=== PATIENT | female | born 1965 | race American Indian/Alaskan Native ===

== ENCOUNTER 2020-08-16 16:34 | Emergency (ER) | payer MEDICARE ==
[2020-08-16] MEDS ORDERED: hydrALAZINE 100 MG TAB PO ONE (17:25)
[2020-08-16] MEDS ORDERED: HYDROcodone/ACETAMINOPHEN 5-325 MG TAB PO ONE (17:25)
[2020-08-16 17:45] LABS: Basophils # (Auto) 0.1 K/mm3 (0.0-0.1); Basophils % (Auto) 0.9 % (0.0-1.8); Eosinophils # (Auto) 0.1 K/mm3 (0.0-0.4); Eosinophils % (Auto) 1.6 % (0.0-4.3); Hematocrit 37.4 % (30.3-42.9); Hemoglobin 12.8 gm/dl (10.1-14.3); Lymphocytes # (Auto) 2.9 K/mm3 (1.2-5.4); Lymphocytes % (Auto) 32.3 % (13.4-35.0); Mean Corpuscular HGB Conc 34 % (30-34); Mean Corpuscular Volume 89 fl (79-97); Monocytes # (Auto) 0.4 K/mm3 (0.0-0.8); Monocytes % (Auto) 4.5 % (0.0-7.3); Platelet Count 255 K/mm3 (140-440); Red Blood Count 4.23 M/mm3 (3.65-5.03); Red Cell Distribution Width 14.8 % (13.2-15.2)
[2020-08-16 18:03] LABS: Bacteria,Urine 1+ /HPF (Negative); Bilirubin,Urine NEG (Negative); Blood,Urine NEG (Negative); Color,Urine Yellow (Yellow); Mucus,Urine 1+ /HPF; Protein,Urine <15 mg/dL mg/dL (Negative)
[2020-08-16 18:07] LABS: Alanine Aminotransferase 13 units/L (7-56); Albumin 3.7 g/dL (3.9-5); BUN/Creatinine Ratio 17; Blood Urea Nitrogen 10 mg/dL (7-17); Calcium 8.8 mg/dL (8.4-10.2); Hemolysis Index 35
--- NOTE | 2020-08-16 18:08 | XRay Report ---
CHEST PA AND LATERAL VIEWS INDICATION: SOB, HTN urgency. COMPARISON: None. FINDINGS: Support devices: None. Heart: Within normal limits. Lungs/Pleura: No acute pulmonary or pleural findings. IMPRESSION: 1. No acute findings. Signer Name: Carlos Alberto Ramos MD Signed: 08/16/2020 6:04 PM Workstation Name: [id number]
--- NOTE | 2020-08-16 18:24 | Cat Scan Report ---
CT head/brain wo con INDICATION / CLINICAL INFORMATION: 55 years Female; frontal mo, blurry vision, HTN urgency, hx of CVA. TECHNIQUE: Routine CT head without contrast. All CT scans at this location are performed using CT dos e reduction for ALARA by means of automated exposure control. COMPARISON: None. FINDINGS: BRAIN / INTRACRANIAL CONTENTS: There is extensive encephalomalacia involving right frontal lobe as we ll as the right insular region and basal ganglia most consistent with old infarct. Is also include th e medial component involving both the anterior and middle cerebral artery territories. There is assoc iated ex vacuo dilatation of the right lateral ventricle. There is otherwise moderate cerebral white matter disease which includes the left gangliocapsular reg ion at. There is no clear CT evidence of acute intracranial hemorrhage. ORBITS: There is metallic foreign body projected along the left premaxillary soft tissues. The visual ized orbits appear unremarkable. SINUSES / MASTOIDS: No significant abnormality in the visualized paranasal sinuses or mastoid air yaneli ls. CRANIOCERVICAL JUNCTION: No significant abnormality. ADDITIONAL FINDINGS: None. IMPRESSION: 1. There are old infarcts involving the right MCA and LIBIA distributions with encephalomalacia as deta iled above. 2. There is no clear CT evidence of acute intracranial hemorrhage. Signer Name: Blake Bunn MD Signed: 08/16/2020 6:19 PM Workstation Name: [id number]
[2020-08-16] MEDS ORDERED: ONDANSETRON 4 MG ODT TAB ONE (19:15)
[2020-08-16] MEDS ORDERED: ONDANSETRON 4 MG ODT TAB PO ONE (19:16)
--- NOTE | 2020-08-16 19:16 | Emergency Department Report ---
ED General Adult HPI - General Chief complaint: High BP Stated complaint: HBP Time Seen by Provider: 08/16/20 16:55 Source: patient, EMS Mode of arrival: Wheelchair Limitations: No Limitations - History of Present Illness Initial comments: Patient is a 55-year-old female presents emergency room complaints of hypertension that occurred today while she was at a primary care visit. She states that she went just for a regular physical and was advised that her blood pressure was elevated and she need to be seen in the emergency room. She states that she has not taken her blood pressure medication in 3 days. She is supposed to be taking lisinopril 20 mg and hydrochlorothiazide 25 mg. She states that since not taking her blood pressure medication she has had a frontal headache and some mild blurry vision but denies any vision loss. She states that she is also been having some mild shortness of breath with exertion. She denies any chest pain, pleuritic chest pain, leg swelling, acute numbness, acute weakness, fever, cough, vomiting, diarrhea. She has a past medical history of hypertension, hyperlipidemia, CVA in 2018 with chronic left-sided deficits. She walks with a cane. She is unable to use the left arm secondary to her previous stroke. She denies any worsening numbness or weakness. No allergies to medications. Severity scale (0 -10): 9 - Related Data Previous Rx's Medication Instructions Recorded Last Taken Type Ibuprofen [Motrin] 600 mg PO Q8H PRN #20 tablet 06/01/18 Unknown Rx traMADoL [Ultram] 50 mg PO Q6HR PRN #10 tablet 06/01/18 Unknown Rx Cyclobenzaprine [Flexeril] 10 mg PO BID PRN #14 tablet 08/16/20 Unknown Rx Naproxen [EC-Naprosyn] 500 mg PO BID PRN #20 tablet. 08/16/20 Unknown Rx cephALEXin [Keflex] 500 mg PO BID 7 Days #14 capsule 08/16/20 Unknown Rx hydroCHLOROthiazide [HCTZ] 25 mg PO QDAY #30 tablet 08/16/20 Unknown Rx lisinopriL [Lisinopril] 20 mg PO DAILY #30 tablet 08/16/20 Unknown Rx Allergies Allergy/AdvReac Type Severity Reaction Status Date / Time No Known Allergies Allergy Unverified 06/01/18 15:21 ED Review of Systems ROS: Stated complaint: HBP Other details as noted in HPI Comment: All other systems reviewed and negative ED Past Medical Hx - Past Medical History Previous Medical History?: Yes Hx Hypertension: Yes Hx CVA: Yes (left sided weakness) - Social History Smoking Status: Current Every Day Smoker Substance Use Type: Alcohol, Prescribed - Medications Home Medications: Home Medications Medication Instructions Recorded Confirmed Last Taken Type Ibuprofen [Motrin] 600 mg PO Q8H PRN #20 tablet 06/01/18 Unknown Rx traMADoL [Ultram] 50 mg PO Q6HR PRN #10 tablet 06/01/18 Unknown Rx Cyclobenzaprine [Flexeril] 10 mg PO BID PRN #14 tablet 08/16/20 Unknown Rx Naproxen [EC-Naprosyn] 500 mg PO BID PRN #20 tablet.dr 08/16/20 Unknown Rx cephALEXin [Keflex] 500 mg PO BID 7 Days #14 capsule 08/16/20 Unknown Rx hydroCHLOROthiazide [HCTZ] 25 mg PO QDAY #30 tablet 08/16/20 Unknown Rx lisinopriL [Lisinopril] 20 mg PO DAILY #30 tablet 08/16/20 Unknown Rx ED Physical Exam - General Limitations: No Limitations General appearance: alert, in no apparent distress - Head Head exam: Present: atraumatic, normocephalic - Eye Eye exam: Present: PERRL, EOMI, other (cataracts bilaterally). Absent: periorbital swelling, periorbital tenderness Pupils: Present: normal accommodation - ENT ENT exam: Present: mucous membranes moist - Respiratory Respiratory exam: Present: normal lung sounds bilaterally. Absent: respiratory distress, wheezes, rales, rhonchi, stridor, chest wall tenderness, accessory muscle use, decreased breath sounds, prolonged expiratory - Cardiovascular Cardiovascular Exam: Present: regular rate, normal rhythm, normal heart sounds. Absent: systolic murmur, diastolic murmur, rubs, gallop - Neurological Exam Neurological exam: Present: alert, oriented X3, CN II-XII intact, other (chronic left arm weakness, normal strength and sensation in the RUE/RLE/LLE) - Psychiatric Psychiatric exam: Present: normal affect, normal mood - Skin Skin exam: Present: warm, dry, intact ED Course Vital Signs 08/16/20 08/16/20 08/16/20 16:53 17:33 18:33 Temperature 98 F Pulse Rate 81 Respiratory 16 18 18 Rate Blood Pressure 187/110 [Right] O2 Sat by Pulse 100 Oximetry 08/16/20 08/16/20 20:14 20:15 Temperature Pulse Rate 89 89 Respiratory Rate Blood Pressure 143/84 143/84 [Right] O2 Sat by Pulse Oximetry ED Medical Decision Making - Lab Data Result diagrams: 08/16/20 17:33 08/16/20 17:23 Lab Results 08/16/20 08/16/20 08/16/20 Range/Units 17:23 17:33 Unknown WBC 9.1 (4.5-11.0) K/mm3 RBC 4.23 (3.65-5.03) M/mm3 Hgb 12.8 (10.1-14.3) gm/dl Hct 37.4 (30.3-42.9) % MCV 89 (79-97) fl MCH 30 (28-32) pg MCHC 34 (30-34) % RDW 14.8 (13.2-15.2) % Plt Count 255 (140-440) K/mm3 Lymph % (Auto) 32.3 (13.4-35.0) % [place] % (Auto) 4.5 (0.0-7.3) % Eos % (Auto) 1.6 (0.0-4.3) % Baso % (Auto) 0.9 (0.0-1.8) % Lymph # (Auto) 2.9 (1.2-5.4) K/mm3 [place] # (Auto) 0.4 (0.0-0.8) K/mm3 Eos # (Auto) 0.1 (0.0-0.4) K/mm3 Baso # (Auto) 0.1 (0.0-0.1) K/mm3 Seg Neutrophils % 60.7 (40.0-70.0) % Seg Neutrophils # 5.5 (1.8-7.7) K/mm3 Sodium 138 (137-145) mmol/L Potassium 3.9 (3.6-5.0) mmol/L Chloride 103.0 (98-107) mmol/L Carbon Dioxide 25 (22-30) mmol/L Anion Gap 14 mmol/L BUN 10 (7-17) mg/dL Creatinine 0.6 (0.6-1.2) mg/dL Estimated GFR > 60 ml/min BUN/Creatinine Ratio 17 % Glucose 95 (65-100) mg/dL Calcium 8.8 (8.4-10.2) mg/dL Total Bilirubin 0.30 (0.1-1.2) mg/dL AST 15 (5-40) units/L ALT 13 (7-56) units/L Alkaline Phosphatase 114 (35-129) units/L Troponin T < 0.010 (0.00-0.029) ng/mL NT-Pro-B Natriuret Pep 160.2 (0-900) pg/mL Total Protein 7.2 (6.3-8.2) g/dL Albumin 3.7 L (3.9-5) g/dL Albumin/Globulin Ratio 1.1 % Urine Color Yellow (Yellow) Urine Turbidity Slightly-cloudy (Clear) Urine pH 6.0 (5.0-7.0) Ur Specific [place] 1.025 (1.003-1.030) Urine Protein <15 mg/dl (Negative) mg/dL Urine Glucose (UA) Neg (Negative) mg/dL Urine Ketones Neg (Negative) mg/dL Urine Blood Neg (Negative) Urine Nitrite Neg (Negative) Urine Bilirubin Neg (Negative) Urine Urobilinogen 4.0 (<2.0) mg/dL Ur Leukocyte Esterase Sm (Negative) Urine WBC (Auto) 30.0 H (0.0-6.0) /HPF Urine RBC (Auto) 15.0 (0.0-6.0) /HPF U Epithel Cells (Auto) 10.0 (0-13.0) /HPF Urine Bacteria (Auto) 1+ (Negative) /HPF Urine Mucus 1+ /HPF - EKG Data EKG shows normal: sinus rhythm, intervals, QRS complexes Rate: normal - EKG Data 08/16/20 21:17 LAD No STEMI - Radiology Data Radiology results: report reviewed Ordering Physician: AUBREE JOVEL Date of Service: 08/16/20 Procedure(s): CT head/brain wo con Accession Number(s): [id number] cc: AUBREE JOVEL CT head/brain wo con INDICATION / CLINICAL INFORMATION: 55 years Female; frontal mo, blurry vision, HTN urgency, hx of CVA. TECHNIQUE: Routine CT head without contrast. All CT scans at this location are performed using CT dose reduction for ALARA by means of automated exposure control. COMPARISON: None. FINDINGS: BRAIN / INTRACRANIAL CONTENTS: There is extensive encephalomalacia involving ri ght frontal lobe as well as the right insular region and basal ganglia most consistent with old inf arct. Is also include the medial component involving both the anterior and middle cerebral artery te rritories. There is associated ex vacuo dilatation of the right lateral ventricle. There is otherwise moderate cerebral white matter disease which includes the left gangliocapsular region at. There is no clear CT evidence of acute intracranial hemorrhage. ORBITS: There is metallic foreign body projected along the left premaxillary soft tissues. The visualized orbits appear unremarkable. SINUSES / MASTOIDS: No significant abnormality in the visualized paranasal sinuses or mastoid air cells. CRANIOCERVICAL JUNCTION: No significant abnormality. ADDITIONAL FINDINGS: None. IMPRESSION: 1. There are old infarcts involving the right MCA and LIBIA distributions with e ncephalomalacia as detailed above. 2. There is no clear CT evidence of acute intracranial hemorrhage. Signer Name: Blake Bunn MD Signed: 08/16/2020 6:19 PM Workstation Name: [id number] Transcribed By: MR Dictated By: Blake Bunn MD Electronically Authenticated By: Blake Bunn MD Signed Date/Time: 08/16/201818 DD/ 14 TD/TT: Ordering Physician: AUBREE JOVEL Date of Service: 08/16/20 Procedure(s): XR chest routine 2V Accession Number(s): [id number] cc: AUBREE JOVEL Fluoro Time In Minutes: CHEST PA AND LATERAL VIEWS INDICATION: SOB, HTN urgency. COMPARISON: None. FINDINGS: Support devices: None. Heart: Within normal limits. Lungs/Pleura: No acute pulmonary or pleural findings. IMPRESSION: 1. No acute findings. Signer Name: Carlos Alberto Ramos MD Signed: 08/16/2020 6:04 PM Workstation Name: [id number] Transcribed By: SW Dictated By: Carlos Alberto Ramos MD Electronically Authenticated By: Carlos Alberto Ramos MD Signed Date/Time: 08/16/201803 DD/ 02 TD/TT: Print - Medical Decision Making Patient is a 55-year-old female presents emergency room complaints of hypertension that occurred today while she was at a primary care visit. She states that she went just for a regular physical and was advised that her blood pressure was elevated and she need to be seen in the emergency room. She states that she has not taken her blood pressure medication in 3 days. She is supposed to be taking lisinopril 20 mg and hydrochlorothiazide 25 mg. She states that since not taking her blood pressure medication she has had a frontal headache and some mild blurry vision but denies any vision loss. She states that she is also been having some mild shortness of breath with exertion. She denies any chest pain, pleuritic chest pain, leg swelling, acute numbness, acute weakness, fever, cough, vomiting, diarrhea. She has a past medical history of hypertension, hyperlipidemia, CVA in 2018 with chronic left-sided deficits. She walks with a cane. She is unable to use the left arm secondary to her previous stroke. She denies any worsening numbness or weakness. No allergies to medications. Initial vitals with elevated blood pressure which improved upon hydralazine administration. No acute focal neuro deficits on exam, patient has chronic left sided deficits secondary to a CVA. Labs are normal. Troponin is negative. BNP is normal. Chest x-ray 1. No acute findings. CT head: 1. There are old infarcts involving the right MCA and LIBIA distributions with encephalomalacia as detailed above. 2. There is no clear CT evidence of acute intracranial hemorrhage. EKG without evidence of acute STEMI. UA shows evidence of UTI. Patient given [place]. Her headache completely resolved. She began to feel nauseous after the [place] as she took it on an empty stomach. Patient was not able to tolerate ODT Zofran, given IM Zofran. Vomiting completely resolved and she was able to tolerate p.o. intake without difficulty. She was feeling much better and ready to go home. Discussed all results with patient. Symptoms appear most consistent with hypertensive urgency. Discussed the importance of follow-up with patient. Patient given a refill of her home medications lisinopril and hctz. given prescription for keflex, naproxen, and flexeril. discussed very strict return precautions in detail with patient. Advised patient Please take medication as prescribed. Increase your water intake. Follow-up with your primary care doctor. Eat a low-sodium diet. Return to emergency room for any new or worsening symptoms. Please keep a blood pressure log and take this to the primary care doctor. Critical care attestation.: If time is entered above; I have spent that time in minutes in the direct care of this critically ill patient, excluding procedure time. ED Disposition Clinical Impression: Hypertensive urgency, SOB (shortness of breath) on exertion, Non compliance w medication regimen Headache Qualifiers: Headache type: unspecified Headache chronicity pattern: acute headache Intractability: not intractable Qualified Code(s): R51.9 - Headache, unspecified UTI (urinary tract infection) Qualifiers: Urinary tract infection type: acute cystitis Hematuria presence: without hematuria Qualified Code(s): N30.00 - Acute cystitis without hematuria Disposition: TO HOME OR SELFCARE Is pt being admited?: No Does the pt Need Aspirin: No Condition: Stable Instructions: Urinary Tract Infection, Adult, Managing Your Hypertension, Hypertension, Adult Additional Instructions: Please take medication as prescribed. Increase your water intake. Follow-up with your primary care doctor. Eat a low-sodium diet. Return to emergency room for any new or worsening symptoms. Please keep a blood pressure log and take this to the primary care doctor. Prescriptions: Naproxen [EC-Naprosyn] 500 mg PO BID PRN #20 tablet. PRN Reason: pain Cyclobenzaprine [Flexeril] 10 mg PO BID PRN #14 tablet PRN Reason: pain hydroCHLOROthiazide [HCTZ] 25 mg PO QDAY #30 tablet cephALEXin [Keflex] 500 mg PO BID 7 Days #14 capsule lisinopriL [Lisinopril] 20 mg PO DAILY #30 tablet Referrals: PRIMARY CAREMD [Primary Care Provider] - 2-3 Days Time of Disposition: 21:01 Print Language: CITIZEN OF [place]
[2020-08-16] MEDS ORDERED: ONDANSETRON 4 MG/2 ML INJ IM ONE (19:37)
[2020-08-16 20:15] VITALS: BP 143/84
== END 2020-08-16 21:31 | disposition home or self-care (01) ==
LOC: ED 16:34
DX: N39.0 Urinary tract infection, site not specified (principal); R51.9 Headache, unspecified; R06.02 Shortness of breath; I16.0 Hypertensive urgency; Z91.14 Patient's other noncompliance with medication regimen; F17.200 Nicotine dependence, unspecified, uncomplicated; Z86.73 Personal history of transient ischemic attack (TIA), and cerebral infarction without residual deficits; Z79.1 Long term (current) use of non-steroidal anti-inflammatories (NSAID); Z79.899 Other long term (current) drug therapy
CPT/HCPCS: 36415; 70450; 71046; 80053; 81001; 83880; 84484; 85025; 87086; 93005; 96372; 99285; J2405; Q0162

== ENCOUNTER 2020-11-21 19:15 | Emergency (ER) | payer MEDICARE ==
[2020-11-21 21:43] VITALS: BP 188/124
[2020-11-21 22:19] LABS: Basophils # (Auto) 0.1 K/mm3 (0.0-0.1); Basophils % (Auto) 1.1 % (0.0-1.8); Eosinophils # (Auto) 0.2 K/mm3 (0.0-0.4); Eosinophils % (Auto) 2.1 % (0.0-4.3); Hemoglobin 13.9 gm/dl (10.1-14.3); Lymphocytes # (Auto) 2.7 K/mm3 (1.2-5.4); Lymphocytes % (Auto) 30.7 % (13.4-35.0); Mean Corpuscular HGB Conc 34 % (30-34); Mean Corpuscular Volume 88 fl (79-97); Monocytes # (Auto) 0.3 K/mm3 (0.0-0.8); Monocytes % (Auto) 3.7 % (0.0-7.3); Platelet Count 271 K/mm3 (140-440); Red Blood Count 4.66 M/mm3 (3.65-5.03); Red Cell Distribution Width 14.6 % (13.2-15.2)
[2020-11-21 22:26] LABS: Alanine Aminotransferase 12 units/L (7-56); BUN/Creatinine Ratio 18; Blood Urea Nitrogen 16 mg/dL (7-17); Calcium 9.8 mg/dL (8.4-10.2); Hemolysis Index 6
--- NOTE | 2020-11-21 22:55 | XRay Report ---
CHEST 2 VIEWS, 11/21/2020 10:15 PM INDICATION: Shortness of breath COMPARISON: Chest radiograph, 08/16/2020 FINDINGS: Support devices: None. Heart: The cardiac silhouette is normal in size. Lungs/pleura: Mildly prominent interstitial markings are noted likely related to low lung volumes and poor inspiratory effort. No focal consolidation or significant pleural effusion is visualized. Additional findings: No significant acute abnormality. IMPRESSION: 1. No evidence of acute cardiopulmonary process. Signer Name: Pamela Bowden MD Signed: 11/21/2020 10:51 PM Workstation Name: [id number]
--- NOTE | 2020-11-22 15:01 | Electrocardiograph Report ---
[facility] Test Date: 2020-11-21 Test Time: 21:55:21 Pat Name: HORACE LEO Department: Room: Gender: F String Studies Director: DC : 1965 Requested By: ED DOC Order Number: [id number] Reading MD: Benjamín Leon Measurements Intervals [place] Rate: 84 P: 43 MN: 171 QRS: -34 QRSD: 78 T: 48 QT: 375 QTc: 444 Interpretive Statements Sinus rhythm Inferior infarct, old No previous ECG available for comparison Electronically Signed On 11-22-2020 15:01:18 EDT by Benjamín Leon
== END 2020-11-21 21:41 ==
LOC: ED 19:15
DX: R06.00 Dyspnea, unspecified (principal); Z53.21 Procedure and treatment not carried out due to patient leaving prior to being seen by health care provider
CPT/HCPCS: 36415; 71046; 80053; 83880; 84484; 85025; 93005

== ENCOUNTER 2020-12-04 07:04 | Inpatient (IN) | payer MEDICARE ==
--- NOTE | 2020-12-04 08:03 | Emergency Department Report ---
HPI - General Chief Complaint: Neuro Symptoms/Deficit Time Seen by Provider: 12/04/20 07:28 - HPI HPI: This is a 55-year-old -[place] female who presents to the emergency department via EMS from home with complaint of a 2-week history of some right upper extremity weakness, worse than the hand. The patient says that she had two different falls about 2 weeks ago. She also feels that there has been some slight change in her speech since that time. She denies any headache, vision change, numbness, fever, chest pain, shortness of breath. When asked why she waited so long to come in to be seen, the patient says "I thought that I was fine", but the patient's sister made her realize that she needed to be evaluated. She is a tobacco smoker. She has a past medical history of hypertension, CHF, and she has a previous stroke in 2007 that caused her to have residual left-sided weakness. The patient also says that she has a history of a brain aneurysm. She does not know if it was coiled or what type of surgical intervention occurred other than "they took six blood clots off my brain." ED Past Medical Hx - Past Medical History Hx Hypertension: Yes Hx CVA: Yes (left sided weakness) Hx Congestive Heart Failure: Yes Additional medical history: cataracts - Social History Smoking Status: Current Every Day Smoker - Medications Home Medications: Home Medications Medication Instructions Recorded Confirmed Last Taken Type hydroCHLOROthiazide [HCTZ] 25 mg PO QDAY #30 tablet 08/16/20 12/04/20 Unknown Rx carvediloL [Coreg] 6.25 mg PO BID 12/04/20 12/04/20 Unknown History lisinopriL [Lisinopril] 20 mg PO QDAY 12/04/20 12/04/20 Unknown History ED Review of Systems ROS: Stated complaint: RT SIDED WEAKNESS Other details as noted in HPI Comment: All other systems reviewed and negative Constitutional: denies: chills, fever Eyes: denies: eye pain, vision change ENT: denies: ear pain, throat pain Respiratory: denies: cough, shortness of breath Cardiovascular: denies: chest pain, palpitations Gastrointestinal: denies: abdominal pain, vomiting Genitourinary: denies: dysuria, discharge Musculoskeletal: denies: back pain, arthralgia Skin: denies: rash, lesions Neurological: weakness (Right upper extremity), other (Difficulty with speech). denies: headache Physical Exam - Physical Exam Vital Signs: Vital Signs 12/04/20 07:27 Temperature 97.6 F Pulse Rate 89 Respiratory 19 Rate Blood Pressure 151/99 [Right] O2 Sat by Pulse 100 Oximetry Physical Exam: GENERAL: The patient is well-developed well-nourished. HENT: Normocephalic. Atraumatic. Patient has moist mucous membranes. EYES: Extraocular motions are intact. Pupils equal reactive to light bilaterally. No nystagmus. NECK: Supple. Trachea is midline. CHEST/LUNGS: Clear to auscultation. There is no respiratory distress noted. HEART/CARDIOVASCULAR: Regular. There is no tachycardia. There is no murmur. ABDOMEN: Abdomen is soft, nontender. Patient has normal bowel sounds. There is no abdominal distention. SKIN: Skin is warm and dry. NEURO: The patient is awake, alert, and oriented. The patient is cooperative. No slurred speech. Cranial nerves II through XII appear grossly intact. Left upper extremity is contracted against the body. There is some mild left lower extremity weakness with leg extension off of the gurney. Mild weakness in the distal right upper extremity. MUSCULOSKELETAL: Contracted left upper extremity. Radial pulse +2/4 and capillary refill less than 2 seconds to the bilateral upper extremities. ED Course Vital Signs 12/04/20 07:27 Temperature 97.6 F Pulse Rate 89 Respiratory 19 Rate Blood Pressure 151/99 [Right] O2 Sat by Pulse 100 Oximetry ED Medical Decision Making - Lab Data Result diagrams: 12/04/20 08:58 12/04/20 08:58 Lab Results 12/04/20 12/04/20 12/04/20 Range/Units 08:58 08:58 08:58 WBC 8.2 (4.5-11.0) K/mm3 RBC 4.56 (3.65-5.03) M/mm3 Hgb 13.9 (10.1-14.3) gm/dl Hct 40.7 (30.3-42.9) % MCV 89 (79-97) fl MCH 31 (28-32) pg MCHC 34 (30-34) % RDW 15.0 (13.2-15.2) % Plt Count 242 (140-440) K/mm3 Lymph % (Auto) 32.9 (13.4-35.0) % [place] % (Auto) 5.3 (0.0-7.3) % Eos % (Auto) 2.1 (0.0-4.3) % Baso % (Auto) 1.1 (0.0-1.8) % Lymph # (Auto) 2.7 (1.2-5.4) K/mm3 [place] # (Auto) 0.4 (0.0-0.8) K/mm3 Eos # (Auto) 0.2 (0.0-0.4) K/mm3 Baso # (Auto) 0.1 (0.0-0.1) K/mm3 Seg Neutrophils % 58.6 (40.0-70.0) % Seg Neutrophils # 4.8 (1.8-7.7) K/mm3 PT 13.8 (12.2-14.9) Sec. INR 1.00 (0.87-1.13) APTT 32.5 (24.2-36.6) Sec. Sodium 134 L (137-145) mmol/L Potassium 4.2 (3.6-5.0) mmol/L Chloride 98.9 (98-107) mmol/L Carbon Dioxide 24 (22-30) mmol/L Anion Gap 15 mmol/L BUN 14 (7-17) mg/dL Creatinine 0.8 (0.6-1.2) mg/dL Estimated GFR > 60 ml/min BUN/Creatinine Ratio 18 % Glucose 98 (65-100) mg/dL POC Glucose (70-105) mg/dL Calcium 9.4 (8.4-10.2) mg/dL Total Bilirubin 0.40 (0.1-1.2) mg/dL AST 27 (5-40) units/L ALT 30 (7-56) units/L Alkaline Phosphatase 126 (35-129) units/L Troponin T < 0.010 (0.00-0.029) ng/mL Total Protein 7.9 (6.3-8.2) g/dL Albumin 3.5 L (3.9-5) g/dL Albumin/Globulin Ratio 0.8 % TSH (0.270-4.200) mlU/mL 12/04/20 12/04/20 Range/Units 08:58 09:54 WBC (4.5-11.0) K/mm3 RBC (3.65-5.03) M/mm3 Hgb (10.1-14.3) gm/dl Hct (30.3-42.9) % MCV (79-97) fl MCH (28-32) pg MCHC (30-34) % RDW (13.2-15.2) % Plt Count (140-440) K/mm3 Lymph % (Auto) (13.4-35.0) % [place] % (Auto) (0.0-7.3) % Eos % (Auto) (0.0-4.3) % Baso % (Auto) (0.0-1.8) % Lymph # (Auto) (1.2-5.4) K/mm3 [place] # (Auto) (0.0-0.8) K/mm3 Eos # (Auto) (0.0-0.4) K/mm3 Baso # (Auto) (0.0-0.1) K/mm3 Seg Neutrophils % (40.0-70.0) % Seg Neutrophils # (1.8-7.7) K/mm3 PT (12.2-14.9) Sec. INR (0.87-1.13) APTT (24.2-36.6) Sec. Sodium (137-145) mmol/L Potassium (3.6-5.0) mmol/L Chloride (98-107) mmol/L Carbon Dioxide (22-30) mmol/L Anion Gap mmol/L BUN (7-17) mg/dL Creatinine (0.6-1.2) mg/dL Estimated GFR ml/min BUN/Creatinine Ratio % Glucose (65-100) mg/dL POC Glucose 97 (70-105) mg/dL Calcium (8.4-10.2) mg/dL Total Bilirubin (0.1-1.2) mg/dL AST (5-40) units/L ALT (7-56) units/L Alkaline Phosphatase (35-129) units/L Troponin T (0.00-0.029) ng/mL Total Protein (6.3-8.2) g/dL Albumin (3.9-5) g/dL Albumin/Globulin Ratio % TSH 1.370 (0.270-4.200) mlU/mL - EKG Data -: EKG Interpreted by Tn EKG shows normal: sinus rhythm, axis (Left axis deviation), intervals, QRS complexes (Q waves to the anteroseptal and inferior leads, LVH), ST-T waves Rate: normal - EKG Data When compared to previous EKG there are: no significant change Interpretation: unchanged when compared t (11/21/20) - Radiology Data Radiology results: report reviewed CT HEAD WITHOUT CONTRAST INDICATION / CLINICAL INFORMATION: Stroke-Like symptoms x 2 weeks. TECHNIQUE: All CT scans at this location are performed using CT dose reduction for ALARA by means of automated exposure control. COMPARISON: Head CT 08/16/2020 FINDINGS: HEMORRHAGE: None. EXTRA-AXIAL SPACES: Normal in size and morphology for the patient's age. VENTRICULAR SYSTEM: Normal in size and morphology for the patient's age. CEREBRAL PARENCHYMA: Extensive chronic encephalomalacia involving right frontal lobe, right insular region and basal ganglia with ex vacuo dilatation of right lateral ventricle frontal horn, unchanged. Moderate microangiopathy again noted. No significant abnormality. No acute territorial infarct. MIDLINE SHIFT OR HERNIATION: None. CEREBELLUM / BRAINSTEM: No significant abnormality. ORBITS: Normal as visualized. SOFT TISSUES of HEAD: No significant abnormality. CALVARIUM: No significant abnormality. PARANASAL SINUSES / MASTOID AIR CELLS: Normal as visualized. ADDITIONAL FINDINGS: None. IMPRESSION: 1. No intracranial bleed or large acute territorial infarction 2. Old right MCA/LIBIA infarct and moderate microangiopathy again noted - Medical Decision Making This patient presents to the emergency department with a complaint of some right upper extremity weakness, some difficulty with her speech, and 2 episodes of falling, that started about [address] of the head without contrast does not show any hemorrhage, large vessel occlusion, or any other acute process. Patient was seen by the telemedicine neurologist, Dr. Rosado, who gave the patient an NIH of 8 and recommends admission for stroke work-up including MRI. Labs have been mostly unremarkable including CBC, metabolic panel, negative troponin, normal thyroid function. EKG did not have any morphology consistent ST elevation myocardial infarction. Vital signs have been reassuring throughout her ED course thus far including being afebrile. Patient will be admitted to the hospital for further evaluation and treatment and was accepted for admission by the hospitalist, Dr. Bardales. Critical Care Time: No Critical care attestation.: If time is entered above; I have spent that time in minutes in the direct care of this critically ill patient, excluding procedure time. ED Disposition Clinical Impression: Right sided weakness CVA (cerebral vascular accident) Qualifiers: CVA mechanism: unspecified Qualified Code(s): I63.9 - Cerebral infarction, unspecified Hypertension Qualifiers: Hypertension type: essential hypertension Qualified Code(s): I10 - Essential (primary) hypertension Disposition: OP ADMIT IP TO THIS HOSP Is pt being admited?: Yes Condition: Serious Time of Disposition: 10:15
--- NOTE | 2020-12-04 09:09 | Cat Scan Report ---
CT HEAD WITHOUT CONTRAST INDICATION / CLINICAL INFORMATION: Stroke-Like symptoms x 2 weeks. TECHNIQUE: All CT scans at this location are performed using CT dose reduction for ALARA by means of automated e xposure control. COMPARISON: Head CT 08/16/2020 FINDINGS: HEMORRHAGE: None. EXTRA-AXIAL SPACES: Normal in size and morphology for the patient's age. VENTRICULAR SYSTEM: Normal in size and morphology for the patient's age. CEREBRAL PARENCHYMA: Extensive chronic encephalomalacia involving right frontal lobe, right insular r egion and basal ganglia with ex vacuo dilatation of right lateral ventricle frontal horn, unchanged. Moderate microangiopathy again noted. No significant abnormality. No acute territorial infarct. MIDLINE SHIFT OR HERNIATION: None. CEREBELLUM / BRAINSTEM: No significant abnormality. ORBITS: Normal as visualized. SOFT TISSUES of HEAD: No significant abnormality. CALVARIUM: No significant abnormality. PARANASAL SINUSES / MASTOID AIR CELLS: Normal as visualized. ADDITIONAL FINDINGS: None. IMPRESSION: 1. No intracranial bleed or large acute territorial infarction 2. Old right MCA/LIBIA infarct and moderate microangiopathy again noted Signer Name: Ambrosio Patel MD Signed: 12/04/2020 9:05 AM Workstation Name: [id number]
[2020-12-04 09:48] LABS: Basophils # (Auto) 0.1 K/mm3 (0.0-0.1); Basophils % (Auto) 1.1 % (0.0-1.8); Eosinophils # (Auto) 0.2 K/mm3 (0.0-0.4); Eosinophils % (Auto) 2.1 % (0.0-4.3); Hematocrit 40.7 % (30.3-42.9); Hemoglobin 13.9 gm/dl (10.1-14.3); Lymphocytes # (Auto) 2.7 K/mm3 (1.2-5.4); Lymphocytes % (Auto) 32.9 % (13.4-35.0); Mean Corpuscular HGB Conc 34 % (30-34); Mean Corpuscular Volume 89 fl (79-97); Monocytes # (Auto) 0.4 K/mm3 (0.0-0.8); Monocytes % (Auto) 5.3 % (0.0-7.3); Platelet Count 242 K/mm3 (140-440); Red Blood Count 4.56 M/mm3 (3.65-5.03)
--- NOTE | 2020-12-04 10:04 | Consultation ---
History of Present Illness Consult date: 12/04/20 Reason for Consult: Dr. Abernathy Medications and Allergies Allergies Allergy/AdvReac Type Severity Reaction Status Date / Time No Known Allergies Allergy Unverified 06/01/18 15:21 Home Medications Medication Instructions Recorded Confirmed Last Taken Type Ibuprofen [Motrin] 600 mg PO Q8H PRN #20 tablet 06/01/18 Unknown Rx traMADoL [Ultram] 50 mg PO Q6HR PRN #10 tablet 06/01/18 Unknown Rx Cyclobenzaprine [Flexeril] 10 mg PO BID PRN #14 tablet 08/16/20 Unknown Rx Naproxen [EC-Naprosyn] 500 mg PO BID PRN #20 tablet. 08/16/20 Unknown Rx cephALEXin [Keflex] 500 mg PO BID 7 Days #14 capsule 08/16/20 Unknown Rx hydroCHLOROthiazide [HCTZ] 25 mg PO QDAY #30 tablet 08/16/20 Unknown Rx lisinopriL [Lisinopril] 20 mg PO DAILY #30 tablet 08/16/20 Unknown Rx Physical Examination - Vital Signs Vital Signs: Vital Signs Temp Pulse Resp BP Pulse Ox 97.6 F 89 19 151/99 100 12/04/20 07:27 12/04/20 07:27 12/04/20 07:27 12/04/20 07:27 12/04/20 07:27 Results - Laboratory Findings CBC and BMP: 12/04/20 08:58 Assessment and Plan [facility] Consult Note # Demographics Consult Type: General Neurology Patient Location: Emergency Room First Name: Maris Last Name: Yaneth Date of : 1965 Age: 55 Gender: Female Time of Initial Page ( Time): 12/04/2020, 09:40 Time of Return Call ( Time): 12/04/2020, 09:41 # HPI History: 55 yo woman with right arm weakness and slurred speech for 2 weeks. History of previous stroke in 2001 with residual left-sided arm weakness. # Scores Time of exam and NIHSS ( Time): 12/04/2020, 09:57 Level of Consciousness 1a: [1] = Not alert; but arousable by minor stim LOC Questions 1b: [0] = Answers both questions correctly LOC Commands 1c: [0] = Performs both tasks correctly Best Gaze 2: [0] = Normal Visual 3: [0] = No visual loss Facial Palsy 4: [1] = Minor paralysis Motor Arm Left 5a: [4] = No movement Motor Arm Right 5b: [0] = No drift Motor Leg Left 6a: [1] = Drift Motor Leg Right 6b: [0] = No drift Limb Ataxia 7: [0] = Absent Sensory 8: [1] = [id number] sensory loss Best Language 9: [0] = No aphasia Dysarthria 10: [0] = Normal Extinction and Inattention 11: [0] = No abnormality NIHSS Total: 8 # Exam SBP: 150 DBP: 101 # PMH-FH-SH Past Medical History: hyperlipidemia hypertension stroke Social History: smoker occasional alcohol Medications: antihypertensive aspirin lipid lowering agent # Data Head CT: no bleed # Assessment Impression: New right-sided numbness and weakness x 2 weeks. # Plan Thrombolytic/Intervention: NOT IV Thrombolytic or IA Intervention Thrombolytic Exclusion: > 4.5 hours Intraarterial Exclusion: other CTA pending Labs: hemoglobin A1c lipid panel Imaging: (urgency: STAT): CT Angiogram Head and CT Angiogram Neck MRI Brain without contrast Imaging: (urgency: routine): MRI Brain without contrast Diagnostic Test: echo with bubble study Therapy/Evaluation: NPO until swallow evaluation PT/OT evaluation speech/swallow consultation Medication: aspirin 81 mg daily DVT Prophylaxis: SCD chemical DVT prophylaxis Other: LDL < 70 telemetry monitoring I have discussed my recommendations with the referring provider Additional Recommendations: Admit for MRI, further workup Disposition: admit
[2020-12-04 10:05] LABS: Alanine Aminotransferase 30 units/L (7-56); Albumin 3.5 g/dL (3.9-5); BUN/Creatinine Ratio 18; Blood Urea Nitrogen 14 mg/dL (7-17); Calcium 9.4 mg/dL (8.4-10.2); Hemolysis Index 22
[2020-12-04 10:07] LABS: Bilirubin,Urine NEG (Negative); Blood,Urine NEG (Negative); Color,Urine Yellow (Yellow); Mucus,Urine FEW /HPF; Protein,Urine <15 mg/dL mg/dL (Negative); Urobilinogen,Urine < 2.0 mg/dL (<2.0)
[2020-12-04 11:23] LABS: Partial Thromboplastin Time 32.5 Sec. (24.2-36.6)
[2020-12-04] MEDS ORDERED: ONDANSETRON 4 MG/2 ML INJ IV PRN (12:57)
[2020-12-04] MEDS ORDERED: ALBUTEROL 2.5 MG/3 ML NEBU IH PRN (12:57)
--- NOTE | 2020-12-04 13:08 | History and Physical Report ---
History of Present Illness Date of examination: 12/04/20 Date of admission: 12/04/20 10:15 Chief complaint: Right upper extremity weakness History of present illness: 55-year-old -[place] female with past medical history of hypertension, CVA, CHF and cataract was brought to the emergency room because of a 2-week history of some right upper extremity weakness, worse than the hand. The patient says that she had two different falls about 2 weeks ago. She also feels that there has been some slight change in her speech since that time. She denies any headache, vision change, numbness, fever, chest pain, shortness of breath. When asked why she waited so long to come in to be seen, the patient says "I thought that I was fine", but the patient's sister made her realize that she needed to be evaluated. She is a tobacco smoker. She has a past medical history of hypertension, CHF, and she has a previous stroke in 2007 that caused her to have residual left-sided weakness. The patient also says that she has a history of a brain aneurysm. She does not know if it was coiled or what type of surgical intervention occurred other than "they took six blood clots off my brain." Initial CT scan of the head shows no acute intracranial bleed or large acute infarction. 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 Patient seen and evaluated by telemetry neurology in the emergency room Past History Past Medical History: heart failure, hypertension, stroke, other (Cataract) Medications and Allergies Allergies Allergy/AdvReac Type Severity Reaction Status Date / Time No Known Allergies Allergy Unverified 06/01/18 15:21 Home Medications Medication Instructions Recorded Confirmed Last Taken Type hydroCHLOROthiazide [HCTZ] 25 mg PO QDAY #30 tablet 08/16/20 12/04/20 Unknown Rx carvediloL [Coreg] 6.25 mg PO BID 12/04/20 12/04/20 Unknown History lisinopriL [Lisinopril] 20 mg PO QDAY 12/04/20 12/04/20 Unknown History Active Meds: Active Medications Acetaminophen (Acetaminophen 325 Mg Tab) 650 mg PO Q4H PRN PRN Reason: Pain MILD(1-3)/Fever >100.5/PASTOR Albuterol (Albuterol 2.5 Mg/3 Ml Nebu) 2.5 mg IH Q4HRT PRN PRN Reason: Shortness Of Breath Albuterol/Ipratropium (Ipratropium/Albuterol Sulfate 3 Ml Ampul.Neb) 1 ampul IH Q6HRT [place]ACK[place]IE Aspirin (Aspirin 325 Mg Tab) 325 mg PO QDAY [facility] Atorvastatin Calcium (Atorvastatin 40 Mg Tab) 40 mg PO QHS [facility] Carvedilol (Carvedilol 6.25 Mg Tab) 6.25 mg PO BID [facility] Famotidine (Famotidine 20 Mg/2 Ml Inj) 20 mg IV BID [facility] Heparin Sodium (Porcine) (Heparin 5,000 Unit/1 Ml Vial) 5,000 unit SUB-Q Q8HR [place] Hydrochlorothiazide (Hydrochlorothiazide 25 Mg Tab) 25 mg PO QDAY [facility] Labetalol HCl (Labetalol 20 Mg/4 Ml Inj) 10 mg IV Q5MIN PRN PRN Reason: to maintain SBP < 180 Lisinopril (Lisinopril 20 Mg Tab) 20 mg PO QDAY [facility] Ondansetron HCl (Ondansetron 4 Mg/2 Ml Inj) 4 mg IV Q8H PRN PRN Reason: Nausea And Vomiting Sodium Chloride (Sodium Chloride 0.9% 10 Ml Flush Syringe) 10 ml IV BID [place] Sodium Chloride (Sodium Chloride 0.9% 10 Ml Flush Syringe) 10 ml IV PRN PRN PRN Reason: LINE FLUSH Sodium Chloride (Sodium Chloride 0.9% 10 Ml Flush Syringe) 10 ml INJ PRN PRN PRN Reason: LINE FLUSH Review of Systems Constitutional: weakness Neurological: weakness Exam - Constitutional Vitals: Temp Pulse Resp BP Pulse Ox 97.6 F 89 17 150/101 98 12/04/20 07:27 12/04/20 12:35 12/04/20 10:30 12/04/20 10:30 12/04/20 10:30 General appearance: Present: no acute distress, well-nourished - EENT Eyes: Present: PERRL ENT: hearing intact, clear oral mucosa - Neck Neck: Present: supple, normal ROM - Respiratory Respiratory effort: normal Respiratory: bilateral: CTA - Cardiovascular Heart Sounds: Present: S1 & S2. Absent: rub, click - Extremities Extremities: pulses symmetrical, No edema Peripheral Pulses: within normal limits - Abdominal General gastrointestinal: Present: soft, non-tender, non-distended, normal bowel sounds Female genitourinary: Present: normal - Integumentary Integumentary: Present: clear, warm, dry - Musculoskeletal Musculoskeletal: gait normal, strength equal bilaterally - Psychiatric Psychiatric: appropriate mood/affect, intact judgment & insight - Neurologic Neurologic: CNII-XII intact, moves all extremities, other (Right upper extremity weakness. Difficulty in speech) HEART Score - HEART Score Troponin: Troponin T < 0.010 ng/mL (0.00-0.029) 12/04/20 08:58 Results - Labs CBC & Chem 7: 12/04/20 08:58 12/04/20 08:58 Labs: Laboratory Last Values WBC 8.2 K/mm3 (4.5-11.0) 12/04/20 08:58 RBC 4.56 M/mm3 (3.65-5.03) 12/04/20 08:58 Hgb 13.9 gm/dl (10.1-14.3) 12/04/20 08:58 Hct 40.7 % (30.3-42.9) 12/04/20 08:58 MCV 89 fl (79-97) 12/04/20 08:58 MCH 31 pg (28-32) 12/04/20 08:58 MCHC 34 % (30-34) 12/04/20 08:58 RDW 15.0 % (13.2-15.2) 12/04/20 08:58 Plt Count 242 K/mm3 (140-440) 12/04/20 08:58 Lymph % (Auto) 32.9 % (13.4-35.0) 12/04/20 08:58 [place] % (Auto) 5.3 % (0.0-7.3) 12/04/20 08:58 Eos % (Auto) 2.1 % (0.0-4.3) 12/04/20 08:58 Baso % (Auto) 1.1 % (0.0-1.8) 12/04/20 08:58 Lymph # (Auto) 2.7 K/mm3 (1.2-5.4) 12/04/20 08:58 [place] # (Auto) 0.4 K/mm3 (0.0-0.8) 12/04/20 08:58 Eos # (Auto) 0.2 K/mm3 (0.0-0.4) 12/04/20 08:58 Baso # (Auto) 0.1 K/mm3 (0.0-0.1) 12/04/20 08:58 Seg Neutrophils % 58.6 % (40.0-70.0) 12/04/20 08:58 Seg Neutrophils # 4.8 K/mm3 (1.8-7.7) 12/04/20 08:58 PT 13.8 Sec. (12.2-14.9) 12/04/20 08:58 INR 1.00 (0.87-1.13) 12/04/20 08:58 APTT 32.5 Sec. (24.2-36.6) 12/04/20 08:58 Sodium 134 mmol/L (137-145) L 12/04/20 08:58 Potassium 4.2 mmol/L (3.6-5.0) 12/04/20 08:58 Chloride 98.9 mmol/L (98-107) 12/04/20 08:58 Carbon Dioxide 24 mmol/L (22-30) 12/04/20 08:58 Anion Gap 15 mmol/L 12/04/20 08:58 BUN 14 mg/dL (7-17) 12/04/20 08:58 Creatinine 0.8 mg/dL (0.6-1.2) 12/04/20 08:58 Estimated GFR > 60 ml/min 12/04/20 08:58 BUN/Creatinine Ratio 18 % 12/04/20 08:58 Glucose 98 mg/dL (65-100) 12/04/20 08:58 POC Glucose 97 mg/dL (70-105) 12/04/20 09:54 Calcium 9.4 mg/dL (8.4-10.2) 12/04/20 08:58 Total Bilirubin 0.40 mg/dL (0.1-1.2) 12/04/20 08:58 AST 27 units/L (5-40) 12/04/20 08:58 ALT 30 units/L (7-56) 12/04/20 08:58 Alkaline Phosphatase 126 units/L (35-129) 12/04/20 08:58 Troponin T < 0.010 ng/mL (0.00-0.029) 12/04/20 08:58 Total Protein 7.9 g/dL (6.3-8.2) 12/04/20 08:58 Albumin 3.5 g/dL (3.9-5) L 12/04/20 08:58 Albumin/Globulin Ratio 0.8 % 12/04/20 08:58 TSH 1.370 mlU/mL (0.270-4.200) 12/04/20 08:58 Urine Color Yellow (Yellow) 12/04/20 Unknown Urine Turbidity Clear (Clear) 12/04/20 Unknown Urine pH 5.0 (5.0-7.0) 12/04/20 Unknown Ur Specific [place] 1.016 (1.003-1.030) 12/04/20 Unknown Urine Protein <15 mg/dl mg/dL (Negative) 12/04/20 Unknown Urine Glucose (UA) Neg mg/dL (Negative) 12/04/20 Unknown Urine Ketones Neg mg/dL (Negative) 12/04/20 Unknown Urine Blood Neg (Negative) 12/04/20 Unknown Urine Nitrite Neg (Negative) 12/04/20 Unknown Urine Bilirubin Neg (Negative) 12/04/20 Unknown Urine Urobilinogen < 2.0 mg/dL (<2.0) 12/04/20 Unknown Ur Leukocyte Esterase Neg (Negative) 12/04/20 Unknown Urine WBC (Auto) 1.0 /HPF (0.0-6.0) 12/04/20 Unknown Urine RBC (Auto) 2.0 /HPF (0.0-6.0) 12/04/20 Unknown U Epithel Cells (Auto) 1.0 /HPF (0-13.0) 12/04/20 Unknown Urine Mucus Few /HPF 12/04/20 Unknown - Imaging and Cardiology CT Scan - head: report reviewed Roberts/IV: Voiding Method External Female Catheter Assessment and Plan VTE prophylaxis?: Chemical Plan of care discussed with patient/family: Yes - Patient Problems (1) CVA (cerebral vascular accident) Current Visit: Yes Status: Acute Plan to address problem: Admit the patient to the medical telemetry. Aspirin 325 mg p.o. daily. Lipitor 40 mg p.o. daily. N.p.o. MRI of the brain with and without contrast MRI of the brain and neck with and without contrast. Echocardiogram. Patient is seen and evaluated by telemetry neurology. Consult neurology if needed in the morning. (2) Right sided weakness Current Visit: Yes Status: Acute Plan to address problem: Aspirin 325 mg p.o. daily. Lipitor 40 mg p.o. daily. N.p.o. MRI of the brain with and without contrast MRI of the brain and neck with and without contrast. Echocardiogram. Patient is seen and evaluated by telemetry neurology. Consult neurology if needed in the morning. (3) CHF (congestive heart failure) Current Visit: Yes Status: Acute Plan to address problem: Stable. Fluid restriction. Continue home medication. Echocardiogram (4) Hypertension Current Visit: Yes Status: Acute Plan to address problem: Patient is on Coreg 6.25 mg p.o. twice daily. Hydrochlorothiazide 25 mg p.o. daily and lisinopril 20 mg p.o. daily. We will monitor the blood pressure closely (5) DVT prophylaxis Current Visit: Yes Status: Acute Plan to address problem: Heparin 5000 units subcu every 8 hours for DVT prophylaxis. Pepcid 20 mg IV every 12 hours for GI prophylaxis. Patient is a full code
[2020-12-04] MEDS: HEPARIN 5,000 UNIT/1 ML VIAL SUB-Q SCH ×2 (13:32→21:58)
[2020-12-04] MEDS: IPRATROPIUM/ALBUTEROL SULFATE 3 ML AMPUL.NEB IH SCH ×2 (16:53→21:12)
[2020-12-04] MEDS: FAMOTIDINE 20 MG/2 ML INJ IV SCH (21:58)
[2020-12-04] MEDS: carvediloL 6.25 MG TAB PO SCH (21:59)
[2020-12-05] MEDS: IPRATROPIUM/ALBUTEROL SULFATE 3 ML AMPUL.NEB IH SCH ×4 (03:01→22:28)
[2020-12-05] MEDS: HEPARIN 5,000 UNIT/1 ML VIAL SUB-Q SCH ×3 (06:20→22:04)
--- NOTE | 2020-12-05 07:39 | Progress Note ---
Assessment and Plan Assessment and plan: 55-year-old -[place] female with past medical history of hypertension, CVA, CHF and cataract was brought to the emergency room because of a 2-week history of some right upper extremity weakness, worse than the hand. The patient says that she had two different falls about 2 weeks ago. She also feels that there has been some slight change in her speech since that time. She denies any headache, vision change, numbness, fever, chest pain, shortness of breath. When asked why she waited so long to come in to be seen, the patient says "I thought that I was fine", but the patient's sister made her realize that she needed to be evaluated. She is a tobacco smoker. She has a past medical history of hypertension, CHF, and she has a previous stroke in 2007 that caused her to have residual left-sided weakness. The patient also says that she has a history of a brain aneurysm. She does not know if it was coiled or what type of surgical intervention occurred other than "they took six blood clots off my brain." Initial CT scan of the head shows no acute intracranial bleed or large acute infarction. 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 Patient seen and evaluated by telemetry neurology in the emergency room 12/05: Awaiting physical therapy evaluation and treat We will obtain records from [place] to further evaluate repair of aneurysm in the brain if clips were used We will start patient on duloxetine for the ears and reevaluate. No evidence of infection at this time noted. Tobacco cessation discussed in detail patient verbalized understanding. Counseling provided for 15-minute Anticipate discharge in a.m. (1) CVA (cerebral vascular accident) Current Visit: Yes Status: Acute Plan to address problem: Admit the patient to the medical telemetry. Aspirin 325 mg p.o. daily. Lipitor 40 mg p.o. daily. N.p.o. MRI of the brain with and without contrast MRI of the brain and neck with and without contrast. Echocardiogram. Patient is seen and evaluated by telemetry neurology. Consult neurology if needed in the morning. (2) Right sided weakness Current Visit: Yes Status: Acute Plan to address problem: Aspirin 325 mg p.o. daily. Lipitor 40 mg p.o. daily. N.p.o. MRI of the brain with and without contrast MRI of the brain and neck with and without contrast. Echocardiogram. Patient is seen and evaluated by telemetry neurology. Consult neurology if needed in the morning. (3) CHF (congestive heart failure) Current Visit: Yes Status: Acute Plan to address problem: Stable. Fluid restriction. Continue home medication. Echocardiogram (4) Hypertension Current Visit: Yes Status: Acute Plan to address problem: Patient is on Coreg 6.25 mg p.o. twice daily. Hydrochlorothiazide 25 mg p.o. daily and lisinopril 20 mg p.o. daily. We will monitor the blood pressure closely (5) nicotine use disorder DVT prophylaxis Current Visit: Yes Status: Acute Plan to address problem: Heparin 5000 units subcu every 8 hours for DVT prophylaxis. Pepcid 20 mg IV every 12 hours for GI prophylaxis. Patient is a full code History Interval history: Patient seen and examined. Still with clenched left fist. Reports to me that her right upper extremity is improving but not at baseline. Also complains of right ear discomfort Hospitalist Physical - Physical exam Narrative exam: General appearance: Present: no acute distress, well-nourished, chronically ill-appearing obese - EENT Eyes: Present: PERRL ENT: hearing intact, clear oral mucosa - Neck Neck: Present: supple, normal ROM - Respiratory Respiratory effort: normal Respiratory: bilateral: CTA - Cardiovascular Heart Sounds: Present: S1 & S2. Absent: rub, click - Extremities Extremities: pulses symmetrical, No edema Peripheral Pulses: within normal limits - Abdominal General gastrointestinal: Present: Large pannus soft, non-tender, non-distended, normal bowel sounds Female genitourinary: Present: normal - Integumentary Integumentary: Present: clear, warm, dry - Musculoskeletal Musculoskeletal: gait normal, strength equal bilaterally - Psychiatric Psychiatric: appropriate mood/affect, intact judgment & insight - Neurologic Neurologic: CNII-XII intact, moves all extremities, other left upper extremity clenched to the chest resistant to movement (Right upper extremity weakness). Normal speech - Constitutional Vitals: Temp Pulse Resp BP Pulse Ox 97.3 F L 82 18 128/76 97 12/05/20 03:43 12/05/20 03:43 12/05/20 03:43 12/05/20 03:43 12/05/20 03:43 General appearance: Present: no acute distress, well-nourished HEART Score - HEART Score Troponin: Troponin T < 0.010 ng/mL (0.00-0.029) 12/04/20 14:20 Results - Labs CBC & Chem 7: 12/04/20 08:58 12/04/20 08:58 Labs: Laboratory Last Values WBC 8.2 K/mm3 (4.5-11.0) 12/04/20 08:58 RBC 4.56 M/mm3 (3.65-5.03) 12/04/20 08:58 Hgb 13.9 gm/dl (10.1-14.3) 12/04/20 08:58 Hct 40.7 % (30.3-42.9) 12/04/20 08:58 MCV 89 fl (79-97) 12/04/20 08:58 MCH 31 pg (28-32) 12/04/20 08:58 MCHC 34 % (30-34) 12/04/20 08:58 RDW 15.0 % (13.2-15.2) 12/04/20 08:58 Plt Count 242 K/mm3 (140-440) 12/04/20 08:58 Lymph % (Auto) 32.9 % (13.4-35.0) 12/04/20 08:58 [place] % (Auto) 5.3 % (0.0-7.3) 12/04/20 08:58 Eos % (Auto) 2.1 % (0.0-4.3) 12/04/20 08:58 Baso % (Auto) 1.1 % (0.0-1.8) 12/04/20 08:58 Lymph # (Auto) 2.7 K/mm3 (1.2-5.4) 12/04/20 08:58 [place] # (Auto) 0.4 K/mm3 (0.0-0.8) 12/04/20 08:58 Eos # (Auto) 0.2 K/mm3 (0.0-0.4) 12/04/20 08:58 Baso # (Auto) 0.1 K/mm3 (0.0-0.1) 12/04/20 08:58 Seg Neutrophils % 58.6 % (40.0-70.0) 12/04/20 08:58 Seg Neutrophils # 4.8 K/mm3 (1.8-7.7) 12/04/20 08:58 PT 13.8 Sec. (12.2-14.9) 12/04/20 08:58 INR 1.00 (0.87-1.13) 12/04/20 08:58 APTT 32.5 Sec. (24.2-36.6) 12/04/20 08:58 Sodium 134 mmol/L (137-145) L 12/04/20 08:58 Potassium 4.2 mmol/L (3.6-5.0) 12/04/20 08:58 Chloride 98.9 mmol/L (98-107) 12/04/20 08:58 Carbon Dioxide 24 mmol/L (22-30) 12/04/20 08:58 Anion Gap 15 mmol/L 12/04/20 08:58 BUN 14 mg/dL (7-17) 12/04/20 08:58 Creatinine 0.8 mg/dL (0.6-1.2) 12/04/20 08:58 Estimated GFR > 60 ml/min 12/04/20 08:58 BUN/Creatinine Ratio 18 % 12/04/20 08:58 Glucose 98 mg/dL (65-100) 12/04/20 08:58 POC Glucose 97 mg/dL (70-105) 12/04/20 09:54 Calcium 9.4 mg/dL (8.4-10.2) 12/04/20 08:58 Total Bilirubin 0.40 mg/dL (0.1-1.2) 12/04/20 08:58 AST 27 units/L (5-40) 12/04/20 08:58 ALT 30 units/L (7-56) 12/04/20 08:58 Alkaline Phosphatase 126 units/L (35-129) 12/04/20 08:58 Troponin T < 0.010 ng/mL (0.00-0.029) 12/04/20 14:20 Total Protein 7.9 g/dL (6.3-8.2) 12/04/20 08:58 Albumin 3.5 g/dL (3.9-5) L 12/04/20 08:58 Albumin/Globulin Ratio 0.8 % 12/04/20 08:58 TSH 1.370 mlU/mL (0.270-4.200) 12/04/20 08:58 Urine Color Yellow (Yellow) 12/04/20 Unknown Urine Turbidity Clear (Clear) 12/04/20 Unknown Urine pH 5.0 (5.0-7.0) 12/04/20 Unknown Ur Specific [place] 1.016 (1.003-1.030) 12/04/20 Unknown Urine Protein <15 mg/dl mg/dL (Negative) 12/04/20 Unknown Urine Glucose (UA) Neg mg/dL (Negative) 12/04/20 Unknown Urine Ketones Neg mg/dL (Negative) 12/04/20 Unknown Urine Blood Neg (Negative) 12/04/20 Unknown Urine Nitrite Neg (Negative) 12/04/20 Unknown Urine Bilirubin Neg (Negative) 12/04/20 Unknown Urine Urobilinogen < 2.0 mg/dL (<2.0) 12/04/20 Unknown Ur Leukocyte Esterase Neg (Negative) 12/04/20 Unknown Urine WBC (Auto) 1.0 /HPF (0.0-6.0) 12/04/20 Unknown Urine RBC (Auto) 2.0 /HPF (0.0-6.0) 12/04/20 Unknown U Epithel Cells (Auto) 1.0 /HPF (0-13.0) 12/04/20 Unknown Urine Mucus Few /HPF 12/04/20 Unknown Roberts/IV: Voiding Method External Female Catheter Active Medications - Current Medications Current Medications: Generic Name Dose Route Start Last Admin Trade Name Freq PRN Reason Stop Dose Admin Acetaminophen 650 mg 12/04/20 12:57 Acetaminophen 325 Mg Tab PO Q4H PRN Pain MILD(1-3)/Fever >100.5/PASTOR Albuterol 2.5 mg 12/04/20 12:57 Albuterol 2.5 Mg/3 Ml Nebu IH Q4HRT PRN Shortness Of Breath Albuterol/Ipratropium 1 ampul 12/04/20 14:00 12/05/20 03:01 Ipratropium/Albuterol Sulfate 3 Ml Ampul.Neb IH Not Given Q6HRT MACKENZIE Aspirin 325 mg 12/05/20 10:00 Aspirin 325 Mg Tab PO QDAY MACKENZIE Atorvastatin Calcium 40 mg 12/04/20 22:00 12/04/20 21:58 Atorvastatin 40 Mg Tab PO 40 mg QHS [facility] Administration Carvedilol 6.25 mg 12/04/20 22:00 12/04/20 21:59 Carvedilol 6.25 Mg Tab PO 6.25 mg BID MACKENZIE Administration Famotidine 20 mg 12/04/20 22:00 12/04/20 21:58 Famotidine 20 Mg/2 Ml Inj IV 20 mg BID MACKENZIE Administration Heparin Sodium (Porcine) 5,000 unit 12/04/20 14:00 12/05/20 06:20 Heparin 5,000 Unit/1 Ml Vial SUB-Q 5,000 unit Q8HR MACKENZIE Administration Hydrochlorothiazide 25 mg 12/05/20 10:00 Hydrochlorothiazide 25 Mg Tab PO QDAY MACKENZIE Labetalol HCl 10 mg 12/04/20 12:57 Labetalol 20 Mg/4 Ml Inj IV Q5MIN PRN to maintain SBP < 180 Lisinopril 20 mg 12/05/20 10:00 Lisinopril 20 Mg Tab PO QDAY MACKENZIE Ondansetron HCl 4 mg 12/04/20 12:57 Ondansetron 4 Mg/2 Ml Inj IV Q8H PRN Nausea And Vomiting Pneumococcal Polyvalent Vaccine 0.5 ml 12/05/20 12:00 Pneumococcal 23 Valent 0.5 Ml Vial IM 12/05/20 12:01 .ONCE ONE Sodium Chloride 10 ml 12/04/20 22:00 12/04/20 21:58 Sodium Chloride 0.9% 10 Ml Flush Syringe IV 10 ml BID MACKENZIE Administration Sodium Chloride 10 ml 12/04/20 12:57 Sodium Chloride 0.9% 10 Ml Flush Syringe IV PRN PRN LINE FLUSH Sodium Chloride 10 ml 12/04/20 12:57 Sodium Chloride 0.9% 10 Ml Flush Syringe IV PRN PRN LINE FLUSH
[2020-12-05] MEDS: LISINOPRIL 20 MG TAB PO SCH (10:14)
[2020-12-05] MEDS: hydroCHLOROthiazide 25 MG TAB PO SCH (10:14)
[2020-12-05] MEDS: ASPIRIN 325 MG TAB PO SCH (10:14)
[2020-12-05] MEDS: FAMOTIDINE 20 MG/2 ML INJ IV SCH (10:15)
[2020-12-05] MEDS: carvediloL 6.25 MG TAB PO SCH ×2 (10:15→22:03)
[2020-12-05] MEDS ORDERED: PNEUMOCOCCAL 23 Valent 0.5 ML VIAL IM ONE (12:00)
--- NOTE | 2020-12-05 13:15 | Electrocardiograph Report ---
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
[2020-12-05 13:17] LABS: Hematocrit 35.2 % (30.3-42.9); Hemoglobin 11.9 gm/dl (10.1-14.3); Mean Corpuscular HGB Conc 34 % (30-34); Mean Corpuscular Volume 87 fl (79-97); Platelet Count 252 K/mm3 (140-440); Red Blood Count 4.02 M/mm3 (3.65-5.03); Red Cell Distribution Width 14.3 % (13.2-15.2)
[2020-12-05] MEDS: CARBAMIDE PEROXIDE 6.5% OTIC DROPS 15 ML AU SCH ×2 (13:57→22:04)
[2020-12-05 14:19] LABS: Total Cells Counted 100
[2020-12-05 14:20] LABS: RBC Morphology Normal
[2020-12-05 14:27] LABS: BUN/Creatinine Ratio 21; Blood Urea Nitrogen 15 mg/dL (7-17); Calcium 9.2 mg/dL (8.4-10.2); Chol/HDL Ratio 4.31 %; HDL Cholesterol 41 mg/dL (40-59); Hemolysis Index 2; LDL Cholesterol,Direct 116 mg/dL (50-130)
[2020-12-05] MEDS: FAMOTIDINE 20 MG TAB PO SCH (22:04)
[2020-12-06] MEDS: IPRATROPIUM/ALBUTEROL SULFATE 3 ML AMPUL.NEB IH SCH ×3 (02:27→20:34)
[2020-12-06] MEDS: HEPARIN 5,000 UNIT/1 ML VIAL SUB-Q SCH ×3 (05:57→21:58)
[2020-12-06] MEDS ORDERED: ALBUTEROL 2.5 MG/3 ML NEBU IH PRN (08:30)
[2020-12-06] MEDS: hydroCHLOROthiazide 25 MG TAB PO SCH (09:02)
[2020-12-06] MEDS: carvediloL 6.25 MG TAB PO SCH ×2 (09:02→21:56)
[2020-12-06] MEDS: FAMOTIDINE 20 MG TAB PO SCH ×2 (09:02→21:56)
[2020-12-06] MEDS: ASPIRIN 325 MG TAB PO SCH (09:02)
[2020-12-06] MEDS: CARBAMIDE PEROXIDE 6.5% OTIC DROPS 15 ML AU SCH ×2 (09:03→21:58)
[2020-12-06] MEDS: LISINOPRIL 20 MG TAB PO SCH (09:03)
--- NOTE | 2020-12-06 09:28 | Progress Note ---
Assessment and Plan Assessment and plan: 55-year-old -[place] female with past medical history of hypertension, CVA, CHF and cataract was brought to the emergency room because of a 2-week history of some right upper extremity weakness, worse than the hand. The patient says that she had two different falls about 2 weeks ago. She also feels that there has been some slight change in her speech since that time. She denies any headache, vision change, numbness, fever, chest pain, shortness of breath. When asked why she waited so long to come in to be seen, the patient says "I thought that I was fine", but the patient's sister made her realize that she needed to be evaluated. She is a tobacco smoker. She has a past medical history of hypertension, CHF, and she has a previous stroke in 2007 that caused her to have residual left-sided weakness. The patient also says that she has a history of a brain aneurysm. She does not know if it was coiled or what type of surgical intervention occurred other than "they took six blood clots off my brain." Initial CT scan of the head shows no acute intracranial bleed or large acute infarction. 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 Patient seen and evaluated by telemetry neurology in the emergency room 12/05: Awaiting physical therapy evaluation and treat We will obtain records from [place] to further evaluate repair of aneurysm in the brain if clips were used We will start patient on duloxetine for the ears and reevaluate. No evidence of infection at this time noted. Tobacco cessation discussed in detail patient verbalized understanding. Counseling provided for 15-minute Anticipate discharge in a.m. 12/06: Patient seen and examined, Clinically improving, ambulating some, ear ache improved. awaiting IRU eval and MRI Brain, continue ASA AND STATIN (1) CVA (cerebral vascular accident) Current Visit: Yes Status: Acute Plan to address problem: Admit the patient to the medical telemetry. Aspirin 325 mg p.o. daily. Lipitor 40 mg p.o. daily. N.p.o. MRI of the brain with and without contrast MRI of the brain and neck with and without contrast. Echocardiogram. Patient is seen and evaluated by telemetry neurology. Consult neurology if needed in the morning. (2) Right sided weakness Current Visit: Yes Status: Acute Plan to address problem: Aspirin 325 mg p.o. daily. Lipitor 40 mg p.o. daily. N.p.o. MRI of the brain with and without contrast MRI of the brain and neck with and without contrast. Echocardiogram. Patient is seen and evaluated by telemetry neurology. Consult neurology if needed in the morning. (3) CHF (congestive heart failure) Current Visit: Yes Status: Acute Plan to address problem: Stable. Fluid restriction. Continue home medication. Echocardiogram (4) Hypertension Current Visit: Yes Status: Acute Plan to address problem: Patient is on Coreg 6.25 mg p.o. twice daily. Hydrochlorothiazide 25 mg p.o. daily and lisinopril 20 mg p.o. daily. We will monitor the blood pressure closely (5) Nicotine use disorder (6) DVT prophylaxis Current Visit: Yes Status: Acute Plan to address problem: Heparin 5000 units subcu every 8 hours for DVT prophylaxis. Pepcid 20 mg IV every 12 hours for GI prophylaxis. Patient is a full code Hospitalist Physical - Constitutional Vitals: Temp Pulse Resp BP Pulse Ox 98.1 F 85 18 153/101 97 12/06/20 07:23 12/06/20 09:03 12/06/20 08:47 12/06/20 09:03 12/06/20 08:47 General appearance: Present: no acute distress, well-nourished HEART Score - HEART Score Troponin: Troponin T < 0.010 ng/mL (0.00-0.029) 12/04/20 14:20 Results - Labs CBC & Chem 7: 12/05/20 13:09 12/05/20 04:00 Labs: Laboratory Last Values WBC 7.6 K/mm3 (4.5-11.0) 12/05/20 13:09 RBC 4.02 M/mm3 (3.65-5.03) 12/05/20 13:09 Hgb 11.9 gm/dl (10.1-14.3) 12/05/20 13:09 Hct 35.2 % (30.3-42.9) 12/05/20 13:09 MCV 87 fl (79-97) 12/05/20 13:09 MCH 30 pg (28-32) 12/05/20 13:09 MCHC 34 % (30-34) 12/05/20 13:09 RDW 14.3 % (13.2-15.2) 12/05/20 13:09 Plt Count 252 K/mm3 (140-440) 12/05/20 13:09 Lymph % (Auto) 32.9 % (13.4-35.0) 12/04/20 08:58 [place] % (Auto) 5.3 % (0.0-7.3) 12/04/20 08:58 Eos % (Auto) 2.1 % (0.0-4.3) 12/04/20 08:58 Baso % (Auto) Recovery Advocate 12/05/20 13:09 Lymph # (Auto) 2.7 K/mm3 (1.2-5.4) 12/04/20 08:58 [place] # (Auto) 0.4 K/mm3 (0.0-0.8) 12/04/20 08:58 Eos # (Auto) 0.2 K/mm3 (0.0-0.4) 12/04/20 08:58 Baso # (Auto) 0.1 K/mm3 (0.0-0.1) 12/04/20 08:58 Add Manual Diff Complete 12/05/20 13:09 Total Counted 100 12/05/20 13:09 Seg Neutrophils % 58.6 % (40.0-70.0) 12/04/20 08:58 Seg Neuts % (Manual) 72.0 % (40.0-70.0) H 12/05/20 13:09 Lymphocytes % (Manual) 22.0 % (13.4-35.0) 12/05/20 13:09 Monocytes % (Manual) 6.0 % (0.0-7.3) 12/05/20 13:09 Nucleated RBC % Not Reportable 12/05/20 13:09 Seg Neutrophils # 4.8 K/mm3 (1.8-7.7) 12/04/20 08:58 Seg Neutrophils # Man 5.5 K/mm3 (1.8-7.7) 12/05/20 13:09 Band Neutrophils # 0.0 K/mm3 12/05/20 13:09 Lymphocytes # (Manual) 1.7 K/mm3 (1.2-5.4) 12/05/20 13:09 Abs React Lymphs (Man) 0.0 K/mm3 12/05/20 13:09 Monocytes # (Manual) 0.5 K/mm3 (0.0-0.8) 12/05/20 13:09 Eosinophils # (Manual) 0.0 K/mm3 (0.0-0.4) 12/05/20 13:09 Basophils # (Manual) 0.0 K/mm3 (0.0-0.1) 12/05/20 13:09 Metamyelocytes # 0.0 K/mm3 12/05/20 13:09 Myelocytes # 0.0 K/mm3 12/05/20 13:09 Promyelocytes # 0.0 K/mm3 12/05/20 13:09 Blast Cells # 0.0 K/mm3 12/05/20 13:09 WBC Morphology Not Reportable 12/05/20 13:09 WBC Morphology TNR 12/05/20 13:09 Hypersegmented Neuts Not Reportable 12/05/20 13:09 Hyposegmented Neuts Not Reportable 12/05/20 13:09 Hypogranular Neuts Not Reportable 12/05/20 13:09 Smudge Cells Not Reportable 12/05/20 13:09 Toxic Granulation Not Reportable 12/05/20 13:09 Toxic Vacuolation Not Reportable 12/05/20 13:09 Dohle Bodies Not Reportable 12/05/20 13:09 Pelger-Huet Anomaly Not Reportable 12/05/20 13:09 Brigida Rods Not Reportable 12/05/20 13:09 Platelet Estimate Not Reportable 12/05/20 13:09 Clumped Platelets Not Reportable 12/05/20 13:09 Plt Clumps, EDTA Not Reportable 12/05/20 13:09 Large Platelets Not Reportable 12/05/20 13:09 Giant Platelets Not Reportable 12/05/20 13:09 Platelet Satelliting Not Reportable 12/05/20 13:09 Plt Morphology Comment Not Reportable 12/05/20 13:09 RBC Morphology Normal 12/05/20 13:09 Dimorphic RBCs Not Reportable 12/05/20 13:09 Polychromasia Not Reportable 12/05/20 13:09 Hypochromasia Not Reportable 12/05/20 13:09 Poikilocytosis Not Reportable 12/05/20 13:09 Anisocytosis Not Reportable 12/05/20 13:09 Microcytosis Not Reportable 12/05/20 13:09 Macrocytosis Not Reportable 12/05/20 13:09 Spherocytes Not Reportable 12/05/20 13:09 Pappenheimer Bodies Not Reportable 12/05/20 13:09 Sickle Cells Not Reportable 12/05/20 13:09 Target Cells Not Reportable 12/05/20 13:09 Tear Drop Cells Not Reportable 12/05/20 13:09 Ovalocytes Not Reportable 12/05/20 13:09 Helmet Cells Not Reportable 12/05/20 13:09 [place] Bodies Not Reportable 12/05/20 13:09 Menan Rings Not Reportable 12/05/20 13:09 Kira Cells Not Reportable 12/05/20 13:09 Bite Cells Not Reportable 12/05/20 13:09 Crenated Cell Not Reportable 12/05/20 13:09 Elliptocytes Not Reportable 12/05/20 13:09 Acanthocytes (Spur) Not Reportable 12/05/20 13:09 Rouleaux Not Reportable 12/05/20 13:09 Hemoglobin C Crystals Not Reportable 12/05/20 13:09 Schistocytes Not Reportable 12/05/20 13:09 Malaria parasites Not Reportable 12/05/20 13:09 Chalo Bodies Not Reportable 12/05/20 13:09 Hem Pathologist Commnt No 12/05/20 13:09 PT 13.8 Sec. (12.2-14.9) 12/04/20 08:58 INR 1.00 (0.87-1.13) 12/04/20 08:58 APTT 32.5 Sec. (24.2-36.6) 12/04/20 08:58 Sodium 136 mmol/L (137-145) L 12/05/20 04:00 Potassium 3.8 mmol/L (3.6-5.0) 12/05/20 04:00 Chloride 100.2 mmol/L (98-107) 12/05/20 04:00 Carbon Dioxide 26 mmol/L (22-30) 12/05/20 04:00 Anion Gap 14 mmol/L 12/05/20 04:00 BUN 15 mg/dL (7-17) 12/05/20 04:00 Creatinine 0.7 mg/dL (0.6-1.2) 12/05/20 04:00 Estimated GFR > 60 ml/min 12/05/20 04:00 BUN/Creatinine Ratio 21 % 12/05/20 04:00 Glucose 101 mg/dL (65-100) H 12/05/20 04:00 POC Glucose 112 mg/dL (70-105) H 12/06/20 07:37 Calcium 9.2 mg/dL (8.4-10.2) 12/05/20 04:00 Total Bilirubin 0.40 mg/dL (0.1-1.2) 12/04/20 08:58 AST 27 units/L (5-40) 12/04/20 08:58 ALT 30 units/L (7-56) 12/04/20 08:58 Alkaline Phosphatase 126 units/L (35-129) 12/04/20 08:58 Troponin T < 0.010 ng/mL (0.00-0.029) 12/04/20 14:20 Total Protein 7.9 g/dL (6.3-8.2) 12/04/20 08:58 Albumin 3.5 g/dL (3.9-5) L 12/04/20 08:58 Albumin/Globulin Ratio 0.8 % 12/04/20 08:58 Triglycerides 160 mg/dL (2-149) H 12/05/20 04:00 Cholesterol 177 mg/dL (50-199) 12/05/20 04:00 LDL Cholesterol Direct 116 mg/dL (50-130) 12/05/20 04:00 HDL Cholesterol 41 mg/dL (40-59) 12/05/20 04:00 Cholesterol/HDL Ratio 4.31 % 12/05/20 04:00 TSH 1.370 mlU/mL (0.270-4.200) 12/04/20 08:58 Urine Color Yellow (Yellow) 12/04/20 Unknown Urine Turbidity Clear (Clear) 12/04/20 Unknown Urine pH 5.0 (5.0-7.0) 12/04/20 Unknown Ur Specific [place] 1.016 (1.003-1.030) 12/04/20 Unknown Urine Protein <15 mg/dl mg/dL (Negative) 12/04/20 Unknown Urine Glucose (UA) Neg mg/dL (Negative) 12/04/20 Unknown Urine Ketones Neg mg/dL (Negative) 12/04/20 Unknown Urine Blood Neg (Negative) 12/04/20 Unknown Urine Nitrite Neg (Negative) 12/04/20 Unknown Urine Bilirubin Neg (Negative) 12/04/20 Unknown Urine Urobilinogen < 2.0 mg/dL (<2.0) 12/04/20 Unknown Ur Leukocyte Esterase Neg (Negative) 12/04/20 Unknown Urine WBC (Auto) 1.0 /HPF (0.0-6.0) 12/04/20 Unknown Urine RBC (Auto) 2.0 /HPF (0.0-6.0) 12/04/20 Unknown U Epithel Cells (Auto) 1.0 /HPF (0-13.0) 12/04/20 Unknown Urine Mucus Few /HPF 12/04/20 Unknown Roberts/IV: Voiding Method External Female Catheter Active Medications - Current Medications Current Medications: Generic Name Dose Route Start Last Admin Trade Name Freq PRN Reason Stop Dose Admin Acetaminophen 650 mg 12/04/20 12:57 Acetaminophen 325 Mg Tab PO Q4H PRN Pain MILD(1-3)/Fever >100.5/PASTOR Albuterol 2.5 mg 12/06/20 08:30 Albuterol 2.5 Mg/3 Ml Nebu IH Q4HRT PRN Shortness Of Breath Albuterol/Ipratropium 1 ampul 12/06/20 20:00 Ipratropium/Albuterol Sulfate 3 Ml Ampul.Neb IH Q12HRT MACKENZIE Aspirin 325 mg 12/05/20 10:00 12/06/20 09:02 Aspirin 325 Mg Tab PO 325 mg QDAY MACKENZIE Administration Atorvastatin Calcium 40 mg 12/04/20 22:00 12/05/20 22:04 Atorvastatin 40 Mg Tab PO 40 mg QHS MACKENZIE Administration Carbamide Peroxide 5 drops 12/05/20 10:00 12/06/20 09:03 Carbamide Peroxide 6.5% Otic Drops 15 Ml AU 5 drops BID MACKENZIE Administration Carvedilol 6.25 mg 12/04/20 22:00 12/06/20 09:02 Carvedilol 6.25 Mg Tab PO 6.25 mg BID MACKENZIE Administration Famotidine 20 mg 12/05/20 22:00 12/06/20 09:02 Famotidine 20 Mg Tab PO 20 mg BID MACKENZIE Administration Heparin Sodium (Porcine) 5,000 unit 12/04/20 14:00 12/06/20 05:57 Heparin 5,000 Unit/1 Ml Vial SUB-Q 5,000 unit Q8HR MACKENZIE Administration Hydrochlorothiazide 25 mg 12/05/20 10:00 12/06/20 09:02 Hydrochlorothiazide 25 Mg Tab PO 25 mg QDAY MACKENZIE Administration Labetalol HCl 10 mg 12/04/20 12:57 Labetalol 20 Mg/4 Ml Inj IV Q5MIN PRN to maintain SBP < 180 Lisinopril 20 mg 12/05/20 10:00 12/06/20 09:03 Lisinopril 20 Mg Tab PO 20 mg QDAY MACKENZIE Administration Ondansetron HCl 4 mg 12/04/20 12:57 Ondansetron 4 Mg/2 Ml Inj IV Q8H PRN Nausea And Vomiting Sodium Chloride 10 ml 12/04/20 22:00 12/06/20 09:03 Sodium Chloride 0.9% 10 Ml Flush Syringe IV 10 ml BID MACKENZIE Administration Sodium Chloride 10 ml 12/04/20 12:57 Sodium Chloride 0.9% 10 Ml Flush Syringe IV PRN PRN LINE FLUSH Sodium Chloride 10 ml 12/04/20 12:57 Sodium Chloride 0.9% 10 Ml Flush Syringe IV PRN PRN LINE FLUSH
[2020-12-06] MEDS: NICOTINE 14 MG/24 HR PATCH TD SCH (12:36)
[2020-12-07] MEDS: HEPARIN 5,000 UNIT/1 ML VIAL SUB-Q SCH ×3 (05:54→21:52)
[2020-12-07] MEDS: IPRATROPIUM/ALBUTEROL SULFATE 3 ML AMPUL.NEB IH SCH ×2 (08:18→20:12)
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
[2020-12-07] MEDS: LISINOPRIL 20 MG TAB PO SCH (10:17)
[2020-12-07] MEDS: NICOTINE 14 MG/24 HR PATCH TD SCH (10:18)
[2020-12-07] MEDS: CARBAMIDE PEROXIDE 6.5% OTIC DROPS 15 ML AU SCH ×2 (10:18→21:59)
[2020-12-07] MEDS: hydroCHLOROthiazide 25 MG TAB PO SCH (10:18)
[2020-12-07] MEDS: FAMOTIDINE 20 MG TAB PO SCH ×2 (10:18→21:50)
[2020-12-07] MEDS: ASPIRIN 325 MG TAB PO SCH (10:18)
[2020-12-07] MEDS: carvediloL 6.25 MG TAB PO SCH ×2 (10:18→21:50)
--- NOTE | 2020-12-07 14:17 | Consultation ---
History of Present Illness Consult date: 12/07/20 Reason for Consult: CVA Chief complaint: Right-sided weakness History of present illness: 55 yo female with htn, hld, stroke w/ left-sided (face/arm/leg) weakness, chf, tobacco abuse, alcohol use, who presents with a 2-week hx of right-sided weakness with 2 falls prior to the right-sided weakness. Patient notes a hea dache and also notes "my neck is stiff." Notes a hx of stiff neck with needing flexeril to help with the neck stiffness. Past History Past Medical History: heart failure, hypertension, stroke, other (Cataract) Medications and Allergies Allergies Allergy/AdvReac Type Severity Reaction Status Date / Time No Known Allergies Allergy Unverified 06/01/18 15:21 Home Medications Medication Instructions Recorded Confirmed Last Taken Type hydroCHLOROthiazide [HCTZ] 25 mg PO QDAY #30 tablet 08/16/20 12/04/20 Unknown Rx carvediloL [Coreg] 6.25 mg PO BID 12/04/20 12/04/20 Unknown History lisinopriL [Lisinopril] 20 mg PO QDAY 12/04/20 12/04/20 Unknown History Active Meds: Active Medications Acetaminophen (Acetaminophen 325 Mg Tab) 650 mg PO Q4H PRN PRN Reason: Pain MILD(1-3)/Fever >100.5/PASTOR Albuterol (Albuterol 2.5 Mg/3 Ml Nebu) 2.5 mg IH Q4HRT PRN PRN Reason: Shortness Of Breath Albuterol/Ipratropium (Ipratropium/Albuterol Sulfate 3 Ml Ampul.Neb) 1 ampul IH Q12HRT [facility] Last Admin: 12/07/20 08:18 Dose: 1 ampul Documented by: Aspirin (Aspirin 325 Mg Tab) 325 mg PO QDAY [facility] Last Admin: 12/07/20 10:18 Dose: 325 mg Documented by: Atorvastatin Calcium (Atorvastatin 40 Mg Tab) 40 mg PO QHS [facility] Last Admin: 12/06/20 21:56 Dose: 40 mg Documented by: Carbamide Peroxide (Carbamide Peroxide 6.5% Otic Drops 15 Ml) 5 drops AU BID [facility] Last Admin: 12/07/20 10:18 Dose: 5 drops Documented by: Carvedilol (Carvedilol 6.25 Mg Tab) 6.25 mg PO BID [facility] Last Admin: 12/07/20 10:18 Dose: 6.25 mg Documented by: Famotidine (Famotidine 20 Mg Tab) 20 mg PO BID [facility] Last Admin: 12/07/20 10:18 Dose: 20 mg Documented by: Heparin Sodium (Porcine) (Heparin 5,000 Unit/1 Ml Vial) 5,000 unit SUB-Q Q8HR [facility] Last Admin: 12/07/20 13:52 Dose: Not Given Documented by: Hydrochlorothiazide (Hydrochlorothiazide 25 Mg Tab) 25 mg PO QDAY [facility] Last Admin: 12/07/20 10:18 Dose: 25 mg Documented by: Labetalol HCl (Labetalol 20 Mg/4 Ml Inj) 10 mg IV Q5MIN PRN PRN Reason: to maintain SBP < 180 Lisinopril (Lisinopril 20 Mg Tab) 20 mg PO QDAY [facility] Last Admin: 12/07/20 10:17 Dose: 20 mg Documented by: Nicotine (Nicotine 14 Mg/24 Hr Patch) 14 mg TD QDAY [facility] Last Admin: 12/07/20 10:18 Dose: 14 mg Documented by: Ondansetron HCl (Ondansetron 4 Mg/2 Ml Inj) 4 mg IV Q8H PRN PRN Reason: Nausea And Vomiting Sodium Chloride (Sodium Chloride 0.9% 10 Ml Flush Syringe) 10 ml IV BID [facility] Last Admin: 12/07/20 10:18 Dose: 10 ml Documented by: Sodium Chloride (Sodium Chloride 0.9% 10 Ml Flush Syringe) 10 ml IV PRN PRN PRN Reason: LINE FLUSH Review of Systems All systems: negative (as per HPI;) Physical Examination - Vital Signs Vital Signs: Vital Signs Pulse Resp Pulse Ox 91 H 20 96 12/04/20 07:20 12/04/20 07:20 12/04/20 07:20 - Physical Exam Narrative exam: Gen: nad, well-nourished; Head: normocephalic; Eyes: no gaze deviation; no ptosis; ENT: normal vocalization; CVS: warm and well-perfused; Pulm: no respiratory distress; GI: appears non-distended, protuberant; Ext: no cyanosis at distal extremities; Skin: no acute rash at distal extremities; Heme: no pathologic bruising at distal extremities; Neuro: alert, oriented to name, age, hospital, [facility], not month, not year, slighto dysarthria, no aphasia, CN 2 - PERRL, visual woods grossly intact, CN 3, 4, 6 - EOMI, CN 5 - facial sensation w/ dysesthesia on left, CN 7 - facial movement decreased (mild) on left, CN 8 - hearing grossly intact, CN 9, 10 - spontaneous swallow intact, CN 11 - shrug absent on left, CN 12 - tongue deviates to left; Motor - at least 4-/5 at RUE/RLE; 0/5 at LUE; 3+/5 at LLE; Sensory - light touch w/ dysesthesia at right arm/leg, Cerebellar - fnf /hts intact except deficit w/ LLE, Gait - deferred secondary to fall risk; NIHSS (1a.) Level of Consciousness:0 (1b.) LOC Questions:1 (1c.) LOC Commands:0 (2.) Best Gaze:0 (3.) Visual:0 (4.) Facial Palsy:1 (5a.) Motor Arm, Left:4 (5b.) Motor Arm, Right:1 (6a.) Motor Leg, Left:1 (6b.) Motor Leg, Right:1 (7.) Limb Ataxia:1 (8.) Sensory:1 (9.) Best Language:0 (10.) Dysarthria:1 (11.) Extinction and Inattention:0 NIHSS Total Score: 12 Results - Laboratory Findings CBC and BMP: 12/05/20 13:09 12/05/20 04:00 Abnormal Lab Findings: Abnormal Labs 12/04/20 12/05/20 12/05/20 08:58 04:00 08:03 Seg Neuts % (Manual) Sodium 134 L 136 L Glucose 101 H POC Glucose 106 H Albumin 3.5 L Triglycerides 160 H 12/05/20 12/05/20 12/06/20 11:34 13:09 07:37 Seg Neuts % (Manual) 72.0 H Sodium Glucose POC Glucose 175 H 112 H Albumin Triglycerides 12/06/20 12/06/20 12/07/20 15:56 20:47 11:46 Seg Neuts % (Manual) Sodium Glucose POC Glucose 110 H 106 H 139 H Albumin Triglycerides Assessment and Plan 55 yo female with htn, hld, stroke w/ left-sided (face/arm/leg) weakness, chf, tobacco abuse, alcohol use, who presents with a 2-week hx of right-sided weakness with 2 falls prior to the right-sided weakness. 1. Subacute Ischemic Stroke: ASA 325 mg PO qday, MRI Brain w/ w/o contrast, CTA Head/Neck w/ & w/o contrast, TTEcho, goal LDL of 70; confirm TSH, telemetry, SBP goal 160-200 mmHg and DBP 80-100 mmHg until CTA confirm no evidence of a critical stenosis or occlusion. Statin therapy for a goal LDL of 70, when patient passes swallow evaluation. PT/OT/ST/Swallow evaluation. Long- term risk-factor modification, including a strict diet/exercise regimen for secondary stroke prophylaxis. 2. Hypertension - goal SBP 160-200 mmHg and DBP 80-100 mmHg until CTA confirm no evidence of a critical stenosis or occlusion. 3. Hyperlipidemia - goal LDL of 70 w/ statin therapy if no contraindications. 4. Dysarthria / Dysphagia - st / swallow evaluation/monitoring. 5. Right (subacute) sided weakness - pt/ot evaluation/monitoring. 6. Unsteady Gait - pt/ot evaluation/monitoring. 7. Cervical Myelopathy - recommend MR C-spine w/ wo contrast. Gaurav Snell MD Neurology CPT: 55525
[2020-12-08] MEDS: HEPARIN 5,000 UNIT/1 ML VIAL SUB-Q SCH ×3 (06:28→21:01)
[2020-12-08] MEDS: IPRATROPIUM/ALBUTEROL SULFATE 3 ML AMPUL.NEB IH SCH ×2 (08:22→20:45)
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
[2020-12-08] MEDS: CARBAMIDE PEROXIDE 6.5% OTIC DROPS 15 ML AU SCH ×2 (09:06→21:06)
[2020-12-08] MEDS: carvediloL 6.25 MG TAB PO SCH ×2 (09:06→21:01)
[2020-12-08] MEDS: LISINOPRIL 20 MG TAB PO SCH (09:06)
[2020-12-08] MEDS: NICOTINE 14 MG/24 HR PATCH TD SCH (09:06)
[2020-12-08] MEDS: ASPIRIN 325 MG TAB PO SCH (09:06)
[2020-12-08] MEDS: hydroCHLOROthiazide 25 MG TAB PO SCH (09:06)
[2020-12-08] MEDS: FAMOTIDINE 20 MG TAB PO SCH ×2 (09:06→21:01)
--- NOTE | 2020-12-08 11:26 | Cat Scan Report ---
Exam: CT cervical spine History: right sided weakness; Technique: Contiguous thin cut axial images obtained through the cervical spine. Sagittal and morales l reconstructions performed by the technologist. All CT scans at this location are performed using CT dose reduction for ALARA by means of automated exposure control. Findings: No priors. There is no evidence of fracture or traumatic subluxation. Vertebral bodies are normal in height and alignment. Mild levoscoliosis; mild rotation on the right s la at the atlantoaxial joint Intervertebral disc spaces are well-maintained. Anterior bridging osteophyte at C5-C6 disc level No significant degenerative change seen in the uncinate or facet joints. No significant canal stenosi s or osseous foraminal narrowing. Dental caries and periapical abscess around tooth #15; minimal odontogenic mucosal thickening in the left maxillary sinus Impression: No signs of acute bony trauma to the cervical spine; neuroforamina are normal Signer Name: José Miguel Joshi MD Signed: 12/08/2020 11:21 AM Workstation Name: [id number]
[2020-12-09] MEDS: HEPARIN 5,000 UNIT/1 ML VIAL SUB-Q SCH ×3 (05:17→21:17)
[2020-12-09] MEDS: IPRATROPIUM/ALBUTEROL SULFATE 3 ML AMPUL.NEB IH SCH ×2 (08:20→21:16)
[2020-12-09] MEDS: NICOTINE 14 MG/24 HR PATCH TD SCH (10:59)
[2020-12-09] MEDS: carvediloL 6.25 MG TAB PO SCH ×2 (10:59→21:19)
[2020-12-09] MEDS: ASPIRIN 325 MG TAB PO SCH (11:00)
[2020-12-09] MEDS: LISINOPRIL 20 MG TAB PO SCH (11:00)
[2020-12-09] MEDS: hydroCHLOROthiazide 25 MG TAB PO SCH (11:00)
[2020-12-09] MEDS: FAMOTIDINE 20 MG TAB PO SCH ×2 (11:00→21:16)
--- NOTE | 2020-12-09 13:16 | Event Note ---
Date: 12/09/20 Peer to peer completed. Patient determined to be more appropriate form Subacute Rehab. Cinder Crew Worker will need to apply for SNF once patient is clinically stable for discharge.
[2020-12-09] MEDS: CARBAMIDE PEROXIDE 6.5% OTIC DROPS 15 ML AU SCH ×2 (14:26→21:18)
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
[2020-12-10] MEDS: HEPARIN 5,000 UNIT/1 ML VIAL SUB-Q SCH ×3 (06:04→21:35)
[2020-12-10] MEDS: ASPIRIN 325 MG TAB PO SCH (09:10)
[2020-12-10] MEDS: NICOTINE 14 MG/24 HR PATCH TD SCH (09:10)
[2020-12-10] MEDS: carvediloL 6.25 MG TAB PO SCH ×2 (09:10→21:57)
[2020-12-10] MEDS: FAMOTIDINE 20 MG TAB PO SCH ×2 (09:10→21:35)
[2020-12-10] MEDS: LISINOPRIL 20 MG TAB PO SCH (09:11)
[2020-12-10] MEDS: hydroCHLOROthiazide 25 MG TAB PO SCH (09:11)
[2020-12-10] MEDS: CARBAMIDE PEROXIDE 6.5% OTIC DROPS 15 ML AU SCH ×2 (09:12→21:36)
[2020-12-10] MEDS: IPRATROPIUM/ALBUTEROL SULFATE 3 ML AMPUL.NEB IH SCH ×2 (09:19→20:03)
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
[2020-12-11] MEDS: HEPARIN 5,000 UNIT/1 ML VIAL SUB-Q SCH ×3 (05:48→21:39)
[2020-12-11] MEDS: IPRATROPIUM/ALBUTEROL SULFATE 3 ML AMPUL.NEB IH SCH ×2 (07:51→20:15)
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
[2020-12-11] MEDS: hydroCHLOROthiazide 25 MG TAB PO SCH (12:01)
[2020-12-11] MEDS: ASPIRIN 325 MG TAB PO SCH (12:01)
[2020-12-11] MEDS: NICOTINE 14 MG/24 HR PATCH TD SCH (12:02)
[2020-12-11] MEDS: carvediloL 6.25 MG TAB PO SCH ×2 (12:02→21:39)
[2020-12-11] MEDS: FAMOTIDINE 20 MG TAB PO SCH ×2 (12:02→21:39)
[2020-12-11] MEDS: LISINOPRIL 20 MG TAB PO SCH (12:02)
[2020-12-11] MEDS: CARBAMIDE PEROXIDE 6.5% OTIC DROPS 15 ML AU SCH ×2 (12:03→21:40)
[2020-12-12] MEDS: HEPARIN 5,000 UNIT/1 ML VIAL SUB-Q SCH ×3 (05:18→22:52)
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
[2020-12-12] MEDS: IPRATROPIUM/ALBUTEROL SULFATE 3 ML AMPUL.NEB IH SCH ×2 (08:49→20:08)
[2020-12-12] MEDS: ASPIRIN 325 MG TAB PO SCH (09:53)
[2020-12-12] MEDS: hydroCHLOROthiazide 25 MG TAB PO SCH (09:53)
[2020-12-12] MEDS: carvediloL 6.25 MG TAB PO SCH ×2 (09:53→22:52)
[2020-12-12] MEDS: NICOTINE 14 MG/24 HR PATCH TD SCH (09:54)
[2020-12-12] MEDS: LISINOPRIL 20 MG TAB PO SCH (09:54)
[2020-12-12] MEDS: CARBAMIDE PEROXIDE 6.5% OTIC DROPS 15 ML AU SCH ×2 (09:55→22:53)
[2020-12-12] MEDS: FAMOTIDINE 20 MG TAB PO SCH ×2 (10:01→22:57)
[2020-12-13] MEDS: HEPARIN 5,000 UNIT/1 ML VIAL SUB-Q SCH ×3 (05:16→22:46)
[2020-12-13] MEDS: IPRATROPIUM/ALBUTEROL SULFATE 3 ML AMPUL.NEB IH SCH ×2 (08:49→20:38)
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
[2020-12-13] MEDS: carvediloL 6.25 MG TAB PO SCH ×3 (10:00→22:44)
[2020-12-13] MEDS: NICOTINE 14 MG/24 HR PATCH TD SCH (11:07)
[2020-12-13] MEDS: ASPIRIN 325 MG TAB PO SCH (11:07)
[2020-12-13] MEDS: hydroCHLOROthiazide 25 MG TAB PO SCH (11:08)
[2020-12-13] MEDS: LISINOPRIL 20 MG TAB PO SCH ×2 (11:08→11:11)
[2020-12-13] MEDS: FAMOTIDINE 20 MG TAB PO SCH ×2 (14:59→22:43)
[2020-12-13] MEDS: CARBAMIDE PEROXIDE 6.5% OTIC DROPS 15 ML AU SCH ×2 (15:00→22:45)
[2020-12-14] MEDS: HEPARIN 5,000 UNIT/1 ML VIAL SUB-Q SCH ×3 (05:30→22:12)
[2020-12-14] MEDS: IPRATROPIUM/ALBUTEROL SULFATE 3 ML AMPUL.NEB IH SCH ×2 (08:28→22:14)
[2020-12-14] MEDS: NICOTINE 14 MG/24 HR PATCH TD SCH (09:40)
[2020-12-14] MEDS: hydroCHLOROthiazide 25 MG TAB PO SCH (09:40)
[2020-12-14] MEDS: carvediloL 6.25 MG TAB PO SCH ×2 (09:41→22:11)
[2020-12-14] MEDS: FAMOTIDINE 20 MG TAB PO SCH ×2 (09:41→22:10)
[2020-12-14] MEDS: LISINOPRIL 20 MG TAB PO SCH (09:41)
--- NOTE | 2020-12-14 09:41 | Progress Note ---
Assessment and Plan Assessment and plan: Acute CVA Right hemiparesis Chronic CHF. Hypertension Tobacco use 12/14/2020. CT scan reveals no intracranial bleed or large acute territorial infarction. 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 Await MRI of brain. Consult neurology. Continue aspirin and Lipitor. History Interval history: No new issues overnight. Hospitalist Physical - Constitutional Vitals: Temp Pulse Resp BP Pulse Ox 98.2 F 93 H 22 138/89 97 12/14/20 09:07 12/14/20 09:07 12/14/20 09:07 12/14/20 09:07 12/14/20 09:07 General appearance: Present: no acute distress, well-nourished - EENT Eyes: Present: PERRL, EOM intact ENT: hearing intact, clear oral mucosa, dentition normal - Neck Neck: Present: supple, normal ROM - Respiratory Respiratory effort: normal Respiratory: bilateral: CTA - Cardiovascular Rhythm: regular Heart Sounds: Present: S1 & S2. Absent: gallop, rub - Extremities Extremities: no ischemia, No edema, Full ROM - Abdominal General gastrointestinal: soft, non-tender, non-distended, normal bowel sounds - Integumentary Integumentary: Present: clear, warm, dry - Neurologic Neurologic: CNII-XII intact, moves all extremities HEART Score - HEART Score Troponin: Troponin T < 0.010 ng/mL (0.00-0.029) 12/04/20 14:20 Results - Labs CBC & Chem 7: 12/05/20 13:09 12/05/20 04:00 Labs: Laboratory Last Values WBC 7.6 K/mm3 (4.5-11.0) 12/05/20 13:09 RBC 4.02 M/mm3 (3.65-5.03) 12/05/20 13:09 Hgb 11.9 gm/dl (10.1-14.3) 12/05/20 13:09 Hct 35.2 % (30.3-42.9) 12/05/20 13:09 MCV 87 fl (79-97) 12/05/20 13:09 MCH 30 pg (28-32) 12/05/20 13:09 MCHC 34 % (30-34) 12/05/20 13:09 RDW 14.3 % (13.2-15.2) 12/05/20 13:09 Plt Count 252 K/mm3 (140-440) 12/05/20 13:09 Lymph % (Auto) 32.9 % (13.4-35.0) 12/04/20 08:58 [place] % (Auto) 5.3 % (0.0-7.3) 12/04/20 08:58 Eos % (Auto) 2.1 % (0.0-4.3) 12/04/20 08:58 Baso % (Auto) Major Account Manager 12/05/20 13:09 Lymph # (Auto) 2.7 K/mm3 (1.2-5.4) 12/04/20 08:58 [place] # (Auto) 0.4 K/mm3 (0.0-0.8) 12/04/20 08:58 Eos # (Auto) 0.2 K/mm3 (0.0-0.4) 12/04/20 08:58 Baso # (Auto) 0.1 K/mm3 (0.0-0.1) 12/04/20 08:58 Add Manual Diff Complete 12/05/20 13:09 Total Counted 100 12/05/20 13:09 Seg Neutrophils % 58.6 % (40.0-70.0) 12/04/20 08:58 Seg Neuts % (Manual) 72.0 % (40.0-70.0) H 12/05/20 13:09 Lymphocytes % (Manual) 22.0 % (13.4-35.0) 12/05/20 13:09 Monocytes % (Manual) 6.0 % (0.0-7.3) 12/05/20 13:09 Nucleated RBC % Not Reportable 12/05/20 13:09 Seg Neutrophils # 4.8 K/mm3 (1.8-7.7) 12/04/20 08:58 Seg Neutrophils # Man 5.5 K/mm3 (1.8-7.7) 12/05/20 13:09 Band Neutrophils # 0.0 K/mm3 12/05/20 13:09 Lymphocytes # (Manual) 1.7 K/mm3 (1.2-5.4) 12/05/20 13:09 Abs React Lymphs (Man) 0.0 K/mm3 12/05/20 13:09 Monocytes # (Manual) 0.5 K/mm3 (0.0-0.8) 12/05/20 13:09 Eosinophils # (Manual) 0.0 K/mm3 (0.0-0.4) 12/05/20 13:09 Basophils # (Manual) 0.0 K/mm3 (0.0-0.1) 12/05/20 13:09 Metamyelocytes # 0.0 K/mm3 12/05/20 13:09 Myelocytes # 0.0 K/mm3 12/05/20 13:09 Promyelocytes # 0.0 K/mm3 12/05/20 13:09 Blast Cells # 0.0 K/mm3 12/05/20 13:09 WBC Morphology Not Reportable 12/05/20 13:09 WBC Morphology TNR 12/05/20 13:09 Hypersegmented Neuts Not Reportable 12/05/20 13:09 Hyposegmented Neuts Not Reportable 12/05/20 13:09 Hypogranular Neuts Not Reportable 12/05/20 13:09 Smudge Cells Not Reportable 12/05/20 13:09 Toxic Granulation Not Reportable 12/05/20 13:09 Toxic Vacuolation Not Reportable 12/05/20 13:09 Dohle Bodies Not Reportable 12/05/20 13:09 Pelger-Huet Anomaly Not Reportable 12/05/20 13:09 Brigida Rods Not Reportable 12/05/20 13:09 Platelet Estimate Not Reportable 12/05/20 13:09 Clumped Platelets Not Reportable 12/05/20 13:09 Plt Clumps, EDTA Not Reportable 12/05/20 13:09 Large Platelets Not Reportable 12/05/20 13:09 Giant Platelets Not Reportable 12/05/20 13:09 Platelet Satelliting Not Reportable 12/05/20 13:09 Plt Morphology Comment Not Reportable 12/05/20 13:09 RBC Morphology Normal 12/05/20 13:09 Dimorphic RBCs Not Reportable 12/05/20 13:09 Polychromasia Not Reportable 12/05/20 13:09 Hypochromasia Not Reportable 12/05/20 13:09 Poikilocytosis Not Reportable 12/05/20 13:09 Anisocytosis Not Reportable 12/05/20 13:09 Microcytosis Not Reportable 12/05/20 13:09 Macrocytosis Not Reportable 12/05/20 13:09 Spherocytes Not Reportable 12/05/20 13:09 Pappenheimer Bodies Not Reportable 12/05/20 13:09 Sickle Cells Not Reportable 12/05/20 13:09 Target Cells Not Reportable 12/05/20 13:09 Tear Drop Cells Not Reportable 12/05/20 13:09 Ovalocytes Not Reportable 12/05/20 13:09 Helmet Cells Not Reportable 12/05/20 13:09 [place] Bodies Not Reportable 12/05/20 13:09 [place] Rings Not Reportable 12/05/20 13:09 [place] Cells Not Reportable 12/05/20 13:09 Bite Cells Not Reportable 12/05/20 13:09 Crenated Cell Not Reportable 12/05/20 13:09 Elliptocytes Not Reportable 12/05/20 13:09 Acanthocytes (Spur) Not Reportable 12/05/20 13:09 Rouleaux Not Reportable 12/05/20 13:09 Hemoglobin C Crystals Not Reportable 12/05/20 13:09 Schistocytes Not Reportable 12/05/20 13:09 Malaria parasites Not Reportable 12/05/20 13:09 Chalo Bodies Not Reportable 12/05/20 13:09 Hem Pathologist Commnt No 12/05/20 13:09 PT 13.8 Sec. (12.2-14.9) 12/04/20 08:58 INR 1.00 (0.87-1.13) 12/04/20 08:58 APTT 32.5 Sec. (24.2-36.6) 12/04/20 08:58 Sodium 136 mmol/L (137-145) L 12/05/20 04:00 Potassium 3.8 mmol/L (3.6-5.0) 12/05/20 04:00 Chloride 100.2 mmol/L (98-107) 12/05/20 04:00 Carbon Dioxide 26 mmol/L (22-30) 12/05/20 04:00 Anion Gap 14 mmol/L 12/05/20 04:00 BUN 15 mg/dL (7-17) 12/05/20 04:00 Creatinine 0.7 mg/dL (0.6-1.2) 12/05/20 04:00 Estimated GFR > 60 ml/min 12/05/20 04:00 BUN/Creatinine Ratio 21 % 12/05/20 04:00 Glucose 101 mg/dL (65-100) H 12/05/20 04:00 POC Glucose 201 mg/dL (70-105) H 12/07/20 16:05 Calcium 9.2 mg/dL (8.4-10.2) 12/05/20 04:00 Total Bilirubin 0.40 mg/dL (0.1-1.2) 12/04/20 08:58 AST 27 units/L (5-40) 12/04/20 08:58 ALT 30 units/L (7-56) 12/04/20 08:58 Alkaline Phosphatase 126 units/L (35-129) 12/04/20 08:58 Troponin T < 0.010 ng/mL (0.00-0.029) 12/04/20 14:20 Total Protein 7.9 g/dL (6.3-8.2) 12/04/20 08:58 Albumin 3.5 g/dL (3.9-5) L 12/04/20 08:58 Albumin/Globulin Ratio 0.8 % 12/04/20 08:58 Triglycerides 160 mg/dL (2-149) H 12/05/20 04:00 Cholesterol 177 mg/dL (50-199) 12/05/20 04:00 LDL Cholesterol Direct 116 mg/dL (50-130) 12/05/20 04:00 HDL Cholesterol 41 mg/dL (40-59) 12/05/20 04:00 Cholesterol/HDL Ratio 4.31 % 12/05/20 04:00 TSH 1.370 mlU/mL (0.270-4.200) 12/04/20 08:58 Urine Color Yellow (Yellow) 12/04/20 Unknown Urine Turbidity Clear (Clear) 12/04/20 Unknown Urine pH 5.0 (5.0-7.0) 12/04/20 Unknown Ur Specific [place] 1.016 (1.003-1.030) 12/04/20 Unknown Urine Protein <15 mg/dl mg/dL (Negative) 12/04/20 Unknown Urine Glucose (UA) Neg mg/dL (Negative) 12/04/20 Unknown Urine Ketones Neg mg/dL (Negative) 12/04/20 Unknown Urine Blood Neg (Negative) 12/04/20 Unknown Urine Nitrite Neg (Negative) 12/04/20 Unknown Urine Bilirubin Neg (Negative) 12/04/20 Unknown Urine Urobilinogen < 2.0 mg/dL (<2.0) 12/04/20 Unknown Ur Leukocyte Esterase Neg (Negative) 12/04/20 Unknown Urine WBC (Auto) 1.0 /HPF (0.0-6.0) 12/04/20 Unknown Urine RBC (Auto) 2.0 /HPF (0.0-6.0) 12/04/20 Unknown U Epithel Cells (Auto) 1.0 /HPF (0-13.0) 12/04/20 Unknown Urine Mucus Few /HPF 12/04/20 Unknown Coronavirus (PCR) Negative (Negative) 12/05/20 Unknown Roberts/IV: Voiding Method Bedside Commode Active Medications - Current Medications Current Medications: Generic Name Dose Route Start Last Admin Trade Name Freq PRN Reason Stop Dose Admin Acetaminophen 650 mg 12/04/20 12:57 Acetaminophen 325 Mg Tab PO Q4H PRN Pain MILD(1-3)/Fever >100.5/PASTOR Albuterol 2.5 mg 12/06/20 08:30 Albuterol 2.5 Mg/3 Ml Nebu IH Q4HRT PRN Shortness Of Breath Albuterol/Ipratropium 1 ampul 12/06/20 20:00 12/14/20 08:28 Ipratropium/Albuterol Sulfate 3 Ml Ampul.Neb IH 1 ampul Q12HRT MACKENZIE Administration Aspirin 325 mg 12/05/20 10:00 12/13/20 11:07 Aspirin 325 Mg Tab PO 325 mg QDAY MACKENZIE Administration Atorvastatin Calcium 40 mg 12/04/20 22:00 12/13/20 22:44 Atorvastatin 40 Mg Tab PO 40 mg QHS MACKENZIE Administration Carbamide Peroxide 5 drops 12/05/20 10:00 12/13/20 22:45 Carbamide Peroxide 6.5% Otic Drops 15 Ml AU 5 drops BID MACKENZIE Administration Carvedilol 6.25 mg 12/04/20 22:00 12/13/20 22:44 Carvedilol 6.25 Mg Tab PO 6.25 mg BID MACKENZIE Administration Famotidine 20 mg 12/05/20 22:00 12/13/20 22:43 Famotidine 20 Mg Tab PO 20 mg BID MACKENZIE Administration Heparin Sodium (Porcine) 5,000 unit 12/04/20 14:00 12/14/20 05:30 Heparin 5,000 Unit/1 Ml Vial SUB-Q 5,000 unit Q8HR MACKENZIE Administration Hydrochlorothiazide 25 mg 12/05/20 10:00 12/13/20 11:08 Hydrochlorothiazide 25 Mg Tab PO 25 mg QDAY MACKENZIE Administration Labetalol HCl 10 mg 12/04/20 12:57 Labetalol 20 Mg/4 Ml Inj IV Q5MIN PRN to maintain SBP < 180 Lisinopril 10 mg 12/13/20 09:19 12/13/20 11:11 Lisinopril 20 Mg Tab PO Not Given QDAY MACKENZIE Nicotine 14 mg 12/06/20 11:00 12/13/20 11:07 Nicotine 14 Mg/24 Hr Patch TD 14 mg QDAY MACKENZIE Administration Ondansetron HCl 4 mg 12/04/20 12:57 Ondansetron 4 Mg/2 Ml Inj IV Q8H PRN Nausea And Vomiting Sodium Chloride 10 ml 12/04/20 22:00 12/13/20 22:46 Sodium Chloride 0.9% 10 Ml Flush Syringe IV 10 ml BID MACKENZIE Administration Sodium Chloride 10 ml 12/04/20 12:57 Sodium Chloride 0.9% 10 Ml Flush Syringe IV PRN PRN LINE FLUSH
[2020-12-14] MEDS: ASPIRIN 325 MG TAB PO SCH (09:42)
[2020-12-14] MEDS: CARBAMIDE PEROXIDE 6.5% OTIC DROPS 15 ML AU SCH ×2 (10:11→22:10)
[2020-12-15] MEDS: HEPARIN 5,000 UNIT/1 ML VIAL SUB-Q SCH ×3 (07:00→21:35)
--- NOTE | 2020-12-15 08:43 | Progress Note ---
Assessment and Plan Assessment and plan: Acute CVA Right hemiparesis Chronic CHF. Hypertension Tobacco use 12/14/2020. CT scan reveals no intracranial bleed or large acute territorial infarction. 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 Await MRI of brain. Consult neurology. Continue aspirin and Lipitor. 12/15/2020. Await MRI and neurology consultation. Continue aspirin and Lipitor. Physical therapy recommends subacute rehab. Await placement History Interval history: No new issues overnight. Hospitalist Physical - Constitutional Vitals: Temp Pulse Resp BP Pulse Ox 98.0 F 68 20 109/59 99 12/15/20 08:07 12/15/20 08:07 12/15/20 08:07 12/15/20 08:07 12/15/20 08:07 General appearance: Present: no acute distress, well-nourished - EENT Eyes: Present: PERRL, EOM intact ENT: hearing intact, clear oral mucosa, dentition normal - Neck Neck: Present: supple, normal ROM - Respiratory Respiratory effort: normal Respiratory: bilateral: CTA - Cardiovascular Rhythm: regular Heart Sounds: Present: S1 & S2. Absent: gallop, rub - Extremities Extremities: no ischemia, No edema, Full ROM - Abdominal General gastrointestinal: soft, non-tender, non-distended, normal bowel sounds - Integumentary Integumentary: Present: clear, warm, dry - Neurologic Neurologic: CNII-XII intact, moves all extremities HEART Score - HEART Score Troponin: Troponin T < 0.010 ng/mL (0.00-0.029) 12/04/20 14:20 Results - Labs CBC & Chem 7: 12/05/20 13:09 12/05/20 04:00 Labs: Laboratory Last Values WBC 7.6 K/mm3 (4.5-11.0) 12/05/20 13:09 RBC 4.02 M/mm3 (3.65-5.03) 12/05/20 13:09 Hgb 11.9 gm/dl (10.1-14.3) 12/05/20 13:09 Hct 35.2 % (30.3-42.9) 12/05/20 13:09 MCV 87 fl (79-97) 12/05/20 13:09 MCH 30 pg (28-32) 12/05/20 13:09 MCHC 34 % (30-34) 12/05/20 13:09 RDW 14.3 % (13.2-15.2) 12/05/20 13:09 Plt Count 252 K/mm3 (140-440) 12/05/20 13:09 Lymph % (Auto) 32.9 % (13.4-35.0) 12/04/20 08:58 [place] % (Auto) 5.3 % (0.0-7.3) 12/04/20 08:58 Eos % (Auto) 2.1 % (0.0-4.3) 12/04/20 08:58 Baso % (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) 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 12/05/20 13:09 Lymph # (Auto) 2.7 K/mm3 (1.2-5.4) 12/04/20 08:58 [place] # (Auto) 0.4 K/mm3 (0.0-0.8) 12/04/20 08:58 Eos # (Auto) 0.2 K/mm3 (0.0-0.4) 12/04/20 08:58 Baso # (Auto) 0.1 K/mm3 (0.0-0.1) 12/04/20 08:58 Add Manual Diff Complete 12/05/20 13:09 Total Counted 100 12/05/20 13:09 Seg Neutrophils % 58.6 % (40.0-70.0) 12/04/20 08:58 Seg Neuts % (Manual) 72.0 % (40.0-70.0) H 12/05/20 13:09 Lymphocytes % (Manual) 22.0 % (13.4-35.0) 12/05/20 13:09 Monocytes % (Manual) 6.0 % (0.0-7.3) 12/05/20 13:09 Nucleated RBC % Not Reportable 12/05/20 13:09 Seg Neutrophils # 4.8 K/mm3 (1.8-7.7) 12/04/20 08:58 Seg Neutrophils # Man 5.5 K/mm3 (1.8-7.7) 12/05/20 13:09 Band Neutrophils # 0.0 K/mm3 12/05/20 13:09 Lymphocytes # (Manual) 1.7 K/mm3 (1.2-5.4) 12/05/20 13:09 Abs React Lymphs (Man) 0.0 K/mm3 12/05/20 13:09 Monocytes # (Manual) 0.5 K/mm3 (0.0-0.8) 12/05/20 13:09 Eosinophils # (Manual) 0.0 K/mm3 (0.0-0.4) 12/05/20 13:09 Basophils # (Manual) 0.0 K/mm3 (0.0-0.1) 12/05/20 13:09 Metamyelocytes # 0.0 K/mm3 12/05/20 13:09 Myelocytes # 0.0 K/mm3 12/05/20 13:09 Promyelocytes # 0.0 K/mm3 12/05/20 13:09 Blast Cells # 0.0 K/mm3 12/05/20 13:09 WBC Morphology Not Reportable 12/05/20 13:09 WBC Morphology TNR 12/05/20 13:09 Hypersegmented Neuts Not Reportable 12/05/20 13:09 Hyposegmented Neuts Not Reportable 12/05/20 13:09 Hypogranular Neuts Not Reportable 12/05/20 13:09 Smudge Cells Not Reportable 12/05/20 13:09 Toxic Granulation Not Reportable 12/05/20 13:09 Toxic Vacuolation Not Reportable 12/05/20 13:09 Dohle Bodies Not Reportable 12/05/20 13:09 Pelger-Huet Anomaly Not Reportable 12/05/20 13:09 Brigida Rods Not Reportable 12/05/20 13:09 Platelet Estimate Not Reportable 12/05/20 13:09 Clumped Platelets Not Reportable 12/05/20 13:09 Plt Clumps, EDTA Not Reportable 12/05/20 13:09 Large Platelets Not Reportable 12/05/20 13:09 Giant Platelets Not Reportable 12/05/20 13:09 Platelet Satelliting Not Reportable 12/05/20 13:09 Plt Morphology Comment Not Reportable 12/05/20 13:09 RBC Morphology Normal 12/05/20 13:09 Dimorphic RBCs Not Reportable 12/05/20 13:09 Polychromasia Not Reportable 12/05/20 13:09 Hypochromasia Not Reportable 12/05/20 13:09 Poikilocytosis Not Reportable 12/05/20 13:09 Anisocytosis Not Reportable 12/05/20 13:09 Microcytosis Not Reportable 12/05/20 13:09 Macrocytosis Not Reportable 12/05/20 13:09 Spherocytes Not Reportable 12/05/20 13:09 Pappenheimer Bodies Not Reportable 12/05/20 13:09 Sickle Cells Not Reportable 12/05/20 13:09 Target Cells Not Reportable 12/05/20 13:09 Tear Drop Cells Not Reportable 12/05/20 13:09 Ovalocytes Not Reportable 12/05/20 13:09 Helmet Cells Not Reportable 12/05/20 13:09 [place] Bodies Not Reportable 12/05/20 13:09 [place] Rings Not Reportable 12/05/20 13:09 [place] Cells Not Reportable 12/05/20 13:09 Bite Cells Not Reportable 12/05/20 13:09 Crenated Cell Not Reportable 12/05/20 13:09 Elliptocytes Not Reportable 12/05/20 13:09 Acanthocytes (Spur) Not Reportable 12/05/20 13:09 Rouleaux Not Reportable 12/05/20 13:09 Hemoglobin C Crystals Not Reportable 12/05/20 13:09 Schistocytes Not Reportable 12/05/20 13:09 Malaria parasites Not Reportable 12/05/20 13:09 Chalo Bodies Not Reportable 12/05/20 13:09 Hem Pathologist Commnt No 12/05/20 13:09 PT 13.8 Sec. (12.2-14.9) 12/04/20 08:58 INR 1.00 (0.87-1.13) 12/04/20 08:58 APTT 32.5 Sec. (24.2-36.6) 12/04/20 08:58 Sodium 136 mmol/L (137-145) L 12/05/20 04:00 Potassium 3.8 mmol/L (3.6-5.0) 12/05/20 04:00 Chloride 100.2 mmol/L (98-107) 12/05/20 04:00 Carbon Dioxide 26 mmol/L (22-30) 12/05/20 04:00 Anion Gap 14 mmol/L 12/05/20 04:00 BUN 15 mg/dL (7-17) 12/05/20 04:00 Creatinine 0.7 mg/dL (0.6-1.2) 12/05/20 04:00 Estimated GFR > 60 ml/min 12/05/20 04:00 BUN/Creatinine Ratio 21 % 12/05/20 04:00 Glucose 101 mg/dL (65-100) H 12/05/20 04:00 POC Glucose 201 mg/dL (70-105) H 12/07/20 16:05 Calcium 9.2 mg/dL (8.4-10.2) 12/05/20 04:00 Total Bilirubin 0.40 mg/dL (0.1-1.2) 12/04/20 08:58 AST 27 units/L (5-40) 12/04/20 08:58 ALT 30 units/L (7-56) 12/04/20 08:58 Alkaline Phosphatase 126 units/L (35-129) 12/04/20 08:58 Troponin T < 0.010 ng/mL (0.00-0.029) 12/04/20 14:20 Total Protein 7.9 g/dL (6.3-8.2) 12/04/20 08:58 Albumin 3.5 g/dL (3.9-5) L 12/04/20 08:58 Albumin/Globulin Ratio 0.8 % 12/04/20 08:58 Triglycerides 160 mg/dL (2-149) H 12/05/20 04:00 Cholesterol 177 mg/dL (50-199) 12/05/20 04:00 LDL Cholesterol Direct 116 mg/dL (50-130) 12/05/20 04:00 HDL Cholesterol 41 mg/dL (40-59) 12/05/20 04:00 Cholesterol/HDL Ratio 4.31 % 12/05/20 04:00 TSH 1.370 mlU/mL (0.270-4.200) 12/04/20 08:58 Urine Color Yellow (Yellow) 12/04/20 Unknown Urine Turbidity Clear (Clear) 12/04/20 Unknown Urine pH 5.0 (5.0-7.0) 12/04/20 Unknown Ur Specific [place] 1.016 (1.003-1.030) 12/04/20 Unknown Urine Protein <15 mg/dl mg/dL (Negative) 12/04/20 Unknown Urine Glucose (UA) Neg mg/dL (Negative) 12/04/20 Unknown Urine Ketones Neg mg/dL (Negative) 12/04/20 Unknown Urine Blood Neg (Negative) 12/04/20 Unknown Urine Nitrite Neg (Negative) 12/04/20 Unknown Urine Bilirubin Neg (Negative) 12/04/20 Unknown Urine Urobilinogen < 2.0 mg/dL (<2.0) 12/04/20 Unknown Ur Leukocyte Esterase Neg (Negative) 12/04/20 Unknown Urine WBC (Auto) 1.0 /HPF (0.0-6.0) 12/04/20 Unknown Urine RBC (Auto) 2.0 /HPF (0.0-6.0) 12/04/20 Unknown U Epithel Cells (Auto) 1.0 /HPF (0-13.0) 12/04/20 Unknown Urine Mucus Few /HPF 12/04/20 Unknown Coronavirus (PCR) Negative (Negative) 12/05/20 Unknown Roberts/IV: Voiding Method Incontinent Active Medications - Current Medications Current Medications: Generic Name Dose Route Start Last Admin Trade Name Freq PRN Reason Stop Dose Admin Acetaminophen 650 mg 12/04/20 12:57 Acetaminophen 325 Mg Tab PO Q4H PRN Pain MILD(1-3)/Fever >100.5/PASTOR Albuterol 2.5 mg 12/06/20 08:30 Albuterol 2.5 Mg/3 Ml Nebu IH Q4HRT PRN Shortness Of Breath Albuterol/Ipratropium 1 ampul 12/06/20 20:00 12/14/20 22:14 Ipratropium/Albuterol Sulfate 3 Ml Ampul.Neb IH 1 ampul Q12HRT MACKENZIE Administration Aspirin 325 mg 12/05/20 10:00 12/14/20 09:42 Aspirin 325 Mg Tab PO 325 mg QDAY MACKENZIE Administration Atorvastatin Calcium 40 mg 12/04/20 22:00 12/14/20 22:10 Atorvastatin 40 Mg Tab PO 40 mg QHS MACKENZIE Administration Carbamide Peroxide 5 drops 12/05/20 10:00 12/14/20 22:10 Carbamide Peroxide 6.5% Otic Drops 15 Ml AU 5 drops BID MACKENZIE Administration Carvedilol 6.25 mg 12/04/20 22:00 12/14/20 22:11 Carvedilol 6.25 Mg Tab PO Not Given BID MACKENZIE Famotidine 20 mg 12/05/20 22:00 12/14/20 22:10 Famotidine 20 Mg Tab PO 20 mg BID MACKENZIE Administration Heparin Sodium (Porcine) 5,000 unit 12/04/20 14:00 12/15/20 07:00 Heparin 5,000 Unit/1 Ml Vial SUB-Q 5,000 unit Q8HR MACKENZIE Administration Hydrochlorothiazide 25 mg 12/05/20 10:00 12/14/20 09:40 Hydrochlorothiazide 25 Mg Tab PO 25 mg QDAY MACKENZIE Administration Labetalol HCl 10 mg 12/04/20 12:57 Labetalol 20 Mg/4 Ml Inj IV Q5MIN PRN to maintain SBP < 180 Lisinopril 10 mg 12/13/20 09:19 12/14/20 09:41 Lisinopril 20 Mg Tab PO 10 mg QDAY MACKENZIE Administration Nicotine 14 mg 12/06/20 11:00 12/14/20 09:40 Nicotine 14 Mg/24 Hr Patch TD 14 mg QDAY MACKENZIE Administration Ondansetron HCl 4 mg 12/04/20 12:57 Ondansetron 4 Mg/2 Ml Inj IV Q8H PRN Nausea And Vomiting Sodium Chloride 10 ml 12/04/20 22:00 12/14/20 22:12 Sodium Chloride 0.9% 10 Ml Flush Syringe IV 10 ml BID MACKENZIE Administration Sodium Chloride 10 ml 12/04/20 12:57 Sodium Chloride 0.9% 10 Ml Flush Syringe IV PRN PRN LINE FLUSH Nutrition/Malnutrition Assess - Dietary Evaluation Nutrition/Malnutrition Findings: Nutrition Notes Start: 12/14/20 14:12 Freq: Status: Active Protocol: Document 12/14/20 14:12 CW (Rec: 12/14/20 14:16 [email or web address]) Nutrition Notes Need for Assessment generated from: LOS Initial or Follow up Brief Note Current Diagnosis Heart Failure,Stroke Current Diet Cardiac Diet Labs/Tests 12/05 Na 136 Pertinent Medications reviewed Height 5 ft Weight 80.8 kg [place] Body Weight (kg) 45.45 BMI 34.7 Weight change and time frame weight fluctuations likely r/t fluid Weight Status Obese Subjective/Other Information Screen fro LOS. PO intake is excellent. Dang score of 19. Weight fluctuates 80+/- 5 kg. Nutrition Intervention Change Diet Order: Continue current diet as ordered Anticipated Discharge Needs: Cardiac diet Revisit per MD consult or patient Sign Off request: Additional Comments S/O for excellent intakes and dang score of 19
[2020-12-15] MEDS: IPRATROPIUM/ALBUTEROL SULFATE 3 ML AMPUL.NEB IH SCH ×2 (09:02→20:32)
--- NOTE | 2020-12-15 09:42 | Consultation ---
History of Present Illness Consult date: 12/15/20 Reason for Consult: right side weakness hx of remote right MCA and LIBIA infarct History of present illness: Right upper extremity weakness History of present illness: 55-year-old -[place] female with past medical history of hypertension, CVA, CHF and cataract was brought to the emergency room because of a 2-week history of some right upper extremity weakness, worse in the hand. The patient says that she had two different falls about 2 weeks ago. She also feels that there has been some slight change in her speech since that time. She denies any headache, vision change, numbness, fever, chest pain, shortness of breath. When asked why she waited so long to come in to be seen, the patient says "I thought that I was fine", but the patient's sister made her realize that she needed to be evaluated. She is a tobacco smoker. She has a past medical history of hypertension, CHF, and she has a previous stroke in 2007 that caused her to have residual left- sided weakness. The patient also says that she has a history of a brain aneurysm. She does not know if it was coiled or what type of surgical intervent ion occurred other than "they took six blood clots off my brain." Initial CT scan of the head shows no acute intracranial bleed or large acute infarction. 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 Patient seen and evaluated by telemetry neurology in the emergency room -pt. can not have MRI -pt. 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 Past History Past Medical History: heart failure, hypertension, stroke 2007 with left side weakness , other (Cataract) ? Hx of brain aneurysm surgery Medications and Allergies Allergies Allergy/AdvReac Type Severity Reaction Status Date / Time No Known Allergies Allergy Unverified 06/01/18 15:21 Home Medications Medication Instructions Recorded Confirmed Last Taken Type hydroCHLOROthiazide [HCTZ] 25 mg PO QDAY #30 tablet 08/16/20 12/04/20 Unknown Rx carvediloL [Coreg] 6.25 mg PO BID 12/04/20 12/04/20 Unknown History lisinopriL [Lisinopril] 20 mg PO QDAY 12/04/20 12/04/20 Unknown History Active Meds: Active Medications Acetaminophen (Acetaminophen 325 Mg Tab) 650 mg PO Q4H PRN PRN Reason: Pain MILD(1-3)/Fever >100.5/PASTOR Albuterol (Albuterol 2.5 Mg/3 Ml Nebu) 2.5 mg IH Q4HRT PRN PRN Reason: Shortness Of Breath Albuterol/Ipratropium (Ipratropium/Albuterol Sulfate 3 Ml Ampul.Neb) 1 ampul IH Q6HRT MACKENZIE Aspirin (Aspirin 325 Mg Tab) 325 mg PO QDAY [facility] Atorvastatin Calcium (Atorvastatin 40 Mg Tab) 40 mg PO QHS [facility] Carvedilol (Carvedilol 6.25 Mg Tab) 6.25 mg PO BID [facility] Famotidine (Famotidine 20 Mg/2 Ml Inj) 20 mg IV BID [facility] Heparin Sodium (Porcine) (Heparin 5,000 Unit/1 Ml Vial) 5,000 unit SUB-Q Q8HR [facility] Hydrochlorothiazide (Hydrochlorothiazide 25 Mg Tab) 25 mg PO QDAY [facility] Labetalol HCl (Labetalol 20 Mg/4 Ml Inj) 10 mg IV Q5MIN PRN PRN Reason: to maintain SBP < 180 Lisinopril (Lisinopril 20 Mg Tab) 20 mg PO QDAY [facility] Ondansetron HCl (Ondansetron 4 Mg/2 Ml Inj) 4 mg IV Q8H PRN PRN Reason: Nausea And Vomiting Sodium Chloride (Sodium Chloride 0.9% 10 Ml Flush Syringe) 10 ml IV BID [facility] Sodium Chloride (Sodium Chloride 0.9% 10 Ml Flush Syringe) 10 ml IV PRN PRN PRN Reason: LINE FLUSH Sodium Chloride (Sodium Chloride 0.9% 10 Ml Flush Syringe) 10 ml INJ PRN PRN PRN Reason: LINE FLUSH Review of Systems Constitutional: weakness Neurological: weakness Past History Past Medical History: heart failure, hypertension, stroke, other (Cataract) Medications and Allergies Allergies Allergy/AdvReac Type Severity Reaction Status Date / Time No Known Allergies Allergy Verified 12/08/20 06:26 Home Medications Medication Instructions Recorded Confirmed Last Taken Type hydroCHLOROthiazide [HCTZ] 25 mg PO QDAY #30 tablet 08/16/20 12/04/20 Unknown Rx carvediloL [Coreg] 6.25 mg PO BID 12/04/20 12/04/20 Unknown History lisinopriL [Lisinopril] 20 mg PO QDAY 12/04/20 12/04/20 Unknown History Active Meds: Active Medications Acetaminophen (Acetaminophen 325 Mg Tab) 650 mg PO Q4H PRN PRN Reason: Pain MILD(1-3)/Fever >100.5/PASTOR Albuterol (Albuterol 2.5 Mg/3 Ml Nebu) 2.5 mg IH Q4HRT PRN PRN Reason: Shortness Of Breath Albuterol/Ipratropium (Ipratropium/Albuterol Sulfate 3 Ml Ampul.Neb) 1 ampul IH Q12HRT [facility] Last Admin: 12/15/20 09:02 Dose: 1 ampul Documented by: Aspirin (Aspirin 325 Mg Tab) 325 mg PO QDAY [facility] Last Admin: 12/14/20 09:42 Dose: 325 mg Documented by: Atorvastatin Calcium (Atorvastatin 40 Mg Tab) 40 mg PO QHS [facility] Last Admin: 12/14/20 22:10 Dose: 40 mg Documented by: Carbamide Peroxide (Carbamide Peroxide 6.5% Otic Drops 15 Ml) 5 drops AU BID [facility] Last Admin: 12/14/20 22:10 Dose: 5 drops Documented by: Carvedilol (Carvedilol 6.25 Mg Tab) 6.25 mg PO BID [facility] Last Admin: 12/14/20 22:11 Dose: Not Given Documented by: Famotidine (Famotidine 20 Mg Tab) 20 mg PO BID [facility] Last Admin: 12/14/20 22:10 Dose: 20 mg Documented by: Heparin Sodium (Porcine) (Heparin 5,000 Unit/1 Ml Vial) 5,000 unit SUB-Q Q8HR [facility] Last Admin: 12/15/20 07:00 Dose: 5,000 unit Documented by: Hydrochlorothiazide (Hydrochlorothiazide 25 Mg Tab) 25 mg PO QDAY [facility] Last Admin: 12/14/20 09:40 Dose: 25 mg Documented by: Labetalol HCl (Labetalol 20 Mg/4 Ml Inj) 10 mg IV Q5MIN PRN PRN Reason: to maintain SBP < 180 Lisinopril (Lisinopril 20 Mg Tab) 10 mg PO QDAY [facility] Last Admin: 12/14/20 09:41 Dose: 10 mg Documented by: Nicotine (Nicotine 14 Mg/24 Hr Patch) 14 mg TD QDAY [facility] Last Admin: 12/14/20 09:40 Dose: 14 mg Documented by: Ondansetron HCl (Ondansetron 4 Mg/2 Ml Inj) 4 mg IV Q8H PRN PRN Reason: Nausea And Vomiting Sodium Chloride (Sodium Chloride 0.9% 10 Ml Flush Syringe) 10 ml IV BID [facility] Last Admin: 12/14/20 22:12 Dose: 10 ml Documented by: Sodium Chloride (Sodium Chloride 0.9% 10 Ml Flush Syringe) 10 ml IV PRN PRN PRN Reason: LINE FLUSH Physical Examination - Vital Signs Vital Signs: Vital Signs Pulse Resp Pulse Ox 91 H 20 96 12/04/20 07:20 12/04/20 07:20 12/04/20 07:20 - Constitutional General appearance: other (sleepy , drift to sllep easily hard to keep concentrated and or to get claer history from pt.) - EENT EENT: Present: PERRL, mucous membranes moist - Respiratory Respiratory: Present: chest non-tender, lungs clear, rhonchi - Cardiovascular Cardiovascular: Present: regular rate, normal S1, normal S2 Extremities: Present: no peripheral edema bilatateraly, no clubbing, cyanosis - Gastrointestinal Gastrointestinal: Present: normoactive bowel sounds - Integumentary Integumentary: Present: normal - Neurologic Cranial nerve examination: PERRL, EOMI, other (left facial droop , no clear visual deficit ) Speech examination: other (slight slurred speech , no aphasia , she is oriented to place and month not year she knows her age and birthdate ) Sensorimotor examination: other (right side 4/5 no rigidity no weakness reflexes are suppressed bilateral no sensory deficit , gait unable to do , due to sleepiness ) Posture: other (left hemiplegia with spasm left upper and slight increase tone left lower ) Results - Laboratory Findings CBC and BMP: 12/05/20 13:09 12/05/20 04:00 Abnormal Lab Findings: Abnormal Labs 12/04/20 12/05/20 12/05/20 08:58 04:00 08:03 Seg Neuts % (Manual) Sodium 134 L 136 L Glucose 101 H POC Glucose 106 H Albumin 3.5 L Triglycerides 160 H 12/05/20 12/05/20 12/06/20 11:34 13:09 07:37 Seg Neuts % (Manual) 72.0 H Sodium Glucose POC Glucose 175 H 112 H Albumin Triglycerides 12/06/20 12/06/20 12/07/20 15:56 20:47 11:46 Seg Neuts % (Manual) Sodium Glucose POC Glucose 110 H 106 H 139 H Albumin Triglycerides 12/07/20 16:05 Seg Neuts % (Manual) Sodium Glucose POC Glucose 201 H Albumin Triglycerides Assessment and Plan Assessment and Plan VTE prophylaxis?: Chemical Plan of care discussed with patient/family: Yes - Patient Problems # CVA (cerebral vascular accident) - Hx of remote CVA with left side contracture related to CVA and or aneurysm surgery presnted with possible increase weakness right side ? hx is not clear -exam is remarkable for right side4/5 with no sign of cervical disc disease -pt. can not have MRI -will schadual CTA brain and neck -CT neck -she is on ASA 325 mg and Lipitor 40 mg -echo showed mild impaired relax. with EF#55-60% -on lugger -Pt therapy evaluation # Right sided weakness can not be excluded -pt. is bad historian Aspirin 325 mg p.o. daily. Lipitor 40 mg p.o. daily. N.p.o. MRI of the brain with and without contrast MRI of the brain and neck with and without contrast. Echocardiogram. Patient is seen and evaluated by telemetry neurology. -R/O cervical disc disease -Hx of aneurysm surgery ? -CTA brain and neck # CHF (congestive heart failure) -Stable. Fluid restriction. Continue home medication. Echocardiogram is noted # Hypertension -Patient is on Coreg 6.25 mg p.o. twice daily. Hydrochlorothiazide 25 mg p.o. daily and lisinopril 20 mg p.o. daily. We will monitor the blood pressure closely #change in mentation and drawsiness -r/o toximetabolic and or infection and or drug effect # DVT prophylaxis -Heparin 5000 units subcu every 8 hours for DVT prophylaxis. - Pepcid 20 mg IV every 12 hours for GI prophylaxis. - Patient is a full code will follow
[2020-12-15] MEDS: hydroCHLOROthiazide 25 MG TAB PO SCH (10:51)
[2020-12-15] MEDS: ASPIRIN 325 MG TAB PO SCH (10:51)
[2020-12-15] MEDS: NICOTINE 14 MG/24 HR PATCH TD SCH (10:51)
[2020-12-15] MEDS: FAMOTIDINE 20 MG TAB PO SCH ×2 (10:51→21:34)
[2020-12-15] MEDS: LISINOPRIL 20 MG TAB PO SCH (10:52)
[2020-12-15] MEDS: carvediloL 6.25 MG TAB PO SCH ×2 (10:52→21:34)
[2020-12-15] MEDS: CARBAMIDE PEROXIDE 6.5% OTIC DROPS 15 ML AU SCH ×2 (10:52→21:45)
[2020-12-15] MEDS: ACETAMINOPHEN 325 MG TAB PO PRN (14:41)
[2020-12-16] MEDS: HEPARIN 5,000 UNIT/1 ML VIAL SUB-Q SCH ×3 (06:02→22:55)
--- NOTE | 2020-12-16 09:27 | Progress Note ---
Assessment and Plan Assessment and plan: Acute CVA Right hemiparesis Chronic CHF. Hypertension Tobacco use 12/14/2020. CT scan reveals no intracranial bleed or large acute territorial infarction. 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 Await MRI of brain. Consult neurology. Continue aspirin and Lipitor. 12/15/2020. Await MRI and neurology consultation. Continue aspirin and Lipitor. Physical therapy recommends subacute rehab. Await placement 12/16/2020. Neurology recommends CTA of head and neck which is pending. Continue aspirin and Lipitor. Echocardiogram from 12/04 revealed EF of 55 to 60% with mild diastolic dysfunction and impaired relaxation. No evidence of PFO. History Interval history: No new issues overnight. Hospitalist Physical - Constitutional Vitals: Temp Pulse Resp BP Pulse Ox 97.8 F 85 20 130/90 99 12/16/20 08:16 12/16/20 08:16 12/16/20 08:16 12/16/20 08:16 12/16/20 08:16 General appearance: Present: no acute distress, well-nourished - EENT Eyes: Present: PERRL, EOM intact ENT: hearing intact, clear oral mucosa, dentition normal - Neck Neck: Present: supple, normal ROM - Respiratory Respiratory effort: normal Respiratory: bilateral: CTA - Cardiovascular Rhythm: regular Heart Sounds: Present: S1 & S2. Absent: gallop, rub - Extremities Extremities: no ischemia, No edema, Full ROM - Abdominal General gastrointestinal: soft, non-tender, non-distended, normal bowel sounds - Integumentary Integumentary: Present: clear, warm, dry - Neurologic Neurologic: CNII-XII intact, moves all extremities HEART Score - HEART Score Troponin: Troponin T < 0.010 ng/mL (0.00-0.029) 12/04/20 14:20 Results - Labs CBC & Chem 7: 12/05/20 13:09 12/05/20 04:00 Labs: Laboratory Last Values WBC 7.6 K/mm3 (4.5-11.0) 12/05/20 13:09 RBC 4.02 M/mm3 (3.65-5.03) 12/05/20 13:09 Hgb 11.9 gm/dl (10.1-14.3) 12/05/20 13:09 Hct 35.2 % (30.3-42.9) 12/05/20 13:09 MCV 87 fl (79-97) 12/05/20 13:09 MCH 30 pg (28-32) 12/05/20 13:09 MCHC 34 % (30-34) 12/05/20 13:09 RDW 14.3 % (13.2-15.2) 12/05/20 13:09 Plt Count 252 K/mm3 (140-440) 12/05/20 13:09 Lymph % (Auto) 32.9 % (13.4-35.0) 12/04/20 08:58 Spencer % (Auto) 5.3 % (0.0-7.3) 12/04/20 08:58 Eos % (Auto) 2.1 % (0.0-4.3) 12/04/20 08:58 Baso % (Auto) [place] 12/05/20 13:09 Lymph # (Auto) 2.7 K/mm3 (1.2-5.4) 12/04/20 08:58 Spencer # (Auto) 0.4 K/mm3 (0.0-0.8) 12/04/20 08:58 Eos # (Auto) 0.2 K/mm3 (0.0-0.4) 12/04/20 08:58 Baso # (Auto) 0.1 K/mm3 (0.0-0.1) 12/04/20 08:58 Add Manual Diff Complete 12/05/20 13:09 Total Counted 100 12/05/20 13:09 Seg Neutrophils % 58.6 % (40.0-70.0) 12/04/20 08:58 Seg Neuts % (Manual) 72.0 % (40.0-70.0) H 12/05/20 13:09 Lymphocytes % (Manual) 22.0 % (13.4-35.0) 12/05/20 13:09 Monocytes % (Manual) 6.0 % (0.0-7.3) 12/05/20 13:09 Nucleated RBC % Not Reportable 12/05/20 13:09 Seg Neutrophils # 4.8 K/mm3 (1.8-7.7) 12/04/20 08:58 Seg Neutrophils # Man 5.5 K/mm3 (1.8-7.7) 12/05/20 13:09 Band Neutrophils # 0.0 K/mm3 12/05/20 13:09 Lymphocytes # (Manual) 1.7 K/mm3 (1.2-5.4) 12/05/20 13:09 Abs React Lymphs (Man) 0.0 K/mm3 12/05/20 13:09 Monocytes # (Manual) 0.5 K/mm3 (0.0-0.8) 12/05/20 13:09 Eosinophils # (Manual) 0.0 K/mm3 (0.0-0.4) 12/05/20 13:09 Basophils # (Manual) 0.0 K/mm3 (0.0-0.1) 12/05/20 13:09 Metamyelocytes # 0.0 K/mm3 12/05/20 13:09 Myelocytes # 0.0 K/mm3 12/05/20 13:09 Promyelocytes # 0.0 K/mm3 12/05/20 13:09 Blast Cells # 0.0 K/mm3 12/05/20 13:09 WBC Morphology Not Reportable 12/05/20 13:09 WBC Morphology TNR 12/05/20 13:09 Hypersegmented Neuts Not Reportable 12/05/20 13:09 Hyposegmented Neuts Not Reportable 12/05/20 13:09 Hypogranular Neuts Not Reportable 12/05/20 13:09 Smudge Cells Not Reportable 12/05/20 13:09 Toxic Granulation Not Reportable 12/05/20 13:09 Toxic Vacuolation Not Reportable 12/05/20 13:09 Dohle Bodies Not Reportable 12/05/20 13:09 Pelger-Huet Anomaly Not Reportable 12/05/20 13:09 Brigida Rods Not Reportable 12/05/20 13:09 Platelet Estimate Not Reportable 12/05/20 13:09 Clumped Platelets Not Reportable 12/05/20 13:09 Plt Clumps, EDTA Not Reportable 12/05/20 13:09 Large Platelets Not Reportable 12/05/20 13:09 Giant Platelets Not Reportable 12/05/20 13:09 Platelet Satelliting Not Reportable 12/05/20 13:09 Plt Morphology Comment Not Reportable 12/05/20 13:09 RBC Morphology Normal 12/05/20 13:09 Dimorphic RBCs Not Reportable 12/05/20 13:09 Polychromasia Not Reportable 12/05/20 13:09 Hypochromasia Not Reportable 12/05/20 13:09 Poikilocytosis Not Reportable 12/05/20 13:09 Anisocytosis Not Reportable 12/05/20 13:09 Microcytosis Not Reportable 12/05/20 13:09 Macrocytosis Not Reportable 12/05/20 13:09 Spherocytes Not Reportable 12/05/20 13:09 Pappenheimer Bodies Not Reportable 12/05/20 13:09 Sickle Cells Not Reportable 12/05/20 13:09 Target Cells Not Reportable 12/05/20 13:09 Tear Drop Cells Not Reportable 12/05/20 13:09 Ovalocytes Not Reportable 12/05/20 13:09 Helmet Cells Not Reportable 12/05/20 13:09 [place]-Gail Bodies Not Reportable 12/05/20 13:09 [place] Rings Not Reportable 12/05/20 13:09 Cora Cells Not Reportable 12/05/20 13:09 Bite Cells Not Reportable 12/05/20 13:09 Crenated Cell Not Reportable 12/05/20 13:09 Elliptocytes Not Reportable 12/05/20 13:09 Acanthocytes (Spur) Not Reportable 12/05/20 13:09 Rouleaux Not Reportable 12/05/20 13:09 Hemoglobin C Crystals Not Reportable 12/05/20 13:09 Schistocytes Not Reportable 12/05/20 13:09 Malaria parasites Not Reportable 12/05/20 13:09 ESR 28 mm/Hr (0-20) 12/16/20 04:50 Chalo Bodies Not Reportable 12/05/20 13:09 Hem Pathologist Commnt No 12/05/20 13:09 PT 13.8 Sec. (12.2-14.9) 12/04/20 08:58 INR 1.00 (0.87-1.13) 12/04/20 08:58 APTT 32.5 Sec. (24.2-36.6) 12/04/20 08:58 Sodium 136 mmol/L (137-145) L 12/05/20 04:00 Potassium 3.8 mmol/L (3.6-5.0) 12/05/20 04:00 Chloride 100.2 mmol/L (98-107) 12/05/20 04:00 Carbon Dioxide 26 mmol/L (22-30) 12/05/20 04:00 Anion Gap 14 mmol/L 12/05/20 04:00 BUN 15 mg/dL (7-17) 12/05/20 04:00 Creatinine 0.7 mg/dL (0.6-1.2) 12/05/20 04:00 Estimated GFR > 60 ml/min 12/05/20 04:00 BUN/Creatinine Ratio 21 % 12/05/20 04:00 Glucose 101 mg/dL (65-100) H 12/05/20 04:00 POC Glucose 201 mg/dL (70-105) H 12/07/20 16:05 Calcium 9.2 mg/dL (8.4-10.2) 12/05/20 04:00 Total Bilirubin 0.40 mg/dL (0.1-1.2) 12/04/20 08:58 AST 27 units/L (5-40) 12/04/20 08:58 ALT 30 units/L (7-56) 12/04/20 08:58 Alkaline Phosphatase 126 units/L (35-129) 12/04/20 08:58 Troponin T < 0.010 ng/mL (0.00-0.029) 12/04/20 14:20 Total Protein 7.9 g/dL (6.3-8.2) 12/04/20 08:58 Albumin 3.5 g/dL (3.9-5) L 12/04/20 08:58 Albumin/Globulin Ratio 0.8 % 12/04/20 08:58 Triglycerides 160 mg/dL (2-149) H 12/05/20 04:00 Cholesterol 177 mg/dL (50-199) 12/05/20 04:00 LDL Cholesterol Direct 116 mg/dL (50-130) 12/05/20 04:00 HDL Cholesterol 41 mg/dL (40-59) 12/05/20 04:00 Cholesterol/HDL Ratio 4.31 % 12/05/20 04:00 TSH 0.736 mlU/mL (0.270-4.200) 12/16/20 04:50 Urine Color Yellow (Yellow) 12/04/20 Unknown Urine Turbidity Clear (Clear) 12/04/20 Unknown Urine pH 5.0 (5.0-7.0) 12/04/20 Unknown Ur Specific [place] 1.016 (1.003-1.030) 12/04/20 Unknown Urine Protein <15 mg/dl mg/dL (Negative) 12/04/20 Unknown Urine Glucose (UA) Neg mg/dL (Negative) 12/04/20 Unknown Urine Ketones Neg mg/dL (Negative) 12/04/20 Unknown Urine Blood Neg (Negative) 12/04/20 Unknown Urine Nitrite Neg (Negative) 12/04/20 Unknown Urine Bilirubin Neg (Negative) 12/04/20 Unknown Urine Urobilinogen < 2.0 mg/dL (<2.0) 12/04/20 Unknown Ur Leukocyte Esterase Neg (Negative) 12/04/20 Unknown Urine WBC (Auto) 1.0 /HPF (0.0-6.0) 12/04/20 Unknown Urine RBC (Auto) 2.0 /HPF (0.0-6.0) 12/04/20 Unknown U Epithel Cells (Auto) 1.0 /HPF (0-13.0) 12/04/20 Unknown Urine Mucus Few /HPF 12/04/20 Unknown Coronavirus (PCR) Negative (Negative) 12/05/20 Unknown Roberts/IV: Voiding Method Incontinent Active Medications - Current Medications Current Medications: Generic Name Dose Route Start Last Admin Trade Name Freq PRN Reason Stop Dose Admin Acetaminophen 650 mg 12/04/20 12:57 12/15/20 14:41 Acetaminophen 325 Mg Tab PO 650 mg Q4H PRN Administration Pain MILD(1-3)/Fever >100.5/PASTOR Albuterol 2.5 mg 12/06/20 08:30 Albuterol 2.5 Mg/3 Ml Nebu IH Q4HRT PRN Shortness Of Breath Albuterol/Ipratropium 1 ampul 12/06/20 20:00 12/15/20 20:32 Ipratropium/Albuterol Sulfate 3 Ml Ampul.Neb IH 1 ampul Q12HRT MACKENZIE Administration Aspirin 325 mg 12/05/20 10:00 12/15/20 10:51 Aspirin 325 Mg Tab PO 325 mg QDAY MACKENZIE Administration Atorvastatin Calcium 40 mg 12/04/20 22:00 12/15/20 21:34 Atorvastatin 40 Mg Tab PO 40 mg QHS MACKENZIE Administration Carbamide Peroxide 5 drops 12/05/20 10:00 12/15/20 21:45 Carbamide Peroxide 6.5% Otic Drops 15 Ml AU 5 drops BID MACKENZIE Administration Carvedilol 6.25 mg 12/04/20 22:00 12/15/20 21:34 Carvedilol 6.25 Mg Tab PO 6.25 mg BID MACKENZIE Administration Famotidine 20 mg 12/05/20 22:00 12/15/20 21:34 Famotidine 20 Mg Tab PO 20 mg BID MACKENZIE Administration Heparin Sodium (Porcine) 5,000 unit 12/04/20 14:00 12/16/20 06:02 Heparin 5,000 Unit/1 Ml Vial SUB-Q 5,000 unit Q8HR MACKENZIE Administration Hydrochlorothiazide 25 mg 12/05/20 10:00 12/15/20 10:51 Hydrochlorothiazide 25 Mg Tab PO 25 mg QDAY MACKENZIE Administration Labetalol HCl 10 mg 12/04/20 12:57 Labetalol 20 Mg/4 Ml Inj IV Q5MIN PRN to maintain SBP < 180 Lisinopril 10 mg 12/13/20 09:19 12/15/20 10:52 Lisinopril 20 Mg Tab PO 10 mg QDAY MACKENZIE Administration Nicotine 14 mg 12/06/20 11:00 12/15/20 10:51 Nicotine 14 Mg/24 Hr Patch TD 14 mg QDAY MACKENZIE Administration Ondansetron HCl 4 mg 12/04/20 12:57 Ondansetron 4 Mg/2 Ml Inj IV Q8H PRN Nausea And Vomiting Sodium Chloride 10 ml 12/04/20 22:00 12/15/20 21:35 Sodium Chloride 0.9% 10 Ml Flush Syringe IV 10 ml BID MACKENZIE Administration Sodium Chloride 10 ml 12/04/20 12:57 Sodium Chloride 0.9% 10 Ml Flush Syringe IV PRN PRN LINE FLUSH Nutrition/Malnutrition Assess - Dietary Evaluation Nutrition/Malnutrition Findings: Nutrition Notes Start: 12/14/20 14:12 Freq: Status: Active Protocol: Document 12/14/20 14:12 CW (Rec: 12/14/20 14:16 CW [email or web address]) Nutrition Notes Need for Assessment generated from: LOS Initial or Follow up Brief Note Current Diagnosis Heart Failure,Stroke Current Diet Cardiac Diet Labs/Tests 12/05 Na 136 Pertinent Medications reviewed Height 5 ft Weight 80.8 kg [place] Body Weight (kg) 45.45 BMI 34.7 Weight change and time frame weight fluctuations likely r/t fluid Weight Status Obese Subjective/Other Information Screen fro LOS. PO intake is excellent. Dang score of 19. Weight fluctuates 80+/- 5 kg. Nutrition Intervention Change Diet Order: Continue current diet as ordered Anticipated Discharge Needs: Cardiac diet Revisit per MD consult or patient Sign Off request: Additional Comments S/O for excellent intakes and dang score of 19
[2020-12-16] MEDS: IPRATROPIUM/ALBUTEROL SULFATE 3 ML AMPUL.NEB IH SCH ×2 (09:38→20:40)
[2020-12-16] MEDS: CARBAMIDE PEROXIDE 6.5% OTIC DROPS 15 ML AU SCH ×2 (12:00→22:55)
[2020-12-16] MEDS: NICOTINE 14 MG/24 HR PATCH TD SCH (12:28)
[2020-12-16] MEDS: LISINOPRIL 20 MG TAB PO SCH (12:29)
[2020-12-16] MEDS: hydroCHLOROthiazide 25 MG TAB PO SCH (12:33)
[2020-12-16] MEDS: ASPIRIN 325 MG TAB PO SCH (12:33)
[2020-12-16] MEDS: carvediloL 6.25 MG TAB PO SCH ×2 (12:33→22:55)
[2020-12-16] MEDS: FAMOTIDINE 20 MG TAB PO SCH ×2 (12:33→22:55)
--- NOTE | 2020-12-16 16:37 | Cat Scan Report ---
. CT cervical spine wo con INDICATION / CLINICAL INFORMATION: 55 years Female; right side weakness r/o cervical disc disease. TECHNIQUE: Axial CT images of the cervical spine were obtained. Sagittal and coronal reformatted images were pr oduced. All CT scans at this location are performed using CT dose reduction for ALARA by means of aut omated exposure control. COMPARISON: None available. FINDINGS: POST-SURGICAL CHANGES: The study is compared to previous CT of 12/08/2020. ALIGNMENT: There is slight curvature the cervical spine, convex toward the right. There is no develop ing spondylolisthesis at. VERTEBRAE: There are continued a degenerative the changes anteriorly at C5-6 with mild osteophytic fo rmation at. Milder findings are noted at anteriorly at C4-5 and C6-7. 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 There is no clear CT evidence of acute fracture involvi ng the cervical spine. INTRAVERTEBRAL DISCS: There appears be mild central disc bulge at C5-6 which effaces the subarachnoid space at. The neural foramen appear patent at. There is no bony of spinal stenosis involving remaini ng cervical segments at. PARASPINAL SOFT TISSUES: No prevertebral soft tissue fluid collections are identified. ADDITIONAL FINDINGS: None. IMPRESSION: 1. There is no CT evidence of acute fracture involving the cervical spine or significant interval damien nge from 12/08/2020. Signer Name: Blake Bunn MD Signed: 12/16/2020 4:33 PM Workstation Name: [id number]
--- NOTE | 2020-12-16 16:53 | Cat Scan Report ---
CT angio neck INDICATION / CLINICAL INFORMATION: 55 years Female; cva 100 ml omni 350 . TECHNIQUE: Thin cut axial images obtained through the head during IV bolus contrast administration. S agittal, coronal, and 3 plane MIP reconstructions performed by the technologist. NASCET type criteria used evaluate stenoses. All CT scans at this location are performed using CT dose reduction for ALAR A by means of automated exposure control. COMPARISON: None available. FINDINGS: CAROTID ARTERIES: The motion and beam hardening degrade the image quality. However, there is irregula rity of the right carotid bulb with apparent mild atherosclerotic plaque anteriorly at. Furthermore, there is also suggestion of subtle lucency anteriorly within the bulb with significant circumferentia l narrowing along the extent of the more distal cervical right ICA. The findings would be a concernin g for dissection. There is no significant stenosis involving the left carotid arteries by NASCET criteria. VERTEBRAL ARTERIES: The vertebral arteries also demonstrate appropriate caliber without significant f ocal stenosis at. ARCH: There is no significant narrowing of the visualized arch of vessels. ADDITIONAL FINDINGS: Remainder of the surrounding soft tissues are grossly normal. IMPRESSION: There is mild irregularity of the right carotid bulb with significant narrowing along the extent of t he more distal right cervical ICA with findings concerning for dissection as described. There is no significant stenosis involving cervical vertebral or left carotid arteries by NASCET to tiffani ferrara. Signer Name: Blake Bunn MD Signed: 12/16/2020 4:49 PM Workstation Name: [id number]
--- NOTE | 2020-12-16 17:21 | Cat Scan Report ---
CT angio head INDICATION / CLINICAL INFORMATION: 55 years Female; CVA 100 ml omni 350. TECHNIQUE: Thin cut axial images obtained through the head during IV bolus contrast administration. S agittal, coronal, and 3 plane MIP reconstructions performed by the technologist. NASCET type criteria used evaluate stenoses. Automated exposure control utilized for radiation reduction purposes. COMPARISON: None available. FINDINGS: INTERNAL CAROTID ARTERIES: There is marked narrowing of the proximal segments of the intracranial rig ht ICA with apparent occlusion along the distal communicating segment. There is no significant focal stenosis involving intracranial left ICA. VERTEBROBASILAR SYSTEM: The visualized vertebrobasilar system demonstrate appropriate caliber without significant focal stenosis at. CEREBRAL ARTERIES: There is also occlusion of the proximal right MCA at. However, collateral of flow is noted at the right MCA trifurcation with opacification of the right insular branches. However, the re is decrease intensity relative to the left indicative of decreased flow. Additionally, there is de creased attenuation within the right frontal lobe and basal ganglia indicative of evolving infarct at . The A1 segments of the anterior cerebral arteries are not well visualized though appears to be some f low on the left with notable hypoplasia. There is faint opacification within the more distal segments of the anterior cerebral arteries, particularly the A3 components which may reflect further collater al flow. There is irregularity of the left MCA branches with significant focal stenosis involving a minimal te mporal lobe branch along the anterior segment at. However, there is flow seen more distally. Otherwis e I, the remaining segments appear to opacify with contrast. There is no significant focal narrowing involving the posterior cerebral arteries. ANEURYSM: None identified. ADDITIONAL FINDINGS: Remainder of the surrounding soft tissues are grossly normal. IMPRESSION: There is occlusion of the communicating segment of the right ICA as well as the proximal right MCA an d LIBIA. There is some collateral flow within the more distal segments as detailed above at. However, t here appears to be a developing acute right-sided infarcts within the frontal lobe and basal ganglia with edema. There is significant focal stenosis involving an M2 segment of the left MCA as described. A message was sent her to the Department to regarding the findings include completion of the dictatio n at 4:14 PM Central standard time Signer Name: Blake Bunn MD Signed: 12/16/2020 5:16 PM Workstation Name: [id number]
[2020-12-16] MEDS: ACETAMINOPHEN 325 MG TAB PO PRN (23:58)
[2020-12-17] MEDS: HEPARIN 5,000 UNIT/1 ML VIAL SUB-Q SCH ×3 (05:55→22:53)
[2020-12-17] MEDS: IPRATROPIUM/ALBUTEROL SULFATE 3 ML AMPUL.NEB IH SCH ×2 (09:18→19:38)
--- NOTE | 2020-12-17 09:32 | Progress Note ---
Assessment and Plan Assessment and plan: Acute CVA. Patient with history of remote CVA with left-sided contractures related and or aneurysm surgery. Right hemiparesis Chronic CHF. Hypertension Tobacco use 12/14/2020. CT scan reveals no intracranial bleed or large acute territorial infarction. 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 Await MRI of brain. Consult neurology. Continue aspirin and Lipitor. 12/15/2020. Await MRI and neurology consultation. Continue aspirin and Lipitor. Physical therapy recommends subacute rehab. Await placement 12/16/2020. Neurology recommends CTA of head and neck which is pending. Continue aspirin and Lipitor. Echocardiogram from 12/04 revealed EF of 55 to 60% with mild diastolic dysfunction and impaired relaxation. No evidence of PFO. 12/17/2020. Patient with history of remote CVA with left-sided contractures related and or aneurysm surgery but with questionable worsened right-sided weakness with possible new acute CVA. Patient cannot have MRI. 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 There is some collateral flow within the more distal segments. However, there appears to be a developing acute right-sided infarct within the frontal lobe and basal ganglia with edema. CTA of the neck reveals mild irregularity of the right carotid bulb with s ignificant narrowing along the extent of more distal right cervical ICA with findings concerning for dissection. Consult vascular surgery for further evaluation. Neurology also following. Continue aspirin and Lipitor. History Interval history: No new issues overnight. Hospitalist Physical - Constitutional Vitals: Temp Pulse Resp BP Pulse Ox 97.6 F 70 16 97/67 98 12/17/20 08:37 12/17/20 08:37 12/17/20 08:37 12/17/20 08:37 12/17/20 08:37 General appearance: Present: no acute distress, well-nourished - EENT Eyes: Present: PERRL, EOM intact ENT: hearing intact, clear oral mucosa, dentition normal - Neck Neck: Present: supple, normal ROM - Respiratory Respiratory effort: normal Respiratory: bilateral: CTA - Cardiovascular Rhythm: regular Heart Sounds: Present: S1 & S2. Absent: gallop, rub - Extremities Extremities: no ischemia, No edema, Full ROM - Abdominal General gastrointestinal: soft, non-tender, non-distended, normal bowel sounds - Integumentary Integumentary: Present: clear, warm, dry - Neurologic Neurologic: CNII-XII intact, moves all extremities HEART Score - HEART Score Troponin: Troponin T < 0.010 ng/mL (0.00-0.029) 12/04/20 14:20 Results - Labs CBC & Chem 7: 12/05/20 13:09 12/05/20 04:00 Labs: Laboratory Last Values WBC 7.6 K/mm3 (4.5-11.0) 12/05/20 13:09 RBC 4.02 M/mm3 (3.65-5.03) 12/05/20 13:09 Hgb 11.9 gm/dl (10.1-14.3) 12/05/20 13:09 Hct 35.2 % (30.3-42.9) 12/05/20 13:09 MCV 87 fl (79-97) 12/05/20 13:09 MCH 30 pg (28-32) 12/05/20 13:09 MCHC 34 % (30-34) 12/05/20 13:09 RDW 14.3 % (13.2-15.2) 12/05/20 13:09 Plt Count 252 K/mm3 (140-440) 12/05/20 13:09 Lymph % (Auto) 32.9 % (13.4-35.0) 12/04/20 08:58 Dixie % (Auto) 5.3 % (0.0-7.3) 12/04/20 08:58 Eos % (Auto) 2.1 % (0.0-4.3) 12/04/20 08:58 Baso % (Auto) Calculator Operator 12/05/20 13:09 Lymph # (Auto) 2.7 K/mm3 (1.2-5.4) 12/04/20 08:58 Dixie # (Auto) 0.4 K/mm3 (0.0-0.8) 12/04/20 08:58 Eos # (Auto) 0.2 K/mm3 (0.0-0.4) 12/04/20 08:58 Baso # (Auto) 0.1 K/mm3 (0.0-0.1) 12/04/20 08:58 Add Manual Diff Complete 12/05/20 13:09 Total Counted 100 12/05/20 13:09 Seg Neutrophils % 58.6 % (40.0-70.0) 12/04/20 08:58 Seg Neuts % (Manual) 72.0 % (40.0-70.0) H 12/05/20 13:09 Lymphocytes % (Manual) 22.0 % (13.4-35.0) 12/05/20 13:09 Monocytes % (Manual) 6.0 % (0.0-7.3) 12/05/20 13:09 Nucleated RBC % Not Reportable 12/05/20 13:09 Seg Neutrophils # 4.8 K/mm3 (1.8-7.7) 12/04/20 08:58 Seg Neutrophils # Man 5.5 K/mm3 (1.8-7.7) 12/05/20 13:09 Band Neutrophils # 0.0 K/mm3 12/05/20 13:09 Lymphocytes # (Manual) 1.7 K/mm3 (1.2-5.4) 12/05/20 13:09 Abs React Lymphs (Man) 0.0 K/mm3 12/05/20 13:09 Monocytes # (Manual) 0.5 K/mm3 (0.0-0.8) 12/05/20 13:09 Eosinophils # (Manual) 0.0 K/mm3 (0.0-0.4) 12/05/20 13:09 Basophils # (Manual) 0.0 K/mm3 (0.0-0.1) 12/05/20 13:09 Metamyelocytes # 0.0 K/mm3 12/05/20 13:09 Myelocytes # 0.0 K/mm3 12/05/20 13:09 Promyelocytes # 0.0 K/mm3 12/05/20 13:09 Blast Cells # 0.0 K/mm3 12/05/20 13:09 WBC Morphology Not Reportable 12/05/20 13:09 WBC Morphology TNR 12/05/20 13:09 Hypersegmented Neuts Not Reportable 12/05/20 13:09 Hyposegmented Neuts Not Reportable 12/05/20 13:09 Hypogranular Neuts Not Reportable 12/05/20 13:09 Smudge Cells Not Reportable 12/05/20 13:09 Toxic Granulation Not Reportable 12/05/20 13:09 Toxic Vacuolation Not Reportable 12/05/20 13:09 Dohle Bodies Not Reportable 12/05/20 13:09 Pelger-Huet Anomaly Not Reportable 12/05/20 13:09 Brigida Rods Not Reportable 12/05/20 13:09 Platelet Estimate Not Reportable 12/05/20 13:09 Clumped Platelets Not Reportable 12/05/20 13:09 Plt Clumps, EDTA Not Reportable 12/05/20 13:09 Large Platelets Not Reportable 12/05/20 13:09 Giant Platelets Not Reportable 12/05/20 13:09 Platelet Satelliting Not Reportable 12/05/20 13:09 Plt Morphology Comment Not Reportable 12/05/20 13:09 RBC Morphology Normal 12/05/20 13:09 Dimorphic RBCs Not Reportable 12/05/20 13:09 Polychromasia Not Reportable 12/05/20 13:09 Hypochromasia Not Reportable 12/05/20 13:09 Poikilocytosis Not Reportable 12/05/20 13:09 Anisocytosis Not Reportable 12/05/20 13:09 Microcytosis Not Reportable 12/05/20 13:09 Macrocytosis Not Reportable 12/05/20 13:09 Spherocytes Not Reportable 12/05/20 13:09 Pappenheimer Bodies Not Reportable 12/05/20 13:09 Sickle Cells Not Reportable 12/05/20 13:09 Target Cells Not Reportable 12/05/20 13:09 Tear Drop Cells Not Reportable 12/05/20 13:09 Ovalocytes Not Reportable 12/05/20 13:09 Helmet Cells Not Reportable 12/05/20 13:09 Weston-Malott Bodies Not Reportable 12/05/20 13:09 [place] Rings Not Reportable 12/05/20 13:09 Solo Cells Not Reportable 12/05/20 13:09 Bite Cells Not Reportable 12/05/20 13:09 Crenated Cell Not Reportable 12/05/20 13:09 Elliptocytes Not Reportable 12/05/20 13:09 Acanthocytes (Spur) Not Reportable 12/05/20 13:09 Rouleaux Not Reportable 12/05/20 13:09 Hemoglobin C Crystals Not Reportable 12/05/20 13:09 Schistocytes Not Reportable 12/05/20 13:09 Malaria parasites Not Reportable 12/05/20 13:09 ESR 28 mm/Hr (0-20) 12/16/20 04:50 Chalo Bodies Not Reportable 12/05/20 13:09 Hem Pathologist Commnt No 12/05/20 13:09 PT 13.8 Sec. (12.2-14.9) 12/04/20 08:58 INR 1.00 (0.87-1.13) 12/04/20 08:58 APTT 32.5 Sec. (24.2-36.6) 12/04/20 08:58 Sodium 136 mmol/L (137-145) L 12/05/20 04:00 Potassium 3.8 mmol/L (3.6-5.0) 12/05/20 04:00 Chloride 100.2 mmol/L (98-107) 12/05/20 04:00 Carbon Dioxide 26 mmol/L (22-30) 12/05/20 04:00 Anion Gap 14 mmol/L 12/05/20 04:00 BUN 15 mg/dL (7-17) 12/05/20 04:00 Creatinine 0.7 mg/dL (0.6-1.2) 12/05/20 04:00 Estimated GFR > 60 ml/min 12/05/20 04:00 BUN/Creatinine Ratio 21 % 12/05/20 04:00 Glucose 101 mg/dL (65-100) H 12/05/20 04:00 POC Glucose 201 mg/dL (70-105) H 12/07/20 16:05 Calcium 9.2 mg/dL (8.4-10.2) 12/05/20 04:00 Total Bilirubin 0.40 mg/dL (0.1-1.2) 12/04/20 08:58 AST 27 units/L (5-40) 12/04/20 08:58 ALT 30 units/L (7-56) 12/04/20 08:58 Alkaline Phosphatase 126 units/L (35-129) 12/04/20 08:58 Troponin T < 0.010 ng/mL (0.00-0.029) 12/04/20 14:20 Total Protein 7.9 g/dL (6.3-8.2) 12/04/20 08:58 Albumin 3.5 g/dL (3.9-5) L 12/04/20 08:58 Albumin/Globulin Ratio 0.8 % 12/04/20 08:58 Triglycerides 160 mg/dL (2-149) H 12/05/20 04:00 Cholesterol 177 mg/dL (50-199) 12/05/20 04:00 LDL Cholesterol Direct 116 mg/dL (50-130) 12/05/20 04:00 HDL Cholesterol 41 mg/dL (40-59) 12/05/20 04:00 Cholesterol/HDL Ratio 4.31 % 12/05/20 04:00 TSH 0.736 mlU/mL (0.270-4.200) 12/16/20 04:50 Urine Color Yellow (Yellow) 12/04/20 Unknown Urine Turbidity Clear (Clear) 12/04/20 Unknown Urine pH 5.0 (5.0-7.0) 12/04/20 Unknown Ur Specific [place] 1.016 (1.003-1.030) 12/04/20 Unknown Urine Protein <15 mg/dl mg/dL (Negative) 12/04/20 Unknown Urine Glucose (UA) Neg mg/dL (Negative) 12/04/20 Unknown Urine Ketones Neg mg/dL (Negative) 12/04/20 Unknown Urine Blood Neg (Negative) 12/04/20 Unknown Urine Nitrite Neg (Negative) 12/04/20 Unknown Urine Bilirubin Neg (Negative) 12/04/20 Unknown Urine Urobilinogen < 2.0 mg/dL (<2.0) 12/04/20 Unknown Ur Leukocyte Esterase Neg (Negative) 12/04/20 Unknown Urine WBC (Auto) 1.0 /HPF (0.0-6.0) 12/04/20 Unknown Urine RBC (Auto) 2.0 /HPF (0.0-6.0) 12/04/20 Unknown U Epithel Cells (Auto) 1.0 /HPF (0-13.0) 12/04/20 Unknown Urine Mucus Few /HPF 12/04/20 Unknown Coronavirus (PCR) Negative (Negative) 12/05/20 Unknown Roberts/IV: Voiding Method Bedside Commode Active Medications - Current Medications Current Medications: Generic Name Dose Route Start Last Admin Trade Name Freq PRN Reason Stop Dose Admin Acetaminophen 650 mg 12/04/20 12:57 12/16/20 23:58 Acetaminophen 325 Mg Tab PO 650 mg Q4H PRN Administration Pain MILD(1-3)/Fever >100.5/PASTOR Albuterol 2.5 mg 12/06/20 08:30 Albuterol 2.5 Mg/3 Ml Nebu IH Q4HRT PRN Shortness Of Breath Albuterol/Ipratropium 1 ampul 12/06/20 20:00 12/17/20 09:18 Ipratropium/Albuterol Sulfate 3 Ml Ampul.Neb IH 1 ampul Q12HRT MACKENZIE Administration Aspirin 325 mg 12/05/20 10:00 12/16/20 12:33 Aspirin 325 Mg Tab PO 325 mg QDAY MACKENZIE Administration Atorvastatin Calcium 40 mg 12/04/20 22:00 12/16/20 22:55 Atorvastatin 40 Mg Tab PO 40 mg QHS MACKENZIE Administration Carbamide Peroxide 5 drops 12/05/20 10:00 12/16/20 22:55 Carbamide Peroxide 6.5% Otic Drops 15 Ml AU 5 drops BID MACKENZIE Administration Carvedilol 6.25 mg 12/04/20 22:00 12/16/20 22:55 Carvedilol 6.25 Mg Tab PO 6.25 mg BID MACKENZIE Administration Famotidine 20 mg 12/05/20 22:00 12/16/20 22:55 Famotidine 20 Mg Tab PO 20 mg BID MACKENZIE Administration Heparin Sodium (Porcine) 5,000 unit 12/04/20 14:00 12/17/20 05:55 Heparin 5,000 Unit/1 Ml Vial SUB-Q 5,000 unit Q8HR MACKENZIE Administration Hydrochlorothiazide 25 mg 12/05/20 10:00 12/16/20 12:33 Hydrochlorothiazide 25 Mg Tab PO 25 mg QDAY MACKENZIE Administration Labetalol HCl 10 mg 12/04/20 12:57 Labetalol 20 Mg/4 Ml Inj IV Q5MIN PRN to maintain SBP < 180 Lisinopril 10 mg 12/13/20 09:19 12/16/20 12:29 Lisinopril 20 Mg Tab PO 10 mg QDAY MACKENZIE Administration Nicotine 14 mg 12/06/20 11:00 12/16/20 12:28 Nicotine 14 Mg/24 Hr Patch TD 14 mg QDAY MACKENZIE Administration Ondansetron HCl 4 mg 12/04/20 12:57 Ondansetron 4 Mg/2 Ml Inj IV Q8H PRN Nausea And Vomiting Sodium Chloride 10 ml 12/04/20 22:00 12/16/20 22:55 Sodium Chloride 0.9% 10 Ml Flush Syringe IV 10 ml BID MACKENZIE Administration Sodium Chloride 10 ml 12/04/20 12:57 Sodium Chloride 0.9% 10 Ml Flush Syringe IV PRN PRN LINE FLUSH Nutrition/Malnutrition Assess - Dietary Evaluation Nutrition/Malnutrition Findings: Nutrition Notes Start: 12/14/20 14:12 Freq: Status: Active Protocol: Document 12/14/20 14:12 CW (Rec: 12/14/20 14:16 CW [id number]) Nutrition Notes Need for Assessment generated from: LOS Initial or Follow up Brief Note Current Diagnosis Heart Failure,Stroke Current Diet Cardiac Diet Labs/Tests 12/05 Na 136 Pertinent Medications reviewed Height 5 ft Weight 80.8 kg [place] Body Weight (kg) 45.45 BMI 34.7 Weight change and time frame weight fluctuations likely r/t fluid Weight Status Obese Subjective/Other Information Screen fro LOS. PO intake is excellent. Dang score of 19. Weight fluctuates 80+/- 5 kg. Nutrition Intervention Change Diet Order: Continue current diet as ordered Anticipated Discharge Needs: Cardiac diet Revisit per MD consult or patient Sign Off request: Additional Comments S/O for excellent intakes and dang score of 19
[2020-12-17] MEDS: FAMOTIDINE 20 MG TAB PO SCH ×2 (09:44→22:53)
[2020-12-17] MEDS: ASPIRIN 325 MG TAB PO SCH (09:44)
[2020-12-17] MEDS: hydroCHLOROthiazide 25 MG TAB PO SCH (09:44)
[2020-12-17] MEDS: NICOTINE 14 MG/24 HR PATCH TD SCH (09:44)
[2020-12-17] MEDS: carvediloL 6.25 MG TAB PO SCH ×2 (09:44→22:52)
[2020-12-17] MEDS: LISINOPRIL 20 MG TAB PO SCH (09:45)
[2020-12-17] MEDS: CARBAMIDE PEROXIDE 6.5% OTIC DROPS 15 ML AU SCH ×2 (09:46→22:53)
--- NOTE | 2020-12-17 14:53 | Consultation ---
History of Present Illness - Reason for Consult Consult date: 12/17/20 Right Internal Carotid Artery Dissection Requesting physician: SARINA HART - History of Present Illness The patient is a 55-year-old female who was brought to the emergency department via EMS with complaints of 2-week history of right upper extremity weakness. She also complained of changes in her speech. She had a history of a previous stroke that left her with residual weakness in her left upper extremity. She also has a history of a brain aneurysm that required surgical intervention. Her work-up revealed no significant stenosis of her left carotid artery however there was a suggestion of right internal carotid artery dissection. At this time she still has some residual right upper extremity weakness however it is improving. She has no additional complaints at this time. Past History Past Medical History: heart failure, hypertension, hyperlipidemia, stroke, other (Cataract, Brain aneurysm) Past Surgical History: Other (Surgical intervention of brain aneurysm) Social history: no significant social history Medications and Allergies Allergies Allergy/AdvReac Type Severity Reaction Status Date / Time No Known Allergies Allergy Verified 12/08/20 06:26 Home Medications Medication Instructions Recorded Confirmed Last Taken Type hydroCHLOROthiazide [HCTZ] 25 mg PO QDAY #30 tablet 08/16/20 12/04/20 Unknown Rx carvediloL [Coreg] 6.25 mg PO BID 12/04/20 12/04/20 Unknown History lisinopriL [Lisinopril] 20 mg PO QDAY 12/04/20 12/04/20 Unknown History Active Meds: Active Medications Acetaminophen (Acetaminophen 325 Mg Tab) 650 mg PO Q4H PRN PRN Reason: Pain MILD(1-3)/Fever >100.5/PASTOR Last Admin: 12/16/20 23:58 Dose: 650 mg Documented by: Albuterol (Albuterol 2.5 Mg/3 Ml Nebu) 2.5 mg IH Q4HRT PRN PRN Reason: Shortness Of Breath Albuterol/Ipratropium (Ipratropium/Albuterol Sulfate 3 Ml Ampul.Neb) 1 ampul IH Q12HRT [facility] [place] Last Admin: 12/17/20 09:18 Dose: 1 ampul Documented by: Aspirin (Aspirin 325 Mg Tab) 325 mg PO QDAY [facility] [place] Last Admin: 12/17/20 09:44 Dose: 325 mg Documented by: Atorvastatin Calcium (Atorvastatin 40 Mg Tab) 40 mg PO QHS [facility] [place] Last Admin: 12/16/20 22:55 Dose: 40 mg Documented by: Carbamide Peroxide (Carbamide Peroxide 6.5% Otic Drops 15 Ml) 5 drops AU BID [facility] [place] Last Admin: 12/17/20 09:46 Dose: 5 drops Documented by: Carvedilol (Carvedilol 6.25 Mg Tab) 6.25 mg PO BID [facility] [place] Last Admin: 12/17/20 09:44 Dose: 6.25 mg Documented by: Famotidine (Famotidine 20 Mg Tab) 20 mg PO BID [facility] [place] Last Admin: 12/17/20 09:44 Dose: 20 mg Documented by: Heparin Sodium (Porcine) (Heparin 5,000 Unit/1 Ml Vial) 5,000 unit SUB-Q Q8HR [facility] [place] Last Admin: 12/17/20 13:40 Dose: 5,000 unit Documented by: Hydrochlorothiazide (Hydrochlorothiazide 25 Mg Tab) 25 mg PO QDAY [facility] [place] Last Admin: 12/17/20 09:44 Dose: 25 mg Documented by: Labetalol HCl (Labetalol 20 Mg/4 Ml Inj) 10 mg IV Q5MIN PRN PRN Reason: to maintain SBP < 180 Lisinopril (Lisinopril 20 Mg Tab) 10 mg PO QDAY [facility] [place] Last Admin: 12/17/20 09:45 Dose: 10 mg Documented by: Nicotine (Nicotine 14 Mg/24 Hr Patch) 14 mg TD QDAY [facility] [place] Last Admin: 12/17/20 09:44 Dose: 14 mg Documented by: Ondansetron HCl (Ondansetron 4 Mg/2 Ml Inj) 4 mg IV Q8H PRN PRN Reason: Nausea And Vomiting Sodium Chloride (Sodium Chloride 0.9% 10 Ml Flush Syringe) 10 ml IV BID [facility] [place] Last Admin: 12/17/20 09:46 Dose: 10 ml Documented by: Sodium Chloride (Sodium Chloride 0.9% 10 Ml Flush Syringe) 10 ml IV PRN PRN PRN Reason: LINE FLUSH Review of Systems All systems: negative Exam - Constitutional Vitals: Temp Pulse Resp BP Pulse Ox 97.9 F 73 18 93/64 88 12/17/20 12:30 12/17/20 12:30 12/17/20 12:30 12/17/20 12:30 12/17/20 12:30 General appearance: Present: no acute distress - Respiratory Respiratory effort: normal - Cardiovascular Rhythm: regular - Extremities Extremities: pulses intact (Palpable dorsalis pedis pulses bilaterally) - Abdominal General gastrointestinal: Present: soft, non-distended Female genitourinary: Present: deferred - Rectal Rectal Exam: deferred - Musculoskeletal Musculoskeletal: right sided weakness (3 out of 5 ar manager strength right hand), left sided weakness (Left upper extremity significantly weak with minimal motor) Results - Labs CBC & Chem 7: 12/05/20 13:09 12/05/20 04:00 - Imaging and Cardiology CT Scan - head: image reviewed Assessment and Plan The patient presented with evidence of a stroke involving her right upper extremity. Her CTA demonstrated a possible chronic dissection involving her right internal carotid artery. There were no significant findings of flow- limiting stenosis in her left internal carotid artery. The patient was not on antiplatelet therapy or a statin at the time of presentation. Would recommend dual antiplatelet therapy with aspirin 81 mg p.o. daily and Plavix 75 mg p.o. daily as well as a statin. She does not require any vascular surgery inte rvention.
[2020-12-18] MEDS: HEPARIN 5,000 UNIT/1 ML VIAL SUB-Q SCH ×3 (06:25→21:25)
[2020-12-18] MEDS: IPRATROPIUM/ALBUTEROL SULFATE 3 ML AMPUL.NEB IH SCH ×2 (07:33→20:25)
--- NOTE | 2020-12-18 08:32 | Progress Note ---
Assessment and Plan Assessment and plan: Acute CVA. Patient with history of remote CVA with left-sided contractures related and or aneurysm surgery. Right hemiparesis Chronic CHF. Hypertension Tobacco use 12/14/2020. CT scan reveals no intracranial bleed or large acute territorial infarction. 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 Await MRI of brain. Consult neurology. Continue aspirin and Lipitor. 12/15/2020. Await MRI and neurology consultation. Continue aspirin and Lipitor. Physical therapy recommends subacute rehab. Await placement 12/16/2020. Neurology recommends CTA of head and neck which is pending. Continue aspirin and Lipitor. Echocardiogram from 12/04 revealed EF of 55 to 60% with mild diastolic dysfunction and impaired relaxation. No evidence of PFO. 12/17/2020. Patient with history of remote CVA with left-sided contractures related and or aneurysm surgery but with questionable worsened right-sided weakness with possible new acute CVA. Patient cannot have MRI. 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 There is some collateral flow within the more distal segments. However, there appears to be a developing acute right-sided infarct within the frontal lobe and basal ganglia with edema. CTA of the neck reveals mild irregularity of the right carotid bulb with s ignificant narrowing along the extent of more distal right cervical ICA with findings concerning for dissection. Consult vascular surgery for further evaluation. Neurology also following. Continue aspirin and Lipitor. 12/18/2020. Await vascular surgery recommendations regarding right internal ca rotid artery dissection. Continue current management for CVA. Check swallow evaluation with speech therapy. History Interval history: No new issues overnight. Hospitalist Physical - Constitutional Vitals: Temp Pulse Resp BP Pulse Ox 98.8 F 76 18 127/70 97 12/18/20 03:59 12/18/20 03:59 12/18/20 03:59 12/18/20 03:59 12/18/20 03:59 General appearance: Present: no acute distress, well-nourished - EENT Eyes: Present: PERRL, EOM intact ENT: hearing intact, clear oral mucosa, dentition normal - Neck Neck: Present: supple, normal ROM - Respiratory Respiratory effort: normal Respiratory: bilateral: CTA - Cardiovascular Rhythm: regular Heart Sounds: Present: S1 & S2. Absent: gallop, rub - Extremities Extremities: no ischemia, No edema, Full ROM - Abdominal General gastrointestinal: soft, non-tender, non-distended, normal bowel sounds - Integumentary Integumentary: Present: clear, warm, dry - Neurologic Neurologic: CNII-XII intact, moves all extremities HEART Score - HEART Score Troponin: Troponin T < 0.010 ng/mL (0.00-0.029) 12/04/20 14:20 Results - Labs CBC & Chem 7: 12/05/20 13:09 12/05/20 04:00 Labs: Laboratory Last Values WBC 7.6 K/mm3 (4.5-11.0) 12/05/20 13:09 RBC 4.02 M/mm3 (3.65-5.03) 12/05/20 13:09 Hgb 11.9 gm/dl (10.1-14.3) 12/05/20 13:09 Hct 35.2 % (30.3-42.9) 12/05/20 13:09 MCV 87 fl (79-97) 12/05/20 13:09 MCH 30 pg (28-32) 12/05/20 13:09 MCHC 34 % (30-34) 12/05/20 13:09 RDW 14.3 % (13.2-15.2) 12/05/20 13:09 Plt Count 252 K/mm3 (140-440) 12/05/20 13:09 Lymph % (Auto) 32.9 % (13.4-35.0) 12/04/20 08:58 Stewart % (Auto) 5.3 % (0.0-7.3) 12/04/20 08:58 Eos % (Auto) 2.1 % (0.0-4.3) 12/04/20 08:58 Baso % (Auto) Senior Game Designer 12/05/20 13:09 Lymph # (Auto) 2.7 K/mm3 (1.2-5.4) 12/04/20 08:58 Stewart # (Auto) 0.4 K/mm3 (0.0-0.8) 12/04/20 08:58 Eos # (Auto) 0.2 K/mm3 (0.0-0.4) 12/04/20 08:58 Baso # (Auto) 0.1 K/mm3 (0.0-0.1) 12/04/20 08:58 Add Manual Diff Complete 12/05/20 13:09 Total Counted 100 12/05/20 13:09 Seg Neutrophils % 58.6 % (40.0-70.0) 12/04/20 08:58 Seg Neuts % (Manual) 72.0 % (40.0-70.0) H 12/05/20 13:09 Lymphocytes % (Manual) 22.0 % (13.4-35.0) 12/05/20 13:09 Monocytes % (Manual) 6.0 % (0.0-7.3) 12/05/20 13:09 Nucleated RBC % Not Reportable 12/05/20 13:09 Seg Neutrophils # 4.8 K/mm3 (1.8-7.7) 12/04/20 08:58 Seg Neutrophils # Man 5.5 K/mm3 (1.8-7.7) 12/05/20 13:09 Band Neutrophils # 0.0 K/mm3 12/05/20 13:09 Lymphocytes # (Manual) 1.7 K/mm3 (1.2-5.4) 12/05/20 13:09 Abs React Lymphs (Man) 0.0 K/mm3 12/05/20 13:09 Monocytes # (Manual) 0.5 K/mm3 (0.0-0.8) 12/05/20 13:09 Eosinophils # (Manual) 0.0 K/mm3 (0.0-0.4) 12/05/20 13:09 Basophils # (Manual) 0.0 K/mm3 (0.0-0.1) 12/05/20 13:09 Metamyelocytes # 0.0 K/mm3 12/05/20 13:09 Myelocytes # 0.0 K/mm3 12/05/20 13:09 Promyelocytes # 0.0 K/mm3 12/05/20 13:09 Blast Cells # 0.0 K/mm3 12/05/20 13:09 WBC Morphology Not Reportable 12/05/20 13:09 WBC Morphology TNR 12/05/20 13:09 Hypersegmented Neuts Not Reportable 12/05/20 13:09 Hyposegmented Neuts Not Reportable 12/05/20 13:09 Hypogranular Neuts Not Reportable 12/05/20 13:09 Smudge Cells Not Reportable 12/05/20 13:09 Toxic Granulation Not Reportable 12/05/20 13:09 Toxic Vacuolation Not Reportable 12/05/20 13:09 Dohle Bodies Not Reportable 12/05/20 13:09 Pelger-Huet Anomaly Not Reportable 12/05/20 13:09 Brigida Rods Not Reportable 12/05/20 13:09 Platelet Estimate Not Reportable 12/05/20 13:09 Clumped Platelets Not Reportable 12/05/20 13:09 Plt Clumps, EDTA Not Reportable 12/05/20 13:09 Large Platelets Not Reportable 12/05/20 13:09 Giant Platelets Not Reportable 12/05/20 13:09 Platelet Satelliting Not Reportable 12/05/20 13:09 Plt Morphology Comment Not Reportable 12/05/20 13:09 RBC Morphology Normal 12/05/20 13:09 Dimorphic RBCs Not Reportable 12/05/20 13:09 Polychromasia Not Reportable 12/05/20 13:09 Hypochromasia Not Reportable 12/05/20 13:09 Poikilocytosis Not Reportable 12/05/20 13:09 Anisocytosis Not Reportable 12/05/20 13:09 Microcytosis Not Reportable 12/05/20 13:09 Macrocytosis Not Reportable 12/05/20 13:09 Spherocytes Not Reportable 12/05/20 13:09 Pappenheimer Bodies Not Reportable 12/05/20 13:09 Sickle Cells Not Reportable 12/05/20 13:09 Target Cells Not Reportable 12/05/20 13:09 Tear Drop Cells Not Reportable 12/05/20 13:09 Ovalocytes Not Reportable 12/05/20 13:09 Helmet Cells Not Reportable 12/05/20 13:09 [place] Bodies Not Reportable 12/05/20 13:09 [place] Rings Not Reportable 12/05/20 13:09 [place] Cells Not Reportable 12/05/20 13:09 Bite Cells Not Reportable 12/05/20 13:09 Crenated Cell Not Reportable 12/05/20 13:09 Elliptocytes Not Reportable 12/05/20 13:09 Acanthocytes (Spur) Not Reportable 12/05/20 13:09 Rouleaux Not Reportable 12/05/20 13:09 Hemoglobin C Crystals Not Reportable 12/05/20 13:09 Schistocytes Not Reportable 12/05/20 13:09 Malaria parasites Not Reportable 12/05/20 13:09 ESR 28 mm/Hr (0-20) 12/16/20 04:50 [place] Bodies Not Reportable 12/05/20 13:09 Hem Pathologist Commnt No 12/05/20 13:09 PT 13.8 Sec. (12.2-14.9) 12/04/20 08:58 INR 1.00 (0.87-1.13) 12/04/20 08:58 APTT 32.5 Sec. (24.2-36.6) 12/04/20 08:58 Sodium 136 mmol/L (137-145) L 12/05/20 04:00 Potassium 3.8 mmol/L (3.6-5.0) 12/05/20 04:00 Chloride 100.2 mmol/L (98-107) 12/05/20 04:00 Carbon Dioxide 26 mmol/L (22-30) 12/05/20 04:00 Anion Gap 14 mmol/L 12/05/20 04:00 BUN 15 mg/dL (7-17) 12/05/20 04:00 Creatinine 0.7 mg/dL (0.6-1.2) 12/05/20 04:00 Estimated GFR > 60 ml/min 12/05/20 04:00 BUN/Creatinine Ratio 21 % 12/05/20 04:00 Glucose 101 mg/dL (65-100) H 12/05/20 04:00 POC Glucose 201 mg/dL (70-105) H 12/07/20 16:05 Calcium 9.2 mg/dL (8.4-10.2) 12/05/20 04:00 Total Bilirubin 0.40 mg/dL (0.1-1.2) 12/04/20 08:58 AST 27 units/L (5-40) 12/04/20 08:58 ALT 30 units/L (7-56) 12/04/20 08:58 Alkaline Phosphatase 126 units/L (35-129) 12/04/20 08:58 Troponin T < 0.010 ng/mL (0.00-0.029) 12/04/20 14:20 Total Protein 7.9 g/dL (6.3-8.2) 12/04/20 08:58 Albumin 3.5 g/dL (3.9-5) L 12/04/20 08:58 Albumin/Globulin Ratio 0.8 % 12/04/20 08:58 Triglycerides 160 mg/dL (2-149) H 12/05/20 04:00 Cholesterol 177 mg/dL (50-199) 12/05/20 04:00 LDL Cholesterol Direct 116 mg/dL (50-130) 12/05/20 04:00 HDL Cholesterol 41 mg/dL (40-59) 12/05/20 04:00 Cholesterol/HDL Ratio 4.31 % 12/05/20 04:00 TSH 0.736 mlU/mL (0.270-4.200) 12/16/20 04:50 Urine Color Yellow (Yellow) 12/04/20 Unknown Urine Turbidity Clear (Clear) 12/04/20 Unknown Urine pH 5.0 (5.0-7.0) 12/04/20 Unknown Ur Specific [place] 1.016 (1.003-1.030) 12/04/20 Unknown Urine Protein <15 mg/dl mg/dL (Negative) 12/04/20 Unknown Urine Glucose (UA) Neg mg/dL (Negative) 12/04/20 Unknown Urine Ketones Neg mg/dL (Negative) 12/04/20 Unknown Urine Blood Neg (Negative) 12/04/20 Unknown Urine Nitrite Neg (Negative) 12/04/20 Unknown Urine Bilirubin Neg (Negative) 12/04/20 Unknown Urine Urobilinogen < 2.0 mg/dL (<2.0) 12/04/20 Unknown Ur Leukocyte Esterase Neg (Negative) 12/04/20 Unknown Urine WBC (Auto) 1.0 /HPF (0.0-6.0) 12/04/20 Unknown Urine RBC (Auto) 2.0 /HPF (0.0-6.0) 12/04/20 Unknown U Epithel Cells (Auto) 1.0 /HPF (0-13.0) 12/04/20 Unknown Urine Mucus Few /HPF 12/04/20 Unknown Coronavirus (PCR) Negative (Negative) 12/05/20 Unknown Roberts/IV: Voiding Method Bedside Commode Active Medications - Current Medications Current Medications: Generic Name Dose Route Start Last Admin Trade Name Freq PRN Reason Stop Dose Admin Acetaminophen 650 mg 12/04/20 12:57 12/16/20 23:58 Acetaminophen 325 Mg Tab PO 650 mg Q4H PRN Administration Pain MILD(1-3)/Fever >100.5/PASTOR Albuterol 2.5 mg 12/06/20 08:30 Albuterol 2.5 Mg/3 Ml Nebu IH Q4HRT PRN Shortness Of Breath Albuterol/Ipratropium 1 ampul 12/06/20 20:00 12/18/20 07:33 Ipratropium/Albuterol Sulfate 3 Ml Ampul.Neb IH 1 ampul Q12HRT MACKENZIE Administration Aspirin 325 mg 12/05/20 10:00 12/17/20 09:44 Aspirin 325 Mg Tab PO 325 mg QDAY MACKENZIE Administration Atorvastatin Calcium 40 mg 12/04/20 22:00 12/17/20 22:52 Atorvastatin 40 Mg Tab PO 40 mg QHS MACKENZIE Administration Carbamide Peroxide 5 drops 12/05/20 10:00 12/17/20 22:53 Carbamide Peroxide 6.5% Otic Drops 15 Ml AU 5 drops BID MACKENZIE Administration Carvedilol 6.25 mg 12/04/20 22:00 12/17/20 22:52 Carvedilol 6.25 Mg Tab PO 6.25 mg BID MACKENZIE Administration Famotidine 20 mg 12/05/20 22:00 12/17/20 22:53 Famotidine 20 Mg Tab PO 20 mg BID MACKENZIE Administration Heparin Sodium (Porcine) 5,000 unit 12/04/20 14:00 12/18/20 06:25 Heparin 5,000 Unit/1 Ml Vial SUB-Q 5,000 unit Q8HR MACKENZIE Administration Hydrochlorothiazide 25 mg 12/05/20 10:00 12/17/20 09:44 Hydrochlorothiazide 25 Mg Tab PO 25 mg QDAY MACKENZIE Administration Labetalol HCl 10 mg 12/04/20 12:57 Labetalol 20 Mg/4 Ml Inj IV Q5MIN PRN to maintain SBP < 180 Lisinopril 10 mg 12/13/20 09:19 12/17/20 09:45 Lisinopril 20 Mg Tab PO 10 mg QDAY MACKENZIE Administration Nicotine 14 mg 12/06/20 11:00 12/17/20 09:44 Nicotine 14 Mg/24 Hr Patch TD 14 mg QDAY MACKENZIE Administration Ondansetron HCl 4 mg 12/04/20 12:57 Ondansetron 4 Mg/2 Ml Inj IV Q8H PRN Nausea And Vomiting Sodium Chloride 10 ml 12/04/20 22:00 12/17/20 22:53 Sodium Chloride 0.9% 10 Ml Flush Syringe IV 10 ml BID MACKENZIE Administration Sodium Chloride 10 ml 12/04/20 12:57 Sodium Chloride 0.9% 10 Ml Flush Syringe IV PRN PRN LINE FLUSH Nutrition/Malnutrition Assess - Dietary Evaluation Nutrition/Malnutrition Findings: Nutrition Notes Start: 12/14/20 14:12 Freq: Status: Active Protocol: Document 12/14/20 14:12 CW (Rec: 12/14/20 14:16 CW [id number]) Nutrition Notes Need for Assessment generated from: LOS Initial or Follow up Brief Note Current Diagnosis Heart Failure,Stroke Current Diet Cardiac Diet Labs/Tests 12/05 Na 136 Pertinent Medications reviewed Height 5 ft Weight 80.8 kg [place] Body Weight (kg) 45.45 BMI 34.7 Weight change and time frame weight fluctuations likely r/t fluid Weight Status Obese Subjective/Other Information Screen fro LOS. PO intake is excellent. Dang score of 19. Weight fluctuates 80+/- 5 kg. Nutrition Intervention Change Diet Order: Continue current diet as ordered Anticipated Discharge Needs: Cardiac diet Revisit per MD consult or patient Sign Off request: Additional Comments S/O for excellent intakes and dang score of 19
--- NOTE | 2020-12-18 09:36 | Progress Note ---
Assessment and Plan Awaiting results of MRI. Patient will need to be placed on dual antiplatelet therapy for now. However, given the laterality of her dissection and the new onset of right-sided weakness there is discordance in the CT findings and clinical presentation. Would recommend that the patient undergo speech/swallow evaluation. Subjective Date of service: 12/18/20 Principal diagnosis: CVA Interval history: Patient with history of a CVA with left weakness presented with new right-sided weakness. CTA of her neck was performed which demonstrates a stenosis versus dissection of her right carotid. At time of examination, the patient is being fed by a tech. She is holding food in her mouth and not swallowing. No other complaints. Objective - Constitutional Vitals: Vital Signs - 12hr 12/17/20 12/17/20 12/17/20 22:00 22:52 23:49 Temperature 98.9 F Pulse Rate 76 89 86 Pulse Rate [ 82 Left Radial] Pulse Rate [ 86 Right Dorsalis Pedis] Pulse Rate [ 89 Right Radial] Pulse Rate [ Throughout] Respiratory 20 18 Rate Respiratory Rate [ Throughout] Blood Pressure 124/66 115/77 Blood Pressure [Right] O2 Sat by Pulse 96 92 Oximetry 12/18/20 12/18/20 12/18/20 03:46 03:59 07:33 Temperature 98.9 F 98.8 F Pulse Rate 76 Pulse Rate [ Left Radial] Pulse Rate [ Right Dorsalis Pedis] Pulse Rate [ Right Radial] Pulse Rate [ 87 Throughout] Respiratory 18 18 Rate Respiratory 18 Rate [ Throughout] Blood Pressure Blood Pressure 127/70 [Right] O2 Sat by Pulse 97 Oximetry 12/18/20 12/18/20 07:55 07:57 Temperature 98.7 F Pulse Rate 86 Pulse Rate [ Left Radial] Pulse Rate [ Right Dorsalis Pedis] Pulse Rate [ Right Radial] Pulse Rate [ Throughout] Respiratory 18 Rate Respiratory Rate [ Throughout] Blood Pressure 125/94 Blood Pressure [Right] O2 Sat by Pulse 92 Oximetry General appearance: Present: no acute distress - EENT ENT: hearing intact - Neck Neck: supple - Respiratory Respiratory effort: normal - Breasts Breasts: deferred - Gastrointestinal General gastrointestinal: Present: deferred Rectal Exam: deferred - Genitourinary Female genitourinary: deferred - Musculoskeletal Musculoskeletal: right sided weakness, left sided weakness - Psychiatric Psychiatric: cooperative - Labs CBC & Chem 7: 12/05/20 13:09 12/05/20 04:00 Medications & Allergies - Medications Allergies/Adverse Reactions: Allergies No Known Allergies Allergy (Verified 12/08/20 06:26) Home Medications: Home Medications Medication Instructions Recorded Confirmed Last Taken Type hydroCHLOROthiazide [HCTZ] 25 mg PO QDAY #30 tablet 08/16/20 12/04/20 Unknown Rx carvediloL [Coreg] 6.25 mg PO BID 12/04/20 12/04/20 Unknown History lisinopriL [Lisinopril] 20 mg PO QDAY 12/04/20 12/04/20 Unknown History Active Medications: Generic Name Dose Route Start Last Admin Trade Name Freq PRN Reason Stop Dose Admin Acetaminophen 650 mg 12/04/20 12:57 12/16/20 23:58 Acetaminophen 325 Mg Tab PO 650 mg Q4H PRN Administration Pain MILD(1-3)/Fever >100.5/PASTOR Albuterol 2.5 mg 12/06/20 08:30 Albuterol 2.5 Mg/3 Ml Nebu IH Q4HRT PRN Shortness Of Breath Albuterol/Ipratropium 1 ampul 12/06/20 20:00 12/18/20 07:33 Ipratropium/Albuterol Sulfate 3 Ml Ampul.Neb IH 1 ampul Q12HRT MACKENZIE Administration Aspirin 325 mg 12/05/20 10:00 12/17/20 09:44 Aspirin 325 Mg Tab PO 325 mg QDAY MACKENZIE Administration Atorvastatin Calcium 40 mg 12/04/20 22:00 12/17/20 22:52 Atorvastatin 40 Mg Tab PO 40 mg QHS MACKENZIE Administration Carbamide Peroxide 5 drops 12/05/20 10:00 12/17/20 22:53 Carbamide Peroxide 6.5% Otic Drops 15 Ml AU 5 drops BID MACKENZIE Administration Carvedilol 6.25 mg 12/04/20 22:00 12/17/20 22:52 Carvedilol 6.25 Mg Tab PO 6.25 mg BID MACKENZIE Administration Famotidine 20 mg 12/05/20 22:00 12/17/20 22:53 Famotidine 20 Mg Tab PO 20 mg BID MACKENZIE Administration Heparin Sodium (Porcine) 5,000 unit 12/04/20 14:00 12/18/20 06:25 Heparin 5,000 Unit/1 Ml Vial SUB-Q 5,000 unit Q8HR MACKENZIE Administration Hydrochlorothiazide 25 mg 12/05/20 10:00 12/17/20 09:44 Hydrochlorothiazide 25 Mg Tab PO 25 mg QDAY MACKENZIE Administration Labetalol HCl 10 mg 12/04/20 12:57 Labetalol 20 Mg/4 Ml Inj IV Q5MIN PRN to maintain SBP < 180 Lisinopril 10 mg 12/13/20 09:19 12/17/20 09:45 Lisinopril 20 Mg Tab PO 10 mg QDAY MACKENZIE Administration Nicotine 14 mg 12/06/20 11:00 12/17/20 09:44 Nicotine 14 Mg/24 Hr Patch TD 14 mg QDAY MACKENZIE Administration Ondansetron HCl 4 mg 12/04/20 12:57 Ondansetron 4 Mg/2 Ml Inj IV Q8H PRN Nausea And Vomiting Sodium Chloride 10 ml 12/04/20 22:00 12/17/20 22:53 Sodium Chloride 0.9% 10 Ml Flush Syringe IV 10 ml BID MACKENZIE Administration Sodium Chloride 10 ml 12/04/20 12:57 Sodium Chloride 0.9% 10 Ml Flush Syringe IV PRN PRN LINE FLUSH HEART Score - HEART Score Troponin: Troponin T < 0.010 ng/mL (0.00-0.029) 12/04/20 14:20
[2020-12-18] MEDS: LISINOPRIL 20 MG TAB PO SCH (09:44)
[2020-12-18] MEDS: carvediloL 6.25 MG TAB PO SCH ×2 (09:45→21:25)
[2020-12-18] MEDS: hydroCHLOROthiazide 25 MG TAB PO SCH (09:45)
[2020-12-18] MEDS: ASPIRIN 325 MG TAB PO SCH (09:45)
[2020-12-18] MEDS: FAMOTIDINE 20 MG TAB PO SCH ×2 (09:45→21:25)
[2020-12-18] MEDS: NICOTINE 14 MG/24 HR PATCH TD SCH (09:45)
[2020-12-18] MEDS: CARBAMIDE PEROXIDE 6.5% OTIC DROPS 15 ML AU SCH ×2 (09:49→21:35)
[2020-12-19] MEDS: ACETAMINOPHEN 325 MG TAB PO PRN (00:09)
[2020-12-19] MEDS: HEPARIN 5,000 UNIT/1 ML VIAL SUB-Q SCH ×3 (05:49→22:18)
[2020-12-19] MEDS: IPRATROPIUM/ALBUTEROL SULFATE 3 ML AMPUL.NEB IH SCH ×2 (08:40→20:14)
--- NOTE | 2020-12-19 09:24 | Progress Note ---
Assessment and Plan Patient will need MRI. Additionally, patient is awaiting speech therapy evaluation. Continue dual antiplatelet therapy for now. Subjective Date of service: 12/19/20 Principal diagnosis: CVA Interval history: Patient's right-sided weakness stable from presentation per patient. Weak supervisor [place]ve strength on the left. Nurses notes noted regarding choking with attempted food ingestion. Objective - Constitutional Vitals: Vital Signs - 12hr 12/18/20 12/18/20 12/18/20 21:25 22:25 23:34 Temperature Pulse Rate 87 92 H 85 Respiratory Rate Blood Pressure 118/76 Blood Pressure [Right] O2 Sat by Pulse 97 Oximetry 12/19/20 12/19/20 12/19/20 03:29 04:00 08:04 Temperature 97.9 F 97.8 F 97.2 F L Pulse Rate 78 72 Respiratory 18 18 18 Rate Blood Pressure 119/83 Blood Pressure 138/75 [Right] O2 Sat by Pulse 98 100 Oximetry General appearance: Present: no acute distress - EENT Eyes: EOM intact ENT: hearing intact - Neck Neck: supple - Respiratory Respiratory effort: normal - Breasts Breasts: deferred - Gastrointestinal General gastrointestinal: Present: deferred - Genitourinary Female genitourinary: deferred - Neurologic Neurologic: other (Left hemiparesis, right decreased strength) - Psychiatric Psychiatric: cooperative - Labs CBC & Chem 7: 12/05/20 13:09 12/05/20 04:00 Medications & Allergies - Medications Allergies/Adverse Reactions: Allergies No Known Allergies Allergy (Verified 12/08/20 06:26) Home Medications: Home Medications Medication Instructions Recorded Confirmed Last Taken Type hydroCHLOROthiazide [HCTZ] 25 mg PO QDAY #30 tablet 08/16/20 12/04/20 Unknown Rx carvediloL [Coreg] 6.25 mg PO BID 12/04/20 12/04/20 Unknown History lisinopriL [Lisinopril] 20 mg PO QDAY 12/04/20 12/04/20 Unknown History Active Medications: Generic Name Dose Route Start Last Admin Trade Name Freq PRN Reason Stop Dose Admin Acetaminophen 650 mg 12/04/20 12:57 12/19/20 00:09 Acetaminophen 325 Mg Tab PO 650 mg Q4H PRN Administration Pain MILD(1-3)/Fever >100.5/PASTOR Albuterol 2.5 mg 12/06/20 08:30 Albuterol 2.5 Mg/3 Ml Nebu IH Q4HRT PRN Shortness Of Breath Albuterol/Ipratropium 1 ampul 12/06/20 20:00 12/18/20 20:25 Ipratropium/Albuterol Sulfate 3 Ml Ampul.Neb IH 1 ampul Q12HRT MACKENZIE Administration Aspirin 325 mg 12/05/20 10:00 12/18/20 09:45 Aspirin 325 Mg Tab PO 325 mg QDAY MACKENZIE Administration Atorvastatin Calcium 40 mg 12/04/20 22:00 12/18/20 21:25 Atorvastatin 40 Mg Tab PO 40 mg QHS MACKENZIE Administration Carbamide Peroxide 5 drops 12/05/20 10:00 12/18/20 21:35 Carbamide Peroxide 6.5% Otic Drops 15 Ml AU 5 drops BID MACKENZIE Administration Carvedilol 6.25 mg 12/04/20 22:00 12/18/20 21:25 Carvedilol 6.25 Mg Tab PO 6.25 mg BID MACKENZIE Administration Famotidine 20 mg 12/05/20 22:00 12/18/20 21:25 Famotidine 20 Mg Tab PO 20 mg BID MACKENZIE Administration Heparin Sodium (Porcine) 5,000 unit 12/04/20 14:00 12/19/20 05:49 Heparin 5,000 Unit/1 Ml Vial SUB-Q 5,000 unit Q8HR MACKENZIE Administration Hydrochlorothiazide 25 mg 12/05/20 10:00 12/18/20 09:45 Hydrochlorothiazide 25 Mg Tab PO 25 mg QDAY MACKENZIE Administration Labetalol HCl 10 mg 12/04/20 12:57 Labetalol 20 Mg/4 Ml Inj IV Q5MIN PRN to maintain SBP < 180 Lisinopril 10 mg 12/13/20 09:19 12/18/20 09:44 Lisinopril 20 Mg Tab PO 10 mg QDAY MACKENZIE Administration Nicotine 14 mg 12/06/20 11:00 12/18/20 09:45 Nicotine 14 Mg/24 Hr Patch TD 14 mg QDAY MACKENZIE Administration Ondansetron HCl 4 mg 12/04/20 12:57 Ondansetron 4 Mg/2 Ml Inj IV Q8H PRN Nausea And Vomiting Sodium Chloride 10 ml 12/04/20 22:00 12/18/20 21:25 Sodium Chloride 0.9% 10 Ml Flush Syringe IV 10 ml BID MACKENZIE Administration Sodium Chloride 10 ml 12/04/20 12:57 Sodium Chloride 0.9% 10 Ml Flush Syringe IV PRN PRN LINE FLUSH HEART Score - HEART Score Troponin: Troponin T < 0.010 ng/mL (0.00-0.029) 12/04/20 14:20
--- NOTE | 2020-12-19 09:57 | Progress Note ---
Assessment and Plan Assessment and plan: Acute CVA. Patient with history of remote CVA with left-sided contractures related and or aneurysm surgery. Right hemiparesis Chronic CHF. Hypertension Tobacco use 12/14/2020. CT scan reveals no intracranial bleed or large acute territorial infarction. 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 Await MRI of brain. Consult neurology. Continue aspirin and Lipitor. 12/15/2020. Await MRI and neurology consultation. Continue aspirin and Lipitor. Physical therapy recommends subacute rehab. Await placement 12/16/2020. Neurology recommends CTA of head and neck which is pending. Continue aspirin and Lipitor. Echocardiogram from 12/04 revealed EF of 55 to 60% with mild diastolic dysfunction and impaired relaxation. No evidence of PFO. 12/17/2020. Patient with history of remote CVA with left-sided contractures related and or aneurysm surgery but with questionable worsened right-sided weakness with possible new acute CVA. Patient cannot have MRI. 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 There is some collateral flow within the more distal segments. However, there appears to be a developing acute right-sided infarct within the frontal lobe and basal ganglia with edema. CTA of the neck reveals mild irregularity of the right carotid bulb with s ignificant narrowing along the extent of more distal right cervical ICA with findings concerning for dissection. Consult vascular surgery for further evaluation. Neurology also following. Continue aspirin and Lipitor. 12/18/2020. Await vascular surgery recommendations regarding right internal ca rotid artery dissection. Continue current management for CVA. Check swallow evaluation with speech therapy. 12/19/2020. Neurology reports patient cannot have MRI. DAPT per vascular surgery recommendations. Speech therapy evaluated the patient and recommends modified barium swallow. Await MBS results. History Interval history: No new issues overnight. Hospitalist Physical - Constitutional Vitals: Temp Pulse Resp BP Pulse Ox 97.2 F L 72 18 119/83 100 12/19/20 08:04 12/19/20 08:04 12/19/20 08:04 12/19/20 08:04 12/19/20 08:04 General appearance: Present: no acute distress - EENT Eyes: Present: PERRL, EOM intact ENT: hearing intact, clear oral mucosa, dentition normal - Neck Neck: Present: supple, normal ROM - Respiratory Respiratory effort: normal Respiratory: bilateral: CTA - Cardiovascular Rhythm: regular Heart Sounds: Present: S1 & S2. Absent: gallop, rub - Extremities Extremities: no ischemia, No edema, Full ROM - Abdominal General gastrointestinal: soft, non-tender, non-distended, normal bowel sounds - Integumentary Integumentary: Present: clear, warm, dry - Neurologic Neurologic: CNII-XII intact, moves all extremities HEART Score - HEART Score Troponin: Troponin T < 0.010 ng/mL (0.00-0.029) 12/04/20 14:20 Results - Labs CBC & Chem 7: 12/05/20 13:09 12/05/20 04:00 Labs: Laboratory Last Values WBC 7.6 K/mm3 (4.5-11.0) 12/05/20 13:09 RBC 4.02 M/mm3 (3.65-5.03) 12/05/20 13:09 Hgb 11.9 gm/dl (10.1-14.3) 12/05/20 13:09 Hct 35.2 % (30.3-42.9) 12/05/20 13:09 MCV 87 fl (79-97) 12/05/20 13:09 MCH 30 pg (28-32) 12/05/20 13:09 MCHC 34 % (30-34) 12/05/20 13:09 RDW 14.3 % (13.2-15.2) 12/05/20 13:09 Plt Count 252 K/mm3 (140-440) 12/05/20 13:09 Lymph % (Auto) 32.9 % (13.4-35.0) 12/04/20 08:58 Wirt % (Auto) 5.3 % (0.0-7.3) 12/04/20 08:58 Eos % (Auto) 2.1 % (0.0-4.3) 12/04/20 08:58 Baso % (Auto) Internal Control Analyst 12/05/20 13:09 Lymph # (Auto) 2.7 K/mm3 (1.2-5.4) 12/04/20 08:58 Wirt # (Auto) 0.4 K/mm3 (0.0-0.8) 12/04/20 08:58 Eos # (Auto) 0.2 K/mm3 (0.0-0.4) 12/04/20 08:58 Baso # (Auto) 0.1 K/mm3 (0.0-0.1) 12/04/20 08:58 Add Manual Diff Complete 12/05/20 13:09 Total Counted 100 12/05/20 13:09 Seg Neutrophils % 58.6 % (40.0-70.0) 12/04/20 08:58 Seg Neuts % (Manual) 72.0 % (40.0-70.0) H 12/05/20 13:09 Lymphocytes % (Manual) 22.0 % (13.4-35.0) 12/05/20 13:09 Monocytes % (Manual) 6.0 % (0.0-7.3) 12/05/20 13:09 Nucleated RBC % Not Reportable 12/05/20 13:09 Seg Neutrophils # 4.8 K/mm3 (1.8-7.7) 12/04/20 08:58 Seg Neutrophils # Man 5.5 K/mm3 (1.8-7.7) 12/05/20 13:09 Band Neutrophils # 0.0 K/mm3 12/05/20 13:09 Lymphocytes # (Manual) 1.7 K/mm3 (1.2-5.4) 12/05/20 13:09 Abs React Lymphs (Man) 0.0 K/mm3 12/05/20 13:09 Monocytes # (Manual) 0.5 K/mm3 (0.0-0.8) 12/05/20 13:09 Eosinophils # (Manual) 0.0 K/mm3 (0.0-0.4) 12/05/20 13:09 Basophils # (Manual) 0.0 K/mm3 (0.0-0.1) 12/05/20 13:09 Metamyelocytes # 0.0 K/mm3 12/05/20 13:09 Myelocytes # 0.0 K/mm3 12/05/20 13:09 Promyelocytes # 0.0 K/mm3 12/05/20 13:09 Blast Cells # 0.0 K/mm3 12/05/20 13:09 WBC Morphology Not Reportable 12/05/20 13:09 WBC Morphology TNR 12/05/20 13:09 Hypersegmented Neuts Not Reportable 12/05/20 13:09 Hyposegmented Neuts Not Reportable 12/05/20 13:09 Hypogranular Neuts Not Reportable 12/05/20 13:09 Smudge Cells Not Reportable 12/05/20 13:09 Toxic Granulation Not Reportable 12/05/20 13:09 Toxic Vacuolation Not Reportable 12/05/20 13:09 Dohle Bodies Not Reportable 12/05/20 13:09 Pelger-Huet Anomaly Not Reportable 12/05/20 13:09 Brigida Rods Not Reportable 12/05/20 13:09 Platelet Estimate Not Reportable 12/05/20 13:09 Clumped Platelets Not Reportable 12/05/20 13:09 Plt Clumps, EDTA Not Reportable 12/05/20 13:09 Large Platelets Not Reportable 12/05/20 13:09 Giant Platelets Not Reportable 12/05/20 13:09 Platelet Satelliting Not Reportable 12/05/20 13:09 Plt Morphology Comment Not Reportable 12/05/20 13:09 RBC Morphology Normal 12/05/20 13:09 Dimorphic RBCs Not Reportable 12/05/20 13:09 Polychromasia Not Reportable 12/05/20 13:09 Hypochromasia Not Reportable 12/05/20 13:09 Poikilocytosis Not Reportable 12/05/20 13:09 Anisocytosis Not Reportable 12/05/20 13:09 Microcytosis Not Reportable 12/05/20 13:09 Macrocytosis Not Reportable 12/05/20 13:09 Spherocytes Not Reportable 12/05/20 13:09 Pappenheimer Bodies Not Reportable 12/05/20 13:09 Sickle Cells Not Reportable 12/05/20 13:09 Target Cells Not Reportable 12/05/20 13:09 Tear Drop Cells Not Reportable 12/05/20 13:09 Ovalocytes Not Reportable 12/05/20 13:09 Helmet Cells Not Reportable 12/05/20 13:09 [place] Bodies Not Reportable 12/05/20 13:09 [place] Rings Not Reportable 12/05/20 13:09 [place] Cells Not Reportable 12/05/20 13:09 Bite Cells Not Reportable 12/05/20 13:09 Crenated Cell Not Reportable 12/05/20 13:09 Elliptocytes Not Reportable 12/05/20 13:09 Acanthocytes (Spur) Not Reportable 12/05/20 13:09 Rouleaux Not Reportable 12/05/20 13:09 Hemoglobin C Crystals Not Reportable 12/05/20 13:09 Schistocytes Not Reportable 12/05/20 13:09 Malaria parasites Not Reportable 12/05/20 13:09 ESR 28 mm/Hr (0-20) 12/16/20 04:50 [place] Bodies Not Reportable 12/05/20 13:09 Hem Pathologist Commnt No 12/05/20 13:09 PT 13.8 Sec. (12.2-14.9) 12/04/20 08:58 INR 1.00 (0.87-1.13) 12/04/20 08:58 APTT 32.5 Sec. (24.2-36.6) 12/04/20 08:58 Sodium 136 mmol/L (137-145) L 12/05/20 04:00 Potassium 3.8 mmol/L (3.6-5.0) 12/05/20 04:00 Chloride 100.2 mmol/L (98-107) 12/05/20 04:00 Carbon Dioxide 26 mmol/L (22-30) 12/05/20 04:00 Anion Gap 14 mmol/L 12/05/20 04:00 BUN 15 mg/dL (7-17) 12/05/20 04:00 Creatinine 0.7 mg/dL (0.6-1.2) 12/05/20 04:00 Estimated GFR > 60 ml/min 12/05/20 04:00 BUN/Creatinine Ratio 21 % 12/05/20 04:00 Glucose 101 mg/dL (65-100) H 12/05/20 04:00 POC Glucose 201 mg/dL (70-105) H 12/07/20 16:05 Calcium 9.2 mg/dL (8.4-10.2) 12/05/20 04:00 Total Bilirubin 0.40 mg/dL (0.1-1.2) 12/04/20 08:58 AST 27 units/L (5-40) 12/04/20 08:58 ALT 30 units/L (7-56) 12/04/20 08:58 Alkaline Phosphatase 126 units/L (35-129) 12/04/20 08:58 Troponin T < 0.010 ng/mL (0.00-0.029) 12/04/20 14:20 Total Protein 7.9 g/dL (6.3-8.2) 12/04/20 08:58 Albumin 3.5 g/dL (3.9-5) L 12/04/20 08:58 Albumin/Globulin Ratio 0.8 % 12/04/20 08:58 Triglycerides 160 mg/dL (2-149) H 12/05/20 04:00 Cholesterol 177 mg/dL (50-199) 12/05/20 04:00 LDL Cholesterol Direct 116 mg/dL (50-130) 12/05/20 04:00 HDL Cholesterol 41 mg/dL (40-59) 12/05/20 04:00 Cholesterol/HDL Ratio 4.31 % 12/05/20 04:00 TSH 0.736 mlU/mL (0.270-4.200) 12/16/20 04:50 Urine Color Yellow (Yellow) 12/04/20 Unknown Urine Turbidity Clear (Clear) 12/04/20 Unknown Urine pH 5.0 (5.0-7.0) 12/04/20 Unknown Ur Specific [place]ain 1.016 (1.003-1.030) 12/04/20 Unknown Urine Protein <15 mg/dl mg/dL (Negative) 12/04/20 Unknown Urine Glucose (UA) Neg mg/dL (Negative) 12/04/20 Unknown Urine Ketones Neg mg/dL (Negative) 12/04/20 Unknown Urine Blood Neg (Negative) 12/04/20 Unknown Urine Nitrite Neg (Negative) 12/04/20 Unknown Urine Bilirubin Neg (Negative) 12/04/20 Unknown Urine Urobilinogen < 2.0 mg/dL (<2.0) 12/04/20 Unknown Ur Leukocyte Esterase Neg (Negative) 12/04/20 Unknown Urine WBC (Auto) 1.0 /HPF (0.0-6.0) 12/04/20 Unknown Urine RBC (Auto) 2.0 /HPF (0.0-6.0) 12/04/20 Unknown U Epithel Cells (Auto) 1.0 /HPF (0-13.0) 12/04/20 Unknown Urine Mucus Few /HPF 12/04/20 Unknown Coronavirus (PCR) Negative (Negative) 12/05/20 Unknown Roberts/IV: Voiding Method External Female Catheter Active Medications - Current Medications Current Medications: Generic Name Dose Route Start Last Admin Trade Name Freq PRN Reason Stop Dose Admin Acetaminophen 650 mg 12/04/20 12:57 12/19/20 00:09 Acetaminophen 325 Mg Tab PO 650 mg Q4H PRN Administration Pain MILD(1-3)/Fever >100.5/PASTOR Albuterol 2.5 mg 12/06/20 08:30 Albuterol 2.5 Mg/3 Ml Nebu IH Q4HRT PRN Shortness Of Breath Albuterol/Ipratropium 1 ampul 12/06/20 20:00 12/18/20 20:25 Ipratropium/Albuterol Sulfate 3 Ml Ampul.Neb IH 1 ampul Q12HRT MACKENZIE Administration Aspirin 325 mg 12/05/20 10:00 12/18/20 09:45 Aspirin 325 Mg Tab PO 325 mg QDAY MACKENZIE Administration Atorvastatin Calcium 40 mg 12/04/20 22:00 12/18/20 21:25 Atorvastatin 40 Mg Tab PO 40 mg QHS MACKENZIE Administration Carbamide Peroxide 5 drops 12/05/20 10:00 12/18/20 21:35 Carbamide Peroxide 6.5% Otic Drops 15 Ml AU 5 drops BID MACKENZIE Administration Carvedilol 6.25 mg 12/04/20 22:00 12/18/20 21:25 Carvedilol 6.25 Mg Tab PO 6.25 mg BID MACKENZIE Administration Famotidine 20 mg 12/05/20 22:00 12/18/20 21:25 Famotidine 20 Mg Tab PO 20 mg BID MACKENZIE Administration Heparin Sodium (Porcine) 5,000 unit 12/04/20 14:00 12/19/20 05:49 Heparin 5,000 Unit/1 Ml Vial SUB-Q 5,000 unit Q8HR MACKENZIE Administration Hydrochlorothiazide 25 mg 12/05/20 10:00 12/18/20 09:45 Hydrochlorothiazide 25 Mg Tab PO 25 mg QDAY MACKENZIE Administration Labetalol HCl 10 mg 12/04/20 12:57 Labetalol 20 Mg/4 Ml Inj IV Q5MIN PRN to maintain SBP < 180 Lisinopril 10 mg 12/13/20 09:19 12/18/20 09:44 Lisinopril 20 Mg Tab PO 10 mg QDAY MACKENZIE Administration Nicotine 14 mg 12/06/20 11:00 12/18/20 09:45 Nicotine 14 Mg/24 Hr Patch TD 14 mg QDAY MACKENZIE Administration Ondansetron HCl 4 mg 12/04/20 12:57 Ondansetron 4 Mg/2 Ml Inj IV Q8H PRN Nausea And Vomiting Sodium Chloride 10 ml 12/04/20 22:00 12/18/20 21:25 Sodium Chloride 0.9% 10 Ml Flush Syringe IV 10 ml BID MACKENZIE Administration Sodium Chloride 10 ml 12/04/20 12:57 Sodium Chloride 0.9% 10 Ml Flush Syringe IV PRN PRN LINE FLUSH Nutrition/Malnutrition Assess - Dietary Evaluation Nutrition/Malnutrition Findings: Nutrition Notes Start: 12/14/20 14:12 Freq: Status: Active Protocol: Document 12/14/20 14:12 CW (Rec: 12/14/20 14:16 CW [email or web address]) Nutrition Notes Need for Assessment generated from: LOS Initial or Follow up Brief Note Current Diagnosis Heart Failure,Stroke Current Diet Cardiac Diet Labs/Tests 12/05 Na 136 Pertinent Medications reviewed Height 5 ft Weight 80.8 kg [place] Body Weight (kg) 45.45 BMI 34.7 Weight change and time frame weight fluctuations likely r/t fluid Weight Status Obese Subjective/Other Information Screen fro LOS. PO intake is excellent. Dang score of 19. Weight fluctuates 80+/- 5 kg. Nutrition Intervention Change Diet Order: Continue current diet as ordered Anticipated Discharge Needs: Cardiac diet Revisit per MD consult or patient Sign Off request: Additional Comments S/O for excellent intakes and dang score of 19
[2020-12-19] MEDS: carvediloL 6.25 MG TAB PO SCH ×2 (10:15→22:17)
[2020-12-19] MEDS: ASPIRIN 325 MG TAB PO SCH (10:15)
[2020-12-19] MEDS: hydroCHLOROthiazide 25 MG TAB PO SCH (10:15)
[2020-12-19] MEDS: FAMOTIDINE 20 MG TAB PO SCH ×2 (10:15→22:17)
[2020-12-19] MEDS: NICOTINE 14 MG/24 HR PATCH TD SCH (10:15)
[2020-12-19] MEDS: CARBAMIDE PEROXIDE 6.5% OTIC DROPS 15 ML AU SCH ×2 (10:16→22:18)
[2020-12-19] MEDS: LISINOPRIL 20 MG TAB PO SCH (10:16)
[2020-12-19] MEDS: CLOPIDOGREL 75 MG TAB PO SCH (10:19)
[2020-12-20] MEDS: HEPARIN 5,000 UNIT/1 ML VIAL SUB-Q SCH ×3 (05:29→22:38)
[2020-12-20] MEDS: IPRATROPIUM/ALBUTEROL SULFATE 3 ML AMPUL.NEB IH SCH ×2 (07:47→21:11)
--- NOTE | 2020-12-20 08:00 | Progress Note ---
Assessment and Plan Assessment and plan: Acute CVA. Patient with history of remote CVA with left-sided contractures related and or aneurysm surgery. Right hemiparesis Right ICA dissection. Chronic CHF. Hypertension Tobacco use 12/14/2020. CT scan reveals no intracranial bleed or large acute territorial infarction. 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 Await MRI of brain. Consult neurology. Continue aspirin and Lipitor. 12/15/2020. Await MRI and neurology consultation. Continue aspirin and Lipitor. Physical therapy recommends subacute rehab. Await placement 12/16/2020. Neurology recommends CTA of head and neck which is pending. Continue aspirin and Lipitor. Echocardiogram from 12/04 revealed EF of 55 to 60% with mild diastolic dysfunction and impaired relaxation. No evidence of PFO. 12/17/2020. Patient with history of remote CVA with left-sided contractures related and or aneurysm surgery but with questionable worsened right-sided weakness with possible new acute CVA. Patient cannot have MRI. 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 There is some collateral flow within the more distal segments. However, there appears to be a developing acute right-sided infarct within the frontal lobe and basal ganglia with edema. CTA of the neck reveals mild irregularity of the right carotid bulb with significant narrowing along the extent of more distal right cervical ICA with findings concerning for dissection. Consult vascular surgery for further evaluation. Neurology also following. Continue aspirin and Lipitor. 12/18/2020. Await vascular surgery recommendations regarding right internal carotid artery dissection. Continue current management for CVA. Check swallow evaluation with speech therapy. 12/19/2020. Neurology reports patient cannot have MRI. DAPT per vascular surgery recommendations. Speech therapy evaluated the patient and recommends modified barium swallow. Await MBS results. 12/20/2020. Continue DAPT per vascular surgery recommendations. Await MBS per speech therapy recommendation. Continue dysphagia pured diet with regular thin liquids per speech therapy. Physical therapy recommends subacute rehab. History Interval history: No new issues overnight. Hospitalist Physical - Constitutional Vitals: Temp Pulse Resp BP Pulse Ox 97.7 F 88 18 106/68 99 12/20/20 03:11 12/20/20 03:11 12/20/20 03:11 12/20/20 03:11 12/20/20 03:11 General appearance: Present: no acute distress - EENT Eyes: Present: PERRL, EOM intact ENT: hearing intact, clear oral mucosa, dentition normal - Neck Neck: Present: supple, normal ROM - Respiratory Respiratory effort: normal Respiratory: bilateral: CTA - Cardiovascular Rhythm: regular Heart Sounds: Present: S1 & S2. Absent: gallop, rub - Extremities Extremities: no ischemia, No edema, Full ROM - Abdominal General gastrointestinal: soft, non-tender, non-distended, normal bowel sounds - Integumentary Integumentary: Present: clear, warm, dry - Neurologic Neurologic: CNII-XII intact, moves all extremities HEART Score - HEART Score Troponin: Troponin T < 0.010 ng/mL (0.00-0.029) 12/04/20 14:20 Results - Labs CBC & Chem 7: 12/05/20 13:09 12/05/20 04:00 Labs: Laboratory Last Values WBC 7.6 K/mm3 (4.5-11.0) 12/05/20 13:09 RBC 4.02 M/mm3 (3.65-5.03) 12/05/20 13:09 Hgb 11.9 gm/dl (10.1-14.3) 12/05/20 13:09 Hct 35.2 % (30.3-42.9) 12/05/20 13:09 MCV 87 fl (79-97) 12/05/20 13:09 MCH 30 pg (28-32) 12/05/20 13:09 MCHC 34 % (30-34) 12/05/20 13:09 RDW 14.3 % (13.2-15.2) 12/05/20 13:09 Plt Count 252 K/mm3 (140-440) 12/05/20 13:09 Lymph % (Auto) 32.9 % (13.4-35.0) 12/04/20 08:58 Carroll % (Auto) 5.3 % (0.0-7.3) 12/04/20 08:58 Eos % (Auto) 2.1 % (0.0-4.3) 12/04/20 08:58 Baso % (Auto) [employer] 12/05/20 13:09 Lymph # (Auto) 2.7 K/mm3 (1.2-5.4) 12/04/20 08:58 Carroll # (Auto) 0.4 K/mm3 (0.0-0.8) 12/04/20 08:58 Eos # (Auto) 0.2 K/mm3 (0.0-0.4) 12/04/20 08:58 Baso # (Auto) 0.1 K/mm3 (0.0-0.1) 12/04/20 08:58 Add Manual Diff Complete 12/05/20 13:09 Total Counted 100 12/05/20 13:09 Seg Neutrophils % 58.6 % (40.0-70.0) 12/04/20 08:58 Seg Neuts % (Manual) 72.0 % (40.0-70.0) H 12/05/20 13:09 Lymphocytes % (Manual) 22.0 % (13.4-35.0) 12/05/20 13:09 Monocytes % (Manual) 6.0 % (0.0-7.3) 12/05/20 13:09 Nucleated RBC % Not Reportable 12/05/20 13:09 Seg Neutrophils # 4.8 K/mm3 (1.8-7.7) 12/04/20 08:58 Seg Neutrophils # Man 5.5 K/mm3 (1.8-7.7) 12/05/20 13:09 Band Neutrophils # 0.0 K/mm3 12/05/20 13:09 Lymphocytes # (Manual) 1.7 K/mm3 (1.2-5.4) 12/05/20 13:09 Abs React Lymphs (Man) 0.0 K/mm3 12/05/20 13:09 Monocytes # (Manual) 0.5 K/mm3 (0.0-0.8) 12/05/20 13:09 Eosinophils # (Manual) 0.0 K/mm3 (0.0-0.4) 12/05/20 13:09 Basophils # (Manual) 0.0 K/mm3 (0.0-0.1) 12/05/20 13:09 Metamyelocytes # 0.0 K/mm3 12/05/20 13:09 Myelocytes # 0.0 K/mm3 12/05/20 13:09 Promyelocytes # 0.0 K/mm3 12/05/20 13:09 Blast Cells # 0.0 K/mm3 12/05/20 13:09 WBC Morphology Not Reportable 12/05/20 13:09 WBC Morphology TNR 12/05/20 13:09 Hypersegmented Neuts Not Reportable 12/05/20 13:09 Hyposegmented Neuts Not Reportable 12/05/20 13:09 Hypogranular Neuts Not Reportable 12/05/20 13:09 Smudge Cells Not Reportable 12/05/20 13:09 Toxic Granulation Not Reportable 12/05/20 13:09 Toxic Vacuolation Not Reportable 12/05/20 13:09 Dohle Bodies Not Reportable 12/05/20 13:09 Pelger-Huet Anomaly Not Reportable 12/05/20 13:09 Brigida Rods Not Reportable 12/05/20 13:09 Platelet Estimate Not Reportable 12/05/20 13:09 Clumped Platelets Not Reportable 12/05/20 13:09 Plt Clumps, EDTA Not Reportable 12/05/20 13:09 Large Platelets Not Reportable 12/05/20 13:09 Giant Platelets Not Reportable 12/05/20 13:09 Platelet Satelliting Not Reportable 12/05/20 13:09 Plt Morphology Comment Not Reportable 12/05/20 13:09 RBC Morphology Normal 12/05/20 13:09 Dimorphic RBCs Not Reportable 12/05/20 13:09 Polychromasia Not Reportable 12/05/20 13:09 Hypochromasia Not Reportable 12/05/20 13:09 Poikilocytosis Not Reportable 12/05/20 13:09 Anisocytosis Not Reportable 12/05/20 13:09 Microcytosis Not Reportable 12/05/20 13:09 Macrocytosis Not Reportable 12/05/20 13:09 Spherocytes Not Reportable 12/05/20 13:09 Pappenheimer Bodies Not Reportable 12/05/20 13:09 Sickle Cells Not Reportable 12/05/20 13:09 Target Cells Not Reportable 12/05/20 13:09 Tear Drop Cells Not Reportable 12/05/20 13:09 Ovalocytes Not Reportable 12/05/20 13:09 Helmet Cells Not Reportable 12/05/20 13:09 Weston-Kimbolton Bodies Not Reportable 12/05/20 13:09 Shelby Rings Not Reportable 12/05/20 13:09 Kiar Cells Not Reportable 12/05/20 13:09 Bite Cells Not Reportable 12/05/20 13:09 Crenated Cell Not Reportable 12/05/20 13:09 Elliptocytes Not Reportable 12/05/20 13:09 Acanthocytes (Spur) Not Reportable 12/05/20 13:09 Rouleaux Not Reportable 12/05/20 13:09 Hemoglobin C Crystals Not Reportable 12/05/20 13:09 Schistocytes Not Reportable 12/05/20 13:09 Malaria parasites Not Reportable 12/05/20 13:09 ESR 28 mm/Hr (0-20) 12/16/20 04:50 Chalo Bodies Not Reportable 12/05/20 13:09 Hem Pathologist Commnt No 12/05/20 13:09 PT 13.8 Sec. (12.2-14.9) 12/04/20 08:58 INR 1.00 (0.87-1.13) 12/04/20 08:58 APTT 32.5 Sec. (24.2-36.6) 12/04/20 08:58 Sodium 136 mmol/L (137-145) L 12/05/20 04:00 Potassium 3.8 mmol/L (3.6-5.0) 12/05/20 04:00 Chloride 100.2 mmol/L (98-107) 12/05/20 04:00 Carbon Dioxide 26 mmol/L (22-30) 12/05/20 04:00 Anion Gap 14 mmol/L 12/05/20 04:00 BUN 15 mg/dL (7-17) 12/05/20 04:00 Creatinine 0.7 mg/dL (0.6-1.2) 12/05/20 04:00 Estimated GFR > 60 ml/min 12/05/20 04:00 BUN/Creatinine Ratio 21 % 12/05/20 04:00 Glucose 101 mg/dL (65-100) H 12/05/20 04:00 POC Glucose 116 mg/dL (70-105) H 12/19/20 20:05 Calcium 9.2 mg/dL (8.4-10.2) 12/05/20 04:00 Total Bilirubin 0.40 mg/dL (0.1-1.2) 12/04/20 08:58 AST 27 units/L (5-40) 12/04/20 08:58 ALT 30 units/L (7-56) 12/04/20 08:58 Alkaline Phosphatase 126 units/L (35-129) 12/04/20 08:58 Troponin T < 0.010 ng/mL (0.00-0.029) 12/04/20 14:20 Total Protein 7.9 g/dL (6.3-8.2) 12/04/20 08:58 Albumin 3.5 g/dL (3.9-5) L 12/04/20 08:58 Albumin/Globulin Ratio 0.8 % 12/04/20 08:58 Triglycerides 160 mg/dL (2-149) H 12/05/20 04:00 Cholesterol 177 mg/dL (50-199) 12/05/20 04:00 LDL Cholesterol Direct 116 mg/dL (50-130) 12/05/20 04:00 HDL Cholesterol 41 mg/dL (40-59) 12/05/20 04:00 Cholesterol/HDL Ratio 4.31 % 12/05/20 04:00 TSH 0.736 mlU/mL (0.270-4.200) 12/16/20 04:50 Urine Color Yellow (Yellow) 12/04/20 Unknown Urine Turbidity Clear (Clear) 12/04/20 Unknown Urine pH 5.0 (5.0-7.0) 12/04/20 Unknown Ur Specific Dwight 1.016 (1.003-1.030) 12/04/20 Unknown Urine Protein <15 mg/dl mg/dL (Negative) 12/04/20 Unknown Urine Glucose (UA) Neg mg/dL (Negative) 12/04/20 Unknown Urine Ketones Neg mg/dL (Negative) 12/04/20 Unknown Urine Blood Neg (Negative) 12/04/20 Unknown Urine Nitrite Neg (Negative) 12/04/20 Unknown Urine Bilirubin Neg (Negative) 12/04/20 Unknown Urine Urobilinogen < 2.0 mg/dL (<2.0) 12/04/20 Unknown Ur Leukocyte Esterase Neg (Negative) 12/04/20 Unknown Urine WBC (Auto) 1.0 /HPF (0.0-6.0) 12/04/20 Unknown Urine RBC (Auto) 2.0 /HPF (0.0-6.0) 12/04/20 Unknown U Epithel Cells (Auto) 1.0 /HPF (0-13.0) 12/04/20 Unknown Urine Mucus Few /HPF 12/04/20 Unknown Coronavirus (PCR) Negative (Negative) 12/05/20 Unknown Roberts/IV: Voiding Method External Female Catheter Active Medications - Current Medications Current Medications: Generic Name Dose Route Start Last Admin Trade Name Freq PRN Reason Stop Dose Admin Acetaminophen 650 mg 12/04/20 12:57 12/19/20 00:09 Acetaminophen 325 Mg Tab PO 650 mg Q4H PRN Administration Pain MILD(1-3)/Fever >100.5/PASTOR Albuterol 2.5 mg 12/06/20 08:30 Albuterol 2.5 Mg/3 Ml Nebu IH Q4HRT PRN Shortness Of Breath Albuterol/Ipratropium 1 ampul 12/06/20 20:00 12/20/20 07:47 Ipratropium/Albuterol Sulfate 3 Ml Ampul.Neb IH Not Given Q12HRT MACKENZIE Aspirin 325 mg 12/05/20 10:00 12/19/20 10:15 Aspirin 325 Mg Tab PO 325 mg QDAY MACKENZIE Administration Atorvastatin Calcium 40 mg 12/04/20 22:00 12/19/20 22:17 Atorvastatin 40 Mg Tab PO 40 mg QHS MACKENZIE Administration Carbamide Peroxide 5 drops 12/05/20 10:00 12/19/20 22:18 Carbamide Peroxide 6.5% Otic Drops 15 Ml AU 5 drops BID MACKENZIE Administration Carvedilol 6.25 mg 12/04/20 22:00 12/19/20 22:17 Carvedilol 6.25 Mg Tab PO 6.25 mg BID MACKENZIE Administration Clopidogrel Bisulfate 75 mg 12/19/20 10:00 12/19/20 10:19 Clopidogrel 75 Mg Tab PO 75 mg QDAY MACKENZIE Administration Famotidine 20 mg 12/05/20 22:00 12/19/20 22:17 Famotidine 20 Mg Tab PO 20 mg BID MACKENZIE Administration Heparin Sodium (Porcine) 5,000 unit 12/04/20 14:00 12/20/20 05:29 Heparin 5,000 Unit/1 Ml Vial SUB-Q 5,000 unit Q8HR MACKENZIE Administration Hydrochlorothiazide 25 mg 12/05/20 10:00 12/19/20 10:15 Hydrochlorothiazide 25 Mg Tab PO 25 mg QDAY MACKENZIE Administration Labetalol HCl 10 mg 12/04/20 12:57 Labetalol 20 Mg/4 Ml Inj IV Q5MIN PRN to maintain SBP < 180 Lisinopril 10 mg 12/13/20 09:19 12/19/20 10:16 Lisinopril 20 Mg Tab PO 10 mg QDAY MACKENZIE Administration Nicotine 14 mg 12/06/20 11:00 12/19/20 10:15 Nicotine 14 Mg/24 Hr Patch TD 14 mg QDAY MACKENZIE Administration Ondansetron HCl 4 mg 12/04/20 12:57 Ondansetron 4 Mg/2 Ml Inj IV Q8H PRN Nausea And Vomiting Sodium Chloride 10 ml 12/04/20 22:00 12/19/20 22:19 Sodium Chloride 0.9% 10 Ml Flush Syringe IV 10 ml BID MACKENZIE Administration Sodium Chloride 10 ml 12/04/20 12:57 Sodium Chloride 0.9% 10 Ml Flush Syringe IV PRN PRN LINE FLUSH Nutrition/Malnutrition Assess - Dietary Evaluation Nutrition/Malnutrition Findings: Nutrition Notes Start: 12/14/20 14:12 Freq: Status: Active Protocol: Document 12/14/20 14:12 CW (Rec: 12/14/20 14:16 CW [id number]) Nutrition Notes Need for Assessment generated from: LOS Initial or Follow up Brief Note Current Diagnosis Heart Failure,Stroke Current Diet Cardiac Diet Labs/Tests 12/05 Na 136 Pertinent Medications reviewed Height 5 ft Weight 80.8 kg [place] Body Weight (kg) 45.45 BMI 34.7 Weight change and time frame weight fluctuations likely r/t fluid Weight Status Obese Subjective/Other Information Screen fro LOS. PO intake is excellent. Dang score of 19. Weight fluctuates 80+/- 5 kg. Nutrition Intervention Change Diet Order: Continue current diet as ordered Anticipated Discharge Needs: Cardiac diet Revisit per MD consult or patient Sign Off request: Additional Comments S/O for excellent intakes and dang score of 19
[2020-12-20] MEDS: LISINOPRIL 20 MG TAB PO SCH (10:08)
[2020-12-20] MEDS: NICOTINE 14 MG/24 HR PATCH TD SCH (10:08)
[2020-12-20] MEDS: CLOPIDOGREL 75 MG TAB PO SCH (10:08)
[2020-12-20] MEDS: FAMOTIDINE 20 MG TAB PO SCH ×2 (10:08→22:38)
[2020-12-20] MEDS: hydroCHLOROthiazide 25 MG TAB PO SCH (10:09)
[2020-12-20] MEDS: carvediloL 6.25 MG TAB PO SCH ×2 (10:09→22:38)
[2020-12-20] MEDS: ASPIRIN 325 MG TAB PO SCH (10:09)
[2020-12-20] MEDS: CARBAMIDE PEROXIDE 6.5% OTIC DROPS 15 ML AU SCH ×2 (10:10→22:41)
[2020-12-21] MEDS: HEPARIN 5,000 UNIT/1 ML VIAL SUB-Q SCH ×3 (06:58→21:57)
[2020-12-21] MEDS: IPRATROPIUM/ALBUTEROL SULFATE 3 ML AMPUL.NEB IH SCH ×2 (08:23→20:05)
[2020-12-21] MEDS: NICOTINE 14 MG/24 HR PATCH TD SCH (09:36)
[2020-12-21] MEDS: carvediloL 6.25 MG TAB PO SCH ×2 (09:36→21:56)
[2020-12-21] MEDS: CARBAMIDE PEROXIDE 6.5% OTIC DROPS 15 ML AU SCH ×2 (09:36→21:57)
[2020-12-21] MEDS: FAMOTIDINE 20 MG TAB PO SCH ×2 (09:36→21:56)
[2020-12-21] MEDS: ASPIRIN 325 MG TAB PO SCH (09:36)
[2020-12-21] MEDS: hydroCHLOROthiazide 25 MG TAB PO SCH (09:36)
[2020-12-21] MEDS: CLOPIDOGREL 75 MG TAB PO SCH (09:36)
[2020-12-21] MEDS: LISINOPRIL 20 MG TAB PO SCH (09:40)
--- NOTE | 2020-12-21 10:19 | Progress Note ---
Assessment and Plan Acute CVA. Patient with history of remote CVA with left-sided contractures related and or aneurysm surgery. Right hemiparesis Right ICA dissection. Chronic CHF. Hypertension Tobacco use Brief History: The patient is a 55-year-old female with h/o prior CVA with residual weakness in her left upper extremity, HTN, CHF, HLD who was brought to the emergency department via EMS with complaints of 2-week history of right upper extremity weakness. She also has a history of a brain aneurysm that required surgical intervention. Her work-up revealed no significant stenosis of her left carotid artery however there was a suggestion of right internal carotid artery dissection. At this time she still has some residual right upper extremity weakness however it is improving. Vascular and neurology following. Daily clinical course: 12/14/2020. CT scan reveals no intracranial bleed or large acute territorial infarction. 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 Await MRI of brain. Consult neurology. Continue aspirin and Lipitor. 12/15/2020. Await MRI and neurology consultation. Continue aspirin and Lipitor. Physical therapy recommends subacute rehab. Await placement 12/16/2020. Neurology recommends CTA of head and neck which is pending. Continue aspirin and Lipitor. Echocardiogram from 12/04 revealed EF of 55 to 60% with mild diastolic dysfunction and impaired relaxation. No evidence of PFO. 12/17/2020. Patient with history of remote CVA with left-sided contractures related and or aneurysm surgery but with questionable worsened right-sided weakness with possible new acute CVA. Patient cannot have MRI. 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 There is some collateral flow within the more distal segments. However, there appears to be a developing acute right-sided infarct within the frontal lobe and basal ganglia with edema. CTA of the neck reveals mild irregularity of the right carotid bulb with significant narrowing along the extent of more distal right cervical ICA with findings concerning for dissection. Consult vascular surgery for further evaluation. Neurology also following. Continue aspirin and Lipitor. 12/18/2020. Await vascular surgery recommendations regarding right internal carotid artery dissection. Continue current management for CVA. Check swallow evaluation with speech therapy. 12/19/2020. Neurology reports patient cannot have MRI. DAPT per vascular surgery recommendations. Speech therapy evaluated the patient and recommends modified barium swallow. Await MBS results. 12/20/2020. Continue DAPT per vascular surgery recommendations. Await MBS per speech therapy recommendation. Continue dysphagia pured diet with regular thin liquids per speech therapy. Physical therapy recommends subacute rehab. 12/21/20: Patient appears to be clinically stable, speech recommended pured diet which patient tolerating. No acute event overnight. Pending placement. Subjective Date of service: 12/21/20 Principal diagnosis: CVA Interval history: Patient seen and examined. Medical records and medication list reviewed. No acute event overnight noted by the RN. Patient denies any chest pain or difficulty breathing. Patient is tolerating diet. Discussed plan of care at bedside with patient's RN. Objective - Exam Narrative Exam: GENERAL: well-developed and well-nourished elderly -[place]ong[place] female lying on bed appeared to be in no discomfort. HEENT: Normocephalic. Atraumatic. No conjunctival congestion or icterus. Patient has moist mucous membranes. NECK: Supple. Trachea midline. CHEST/LUNGS: Clear to auscultated bilaterally, breathing nonlabored. No wheezes crackles or rhonchi. HEART/CARDIOVASCULAR: Regular in rate and rhythm. S1 and S2 positive. ABDOMEN: Abdomen is soft, nontender. Patient has normal bowel sounds. SKIN: There is no rash. Warm and dry. NEURO: Left-sided weakness. Follows command. MUSCULOSKELETAL: No joint effusion or tenderness. EXTRIMITY: No edema, no cyanosis or clubbing. PSYCH: Cooperative. - Constitutional Vitals: Vital Signs - 12hr 12/20/20 12/20/20 12/21/20 22:38 23:01 04:25 Temperature 97.8 F 97.5 F L Pulse Rate 87 81 85 Pulse Rate [ Throughout] Respiratory 18 18 Rate Respiratory Rate [ Throughout] Blood Pressure 122/69 120/73 104/67 O2 Sat by Pulse 98 99 Oximetry 12/21/20 12/21/20 12/21/20 07:23 07:54 08:00 Temperature 97.6 F Pulse Rate 86 Pulse Rate [ 88 Throughout] Respiratory 19 18 Rate Respiratory 18 Rate [ Throughout] Blood Pressure 116/79 O2 Sat by Pulse 100 98 Oximetry - Labs CBC & Chem 7: 12/05/20 13:09 12/05/20 04:00 HEART Score - HEART Score Troponin: Troponin T < 0.010 ng/mL (0.00-0.029) 12/04/20 14:20
[2020-12-22] MEDS: HEPARIN 5,000 UNIT/1 ML VIAL SUB-Q SCH ×3 (05:34→22:03)
[2020-12-22] MEDS: IPRATROPIUM/ALBUTEROL SULFATE 3 ML AMPUL.NEB IH SCH ×2 (07:56→20:35)
[2020-12-22] MEDS: CARBAMIDE PEROXIDE 6.5% OTIC DROPS 15 ML AU SCH ×2 (10:59→21:57)
[2020-12-22] MEDS: ASPIRIN 325 MG TAB PO SCH (10:59)
[2020-12-22] MEDS: carvediloL 6.25 MG TAB PO SCH ×2 (10:59→22:04)
[2020-12-22] MEDS: FAMOTIDINE 20 MG TAB PO SCH ×2 (11:00→22:27)
[2020-12-22] MEDS: CLOPIDOGREL 75 MG TAB PO SCH (11:00)
[2020-12-22] MEDS: LISINOPRIL 20 MG TAB PO SCH (11:00)
[2020-12-22] MEDS: hydroCHLOROthiazide 25 MG TAB PO SCH (11:00)
--- NOTE | 2020-12-22 12:11 | Cat Scan Report ---
. CT head/brain wo con INDICATION / CLINICAL INFORMATION: 55 years Female; CVA. TECHNIQUE: Routine CT head without contrast. All CT scans at this location are performed using CT dos e reduction for ALARA by means of automated exposure control. COMPARISON: The study is compared to previous CT of 12/04/2020. FINDINGS: BRAIN / INTRACRANIAL CONTENTS: There is persistent encephalomalacia involving right frontal lobe and basal ganglia compatible with old right MCA and LIBIA infarcts. There is associated ex vacuo dilatation of the right lateral ventricle. The findings correlate with the previous CT. Findings are also compatible with chronic ischemic changes involving the left frontal lobe at. Howeve r, there appears be interval progression along the more posterior left centrum semiovale and correlat ion would be needed given history of unspecified "cerebrovascular accident. There is no clear CT evid ence of acute intracranial hemorrhage or significant mass effect. ORBITS: There is persistent gyriform body projected along the left premaxillary soft tissues. The orb its are unremarkable. SINUSES / MASTOIDS: No significant abnormality in the visualized paranasal sinuses or mastoid air yaneli ls. CRANIOCERVICAL JUNCTION: No significant abnormality. ADDITIONAL FINDINGS: None. IMPRESSION: 1. There are persistent old right MCA and LIBIA infarct with associated encephalomalacia as detailed ab ove. 2. There appears be some interval progression of the cerebral white matter disease along the left franko trum semiovale from 12/04/2020 and correlation would be needed in this patient with history of unspeci fied cerebrovascular accident. There is no CT evidence of acute intracranial hemorrhage. Signer Name: Blake Bunn MD Signed: 12/22/2020 12:07 PM Workstation Name: [id number]
--- NOTE | 2020-12-22 14:23 | Progress Note ---
Assessment and Plan Acute CVA. Patient with history of remote CVA with left-sided contractures -she is on ASA 325 mg, Plavix 75 mg and Lipitor 40 mg History of aneurysm status post surgery, supportive care Right hemiparesis, PT OT Right ICA dissection. Vascular recommended DAPT Chronic CHF with preserved EF. Hypertension, monitor BP and adjust medications as needed Tobacco use, counseled for cessation DVT prophylaxis: On heparin Brief History: The patient is a 55-year-old female with h/o prior CVA with residual weakness in her left upper extremity, HTN, CHF, HLD who was brought to the emergency department via EMS with complaints of 2-week history of right upper extremity weakness. She also has a history of a brain aneurysm that required surgical intervention. Her work-up revealed no significant stenosis of her left carotid artery however there was a suggestion of right internal carotid artery dissection. At this time she still has some residual right upper extremity weakness however it is improving. Vascular and neurology following. Daily clinical course: 12/14/2020. CT scan reveals no intracranial bleed or large acute territorial infarction. 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 Await MRI of brain. Consult neurology. Continue aspirin and Lipitor. 12/15/2020. Await MRI and neurology consultation. Continue aspirin and Lipitor. Physical therapy recommends subacute rehab. Await placement 12/16/2020. Neurology recommends CTA of head and neck which is pending. Continue aspirin and Lipitor. Echocardiogram from 12/04 revealed EF of 55 to 60% with mild diastolic dysfunction and impaired relaxation. No evidence of PFO. 12/17/2020. Patient with history of remote CVA with left-sided contractures related and or aneurysm surgery but with questionable worsened right-sided weakness with possible new acute CVA. Patient cannot have MRI. 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 There is some collateral flow within the more distal segments. However, there appears to be a developing acute right-sided infarct within the frontal lobe and basal ganglia with edema. CTA of the neck reveals mild irregularity of the right carotid bulb with significant narrowing along the extent of more distal right cervical ICA with findings concerning for dissection. Consult vascular surgery for further evaluation. Neurology also following. Continue aspirin and Lipitor. 12/18/2020. Await vascular surgery recommendations regarding right internal carotid artery dissection. Continue current management for CVA. Check swallow evaluation with speech therapy. 12/19/2020. Neurology reports patient cannot have MRI. DAPT per vascular surgery recommendations. Speech therapy evaluated the patient and recommends modified barium swallow. Await MBS results. 12/20/2020. Continue DAPT per vascular surgery recommendations. Await MBS per speech therapy recommendation. Continue dysphagia pured diet with regular thin liquids per speech therapy. Physical therapy recommends subacute rehab. 12/21/20: Patient appears to be clinically stable, speech recommended pured diet which patient tolerating. No acute event overnight. Pending placement. 12/22/20: Patient is unable to swallow this morning and unable to speak. Keep n.p.o. for now start IV fluid hydration. Ordered for stat CT head which showed progression of white matter disease as compared to 12/04/20. We will reconsult neuro and continue to follow clinically. We will also notify vascular for further recommendation. Subjective Date of service: 12/22/20 Principal diagnosis: CVA Interval history: Patient seen and examined. Medical records and medication list reviewed. Patient noted to be nonverbal today with difficulty swallowing Patient denies any chest pain or difficulty breathing. Discussed plan of care at bedside with patient's RN. Objective - Exam Narrative Exam: GENERAL: well-developed and well-nourished elderly -[place] female lying on bed appeared to be in no discomfort. HEENT: Normocephalic. Atraumatic. No conjunctival congestion or icterus. Patient has moist mucous membranes. NECK: Supple. Trachea midline. CHEST/LUNGS: Clear to auscultated bilaterally, breathing nonlabored. No wheezes crackles or rhonchi. HEART/CARDIOVASCULAR: Regular in rate and rhythm. S1 and S2 positive. ABDOMEN: Abdomen is soft, nontender. Patient has normal bowel sounds. SKIN: There is no rash. Warm and dry. NEURO: Left-sided weakness. Follows command. MUSCULOSKELETAL: No joint effusion or tenderness. EXTRIMITY: No edema, no cyanosis or clubbing. PSYCH: Cooperative. - Constitutional Vitals: Vital Signs - 12hr 12/22/20 12/22/20 12/22/20 03:23 03:49 07:36 Temperature 97.7 F 97.8 F Pulse Rate 86 82 85 Pulse Rate [ Throughout] Respiratory 18 18 Rate Respiratory Rate [ Throughout] Blood Pressure 84/47 92/70 Blood Pressure 90/48 [Right] O2 Sat by Pulse 97 96 Oximetry 12/22/20 07:57 Temperature Pulse Rate Pulse Rate [ 96 H Throughout] Respiratory Rate Respiratory 19 Rate [ Throughout] Blood Pressure Blood Pressure [Right] O2 Sat by Pulse Oximetry - Labs CBC & Chem 7: 12/05/20 13:09 12/05/20 04:00 HEART Score - HEART Score Troponin: Troponin T < 0.010 ng/mL (0.00-0.029) 12/04/20 14:20
--- NOTE | 2020-12-22 14:49 | Progress Note ---
Subjective Date of service: 12/22/20 Principal diagnosis: CVA Interval history: worsening of swallowing and mentation noted by her nurse today Ct brain is suggestive of white matter changes left BG Objective - Vital Sign Vital Signs - 12hr 12/22/20 12/22/20 12/22/20 03:23 03:49 07:36 Temperature 97.7 F 97.8 F Pulse Rate 86 82 85 Pulse Rate [ Throughout] Respiratory 18 18 Rate Respiratory Rate [ Throughout] Blood Pressure 84/47 92/70 Blood Pressure 90/48 [Right] O2 Sat by Pulse 97 96 Oximetry 12/22/20 07:57 Temperature Pulse Rate Pulse Rate [ 96 H Throughout] Respiratory Rate Respiratory 19 Rate [ Throughout] Blood Pressure Blood Pressure [Right] O2 Sat by Pulse Oximetry - General Apperance Constitutional: uncomfortable - EENT EENT: PERRL, mucous membranes moist - Respiratory Respiratory: lungs clear, rhonchi - Cardiovascular Cardiovascular: regular rate, normal S1, normal S2 Extremities: no peripheral edema bilat, no clubbing, cyanosis - Gastrointestinal Gastrointestinal: normoactive bowel sounds - Integumentary Integumentary: normal - Neurologic Cranial nerve examination: PERRL, EOMI, other (left facial droop and decrease speech out put and questionable comprehension) Detailed motor examination: other (left sided stiffness and or right side upper decrese movment , upper and to lesser extent lower ) - Laboratory Findings CBC and BMP: 12/05/20 13:09 12/05/20 04:00 Abnormal Lab Findings: Abnormal Labs 12/04/20 12/05/20 12/05/20 08:58 04:00 08:03 Seg Neuts % (Manual) Sodium 134 L 136 L Glucose 101 H POC Glucose 106 H Albumin 3.5 L Triglycerides 160 H 12/05/20 12/05/20 12/06/20 11:34 13:09 07:37 Seg Neuts % (Manual) 72.0 H Sodium Glucose POC Glucose 175 H 112 H Albumin Triglycerides 12/06/20 12/06/20 12/07/20 15:56 20:47 11:46 Seg Neuts % (Manual) Sodium Glucose POC Glucose 110 H 106 H 139 H Albumin Triglycerides 12/07/20 12/19/20 12/19/20 16:05 15:35 20:05 Seg Neuts % (Manual) Sodium Glucose POC Glucose 201 H 119 H 116 H Albumin Triglycerides 07/12/21 08:36 Seg Neuts % (Manual) Sodium Glucose POC Glucose 107 H Albumin Triglycerides
[2020-12-22] MEDS: NICOTINE 14 MG/24 HR PATCH TD SCH (14:50)
[2020-12-22 22:44] LABS: Hemoglobin 15.2 gm/dl (10.1-14.3); Mean Corpuscular HGB Conc 35 % (30-34); Mean Corpuscular Volume 87 fl (79-97); Platelet Count 296 K/mm3 (140-440); Red Blood Count 5.08 M/mm3 (3.65-5.03); Red Cell Distribution Width 14.6 % (13.2-15.2)
[2020-12-22 23:03] LABS: Calcium 9.7 mg/dL (8.4-10.2)
[2020-12-23] MEDS: HEPARIN 5,000 UNIT/1 ML VIAL SUB-Q SCH ×2 (05:59→13:13)
[2020-12-23] MEDS: IPRATROPIUM/ALBUTEROL SULFATE 3 ML AMPUL.NEB IH SCH ×2 (08:28→19:53)
--- NOTE | 2020-12-23 09:15 | Progress Note ---
Assessment and Plan Assessment and Plan VTE prophylaxis?: Chemical Plan of care discussed with patient/family: Yes - Patient Problems # CVA (cerebral vascular accident) - Hx of remote CVA with left side contracture related to CVA and or aneurysm surgery presnted with possible increase weakness right side ? hx is not clear -exam is remarkable for right side4/5 with no sign of cervical disc disease -pt. can not have MRI --she is on ASA 325 mg Plavix and Lipitor 40 mg -echo showed mild impaired relax. with EF#55-60% -CTA suggest dissection Right ICA in neck -CTA intracranial is remarkable for right anterior comm. and ICA and MCA narrowing # Right sided weakness can not be excluded -pt. is bad historian Aspirin 325 mg p.o. daily. Lipitor 40 mg p.o. daily. N.p.o. MRI of the brain with and without contrast MRI of the brain and neck with and without contrast. Echocardiogram will repeat . Patient is seen and evaluated by telemetry neurology. - No sign cervical disc disease -Hx of aneurysm surgery ? -CTA brain and neck is noted # CHF (congestive heart failure) -Stable. Fluid restriction. Continue home medication. Echocardiogram is noted # Hypertension -Patient is on Coreg 6.25 mg p.o. twice daily. Hydrochlorothiazide 25 mg p.o. daily and lisinopril 20 mg p.o. daily. We will monitor the blood pressure clos rosita #change in mentation and drawsiness -r/o toximetabolic and or infection and or drug effect -worsening kidney function -with decrese po intake with prerenal azotemia can not be excluded # DVT prophylaxis -Heparin 5000 units subcu every 8 hours for DVT prophylaxis. - Pepcid 20 mg IV every 12 hours for GI prophylaxis. - Patient is a full code PLAN 1- swallow REevaluate am 2- Consider peg tube and Hydration !!!! 3- might consider repeat CT brain based on progression 4- Echo ? 5- campus monitor 6- maintain current ASA ,Plavix and Lipitor 7- DVT precaution over all prognosis is quarded Subjective Date of service: 12/23/20 Principal diagnosis: CVA Interval history: worsening of swallowing and mentation noted by her nurse Ct brain is suggestive of white matter changes left BG increase right upper ext. weakness not follow command ,mumble worsening kdney function !!! Objective - Vital Sign Vital Signs - 12hr 12/22/20 12/22/20 12/23/20 22:00 22:59 02:56 Temperature 97.6 F 98.2 F Pulse Rate 92 H 92 H 104 H Pulse Rate [ Throughout] Respiratory 20 19 Rate Respiratory Rate [ Throughout] Blood Pressure 118/83 134/86 O2 Sat by Pulse 100 100 Oximetry 12/23/20 12/23/20 07:25 08:48 Temperature 97.2 F L Pulse Rate 68 Pulse Rate [ 98 H Throughout] Respiratory 19 Rate Respiratory 20 Rate [ Throughout] Blood Pressure 97/43 O2 Sat by Pulse 96 Oximetry - General Apperance Constitutional: uncomfortable - EENT EENT: PERRL, mucous membranes moist - Respiratory Respiratory: chest non-tender, lungs clear, rhonchi - Cardiovascular Cardiovascular: regular rate, normal S1, normal S2 Extremities: no peripheral edema bilat, no clubbing, cyanosis - Gastrointestinal Gastrointestinal: normoactive bowel sounds - Integumentary Integumentary: normal - Neurologic Cranial nerve examination: PERRL, EOMI Detailed motor examination: other (left sided stiffness with decrese speech output , right upper weakness worsen , move right leg , left facial droop unchanged ) - Laboratory Findings CBC and BMP: 12/22/20 22:33 12/22/20 22:33 Abnormal Lab Findings: Abnormal Labs 12/04/20 12/05/20 12/05/20 08:58 04:00 08:03 RBC Hgb Hct MCHC Seg Neuts % (Manual) Sodium 134 L 136 L Carbon Dioxide BUN Creatinine Glucose 101 H POC Glucose 106 H Albumin 3.5 L Triglycerides 160 H 12/05/20 12/05/20 12/06/20 11:34 13:09 07:37 RBC Hgb Hct MCHC Seg Neuts % (Manual) 72.0 H Sodium Carbon Dioxide BUN Creatinine Glucose POC Glucose 175 H 112 H Albumin Triglycerides 12/06/20 12/06/20 12/07/20 15:56 20:47 11:46 RBC Hgb Hct MCHC Seg Neuts % (Manual) Sodium Carbon Dioxide BUN Creatinine Glucose POC Glucose 110 H 106 H 139 H Albumin Triglycerides 12/07/20 12/19/20 12/19/20 16:05 15:35 20:05 RBC Hgb Hct MCHC Seg Neuts % (Manual) Sodium Carbon Dioxide BUN Creatinine Glucose POC Glucose 201 H 119 H 116 H Albumin Triglycerides 12/20/20 12/22/20 12/22/20 08:36 22:33 22:33 RBC 5.08 H Hgb 15.2 H Hct 44.0 H MCHC 35 H Seg Neuts % (Manual) Sodium Carbon Dioxide 18 L BUN 63 H Creatinine 2.8 H Glucose 117 H POC Glucose 107 H Albumin Triglycerides
--- NOTE | 2020-12-23 09:21 | Progress Note ---
Assessment and Plan Patient with progression of her left-sided CVA on CT scan. The patient was previously noted to have a right ICA dissection. Her CT scan demonstrates stable appearance of an old right infarct with residual left-sided weakness. The patient's new CVA is on the left. Unable to completely assess secondary to no MRI be unavailable. Would continue with dual antiplatelet therapy for the patient's presumed right ICA dissection. Subjective Date of service: 12/23/20 Principal diagnosis: CVA Interval history: Patient with progression noted of her left CVA on CT scan. Patient moving her right arm and leg however not appropriately responsive. Not able to hold food in her mouth. Objective - Constitutional Vitals: Vital Signs - 12hr 12/22/20 12/22/20 12/23/20 22:00 22:59 02:56 Temperature 97.6 F 98.2 F Pulse Rate 92 H 92 H 104 H Pulse Rate [ Throughout] Respiratory 20 19 Rate Respiratory Rate [ Throughout] Blood Pressure 118/83 134/86 O2 Sat by Pulse 100 100 Oximetry 12/23/20 12/23/20 07:25 08:48 Temperature 97.2 F L Pulse Rate 68 Pulse Rate [ 98 H Throughout] Respiratory 19 Rate Respiratory 20 Rate [ Throughout] Blood Pressure 97/43 O2 Sat by Pulse 96 Oximetry General appearance: Present: no acute distress - Neck Neck: supple - Respiratory Respiratory effort: normal - Breasts Breasts: deferred - Gastrointestinal General gastrointestinal: Present: deferred - Genitourinary Female genitourinary: deferred - Psychiatric Psychiatric: other (Not appropriately responsive.) - Labs CBC & Chem 7: 12/22/20 22:33 12/22/20 22:33 Labs: Abnormal lab results 12/22/20 12/22/20 Range/Units 22:33 22:33 RBC 5.08 H (3.65-5.03) M/mm3 Hgb 15.2 H (10.1-14.3) gm/dl Hct 44.0 H (30.3-42.9) % MCHC 35 H (30-34) % Carbon Dioxide 18 L (22-30) mmol/L BUN 63 H (7-17) mg/dL Creatinine 2.8 H (0.6-1.2) mg/dL Glucose 117 H (65-100) mg/dL Medications & Allergies - Medications Allergies/Adverse Reactions: Allergies No Known Allergies Allergy (Verified 12/08/20 06:26) Home Medications: Home Medications Medication Instructions Recorded Confirmed Last Taken Type hydroCHLOROthiazide [HCTZ] 25 mg PO QDAY #30 tablet 08/16/20 12/04/20 Unknown Rx carvediloL [Coreg] 6.25 mg PO BID 12/04/20 12/04/20 Unknown History lisinopriL [Lisinopril] 20 mg PO QDAY 12/04/20 12/04/20 Unknown History Active Medications: Generic Name Dose Route Start Last Admin Trade Name Freq PRN Reason Stop Dose Admin Acetaminophen 650 mg 12/04/20 12:57 12/19/20 00:09 Acetaminophen 325 Mg Tab PO 650 mg Q4H PRN Administration Pain MILD(1-3)/Fever >100.5/PASTOR Albuterol 2.5 mg 12/06/20 08:30 Albuterol 2.5 Mg/3 Ml Nebu IH Q4HRT PRN Shortness Of Breath Albuterol/Ipratropium 1 ampul 12/06/20 20:00 12/23/20 08:28 Ipratropium/Albuterol Sulfate 3 Ml Ampul.Neb IH 1 ampul Q12HRT [facility] Administration Aspirin 325 mg 12/05/20 10:00 12/22/20 10:59 Aspirin 325 Mg Tab PO Not Given QDAY [facility] Atorvastatin Calcium 40 mg 12/04/20 22:00 12/22/20 22:04 Atorvastatin 40 Mg Tab PO Not Given QHS [facility] Carbamide Peroxide 5 drops 12/05/20 10:00 12/22/20 21:57 Carbamide Peroxide 6.5% Otic Drops 15 Ml AU 5 drops BID MACKENZIE Administration Carvedilol 6.25 mg 12/04/20 22:00 12/22/20 22:04 Carvedilol 6.25 Mg Tab PO Not Given BID [facility] Clopidogrel Bisulfate 75 mg 12/19/20 10:00 12/22/20 11:00 Clopidogrel 75 Mg Tab PO Not Given QDAY [facility] Famotidine 20 mg 12/05/20 22:00 12/22/20 22:27 Famotidine 20 Mg Tab PO Not Given BID [facility] Heparin Sodium (Porcine) 5,000 unit 12/04/20 14:00 12/23/20 05:59 Heparin 5,000 Unit/1 Ml Vial SUB-Q 5,000 unit Q8HR MACKENZIE Administration Hydrochlorothiazide 25 mg 12/05/20 10:00 12/22/20 11:00 Hydrochlorothiazide 25 Mg Tab PO Not Given QDAY MACKENZIE Labetalol HCl 10 mg 12/04/20 12:57 Labetalol 20 Mg/4 Ml Inj IV Q5MIN PRN to maintain SBP < 180 Lisinopril 10 mg 12/13/20 09:19 12/22/20 11:00 Lisinopril 20 Mg Tab PO Not Given QDAY MACKENZIE Nicotine 14 mg 12/06/20 11:00 12/22/20 14:50 Nicotine 14 Mg/24 Hr Patch TD 14 mg QDAY MACKENZIE Administration Ondansetron HCl 4 mg 12/04/20 12:57 Ondansetron 4 Mg/2 Ml Inj IV Q8H PRN Nausea And Vomiting Sodium Chloride 10 ml 12/04/20 22:00 12/22/20 21:57 Sodium Chloride 0.9% 10 Ml Flush Syringe IV 10 ml BID MACKENZIE Administration Sodium Chloride 10 ml 12/04/20 12:57 Sodium Chloride 0.9% 10 Ml Flush Syringe IV PRN PRN LINE FLUSH HEART Score - HEART Score Troponin: Troponin T < 0.010 ng/mL (0.00-0.029) 12/04/20 14:20
[2020-12-23] MEDS: NICOTINE 14 MG/24 HR PATCH TD SCH (09:56)
[2020-12-23] MEDS: CARBAMIDE PEROXIDE 6.5% OTIC DROPS 15 ML AU SCH (09:57)
[2020-12-23] MEDS: carvediloL 6.25 MG TAB PO SCH (11:26)
[2020-12-23] MEDS: ASPIRIN 325 MG TAB PO SCH (11:26)
[2020-12-23] MEDS: hydroCHLOROthiazide 25 MG TAB PO SCH (11:26)
[2020-12-23] MEDS: CLOPIDOGREL 75 MG TAB PO SCH (11:26)
[2020-12-23] MEDS: LISINOPRIL 20 MG TAB PO SCH (11:26)
[2020-12-23] MEDS: FAMOTIDINE 20 MG TAB PO SCH (11:27)
[2020-12-23] MEDS: FAMOTIDINE 20 MG/2 ML INJ IV SCH (13:13)
[2020-12-23] MEDS: D5W/0.9% NACL 1,000 ML IV SCH (13:14)
--- NOTE | 2020-12-23 14:21 | Progress Note ---
Assessment and Plan Acute CVA. Patient with history of remote CVA with left-sided contractures -she is on ASA 325 mg, Plavix 75 mg and Lipitor 40 mg CTA head/neck 12/16/20: occlusion of the communicating segment of the right ICA as well as the proximal right MCA and LIBIA. a developing acute right-sided infarct within the frontal lobe and basal ganglia with edema. mild irregularity of the right carotid bulb with significant narrowing along the extent of more distal right cervical ICA with findings concerning for dissection. CT head 12/22/20: There appears be some interval progression of the cerebral white matter disease along the left centrum semiovale from 12/04/2020 Dysphagia, GI consulted for PEG tube replacement History of aneurysm status post surgery, supportive care Right hemiparesis, PT OT Right ICA dissection. Vascular recommended DAPT Chronic CHF with preserved EF. Patient is euvolemic, continue supportive care Hypertension, monitor BP and adjust medications as needed Tobacco abuse, counseled for cessation initially following admission DVT prophylaxis: On heparin Brief History: The patient is a 55-year-old female with h/o prior CVA with residual weakness in her left upper extremity, HTN, CHF, HLD who was brought to the emergency department via EMS with complaints of 2-week history of right upper extremity weakness. She also has a history of a brain aneurysm that required surgical intervention. Her work-up revealed no significant stenosis of her left carotid artery however there was a suggestion of right internal carotid artery dissection. At this time she still has some residual right upper extremity weakness however it is improving. Vascular and neurology following. Daily clinical course: 12/14/2020. CT scan reveals no intracranial bleed or large acute territorial infarction. 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 Await MRI of brain. Consult neurology. Continue aspirin and Lipitor. 12/15/2020. Await MRI and neurology consultation. Continue aspirin and Lipitor. Physical therapy recommends subacute rehab. Await placement 12/16/2020. Neurology recommends CTA of head and neck which is pending. Continue aspirin and Lipitor. Echocardiogram from 12/04 revealed EF of 55 to 60% with mild diastolic dysfunction and impaired relaxation. No evidence of PFO. 12/17/2020. Patient with history of remote CVA with left-sided contractures related and or aneurysm surgery but with questionable worsened right-sided wea kness with possible new acute CVA. Patient cannot have MRI. 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 There is some collateral flow within the more distal segments. However, there appears to be a developing acute right-sided infarct within the frontal lobe and basal ganglia with edema. CTA of the neck reveals mild irregularity of the right carotid bulb with significant narrowing along the extent of more distal right cervical ICA with findings concerning for dissection. Consult vascular surgery for further evaluation. Neurology also following. Continue aspirin and Lipitor. 12/18/2020. Await vascular surgery recommendations regarding right internal carotid artery dissection. Continue current management for CVA. Check swallow evaluation with speech therapy. 12/19/2020. Neurology reports patient cannot have MRI. DAPT per vascular surgery recommendations. Speech therapy evaluated the patient and recommends modified barium swallow. Await MBS results. 12/20/2020. Continue DAPT per vascular surgery recommendations. Await MBS per speech therapy recommendation. Continue dysphagia pured diet with regular thin liquids per speech therapy. Physical therapy recommends subacute rehab. 12/21/20: Patient appears to be clinically stable, speech recommended pured diet which patient tolerating. No acute event overnight. Pending placement. 12/22/20: Patient is unable to swallow this morning and unable to speak. Keep n.p.o. for now start IV fluid hydration. Ordered for stat CT head which showed progression of white matter disease as compared to 12/04/20. We will reconsult neuro and continue to follow clinically. We will also notify vascular for further recommendation. 12/23/20: Speech recommended n.p.o. and possible PEG tube placement. Vascular surgery recommended to continue dual antiplatelet therapy. GI consulted for PEG placement. Continue PT OT eval, patient will need placement. Case management working on SNF placement. Subjective Date of service: 12/23/20 Principal diagnosis: CVA Interval history: Patient seen and examined. Medical records and medication list reviewed. Patient remains nonverbal and unable to swallow Speech therapy recommended n.p.o. and possible PEG tube placement Discussed plan of care at bedside with patient's RN. Objective - Exam Narrative Exam: GENERAL: well-developed and well-nourished elderly -Citizen Of [place] female lying on bed appeared to be in no discomfort but appears to be anxious. HEENT: Normocephalic. Atraumatic. No conjunctival congestion or icterus. Patient has moist mucous membranes. NECK: Supple. Trachea midline. CHEST/LUNGS: Clear to auscultated bilaterally, breathing nonlabored. No wheezes crackles or rhonchi. HEART/CARDIOVASCULAR: Regular in rate and rhythm. S1 and S2 positive. ABDOMEN: Abdomen is soft, nontender. Patient has normal bowel sounds. SKIN: There is no rash. Warm and dry. NEURO: Left-sided weakness. Follows command. Nonverbal MUSCULOSKELETAL: No joint effusion or tenderness. EXTRIMITY: No edema, no cyanosis or clubbing. PSYCH: Anxious - Constitutional Vitals: Vital Signs - 12hr 12/23/20 12/23/20 12/23/20 02:56 07:25 08:48 Temperature 98.2 F 97.2 F L Pulse Rate 104 H 68 Pulse Rate [ 98 H Throughout] Respiratory 19 19 Rate Respiratory 20 Rate [ Throughout] Blood Pressure 134/86 97/43 O2 Sat by Pulse 100 96 Oximetry 12/23/20 12/23/20 10:00 12:00 Temperature Pulse Rate 78 Pulse Rate [ Throughout] Respiratory 20 Rate Respiratory Rate [ Throughout] Blood Pressure O2 Sat by Pulse Oximetry - Labs CBC & Chem 7: 12/22/20 22:33 12/22/20 22:33 Labs: Abnormal lab results 12/22/20 12/22/20 12/23/20 Range/Units 22:33 22:33 11:41 RBC 5.08 H (3.65-5.03) M/mm3 Hgb 15.2 H (10.1-14.3) gm/dl Hct 44.0 H (30.3-42.9) % MCHC 35 H (30-34) % Carbon Dioxide 18 L (22-30) mmol/L BUN 63 H (7-17) mg/dL Creatinine 2.8 H (0.6-1.2) mg/dL Glucose 117 H (65-100) mg/dL POC Glucose 118 H (70-105) mg/dL HEART Score - HEART Score Troponin: Troponin T < 0.010 ng/mL (0.00-0.029) 12/04/20 14:20
--- NOTE | 2020-12-23 17:05 | Gastroenterology Consultation ---
History of Present Illness - Reason for Consult Consult date: 12/23/20 Neurogenic Dysphagia Requesting physician: NARESH FUNG - History of Present Illness The patient is awake/alert but nonverbal. The history is per the chart. There is a prior hx of CVA, and now she present with worsening neurologic symptoms and new CVA on opposite side. She has been evaluated by ST, and not felt to be a candidate for PO meds or feeds. She has had no prior documented abdominal surgery, and there are no gross scars on the abdomen. She currently has no blood in the BMs, fevers, or chills. Past History Past Medical History: heart failure, hypertension, hyperlipidemia, stroke, other (Cataract, Brain aneurysm) Past Surgical History: Other (Surgical intervention of brain aneurysm) Social history: no significant social history Family history: no significant family history Medications and Allergies Allergies Allergy/AdvReac Type Severity Reaction Status Date / Time No Known Allergies Allergy Verified 12/08/20 06:26 Home Medications Medication Instructions Recorded Confirmed Last Taken Type hydroCHLOROthiazide [HCTZ] 25 mg PO QDAY #30 tablet 08/16/20 12/04/20 Unknown Rx carvediloL [Coreg] 6.25 mg PO BID 12/04/20 12/04/20 Unknown History lisinopriL [Lisinopril] 20 mg PO QDAY 12/04/20 12/04/20 Unknown History Active Meds: Active Medications Acetaminophen (Acetaminophen 325 Mg Tab) 650 mg PO Q4H PRN PRN Reason: Pain MILD(1-3)/Fever >100.5/PASTOR Last Admin: 12/19/20 00:09 Dose: 650 mg Documented by: Albuterol (Albuterol 2.5 Mg/3 Ml Nebu) 2.5 mg IH Q4HRT PRN PRN Reason: Shortness Of Breath Albuterol/Ipratropium (Ipratropium/Albuterol Sulfate 3 Ml Ampul.Neb) 1 ampul IH Q12HRT [facility] Last Admin: 12/23/20 08:28 Dose: 1 ampul Documented by: Aspirin (Aspirin 325 Mg Tab) 325 mg PO QDAY [facility] Last Admin: 12/23/20 11:26 Dose: Not Given Documented by: Atorvastatin Calcium (Atorvastatin 40 Mg Tab) 40 mg PO QHS [facility] Last Admin: 12/22/20 22:04 Dose: Not Given Documented by: Carbamide Peroxide (Carbamide Peroxide 6.5% Otic Drops 15 Ml) 5 drops AU BID [facility] Last Admin: 12/23/20 09:57 Dose: 5 drops Documented by: Carvedilol (Carvedilol 6.25 Mg Tab) 6.25 mg PO BID [facility] Last Admin: 12/23/20 11:26 Dose: Not Given Documented by: Clopidogrel Bisulfate (Clopidogrel 75 Mg Tab) 75 mg PO QDAY [facility] Last Admin: 12/23/20 11:26 Dose: Not Given Documented by: Famotidine (Famotidine 20 Mg/2 Ml Inj) 20 mg IV DAILY [facility] Last Admin: 12/23/20 13:13 Dose: 20 mg Documented by: Heparin Sodium (Porcine) (Heparin 5,000 Unit/1 Ml Vial) 5,000 unit SUB-Q Q8HR [facility] Last Admin: 12/23/20 13:13 Dose: 5,000 unit Documented by: Hydrochlorothiazide (Hydrochlorothiazide 25 Mg Tab) 25 mg PO QDAY [facility] Last Admin: 12/23/20 11:26 Dose: Not Given Documented by: Dextrose/Sodium Chloride (D5ns) 1,000 mls @ 75 mls/hr IV DIRECT [facility] Last Admin: 12/23/20 13:14 Dose: 75 mls/hr Documented by: Labetalol HCl (Labetalol 20 Mg/4 Ml Inj) 10 mg IV Q5MIN PRN PRN Reason: to maintain SBP < 180 Lisinopril (Lisinopril 20 Mg Tab) 10 mg PO QDAY [facility] Last Admin: 12/23/20 11:26 Dose: Not Given Documented by: Nicotine (Nicotine 14 Mg/24 Hr Patch) 14 mg TD QDAY [facility] Last Admin: 12/23/20 09:56 Dose: 14 mg Documented by: Ondansetron HCl (Ondansetron 4 Mg/2 Ml Inj) 4 mg IV Q8H PRN PRN Reason: Nausea And Vomiting Sodium Chloride (Sodium Chloride 0.9% 10 Ml Flush Syringe) 10 ml IV BID [facility] Last Admin: 12/23/20 09:57 Dose: 10 ml Documented by: Sodium Chloride (Sodium Chloride 0.9% 10 Ml Flush Syringe) 10 ml IV PRN PRN PRN Reason: LINE FLUSH I HAVE REVIEWED/RECONCILED MEDICATIONS Review of Systems - Review of Systems ROS unobtainable: due to mental status Exam - Constitutional Vital Signs: Temp Pulse Resp BP Pulse Ox 97.8 F 110 H 20 138/78 97 12/23/20 11:30 12/23/20 11:30 12/23/20 12:00 12/23/20 11:30 12/23/20 11:30 General appearance: no acute distress - EENT Eyes: PERRL, EOM intact ENT: clear oral mucosa, no thrush - Neck Neck: supple, normal ROM - Respiratory Respiratory effort: normal Respiratory: bilateral: CTA - Cardiovascular Rhythm: regular Heart Sounds: Present: S1 & S2 Extremities: no ischemia, No edema - Gastrointestinal General gastrointestinal: Present: soft, non-tender, non-distended, other (No gross scars) - Integumentary Integumentary: Present: clear, warm, dry - Neurologic Neurological: right side weakness, other (Unable to assess mental status as noncommunicative, but awake and looking around; follows no commands) - Labs CBC & Chem 7: 12/22/20 22:33 12/22/20 22:33 Lab Results: Laboratory Results - last 24 hr 12/22/20 12/22/20 12/23/20 22:33 22:33 08:43 WBC 10.4 RBC 5.08 H Hgb 15.2 H Hct 44.0 H MCV 87 MCH 30 MCHC 35 H RDW 14.6 Plt Count 296 Sodium 140 Potassium 4.3 Chloride 102.2 Carbon Dioxide 18 L Anion Gap 24 BUN 63 H Creatinine 2.8 H Estimated GFR 21 BUN/Creatinine Ratio 23 Glucose 117 H POC Glucose 97 Calcium 9.7 12/23/20 12/23/20 11:41 15:57 WBC RBC Hgb Hct MCV MCH MCHC RDW Plt Count Sodium Potassium Chloride Carbon Dioxide Anion Gap BUN Creatinine Estimated GFR BUN/Creatinine Ratio Glucose POC Glucose 118 H 125 H Calcium Assessment and Plan - Patient Problems (1) Neurogenic dysphagia Current Visit: Yes Status: Acute Plan to address problem: - Message left for daughter Cha Wolfe. I did speak to sister Ms Viera, who declines to provide consent (wants her children to do this). - Will make NPO and consider PEG tomorrow if labs OK to proceed and consent obtainable.
[2020-12-24] MEDS: carvediloL 6.25 MG TAB PO SCH ×3 (00:29→22:29)
[2020-12-24] MEDS: HEPARIN 5,000 UNIT/1 ML VIAL SUB-Q SCH ×4 (00:30→22:31)
[2020-12-24] MEDS: CARBAMIDE PEROXIDE 6.5% OTIC DROPS 15 ML AU SCH ×3 (00:30→22:30)
[2020-12-24 05:47] LABS: Basophils # (Auto) 0.1 K/mm3 (0.0-0.1); Basophils % (Auto) 1.2 % (0.0-1.8); Eosinophils # (Auto) 0.1 K/mm3 (0.0-0.4); Hematocrit 41.7 % (30.3-42.9); Hemoglobin 13.9 gm/dl (10.1-14.3); Lymphocytes # (Auto) 3.1 K/mm3 (1.2-5.4); Mean Corpuscular HGB Conc 33 % (30-34); Mean Corpuscular Volume 88 fl (79-97); Monocytes # (Auto) 0.9 K/mm3 (0.0-0.8); Monocytes % (Auto) 7.7 % (0.0-7.3); Platelet Count 256 K/mm3 (140-440); Red Blood Count 4.74 M/mm3 (3.65-5.03); Red Cell Distribution Width 14.5 % (13.2-15.2)
[2020-12-24 05:57] LABS: INR 1.11 (0.87-1.13)
[2020-12-24] MEDS: IPRATROPIUM/ALBUTEROL SULFATE 3 ML AMPUL.NEB IH SCH (09:05)
--- NOTE | 2020-12-24 09:29 | Progress Note ---
Assessment and Plan Assessment and plan: Acute CVA. Patient with history of remote CVA with left-sided contractures -she is on ASA 325 mg, Plavix 75 mg and Lipitor 40 mg CTA head/neck 12/16/20: occlusion of the communicating segment of the right ICA as well as the proximal right MCA and LIBIA. a developing acute right-sided infarct within the frontal lobe and basal ganglia with edema. mild irregularity of the right carotid bulb with significant narrowing along the extent of more distal right cervical ICA with findings concerning for dissection. CT head 12/22/20: There appears be some interval progression of the cerebral white matter disease along the left centrum semiovale from 12/04/2020 Dysphagia, GI consulted for PEG tube replacement History of aneurysm status post surgery, supportive care Right hemiparesis, PT OT Right ICA dissection. Vascular recommended DAPT Chronic CHF with preserved EF. Patient is euvolemic, continue supportive care Hypertension, monitor BP and adjust medications as needed Tobacco abuse, counseled for cessation initially following admission DVT prophylaxis: On heparin Brief History: The patient is a 55-year-old female with h/o prior CVA with residual weakness in her left upper extremity, HTN, CHF, HLD who was brought to the emergency department via EMS with complaints of 2-week history of right upper extremity weakness. She also has a history of a brain aneurysm that required surgical intervention. Her work-up revealed no significant stenosis of her left carotid artery however there was a suggestion of right internal carotid artery dissection. At this time she still has some residual right upper extremity weakness however it is improving. Vascular and neurology following. Daily clinical course: 12/14/2020. CT scan reveals no intracranial bleed or large acute territorial infarction. 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 Await MRI of brain. Consult neurology. Continue aspirin and Lipitor. 12/15/2020. Await MRI and neurology consultation. Continue aspirin and Lipitor. Physical therapy recommends subacute rehab. Await placement 12/16/2020. Neurology recommends CTA of head and neck which is pending. Continue aspirin and Lipitor. Echocardiogram from 12/04 revealed EF of 55 to 60% with mild diastolic dysfunction and impaired relaxation. No evidence of PFO. 12/17/2020. Patient with history of remote CVA with left-sided contractures related and or aneurysm surgery but with questionable worsened right-sided weakness with possible new acute CVA. Patient cannot have MRI. 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 There is some collateral flow within the more distal segments. However, there appears to be a developing acute right-sided infarct within the frontal lobe and basal ganglia with edema. CTA of the neck reveals mild irregularity of the right carotid bulb with significant narrowing along the extent of more distal right cervical ICA with findings concerning for dissection. Consult vascular surgery for further evaluation. Neurology also following. Continue aspirin and Lipitor. 12/18/2020. Await vascular surgery recommendations regarding right internal carotid artery dissection. Continue current management for CVA. Check swallow evaluation with speech therapy. 12/19/2020. Neurology reports patient cannot have MRI. DAPT per vascular surgery recommendations. Speech therapy evaluated the patient and recommends modified barium swallow. Await MBS results. 12/20/2020. Continue DAPT per vascular surgery recommendations. Await MBS per speech therapy recommendation. Continue dysphagia pured diet with regular thin liquids per speech therapy. Physical therapy recommends subacute rehab. 12/21/20: Patient appears to be clinically stable, speech recommended pured diet which patient tolerating. No acute event overnight. Pending placement. 12/22/20: Patient is unable to swallow this morning and unable to speak. Keep n.p.o. for now start IV fluid hydration. Ordered for stat CT head which showed progression of white matter disease as compared to 12/04/20. We will reconsult neuro and continue to follow clinically. We will also notify vascular for further recommendation. 12/23/20: Speech recommended n.p.o. and possible PEG tube placement. Vascular surgery recommended to continue dual antiplatelet therapy. GI consulted for PEG placement. Continue PT OT eval, patient will need placement. Case management working on SNF placement. 12/24/2020; GI consulted and tried to place a PEG tube but was unsuccessful and Dr. Palmer was consulted and he said he will do the procedure today. Patient need SNF placement once PEG is placed. Patient is off Plavix for PEG tube placement. Patient has JAMES due to vasomotor nephropathy and patient is on IV fluids. I put a consult for nephrology. History Interval history: Patient was seen and evaluated this morning Patient was alert and oriented Patient was nonverbal Hospitalist Physical - Physical exam Narrative exam: Not in cardiopulmonary distress. The patient appeared well nourished and normally developed. Vital signs as documented. Head exam is unremarkable. No scleral icterus . Neck is without jugular venous distension, thyromegaly, or carotid bruits. Lungs are clear to auscultation. Cardiac exam reveals regular rate and Rhythm. Abdominal exam reveals normal bowel sounds, nontender, no organomegaly. Extremities are nonedematous and both femoral and pedal pulses are normal. DOCK BUILDER: Alert and oriented 3. Chronic left-sided weakness, left upper extremity is contracted. Patient was nonverbal - Constitutional Vitals: Temp Pulse Resp BP Pulse Ox 97.8 F 92 H 16 120/68 94 12/24/20 07:42 12/24/20 09:05 12/24/20 09:05 12/24/20 07:42 12/24/20 09:10 General appearance: Present: no acute distress HEART Score - HEART Score Troponin: Troponin T < 0.010 ng/mL (0.00-0.029) 12/04/20 14:20 Results - Labs CBC & Chem 7: 12/24/20 05:23 12/24/20 05:23 Labs: Laboratory Last Values WBC 11.4 K/mm3 (4.5-11.0) H 12/24/20 05:23 RBC 4.74 M/mm3 (3.65-5.03) 12/24/20 05:23 Hgb 13.9 gm/dl (10.1-14.3) 12/24/20 05:23 Hct 41.7 % (30.3-42.9) 12/24/20 05:23 MCV 88 fl (79-97) 12/24/20 05:23 MCH 29 pg (28-32) 12/24/20 05:23 MCHC 33 % (30-34) 12/24/20 05:23 RDW 14.5 % (13.2-15.2) 12/24/20 05:23 Plt Count 256 K/mm3 (140-440) 12/24/20 05:23 Lymph % (Auto) 27.0 % (13.4-35.0) 12/24/20 05:23 [place] % (Auto) 7.7 % (0.0-7.3) H 12/24/20 05:23 Eos % (Auto) 1.0 % (0.0-4.3) 12/24/20 05:23 Baso % (Auto) 1.2 % (0.0-1.8) 12/24/20 05:23 Lymph # (Auto) 3.1 K/mm3 (1.2-5.4) 12/24/20 05:23 Bay # (Auto) 0.9 K/mm3 (0.0-0.8) H 12/24/20 05:23 Eos # (Auto) 0.1 K/mm3 (0.0-0.4) 12/24/20 05:23 Baso # (Auto) 0.1 K/mm3 (0.0-0.1) 12/24/20 05:23 Add Manual Diff Complete 12/05/20 13:09 Total Counted 100 12/05/20 13:09 Seg Neutrophils % 63.1 % (40.0-70.0) 12/24/20 05:23 Seg Neuts % (Manual) 72.0 % (40.0-70.0) H 12/05/20 13:09 Lymphocytes % (Manual) 22.0 % (13.4-35.0) 12/05/20 13:09 Monocytes % (Manual) 6.0 % (0.0-7.3) 12/05/20 13:09 Nucleated RBC % Not Reportable 12/05/20 13:09 Seg Neutrophils # 7.2 K/mm3 (1.8-7.7) 12/24/20 05:23 Seg Neutrophils # Man 5.5 K/mm3 (1.8-7.7) 12/05/20 13:09 Band Neutrophils # 0.0 K/mm3 12/05/20 13:09 Lymphocytes # (Manual) 1.7 K/mm3 (1.2-5.4) 12/05/20 13:09 Abs React Lymphs (Man) 0.0 K/mm3 12/05/20 13:09 Monocytes # (Manual) 0.5 K/mm3 (0.0-0.8) 12/05/20 13:09 Eosinophils # (Manual) 0.0 K/mm3 (0.0-0.4) 12/05/20 13:09 Basophils # (Manual) 0.0 K/mm3 (0.0-0.1) 12/05/20 13:09 Metamyelocytes # 0.0 K/mm3 12/05/20 13:09 Myelocytes # 0.0 K/mm3 12/05/20 13:09 Promyelocytes # 0.0 K/mm3 12/05/20 13:09 Blast Cells # 0.0 K/mm3 12/05/20 13:09 WBC Morphology Not Reportable 12/05/20 13:09 WBC Morphology TNR 12/05/20 13:09 Hypersegmented Neuts Not Reportable 12/05/20 13:09 Hyposegmented Neuts Not Reportable 12/05/20 13:09 Hypogranular Neuts Not Reportable 12/05/20 13:09 Smudge Cells Not Reportable 12/05/20 13:09 Toxic Granulation Not Reportable 12/05/20 13:09 Toxic Vacuolation Not Reportable 12/05/20 13:09 Dohle Bodies Not Reportable 12/05/20 13:09 Pelger-Huet Anomaly Not Reportable 12/05/20 13:09 Brigida Rods Not Reportable 12/05/20 13:09 Platelet Estimate Not Reportable 12/05/20 13:09 Clumped Platelets Not Reportable 12/05/20 13:09 Plt Clumps, EDTA Not Reportable 12/05/20 13:09 Large Platelets Not Reportable 12/05/20 13:09 Giant Platelets Not Reportable 12/05/20 13:09 Platelet Satelliting Not Reportable 12/05/20 13:09 Plt Morphology Comment Not Reportable 12/05/20 13:09 RBC Morphology Normal 12/05/20 13:09 Dimorphic RBCs Not Reportable 12/05/20 13:09 Polychromasia Not Reportable 12/05/20 13:09 Hypochromasia Not Reportable 12/05/20 13:09 Poikilocytosis Not Reportable 12/05/20 13:09 Anisocytosis Not Reportable 12/05/20 13:09 Microcytosis Not Reportable 12/05/20 13:09 Macrocytosis Not Reportable 12/05/20 13:09 Spherocytes Not Reportable 12/05/20 13:09 Pappenheimer Bodies Not Reportable 12/05/20 13:09 Sickle Cells Not Reportable 12/05/20 13:09 Target Cells Not Reportable 12/05/20 13:09 Tear Drop Cells Not Reportable 12/05/20 13:09 Ovalocytes Not Reportable 12/05/20 13:09 Helmet Cells Not Reportable 12/05/20 13:09 [place] Bodies Not Reportable 12/05/20 13:09 Levan Rings Not Reportable 12/05/20 13:09 [place] Cells Not Reportable 12/05/20 13:09 Bite Cells Not Reportable 12/05/20 13:09 Crenated Cell Not Reportable 12/05/20 13:09 Elliptocytes Not Reportable 12/05/20 13:09 Acanthocytes (Spur) Not Reportable 12/05/20 13:09 Rouleaux Not Reportable 12/05/20 13:09 Hemoglobin C Crystals Not Reportable 12/05/20 13:09 Schistocytes Not Reportable 12/05/20 13:09 Malaria parasites Not Reportable 12/05/20 13:09 ESR 28 mm/Hr (0-20) 12/16/20 04:50 [place]alo Bodies Not Reportable 12/05/20 13:09 Hem Pathologist Commnt No 12/05/20 13:09 PT 14.8 Sec. (12.2-14.9) 12/24/20 05:23 INR 1.11 (0.87-1.13) 12/24/20 05:23 APTT 32.5 Sec. (24.2-36.6) 12/04/20 08:58 Sodium 145 mmol/L (137-145) 12/24/20 05:23 Potassium 4.4 mmol/L (3.6-5.0) 12/24/20 05:23 Chloride 106.5 mmol/L (98-107) 12/24/20 05:23 Carbon Dioxide 22 mmol/L (22-30) 12/24/20 05:23 Anion Gap 21 mmol/L 12/24/20 05:23 BUN 62 mg/dL (7-17) H 12/24/20 05:23 Creatinine 2.0 mg/dL (0.6-1.2) H 12/24/20 05:23 Estimated GFR 32 ml/min 12/24/20 05:23 BUN/Creatinine Ratio 31 % 12/24/20 05:23 Glucose 118 mg/dL (65-100) H 12/24/20 05:23 POC Glucose 123 mg/dL (70-105) H 12/24/20 07:51 Calcium 10.0 mg/dL (8.4-10.2) 12/24/20 05:23 Total Bilirubin 0.40 mg/dL (0.1-1.2) 12/04/20 08:58 AST 27 units/L (5-40) 12/04/20 08:58 ALT 30 units/L (7-56) 12/04/20 08:58 Alkaline Phosphatase 126 units/L (35-129) 12/04/20 08:58 Troponin T < 0.010 ng/mL (0.00-0.029) 12/04/20 14:20 Total Protein 7.9 g/dL (6.3-8.2) 12/04/20 08:58 Albumin 3.5 g/dL (3.9-5) L 12/04/20 08:58 Albumin/Globulin Ratio 0.8 % 12/04/20 08:58 Triglycerides 160 mg/dL (2-149) H 12/05/20 04:00 Cholesterol 177 mg/dL (50-199) 12/05/20 04:00 LDL Cholesterol Direct 116 mg/dL (50-130) 12/05/20 04:00 HDL Cholesterol 41 mg/dL (40-59) 12/05/20 04:00 Cholesterol/HDL Ratio 4.31 % 12/05/20 04:00 TSH 0.736 mlU/mL (0.270-4.200) 12/16/20 04:50 Urine Color Yellow (Yellow) 12/04/20 Unknown Urine Turbidity Clear (Clear) 12/04/20 Unknown Urine pH 5.0 (5.0-7.0) 12/04/20 Unknown Ur Specific [place] 1.016 (1.003-1.030) 12/04/20 Unknown Urine Protein <15 mg/dl mg/dL (Negative) 12/04/20 Unknown Urine Glucose (UA) Neg mg/dL (Negative) 12/04/20 Unknown Urine Ketones Neg mg/dL (Negative) 12/04/20 Unknown Urine Blood Neg (Negative) 12/04/20 Unknown Urine Nitrite Neg (Negative) 12/04/20 Unknown Urine Bilirubin Neg (Negative) 12/04/20 Unknown Urine Urobilinogen < 2.0 mg/dL (<2.0) 12/04/20 Unknown Ur Leukocyte Esterase Neg (Negative) 12/04/20 Unknown Urine WBC (Auto) 1.0 /HPF (0.0-6.0) 12/04/20 Unknown Urine RBC (Auto) 2.0 /HPF (0.0-6.0) 12/04/20 Unknown U Epithel Cells (Auto) 1.0 /HPF (0-13.0) 12/04/20 Unknown Urine Mucus Few /HPF 12/04/20 Unknown Coronavirus (PCR) Negative (Negative) 12/05/20 Unknown Roberts/IV: Voiding Method External Female Catheter Active Medications - Current Medications Current Medications: Generic Name Dose Route Start Last Admin Trade Name Freq PRN Reason Stop Dose Admin Acetaminophen 650 mg 12/04/20 12:57 12/19/20 00:09 Acetaminophen 325 Mg Tab PO 650 mg Q4H PRN Administration Pain MILD(1-3)/Fever >100.5/PASTOR Albuterol 2.5 mg 12/24/20 10:00 Albuterol 2.5 Mg/3 Ml Nebu IH Q4HRT PRN Shortness Of Breath Atorvastatin Calcium 40 mg 12/04/20 22:00 12/24/20 00:30 Atorvastatin 40 Mg Tab PO Not Given QHS MACKEN[facility]IE Carbamide Peroxide 5 drops 12/05/20 10:00 12/24/20 00:30 Carbamide Peroxide 6.5% Otic Drops 15 Ml AU 5 drops BID MACKENZIE Administration Carvedilol 6.25 mg 12/04/20 22:00 12/24/20 00:29 Carvedilol 6.25 Mg Tab PO Not Given BID MACKENZIE Famotidine 20 mg 12/23/20 11:00 12/23/20 13:13 Famotidine 20 Mg/2 Ml Inj IV 20 mg DAILY MACKEN[facility]IE Administration Heparin Sodium (Porcine) 5,000 unit 12/04/20 14:00 12/24/20 06:02 Heparin 5,000 Unit/1 Ml Vial SUB-Q Not Given Q8HR [facility] Hydrochlorothiazide 25 mg 12/05/20 10:00 12/23/20 11:26 Hydrochlorothiazide 25 Mg Tab PO Not Given QDAY MACKEN[facility]IE Dextrose/Sodium Chloride 1,000 mls @ 75 mls/hr 12/23/20 13:00 12/23/20 13:14 D5ns IV 75 mls/hr DIRECT MACKEN[facility]IE Administration Labetalol HCl 10 mg 12/04/20 12:57 Labetalol 20 Mg/4 Ml Inj IV Q5MIN PRN to maintain SBP < 180 Lisinopril 10 mg 12/13/20 09:19 12/23/20 11:26 Lisinopril 20 Mg Tab PO Not Given QDAY MACKEN[facility]IE Nicotine 14 mg 12/06/20 11:00 12/23/20 09:56 Nicotine 14 Mg/24 Hr Patch TD 14 mg QDAY MACKEN[facility]IE Administration Ondansetron HCl 4 mg 12/04/20 12:57 Ondansetron 4 Mg/2 Ml Inj IV Q8H PRN Nausea And Vomiting Sodium Chloride 10 ml 12/04/20 22:00 12/24/20 00:31 Sodium Chloride 0.9% 10 Ml Flush Syringe IV 10 ml BID MACKENZIE Administration Sodium Chloride 10 ml 12/04/20 12:57 Sodium Chloride 0.9% 10 Ml Flush Syringe IV PRN PRN LINE FLUSH Nutrition/Malnutrition Assess - Dietary Evaluation Nutrition/Malnutrition Findings: Nutrition Notes Start: 12/14/20 14:12 Freq: Status: Active Protocol: Document 12/14/20 14:12 CW (Rec: 12/14/20 14:16 CW [id number]) Nutrition Notes Need for Assessment generated from: LOS Initial or Follow up Brief Note Current Diagnosis Heart Failure,Stroke Current Diet Cardiac Diet Labs/Tests 12/05 Na 136 Pertinent Medications reviewed Height 5 ft Weight 80.8 kg [place] Body Weight (kg) 45.45 BMI 34.7 Weight change and time frame weight fluctuations likely r/t fluid Weight Status Obese Subjective/Other Information Screen fro LOS. PO intake is excellent. Dang score of 19. Weight fluctuates 80+/- 5 kg. Nutrition Intervention Change Diet Order: Continue current diet as ordered Anticipated Discharge Needs: Cardiac diet Revisit per MD consult or patient Sign Off request: Additional Comments S/O for excellent intakes and dang score of 19
[2020-12-24] MEDS ORDERED: ALBUTEROL 2.5 MG/3 ML NEBU IH PRN (10:00)
--- NOTE | 2020-12-24 10:31 | Consultation ---
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 She also has a history of a brain aneurysm that required surgical intervention. She is non-verbal at baseline but able to nod yes/no. Most of HPI obtained from chart review as a result. Past History Past Medical History: heart failure, hypertension, hyperlipidemia, stroke, other (Cataract, Brain aneurysm) Past Surgical History: Other (Surgical intervention of brain aneurysm) Social history: no significant social history Family history: no significant family history Medications and Allergies Allergies Allergy/AdvReac Type Severity Reaction Status Date / Time No Known Allergies Allergy Verified 12/08/20 06:26 Home Medications Medication Instructions Recorded Confirmed Last Taken Type hydroCHLOROthiazide [HCTZ] 25 mg PO QDAY #30 tablet 08/16/20 12/04/20 Unknown Rx carvediloL [Coreg] 6.25 mg PO BID 12/04/20 12/04/20 Unknown History lisinopriL [Lisinopril] 20 mg PO QDAY 12/04/20 12/04/20 Unknown History Active Meds: Active Medications Acetaminophen (Acetaminophen 325 Mg Tab) 650 mg PO Q4H PRN PRN Reason: Pain MILD(1-3)/Fever >100.5/PASTOR Last Admin: 12/19/20 00:09 Dose: 650 mg Documented by: Albuterol (Albuterol 2.5 Mg/3 Ml Nebu) 2.5 mg IH Q4HRT PRN PRN Reason: Shortness Of Breath Atorvastatin Calcium (Atorvastatin 40 Mg Tab) 40 mg PO QHS [facility] Last Admin: 12/24/20 00:30 Dose: Not Given Documented by: Carbamide Peroxide (Carbamide Peroxide 6.5% Otic Drops 15 Ml) 5 drops AU BID [facility] Last Admin: 12/24/20 00:30 Dose: 5 drops Documented by: Carvedilol (Carvedilol 6.25 Mg Tab) 6.25 mg PO BID [facility] Last Admin: 12/24/20 00:29 Dose: Not Given Documented by: Famotidine (Famotidine 20 Mg/2 Ml Inj) 20 mg IV DAILY [facility] Last Admin: 12/23/20 13:13 Dose: 20 mg Documented by: Heparin Sodium (Porcine) (Heparin 5,000 Unit/1 Ml Vial) 5,000 unit SUB-Q Q8HR [facility] Last Admin: 12/24/20 06:02 Dose: Not Given Documented by: Dextrose/Sodium Chloride (D5ns) 1,000 mls @ 75 mls/hr IV DIRECT [facility] Last Admin: 12/23/20 13:14 Dose: 75 mls/hr Documented by: Labetalol HCl (Labetalol 20 Mg/4 Ml Inj) 10 mg IV Q5MIN PRN PRN Reason: to maintain SBP < 180 Nicotine (Nicotine 14 Mg/24 Hr Patch) 14 mg TD QDAY [facility] Last Admin: 12/23/20 09:56 Dose: 14 mg Documented by: Ondansetron HCl (Ondansetron 4 Mg/2 Ml Inj) 4 mg IV Q8H PRN PRN Reason: Nausea And Vomiting Sodium Chloride (Sodium Chloride 0.9% 10 Ml Flush Syringe) 10 ml IV BID [facility] Last Admin: 12/24/20 00:31 Dose: 10 ml Documented by: Sodium Chloride (Sodium Chloride 0.9% 10 Ml Flush Syringe) 10 ml IV PRN PRN PRN Reason: LINE FLUSH Review of Systems ROS unobtainable: due to mental status (patient non-verbal, able to nod no to most questions however) Exam - Vital Signs Vital signs: Vital Signs Pulse Resp Pulse Ox 91 H 20 96 12/04/20 07:20 12/04/20 07:20 12/04/20 07:20 - Physical Exam Narrative exam: GENERAL: well-developed and well-nourished, lying on bed, no acute distress HEENT: Normocephalic. Atraumatic. No conjunctival congestion or icterus. Patient has dry mucous membranes. NECK: Supple. Trachea midline. CHEST/LUNGS: Clear to auscultated bilaterally, breathing nonlabored. HEART/CARDIOVASCULAR: Regular in rate and rhythm. S1 and S2 positive. ABDOMEN: Abdomen is soft, nontender. Patient has normal bowel sounds. SKIN: There is no rash. Warm and dry. NEURO: Left-sided weakness. Follows command. Nonverbal MUSCULOSKELETAL: No joint effusion or tenderness. EXTRIMITY: No edema, no cyanosis or clubbing. PSYCH: Anxious Results - Lab Results 12/24/20 05:23 12/24/20 05:23 Most recent lab results Calcium 10.0 mg/dL (8.4-10.2) 12/24/20 05:23 Assessment and Plan # JAMES: creatinine 0.8 in late November 2019; now 2.8->2.0, do suspect pre-renal injury given poor po intake and renal function improving with IVF - defer further workup for now; continue with current IVF as tolerated, note plans for PEG - BP soft but stable, may need to hold carvedilol if systolic consistently below 110 - avoid nephrotoxins - renally dose medications - follow urine output as able - no indication for biopsy or renal replacement therapy # Acute CVA, Right ICA Dissection. Patient with history of remote CVA with left-sided contractures - on ASA 325 mg, Plavix 75 mg and Lipitor 40 mg - PEG tube placement noted for dysphagia # History of aneurysm s/p surgery, supportive care # HTN: BP reasonable currently, avoid relative hypotension, currently off home MICHELLE-I and HCTZ which is reasonable
--- NOTE | 2020-12-24 10:50 | Anesthesia Consultation ---
Anesthesia Consult and Med Hx Date of service: 12/24/20 - Airway Anesthetic Teeth Evaluation: Poor (some missing teeth) ROM Head & Neck: Adequate Mental/Hyoid Distance: Adequate Mallampati Class: Class III Intubation Access Assessment: Possibly Difficult - Pre-Operative Health Status ASA Pre-Surgery Classification: ASA3 Proposed Anesthetic Plan: MAC - Pulmonary Hx Smoking: Yes - Cardiovascular System Hx Hypertension: Yes Hx Coronary Artery Disease: No (h/o CHF) Hx Pacemaker: No Hx Internal Defibrillator: No - Central Nervous System CVA: Yes (2007 (residual L side weakness) and this admission (R side, aphasic)) - Other Systems Hx Alcohol Use: Yes Hx Obesity: Yes
--- NOTE | 2020-12-24 10:58 | Anesthesia Day of Surgery ---
Anesthesia Day of Surgery - Day of Surgery Patient Examined: Yes Patient H&P Reviewed: Yes Patient is NPO: Yes
[2020-12-24] MEDS ORDERED: ceFAZolin/Water 2 GM/20 ML 2 GM/20 ML SYRINGE IV NR (11:00)
[2020-12-24] MEDS ORDERED: SODIUM CHLORIDE 0.9% 1000 ML 1,000 ML IV SCH (11:00)
[2020-12-24] MEDS ORDERED: LIDOCAINE MPF (2%) 20 MG/1 ML VIAL 5 ML ONE (12:19)
[2020-12-24] MEDS ORDERED: propofoL 200 MG/20 ML VIAL IV ONE (12:19)
--- NOTE | 2020-12-24 13:00 | Post Operative Note ---
Pre-op diagnosis: Neurogenic Dysphagia Post-op diagnosis: same Findings: 1. Small hiatal hernia 2. Otherwise normal EGD 3. Attempted to access stomach with guide needle, and due to adiposity and high position of stomach (relative to rib cage), was not able to access; procedure aborted 4. Dobhoff inserted in L nares at end of procedure Procedure: EGD with attempted PEG and with Dobhoff insertion Anesthesia: MAC Surgeon: BENJI PRAKASH Estimated blood loss: minimal Pathology: none Specimen disposition: other (N/A) Condition: stable Disposition: floor (Recs: 1. Surgical consult placed for possible laparoscopic placement. 2. Dobhoff placed, and if confirmed, may use Dobhoff for feeds. 3. Hold ASA/Plavix until seen by Surgery and timing of PEG known.)
--- NOTE | 2020-12-24 15:24 | XRay Report ---
ABDOMEN 1 VIEW INDICATION / CLINICAL INFORMATION: Dobhoff placement. COMPARISON: None available. FINDINGS: TUBES / LINES: Weighted enteric tube is present within the stomach with tip curled in the fundus. BOWEL GAS PATTERN: Gaseous prominence of the colon. FREE AIR / EXTRALUMINAL GAS: None seen. ADDITIONAL FINDINGS: No significant additional findings. IMPRESSION: 1. Dobbhoff tube within the stomach with tip curled in the fundus. If more distal positioning is ruth red, recommend repositioning and follow-up imaging. Signer Name: Saw Albright MD Signed: 12/24/2020 3:19 PM Workstation Name: [id number]
[2020-12-24] MEDS: NICOTINE 14 MG/24 HR PATCH TD SCH (18:19)
[2020-12-24] MEDS: FAMOTIDINE 20 MG/2 ML INJ IV SCH (18:19)
--- NOTE | 2020-12-24 19:06 | Operative Report ---
DATE OF SURGERY: 12/24/2020 ENDOSCOPY DOCUMENT PROCEDURE PERFORMED: Esophagogastroduodenoscopy with attempted gastrostomy tube placement and with Dobhoff tube placement. PREOPERATIVE DIAGNOSIS: Neurogenic dysphagia after stroke. POSTOPERATIVE DIAGNOSES: Neurogenic dysphagia after stroke, atypical position of stomach. ENDOSCOPIST: Emery Vargas MD INSTRUMENT: The Olympus videoendoscope. MEDICATIONS: MAC anesthesia by Anesthesia services as well as Ancef 2 grams intravenous prior to the start of the procedure. IMPLANTS: Dobhoff feeding tube via the left nares into the stomach. CHAIR PAD MAKER: None. CONDITION AT COMPLETION: Stable. TECHNIQUE: The patient's daughter provided informed consent throughout the procedure: The patient was unable to provide consent after her recent stroke. After consent was obtained, the patient was placed in the left lateral decubitus position. The above sedative medications were given. Her vital signs remained stable throughout the procedure. The instrument was advanced from the mouth to the second portion of the duodenum under direct visualization. At that point, the bowel was insufflated and the endoscope was slowly withdrawn. There was a good red light reflex and indentation in area seen approximately 2 cm below the left sternal border. This area was sterilely draped and prepped and a small incision was made with a scalpel. We introduced our finder needle with dilute lidocaine and although indentation of the stomach could be seen and there was no air in the hub of the syringe, the finder needle could not advance into the lumen of the stomach. This was presumably due to the patient's excess adipose as well as the high position of the stomach under the ribcage. At that point, the endoscope was withdrawn from the patient. We then inserted a Dobhoff tube via the left nares into the stomach, awaiting confirmation by x-ray, for feeding until a surgical gastrostomy tube can be placed. FINDINGS: 1. Small hiatal hernia. 2. Otherwise normal duodenum, stomach, and esophagus, although the stomach is noted on palpation to be relatively high under the ribcage. 3. We attempted excess of the stomach for a gastrostomy tube with a guide needle and due to the patient's excess adipose and the high position of the stomach relative to the ribcage, we were not able to excess the lumen of the stomach: The procedure was aborted without placement of a gastrostomy tube. 4. A Dobhoff was inserted in the left nares at the end of the procedure. RECOMMENDATIONS: 1. Surgical consult placed for possible laparoscopic placement of a gastrostomy tube. 2. The Dobhoff tube was placed and if position is confirmed, may use for feeding while awaiting gastrostomy tube. 3. Hold aspirin and Plavix until seen by surgery and the timing of the gastrostomy tube is known. TID: [id number] RECEIPT: [id number] SON/ASHLY
--- NOTE | 2020-12-24 20:16 | Consultation ---
History of Present Illness Consult date: 12/24/20 Chief complaint: 55 yo female s/p CVA with inability to take po per ST. Attempted PEG today by Dr. Vargas was unsuccessful (See his note.). - History of present illness History of present illness: See above CC. Past History Past Medical History: heart failure, hypertension, hyperlipidemia, stroke, other (Cataract, Brain aneurysm) Past Surgical History: Other (Surgical intervention of brain aneurysm) Social history: no significant social history Family history: no significant family history Medications and Allergies Allergies Allergy/AdvReac Type Severity Reaction Status Date / Time No Known Allergies Allergy Verified 12/08/20 06:26 Home Medications Medication Instructions Recorded Confirmed Last Taken Type hydroCHLOROthiazide [HCTZ] 25 mg PO QDAY #30 tablet 08/16/20 12/04/20 Unknown Rx carvediloL [Coreg] 6.25 mg PO BID 12/04/20 12/04/20 Unknown History lisinopriL [Lisinopril] 20 mg PO QDAY 12/04/20 12/04/20 Unknown History Active Meds: Active Medications Acetaminophen (Acetaminophen 325 Mg Tab) 650 mg PO Q4H PRN PRN Reason: Pain MILD(1-3)/Fever >100.5/PASTOR Last Admin: 12/19/20 00:09 Dose: 650 mg Documented by: Albuterol (Albuterol 2.5 Mg/3 Ml Nebu) 2.5 mg IH Q4HRT PRN PRN Reason: Shortness Of Breath Atorvastatin Calcium (Atorvastatin 40 Mg Tab) 40 mg PO QHS [facility] Last Admin: 12/24/20 00:30 Dose: Not Given Documented by: Carbamide Peroxide (Carbamide Peroxide 6.5% Otic Drops 15 Ml) 5 drops AU BID [facility] Last Admin: 12/24/20 10:30 Dose: Not Given Documented by: Carvedilol (Carvedilol 6.25 Mg Tab) 6.25 mg PO BID [facility] Last Admin: 12/24/20 16:19 Dose: Not Given Documented by: Famotidine (Famotidine 20 Mg/2 Ml Inj) 20 mg IV DAILY [facility] Last Admin: 12/24/20 18:19 Dose: 20 mg Documented by: Heparin Sodium (Porcine) (Heparin 5,000 Unit/1 Ml Vial) 5,000 unit SUB-Q Q8HR [facility] Last Admin: 12/24/20 14:00 Dose: Not Given Documented by: Dextrose/Sodium Chloride (D5ns) 1,000 mls @ 75 mls/hr IV DIRECT [facility] Last Admin: 12/23/20 13:14 Dose: 75 mls/hr Documented by: Sodium Chloride (Nacl 0.9% 1000 Ml) 1,000 mls @ 50 mls/hr IV DIRECT [facility] Cefazolin Sodium (Ancef/Sterile Water 2 Gm/20 Ml) 2 gm in 20 mls @ 80 mls/hr IV PREOP NR; Protocol Stop: 12/24/20 21:00 Labetalol HCl (Labetalol 20 Mg/4 Ml Inj) 10 mg IV Q5MIN PRN PRN Reason: to maintain SBP < 180 Nicotine (Nicotine 14 Mg/24 Hr Patch) 14 mg TD QDAY [facility] Last Admin: 12/24/20 18:19 Dose: 14 mg Documented by: Ondansetron HCl (Ondansetron 4 Mg/2 Ml Inj) 4 mg IV Q8H PRN PRN Reason: Nausea And Vomiting Sodium Chloride (Sodium Chloride 0.9% 10 Ml Flush Syringe) 10 ml IV BID [facility] Last Admin: 12/24/20 18:19 Dose: 10 ml Documented by: Sodium Chloride (Sodium Chloride 0.9% 10 Ml Flush Syringe) 10 ml IV PRN PRN PRN Reason: LINE FLUSH Review of Systems ROS unobtainable: due to mental status Exam Vital Signs Pulse Resp Pulse Ox 91 H 20 96 12/04/20 07:20 12/04/20 07:20 12/04/20 07:20 - General physical appearance Positive: well developed, well nourished, no distress - Eyes Positive: PERRL, normal occular movement - ENT Positive: normal pinna, normal nares, normal mucosa, no hearing loss, no conge stion - Neck Positive: no masses, no bruits, trachea midline, no venous distension - Respiratory Positive: normal expansion, normal respiratory effort, clear to auscultation - Cardiovascular Rhythm: regular Heart Sounds: Present: S1 & S2. Absent: rub, click - Extremities Extremities: no ischemia, pulses symmetrical, No edema - Breasts Breasts: normal, no mass, no skin changes - Abdomen Abdomen: Present: soft, bowel sounds normal. Absent: tender, distended Hernia: none - Genitourinary Male Genitourinary: normal Female Genitourinary: normal - Integumentary no rash, no growths, no abnormal pigmentation - Neurologic Neurologic: alert and oriented to time, place and person, motor strength and sensation are grossly intact - Musculoskeletal normal gait, normal posture Results - Labs 12/24/20 05:23 12/24/20 05:23 Abnormal lab results 12/23/20 12/24/20 12/24/20 Range/Units 22:11 05:23 05:23 WBC 11.4 H (4.5-11.0) K/mm3 [place] % (Auto) 7.7 H (0.0-7.3) % [place] # (Auto) 0.9 H (0.0-0.8) K/mm3 BUN 62 H (7-17) mg/dL Creatinine 2.0 H (0.6-1.2) mg/dL Glucose 118 H (65-100) mg/dL POC Glucose 127 H (70-105) mg/dL 12/24/20 Range/Units 07:51 WBC (4.5-11.0) K/mm3 [place] % (Auto) (0.0-7.3) % [place] # (Auto) (0.0-0.8) K/mm3 BUN (7-17) mg/dL Creatinine (0.6-1.2) mg/dL Glucose (65-100) mg/dL POC Glucose 123 H (70-105) mg/dL Diabetes panel 12/24/20 Range/Units 05:23 Sodium 145 (137-145) mmol/L Potassium 4.4 (3.6-5.0) mmol/L Chloride 106.5 (98-107) mmol/L Carbon Dioxide 22 (22-30) mmol/L BUN 62 H (7-17) mg/dL Creatinine 2.0 H (0.6-1.2) mg/dL Glucose 118 H (65-100) mg/dL Calcium 10.0 (8.4-10.2) mg/dL Calcium panel 12/24/20 Range/Units 05:23 Calcium 10.0 (8.4-10.2) mg/dL Pituitary panel 12/24/20 Range/Units 05:23 Sodium 145 (137-145) mmol/L Potassium 4.4 (3.6-5.0) mmol/L Chloride 106.5 (98-107) mmol/L Carbon Dioxide 22 (22-30) mmol/L BUN 62 H (7-17) mg/dL Creatinine 2.0 H (0.6-1.2) mg/dL Glucose 118 H (65-100) mg/dL Calcium 10.0 (8.4-10.2) mg/dL Adrenal panel 12/24/20 Range/Units 05:23 Sodium 145 (137-145) mmol/L Potassium 4.4 (3.6-5.0) mmol/L Chloride 106.5 (98-107) mmol/L Carbon Dioxide 22 (22-30) mmol/L BUN 62 H (7-17) mg/dL Creatinine 2.0 H (0.6-1.2) mg/dL Glucose 118 H (65-100) mg/dL Calcium 10.0 (8.4-10.2) mg/dL Assessment and Plan - Patient Problems (1) CVA (cerebral vascular accident) Current Visit: Yes Status: Acute Qualifiers: CVA mechanism: unspecified Qualified Code(s): I63.9 - Cerebral infarction, unspecified Plan to address problem: 1) Will attempt PEG again tomorrow. If unsuccessful, will proceed to laparo scopically assisted PEG and ultimately to open gastrostomy tube if necessary (doubt).
--- NOTE | 2020-12-24 21:34 | Post Anesthesia Evaluation ---
- Post Anesthesia Evaluation Patient Participated: Yes Airway Patent: Yes Stable Respiratory Function: Yes Nausea/Vomiting: No Temp > 96.8F: Yes Pain Manageable: Yes Adequeate Hydration: Yes Anesthesia Complications: No Block Receding Appropriately: Not Applicable Patient on Ventilator: No
[2020-12-25] MEDS: D5W/0.9% NACL 1,000 ML IV SCH (00:33)
[2020-12-25] MEDS ORDERED: FUROSEMIDE 40 MG/4 ML INJ IV ONE (05:25)
[2020-12-25] MEDS: HEPARIN 5,000 UNIT/1 ML VIAL SUB-Q SCH ×4 (05:31→22:08)
[2020-12-25 06:54] LABS: Calcium 9.1 mg/dL (8.4-10.2)
[2020-12-25] MEDS ORDERED: propofoL 200 MG/20 ML VIAL IV ONE (09:34)
[2020-12-25] MEDS ORDERED: LIDOCAINE MPF (2%) 20 MG/1 ML VIAL 5 ML ONE (09:35)
[2020-12-25] MEDS ORDERED: SUCCINYLCHOLINE CHLORIDE 200 MG/10 ML INJ MDV ONE (09:35)
[2020-12-25] MEDS ORDERED: fentaNYL 100 MCG/2 ML INJ ONE (09:36)
--- NOTE | 2020-12-25 09:40 | Progress Note ---
Assessment and Plan # JAMES: creatinine 0.8 in late November 2019; now 2.8->2.0->1.2, do suspect pre-renal injury given poor po intake and renal function improving with IVF - defer further workup for now; continue with current IVF as tolerated, note pl ans for PEG - BP now stable, may need to hold carvedilol if systolic below 110 - avoid nephrotoxins - renally dose medications - follow urine output as able - no indication for biopsy or renal replacement therapy # Acute CVA, Right ICA Dissection. Patient with history of remote CVA with left-sided contractures - on ASA 325 mg, Plavix 75 mg and Lipitor 40 mg - PEG tube placement noted for dysphagia, note GI and surgery notes # History of aneurysm s/p surgery, supportive care # HTN: BP reasonable currently, avoid relative hypotension, currently off home MICHELLE-I and HCTZ which is reasonable Subjective Date of service: 12/25/20 Principal diagnosis: CVA Interval history: No acute changes, patient appears to be more pain this AM. PEG tube unable to be placed yesterday Objective - Exam Narrative Exam: GENERAL: mild distress HEENT: Normocephalic. Atraumatic. Moist Mucous Membranes NECK: Supple. Trachea midline. CHEST/LUNGS: Clear to auscultated bilaterally, breathing nonlabored. HEART/CARDIOVASCULAR: Regular in rate and rhythm. S1 and S2 positive. ABDOMEN: Abdomen is soft, nontender. Patient has normal bowel sounds. SKIN: There is no rash. Warm and dry. NEURO: Left-sided weakness. Follows command. Nonverbal MUSCULOSKELETAL: No joint effusion or tenderness. EXTRIMITY: No edema, no cyanosis or clubbing. PSYCH: Anxious - Vital Signs Vital signs: Vital Signs - 12hr 12/24/20 12/24/20 12/24/20 22:00 22:29 23:35 Temperature 122.0 F H Pulse Rate 91 H 101 H Pulse Rate [ Anterior Bilateral Throughout] Respiratory 18 18 Rate Respiratory Rate [Anterior Bilateral Throughout] Blood Pressure 131/85 129/81 O2 Sat by Pulse 96 Oximetry 12/25/20 12/25/20 12/25/20 04:52 05:32 08:12 Temperature 97.0 F L 98.1 F Pulse Rate 71 99 H Pulse Rate [ 89 Anterior Bilateral Throughout] Respiratory 18 20 Rate Respiratory 15 Rate [Anterior Bilateral Throughout] Blood Pressure 152/53 130/90 O2 Sat by Pulse 41 L 97 Oximetry - Lab 12/24/20 05:23 12/25/20 06:12 Most recent lab results Calcium 9.1 mg/dL (8.4-10.2) 12/25/20 06:12 Medications & Allergies - Medications Allergies/Adverse Reactions: Allergies No Known Allergies Allergy (Verified 12/08/20 06:26) Home Medications: Home Medications Medication Instructions Recorded Confirmed Last Taken Type hydroCHLOROthiazide [HCTZ] 25 mg PO QDAY #30 tablet 08/16/20 12/04/20 Unknown Rx carvediloL [Coreg] 6.25 mg PO BID 12/04/20 12/04/20 Unknown History lisinopriL [Lisinopril] 20 mg PO QDAY 12/04/20 12/04/20 Unknown History Active Medications: Generic Name Dose Route Start Last Admin Trade Name Freq PRN Reason Stop Dose Admin Acetaminophen 650 mg 12/04/20 12:57 12/19/20 00:09 Acetaminophen 325 Mg Tab PO 650 mg Q4H PRN Administration Pain MILD(1-3)/Fever >100.5/PASTOR Albuterol 2.5 mg 12/24/20 10:00 12/25/20 05:32 Albuterol 2.5 Mg/3 Ml Nebu IH 2.5 mg Q4HRT PRN Administration Shortness Of Breath Atorvastatin Calcium 40 mg 12/04/20 22:00 12/24/20 22:31 Atorvastatin 40 Mg Tab PO Not Given QHS [facility] Carbamide Peroxide 5 drops 12/05/20 10:00 12/24/20 22:30 Carbamide Peroxide 6.5% Otic Drops 15 Ml AU 5 drops BID [facility] Administration Carvedilol 6.25 mg 12/04/20 22:00 12/24/20 22:29 Carvedilol 6.25 Mg Tab PO Not Given BID [facility] Famotidine 20 mg 12/23/20 11:00 12/24/20 18:19 Famotidine 20 Mg/2 Ml Inj IV 20 mg DAILY [facility] Administration Heparin Sodium (Porcine) 5,000 unit 12/04/20 14:00 12/25/20 06:18 Heparin 5,000 Unit/1 Ml Vial SUB-Q Not Given Q8HR [facility] Labetalol HCl 10 mg 12/04/20 12:57 Labetalol 20 Mg/4 Ml Inj IV Q5MIN PRN to maintain SBP < 180 Nicotine 14 mg 12/06/20 11:00 12/24/20 18:19 Nicotine 14 Mg/24 Hr Patch TD 14 mg QDAY [facility] Administration Ondansetron HCl 4 mg 12/04/20 12:57 Ondansetron 4 Mg/2 Ml Inj IV Q8H PRN Nausea And Vomiting Sodium Chloride 10 ml 12/04/20 22:00 12/24/20 22:31 Sodium Chloride 0.9% 10 Ml Flush Syringe IV Not Given BID [facility] Sodium Chloride 10 ml 12/04/20 12:57 Sodium Chloride 0.9% 10 Ml Flush Syringe IV PRN PRN LINE FLUSH
[2020-12-25] MEDS ORDERED: dexAMETHasone 20 MG/5 ML VIAL ONE (09:41)
[2020-12-25] MEDS ORDERED: ONDANSETRON 4 MG/2 ML INJ ONE (09:41)
[2020-12-25] MEDS ORDERED: LACTATED RINGERS 1,000 ML ONE (10:19)
[2020-12-25] MEDS ORDERED: PHENYLEPHRINE/NS 1,000 MCG/10 ML SYRINGE (OR USE) IV ONE (10:24)
--- NOTE | 2020-12-25 10:44 | Procedure Note ---
Date of procedure: 12/25/20 Pre-op diagnosis: CVA & dysphagia Post-op diagnosis: same Procedure: PEG Description of procedure: Pt was placed supine on the OR table. MAC anesthesia was administered. Bite block was placed between pt's incisors. Endoscope was introduced into the pt's oropharynx and the esophagus intubated under direct vision. Scope was advanced into the stomach and the stomach maximally inflated. An appropriate location for the PEG tube was identified. LUQ was prepped and draped. Skin and SQ tissue at the proposed PEG site were infiltrated with 5 ml of 1% Lidocaine. A small skin incision was made at this location. Introducer needle was passed through the skin and into the stomach on the 1st pass. Guide wire was grasped with the snare and the guide wire and scope removed via the pt's oropharynx. Guide wire was attached to the internal bolster of the PEG and external traction applied to the guide wire until the internal bolster was snug up against the gastric and abdominal alegre. The external bolster, clamp and PEG plug were placed. Repeat gastroscopy revealed the internal bolster to be in good position with no bleeding from the gastric puncture site. The final PEG position was at 4 cm at the skin level. Endoscope was withdrawn after the gastric air was aspirated. Pt tolerated the procedure well. Anesthesia: MAC Surgeon: ELIZABETH MAYER Estimated blood loss: minimal Pathology: none Condition: stable Disposition: PACU
[2020-12-25] MEDS ORDERED: WATER FOR IRRIG STERILE 1,000 ML BOTTLE ONE (10:50)
--- NOTE | 2020-12-25 11:08 | Anesthesia Day of Surgery ---
Anesthesia Day of Surgery - Day of Surgery Patient Examined: Yes Patient H&P Reviewed: Yes Patient is NPO: Yes Beta Blockers: No Cardiac Clearance: No Pulmonary Clearance: No
--- NOTE | 2020-12-25 11:09 | Post Anesthesia Evaluation ---
- Post Anesthesia Evaluation Patient Participated: No Airway Patent: Yes Stable Respiratory Function: Yes Nausea/Vomiting: No Temp > 96.8F: Yes Pain Manageable: Yes Adequeate Hydration: Yes Anesthesia Complications: No Block Receding Appropriately: Not Applicable Patient on Ventilator: No
[2020-12-25] MEDS ORDERED: LIPASE 10,500/PROTEASE 25,000/AMYLASE 43,750 (UNITS) DR CAP FEEDTUBE PRN (11:10)
[2020-12-25] MEDS ORDERED: SIMPLE SYRUP 15 ML FEEDTUBE PRN ×2 (11:10)
[2020-12-25] MEDS ORDERED: SODIUM BICARBONATE 325 MG TAB FEEDTUBE PRN (11:10)
--- NOTE | 2020-12-25 11:30 | Progress Note ---
Assessment and Plan Assessment and plan: Acute CVA. Patient with history of remote CVA with left-sided contractures -she is on ASA 325 mg, Plavix 75 mg and Lipitor 40 mg CTA head/neck 12/16/20: occlusion of the communicating segment of the right ICA as well as the proximal right MCA and LIBIA. a developing acute right-sided infarct within the frontal lobe and basal ganglia with edema. mild irregularity of the right carotid bulb with significant narrowing along the extent of more distal right cervical ICA with findings concerning for dissection. CT head 12/22/20: There appears be some interval progression of the cerebral white matter disease along the left centrum semiovale from 12/04/2020 Dysphagia, GI consulted for PEG tube replacement History of aneurysm status post surgery, supportive care Right hemiparesis, PT OT Right ICA dissection. Vascular recommended DAPT Chronic CHF with preserved EF. Patient is euvolemic, continue supportive care Hypertension, monitor BP and adjust medications as needed Tobacco abuse, counseled for cessation initially following admission DVT prophylaxis: On heparin Brief History: The patient is a 55-year-old female with h/o prior CVA with residual weakness in her left upper extremity, HTN, CHF, HLD who was brought to the emergency department via EMS with complaints of 2-week history of right upper extremity weakness. She also has a history of a brain aneurysm that required surgical intervention. Her work-up revealed no significant stenosis of her left carotid artery however there was a suggestion of right internal carotid artery dissection. At this time she still has some residual right upper extremity weakness however it is improving. Vascular and neurology following. Daily clinical course: 12/14/2020. CT scan reveals no intracranial bleed or large acute territorial infarction. 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 Await MRI of brain. Consult neurology. Continue aspirin and Lipitor. 12/15/2020. Await MRI and neurology consultation. Continue aspirin and Lipitor. Physical therapy recommends subacute rehab. Await placement 12/16/2020. Neurology recommends CTA of head and neck which is pending. Continue aspirin and Lipitor. Echocardiogram from 12/04 revealed EF of 55 to 60% with mild diastolic dysfunction and impaired relaxation. No evidence of PFO. 12/17/2020. Patient with history of remote CVA with left-sided contractures related and or aneurysm surgery but with questionable worsened right-sided weakness with possible new acute CVA. Patient cannot have MRI. 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 There is some collateral flow within the more distal segments. However, there appears to be a developing acute right-sided infarct within the frontal lobe and basal ganglia with edema. CTA of the neck reveals mild irregularity of the right carotid bulb with significant narrowing along the extent of more distal right cervical ICA with findings concerning for dissection. Consult vascular surgery for further evaluation. Neurology also following. Continue aspirin and Lipitor. 12/18/2020. Await vascular surgery recommendations regarding right internal carotid artery dissection. Continue current management for CVA. Check swallow evaluation with speech therapy. 12/19/2020. Neurology reports patient cannot have MRI. DAPT per vascular surgery recommendations. Speech therapy evaluated the patient and recommends modified barium swallow. Await MBS results. 12/20/2020. Continue DAPT per vascular surgery recommendations. Await MBS per speech therapy recommendation. Continue dysphagia pured diet with regular thin liquids per speech therapy. Physical therapy recommends subacute rehab. 12/21/20: Patient appears to be clinically stable, speech recommended pured diet which patient tolerating. No acute event overnight. Pending placement. 12/22/20: Patient is unable to swallow this morning and unable to speak. Keep n.p.o. for now start IV fluid hydration. Ordered for stat CT head which showed progression of white matter disease as compared to 12/04/20. We will reconsult neuro and continue to follow clinically. We will also notify vascular for further recommendation. 12/23/20: Speech recommended n.p.o. and possible PEG tube placement. Vascular surgery recommended to continue dual antiplatelet therapy. GI consulted for PEG placement. Continue PT OT eval, patient will need placement. Case management working on SNF placement. 12/24/2020; GI consulted and tried to place a PEG tube but was unsuccessful and Dr. Palmer was consulted and he said he will do the procedure today. Patient need SNF placement once PEG is placed. Patient is off Plavix for PEG tube placement. Patient has JAMES due to vasomotor nephropathy and patient is on IV fluids. I put a consult for nephrology. 12/25/[address] tube [address] by Dr[address] Palmer today. JAMES due to vasomotor nephropathy improving. Cr 1.2 today. Nephrology following. For SNF placement History Interval history: Patient non verbal PEG tube today Hospitalist Physical - Physical exam Narrative exam: Not in cardiopulmonary distress. Vital signs as documented. Head exam is unremarkable. No scleral icterus . Neck is without jugular venous distension, thyromegaly, or carotid bruits. Lungs are clear to auscultation. Cardiac exam reveals regular rate and Rhythm. Abdominal exam reveals normal bowel sounds, nontender, no organomegaly. Extremities are nonedematous and both femoral and pedal pulses are normal. DIRECTOR OF CAREER SERVICES: Alert, Chronic left-sided weakness, left upper extremity is contracted. Patient was nonverbal - Constitutional Vitals: Temp Pulse Resp BP Pulse Ox 97.9 F 70 14 108/57 99 12/25/20 11:00 12/25/20 11:00 12/25/20 11:00 12/25/20 10:53 12/25/20 11:00 General appearance: Present: no acute distress HEART Score - HEART Score Troponin: Troponin T < 0.010 ng/mL (0.00-0.029) 12/04/20 14:20 Results - Labs CBC & Chem 7: 12/24/20 05:23 12/25/20 06:12 Labs: Laboratory Last Values WBC 11.4 K/mm3 (4.5-11.0) H 12/24/20 05:23 RBC 4.74 M/mm3 (3.65-5.03) 12/24/20 05:23 Hgb 13.9 gm/dl (10.1-14.3) 12/24/20 05:23 Hct 41.7 % (30.3-42.9) 12/24/20 05:23 MCV 88 fl (79-97) 12/24/20 05:23 MCH 29 pg (28-32) 12/24/20 05:23 MCHC 33 % (30-34) 12/24/20 05:23 RDW 14.5 % (13.2-15.2) 12/24/20 05:23 Plt Count 256 K/mm3 (140-440) 12/24/20 05:23 Lymph % (Auto) 27.0 % (13.4-35.0) 12/24/20 05:23 Real % (Auto) 7.7 % (0.0-7.3) H 12/24/20 05:23 Eos % (Auto) 1.0 % (0.0-4.3) 12/24/20 05:23 Baso % (Auto) 1.2 % (0.0-1.8) 12/24/20 05:23 Lymph # (Auto) 3.1 K/mm3 (1.2-5.4) 12/24/20 05:23 Real # (Auto) 0.9 K/mm3 (0.0-0.8) H 12/24/20 05:23 Eos # (Auto) 0.1 K/mm3 (0.0-0.4) 12/24/20 05:23 Baso # (Auto) 0.1 K/mm3 (0.0-0.1) 12/24/20 05:23 Add Manual Diff Complete 12/05/20 13:09 Total Counted 100 12/05/20 13:09 Seg Neutrophils % 63.1 % (40.0-70.0) 12/24/20 05:23 Seg Neuts % (Manual) 72.0 % (40.0-70.0) H 12/05/20 13:09 Lymphocytes % (Manual) 22.0 % (13.4-35.0) 12/05/20 13:09 Monocytes % (Manual) 6.0 % (0.0-7.3) 12/05/20 13:09 Nucleated RBC % Not Reportable 12/05/20 13:09 Seg Neutrophils # 7.2 K/mm3 (1.8-7.7) 12/24/20 05:23 Seg Neutrophils # Man 5.5 K/mm3 (1.8-7.7) 12/05/20 13:09 Band Neutrophils # 0.0 K/mm3 12/05/20 13:09 Lymphocytes # (Manual) 1.7 K/mm3 (1.2-5.4) 12/05/20 13:09 Abs React Lymphs (Man) 0.0 K/mm3 12/05/20 13:09 Monocytes # (Manual) 0.5 K/mm3 (0.0-0.8) 12/05/20 13:09 Eosinophils # (Manual) 0.0 K/mm3 (0.0-0.4) 12/05/20 13:09 Basophils # (Manual) 0.0 K/mm3 (0.0-0.1) 12/05/20 13:09 Metamyelocytes # 0.0 K/mm3 12/05/20 13:09 Myelocytes # 0.0 K/mm3 12/05/20 13:09 Promyelocytes # 0.0 K/mm3 12/05/20 13:09 Blast Cells # 0.0 K/mm3 12/05/20 13:09 WBC Morphology Not Reportable 12/05/20 13:09 WBC Morphology TNR 12/05/20 13:09 Hypersegmented Neuts Not Reportable 12/05/20 13:09 Hyposegmented Neuts Not Reportable 12/05/20 13:09 Hypogranular Neuts Not Reportable 12/05/20 13:09 Smudge Cells Not Reportable 12/05/20 13:09 Toxic Granulation Not Reportable 12/05/20 13:09 Toxic Vacuolation Not Reportable 12/05/20 13:09 Dohle Bodies Not Reportable 12/05/20 13:09 Pelger-Huet Anomaly Not Reportable 12/05/20 13:09 Brigida Rods Not Reportable 12/05/20 13:09 Platelet Estimate Not Reportable 12/05/20 13:09 Clumped Platelets Not Reportable 12/05/20 13:09 Plt Clumps, EDTA Not Reportable 12/05/20 13:09 Large Platelets Not Reportable 12/05/20 13:09 Giant Platelets Not Reportable 12/05/20 13:09 Platelet Satelliting Not Reportable 12/05/20 13:09 Plt Morphology Comment Not Reportable 12/05/20 13:09 RBC Morphology Normal 12/05/20 13:09 Dimorphic RBCs Not Reportable 12/05/20 13:09 Polychromasia Not Reportable 12/05/20 13:09 Hypochromasia Not Reportable 12/05/20 13:09 Poikilocytosis Not Reportable 12/05/20 13:09 Anisocytosis Not Reportable 12/05/20 13:09 Microcytosis Not Reportable 12/05/20 13:09 Macrocytosis Not Reportable 12/05/20 13:09 Spherocytes Not Reportable 12/05/20 13:09 Pappenheimer Bodies Not Reportable 12/05/20 13:09 Sickle Cells Not Reportable 12/05/20 13:09 Target Cells Not Reportable 12/05/20 13:09 Tear Drop Cells Not Reportable 12/05/20 13:09 Ovalocytes Not Reportable 12/05/20 13:09 Helmet Cells Not Reportable 12/05/20 13:09 [place] Bodies Not Reportable 12/05/20 13:09 [place] Rings Not Reportable 12/05/20 13:09 [place] Cells Not Reportable 12/05/20 13:09 Bite Cells Not Reportable 12/05/20 13:09 Crenated Cell Not Reportable 12/05/20 13:09 Elliptocytes Not Reportable 12/05/20 13:09 Acanthocytes (Spur) Not Reportable 12/05/20 13:09 Rouleaux Not Reportable 12/05/20 13:09 Hemoglobin C Crystals Not Reportable 12/05/20 13:09 Schistocytes Not Reportable 12/05/20 13:09 Malaria parasites Not Reportable 12/05/20 13:09 ESR 28 mm/Hr (0-20) 12/16/20 04:50 Chalo Bodies Not Reportable 12/05/20 13:09 Hem Pathologist Commnt No 12/05/20 13:09 PT 14.8 Sec. (12.2-14.9) 12/24/20 05:23 INR 1.11 (0.87-1.13) 12/24/20 05:23 APTT 32.5 Sec. (24.2-36.6) 12/04/20 08:58 Sodium 147 mmol/L (137-145) H 12/25/20 06:12 Potassium 4.1 mmol/L (3.6-5.0) 12/25/20 06:12 Chloride 113.1 mmol/L (98-107) H 12/25/20 06:12 Carbon Dioxide 21 mmol/L (22-30) L 12/25/20 06:12 Anion Gap 17 mmol/L 12/25/20 06:12 BUN 37 mg/dL (7-17) H 12/25/20 06:12 Creatinine 1.2 mg/dL (0.6-1.2) 12/25/20 06:12 Estimated GFR 57 ml/min 12/25/20 06:12 BUN/Creatinine Ratio 31 % 12/25/20 06:12 Glucose 108 mg/dL (65-100) H 12/25/20 06:12 POC Glucose 122 mg/dL (70-105) H 12/24/20 20:14 Calcium 9.1 mg/dL (8.4-10.2) 12/25/20 06:12 Total Bilirubin 0.40 mg/dL (0.1-1.2) 12/04/20 08:58 AST 27 units/L (5-40) 12/04/20 08:58 ALT 30 units/L (7-56) 12/04/20 08:58 Alkaline Phosphatase 126 units/L (35-129) 12/04/20 08:58 Troponin T < 0.010 ng/mL (0.00-0.029) 12/04/20 14:20 Total Protein 7.9 g/dL (6.3-8.2) 12/04/20 08:58 Albumin 3.5 g/dL (3.9-5) L 12/04/20 08:58 Albumin/Globulin Ratio 0.8 % 12/04/20 08:58 Triglycerides 160 mg/dL (2-149) H 12/05/20 04:00 Cholesterol 177 mg/dL (50-199) 12/05/20 04:00 LDL Cholesterol Direct 116 mg/dL (50-130) 12/05/20 04:00 HDL Cholesterol 41 mg/dL (40-59) 12/05/20 04:00 Cholesterol/HDL Ratio 4.31 % 12/05/20 04:00 TSH 0.736 mlU/mL (0.270-4.200) 12/16/20 04:50 Urine Color Yellow (Yellow) 12/04/20 Unknown Urine Turbidity Clear (Clear) 12/04/20 Unknown Urine pH 5.0 (5.0-7.0) 12/04/20 Unknown Ur Specific [place]ell 1.016 (1.003-1.030) 12/04/20 Unknown Urine Protein <15 mg/dl mg/dL (Negative) 12/04/20 Unknown Urine Glucose (UA) Neg mg/dL (Negative) 12/04/20 Unknown Urine Ketones Neg mg/dL (Negative) 12/04/20 Unknown Urine Blood Neg (Negative) 12/04/20 Unknown Urine Nitrite Neg (Negative) 12/04/20 Unknown Urine Bilirubin Neg (Negative) 12/04/20 Unknown Urine Urobilinogen < 2.0 mg/dL (<2.0) 12/04/20 Unknown Ur Leukocyte Esterase Neg (Negative) 12/04/20 Unknown Urine WBC (Auto) 1.0 /HPF (0.0-6.0) 12/04/20 Unknown Urine RBC (Auto) 2.0 /HPF (0.0-6.0) 12/04/20 Unknown U Epithel Cells (Auto) 1.0 /HPF (0-13.0) 12/04/20 Unknown Urine Mucus Few /HPF 12/04/20 Unknown Coronavirus (PCR) Negative (Negative) 12/05/20 Unknown Roberts/IV: Voiding Method External Female Catheter Active Medications - Current Medications Current Medications: Generic Name Dose Route Start Last Admin Trade Name Freq PRN Reason Stop Dose Admin Acetaminophen 650 mg 12/04/20 12:57 12/19/20 00:09 Acetaminophen 325 Mg Tab PO 650 mg Q4H PRN Administration Pain MILD(1-3)/Fever >100.5/PASTOR Albuterol 2.5 mg 12/24/20 10:00 12/25/20 05:32 Albuterol 2.5 Mg/3 Ml Nebu IH 2.5 mg Q4HRT PRN Administration Shortness Of Breath Lipase/Protease/Amylase 1 each 12/25/20 11:10 Lipase 10,500/Protease 25,000/Amylase 43,750 (Units) Dr Martinez FEEDTUBE PRN PRN For Clogged Feeding Tube Atorvastatin Calcium 40 mg 12/04/20 22:00 12/24/20 22:31 Atorvastatin 40 Mg Tab PO Not Given QHS MACKENZIE Carbamide Peroxide 5 drops 12/05/20 10:00 12/24/20 22:30 Carbamide Peroxide 6.5% Otic Drops 15 Ml AU 5 drops BID MACKENZIE Administration Carvedilol 6.25 mg 12/04/20 22:00 12/24/20 22:29 Carvedilol 6.25 Mg Tab PO Not Given BID MACKENZIE Famotidine 20 mg 12/23/20 11:00 12/24/20 18:19 Famotidine 20 Mg/2 Ml Inj IV 20 mg DAILY MACKENZIE Administration Heparin Sodium (Porcine) 5,000 unit 12/04/20 14:00 12/25/20 06:18 Heparin 5,000 Unit/1 Ml Vial SUB-Q Not Given Q8HR MACKENZIE Labetalol HCl 10 mg 12/04/20 12:57 Labetalol 20 Mg/4 Ml Inj IV Q5MIN PRN to maintain SBP < 180 Nicotine 14 mg 12/06/20 11:00 12/24/20 18:19 Nicotine 14 Mg/24 Hr Patch TD 14 mg QDAY MACKENZIE Administration Ondansetron HCl 4 mg 12/04/20 12:57 Ondansetron 4 Mg/2 Ml Inj IV Q8H PRN Nausea And Vomiting Simple Syrup 15 ml 12/25/20 11:10 Simple Syrup 15 Ml FEEDTUBE PRN PRN Hypoglycemia Simple Syrup 30 ml 12/25/20 11:10 Simple Syrup 15 Ml FEEDTUBE PRN PRN Hypoglycemia Sodium Bicarbonate 325 mg 12/25/20 11:10 Sodium Bicarbonate 325 Mg Tab FEEDTUBE PRN PRN For Clogged Feeding Tube Sodium Chloride 10 ml 12/04/20 22:00 12/24/20 22:31 Sodium Chloride 0.9% 10 Ml Flush Syringe IV Not Given BID MACKENZIE Sodium Chloride 10 ml 12/04/20 12:57 Sodium Chloride 0.9% 10 Ml Flush Syringe IV PRN PRN LINE FLUSH Nutrition/Malnutrition Assess - Dietary Evaluation Nutrition/Malnutrition Findings: Nutrition Notes Start: 12/14/20 14:12 Freq: Status: Active Protocol: Document 12/25/20 11:00 CW (Rec: 12/25/20 11:10 CW [id number]) Nutrition Notes Need for Assessment generated from: MD Order Initial or Follow up Assessment Current Diagnosis Heart Failure,Stroke Other Pertinent Diagnosis dysphagia Current Diet NPO Labs/Tests 12/25 Na 147 BUN 37 Pertinent Medications lasix Height 5 ft Weight 77.5 kg [place] Body Weight (kg) 45.45 BMI 33.3 Weight change and time frame weight change related to fluid Subjective/Other Information MD consult for write/manage TF . Pt had lapses of abilityu to swallowing. Pt diagnosed with dysphagia on 12/22 with speech recommendation on 12/23 for a PEG tube placement. PEG tube unable to be placed. Pt currently with dobhoff. Recommend initiating TF regimen. Percent of energy/protein needs met: 0%/0% Burn Absent Trauma Absent GI Symptoms None Difficulty In Swallowing Current % PO Negligible Minimum of two criteria No physical signs of malnutrition #1 Nutrition Diagnosis Inadequate oral intake Etiology onset of dysphagia As Evidenced by Signs and Symptoms Pt decleared NPO after failing swallow eval Is patient on ventilator? No Is Patient Ambulatory and/or Out of Bed No REE-([facility]-confined to bed) 1565.964 Kcal/Kg value to use for calculation 16 Approximate Energy Requirements Using 1240 kcal/Kg Calculation Used for Recommendations Kcal/kg Additional Notes protein needs:62 - 78g (0.8 - 1 g/kgBW) fluid needs: 1 ml/kcal or per MD Nutrition Intervention Change Diet Order: Initiate Nutrition support: TF Nutrition Support: Jevity 1.2 at 45 ml/hr with a free water flush of 150 ml q4h for hypernatremia. Once hypernatremia resolves, resume free water flush of 70 ml q4h . Kcal 1,296 Protein (gm) 60 Fluid (mL) 872 Goal #1 Meet at leat 75% of kcal and protein needs via TF Anticipated Discharge Needs: TF regimen Follow-Up By: 12/27/20 Additional Comments F/U for TF start and tolerance
[2020-12-25] MEDS: NICOTINE 14 MG/24 HR PATCH TD SCH (13:14)
[2020-12-25] MEDS: CARBAMIDE PEROXIDE 6.5% OTIC DROPS 15 ML AU SCH ×2 (13:15→22:06)
[2020-12-25] MEDS: FAMOTIDINE 20 MG/2 ML INJ IV SCH (13:15)
[2020-12-25] MEDS: carvediloL 6.25 MG TAB PO SCH ×2 (13:16→22:07)
[2020-12-25] MEDS: ACETAMINOPHEN 325 MG TAB PO PRN (22:07)
[2020-12-26 06:22] LABS: Hematocrit 41.7 % (30.3-42.9); Hemoglobin 13.7 gm/dl (10.1-14.3); Mean Corpuscular HGB Conc 33 % (30-34); Mean Corpuscular Volume 91 fl (79-97); Platelet Count 200 K/mm3 (140-440); Red Cell Distribution Width 14.5 % (13.2-15.2)
[2020-12-26] MEDS: HEPARIN 5,000 UNIT/1 ML VIAL SUB-Q SCH ×3 (06:32→23:20)
[2020-12-26 07:08] LABS: Calcium 10.2 mg/dL (8.4-10.2)
--- NOTE | 2020-12-26 09:09 | Progress Note ---
Assessment and Plan # JAMES: creatinine 0.8 in late November 2019; now 2.8->2.0->1.2->1.4, do suspect pre- renal injury given poor po intake and renal function improving with IVF - defer further workup for now; adjust fluids with tube feeds prn, currently off IVF - BP now stable, may need to hold carvedilol if systolic below 110 - avoid nephrotoxins - renally dose medications - follow urine output as able - no indication for biopsy or renal replacement therapy # Acute CVA, Right ICA Dissection. Patient with history of remote CVA with left-sided contractures - on ASA 325 mg, Plavix 75 mg and Lipitor 40 mg - PEG tube placement noted for dysphagia, note GI and surgery notes # History of aneurysm s/p surgery, supportive care # HTN: BP reasonable currently, avoid relative hypotension, currently off home MICHELLE-I and HCTZ which is reasonable Subjective Date of service: 12/26/20 Principal diagnosis: CVA Interval history: No acute changes, patient appears to be discomfort. PEG tube placed by surgery yesterday. Off IVF Objective - Exam Narrative Exam: GENERAL: mild distress HEENT: Normocephalic. Atraumatic. Moist Mucous Membranes NECK: Supple. Trachea midline. CHEST/LUNGS: Clear to auscultated bilaterally, breathing nonlabored. HEART/CARDIOVASCULAR: Regular in rate and rhythm. S1 and S2 positive. ABDOMEN: Abdomen is soft, nontender. Patient has normal bowel sounds. SKIN: There is no rash. Warm and dry. NEURO: Left-sided weakness. Follows command. Nonverbal MUSCULOSKELETAL: No joint effusion or tenderness. EXTRIMITY: No edema, no cyanosis or clubbing. PSYCH: Anxious - Vital Signs Vital signs: Vital Signs - 12hr 12/25/20 12/26/20 12/26/20 22:07 00:00 00:02 Temperature 97.9 F Pulse Rate 96 H 87 93 H Respiratory 18 Rate Blood Pressure 157/91 128/76 O2 Sat by Pulse 100 Oximetry 12/26/20 12/26/20 12/26/20 03:45 04:00 08:09 Temperature 97.9 F 98.6 F Pulse Rate 92 H 89 94 H Respiratory 18 18 Rate Blood Pressure 138/84 146/92 O2 Sat by Pulse 100 100 Oximetry - Lab 12/26/20 04:53 12/26/20 04:53 Most recent lab results Calcium 10.2 mg/dL (8.4-10.2) 12/26/20 04:53 Medications & Allergies - Medications Allergies/Adverse Reactions: Allergies No Known Allergies Allergy (Verified 12/08/20 06:26) Home Medications: Home Medications Medication Instructions Recorded Confirmed Last Taken Type hydroCHLOROthiazide [HCTZ] 25 mg PO QDAY #30 tablet 08/16/20 12/04/20 Unknown Rx carvediloL [Coreg] 6.25 mg PO BID 12/04/20 12/04/20 Unknown History lisinopriL [Lisinopril] 20 mg PO QDAY 12/04/20 12/04/20 Unknown History Active Medications: Generic Name Dose Route Start Last Admin Trade Name Freq PRN Reason Stop Dose Admin Acetaminophen 650 mg 12/04/20 12:57 12/25/20 22:07 Acetaminophen 325 Mg Tab PO 650 mg Q4H PRN Administration Pain MILD(1-3)/Fever >100.5/PASTOR Albuterol 2.5 mg 12/24/20 10:00 12/25/20 05:32 Albuterol 2.5 Mg/3 Ml Nebu IH 2.5 mg Q4HRT PRN Administration Shortness Of Breath Lipase/Protease/Amylase 1 each 12/25/20 11:10 Lipase 10,500/Protease 25,000/Amylase 43,750 (Units) Dr Martinez FEEDTUBE PRN PRN For Clogged Feeding Tube Atorvastatin Calcium 40 mg 12/04/20 22:00 12/25/20 22:08 Atorvastatin 40 Mg Tab PO Not Given QHS MACKENZIE Carbamide Peroxide 5 drops 12/05/20 10:00 12/25/20 22:06 Carbamide Peroxide 6.5% Otic Drops 15 Ml AU 5 drops BID MACKENZIE Administration Carvedilol 6.25 mg 12/04/20 22:00 12/25/20 22:07 Carvedilol 6.25 Mg Tab PO 6.25 mg BID MACKENZIE Administration Famotidine 20 mg 12/23/20 11:00 12/25/20 13:15 Famotidine 20 Mg/2 Ml Inj IV 20 mg DAILY MACKENZIE Administration Heparin Sodium (Porcine) 5,000 unit 12/04/20 14:00 12/26/20 06:32 Heparin 5,000 Unit/1 Ml Vial SUB-Q 5,000 unit Q8HR MACKENZIE Administration Labetalol HCl 10 mg 12/04/20 12:57 Labetalol 20 Mg/4 Ml Inj IV Q5MIN PRN to maintain SBP < 180 Nicotine 14 mg 12/06/20 11:00 12/25/20 13:14 Nicotine 14 Mg/24 Hr Patch TD 14 mg QDAY MACKENZIE Administration Ondansetron HCl 4 mg 12/04/20 12:57 Ondansetron 4 Mg/2 Ml Inj IV Q8H PRN Nausea And Vomiting Simple Syrup 15 ml 12/25/20 11:10 Simple Syrup 15 Ml FEEDTUBE PRN PRN Hypoglycemia Simple Syrup 30 ml 12/25/20 11:10 Simple Syrup 15 Ml FEEDTUBE PRN PRN Hypoglycemia Sodium Bicarbonate 325 mg 12/25/20 11:10 Sodium Bicarbonate 325 Mg Tab FEEDTUBE PRN PRN For Clogged Feeding Tube Sodium Chloride 10 ml 12/04/20 22:00 12/25/20 22:08 Sodium Chloride 0.9% 10 Ml Flush Syringe IV 10 ml BID MACKENZIE Administration Sodium Chloride 10 ml 12/04/20 12:57 Sodium Chloride 0.9% 10 Ml Flush Syringe IV PRN PRN LINE FLUSH
[2020-12-26] MEDS: ACETAMINOPHEN 325 MG TAB PO PRN ×2 (09:50→23:20)
[2020-12-26] MEDS: NICOTINE 14 MG/24 HR PATCH TD SCH (09:50)
[2020-12-26] MEDS: carvediloL 6.25 MG TAB PO SCH ×2 (09:50→23:19)
[2020-12-26] MEDS: FAMOTIDINE 20 MG/2 ML INJ IV SCH (09:50)
[2020-12-26] MEDS: CARBAMIDE PEROXIDE 6.5% OTIC DROPS 15 ML AU SCH ×2 (09:51→23:19)
--- NOTE | 2020-12-26 10:29 | Progress Note ---
Assessment and Plan Assessment and plan: Acute CVA. Patient with history of remote CVA with left-sided contractures -she is on ASA 325 mg, Plavix 75 mg and Lipitor 40 mg CTA head/neck 12/16/20: occlusion of the communicating segment of the right ICA as well as the proximal right MCA and LIBIA. a developing acute right-sided infarct within the frontal lobe and basal ganglia with edema. mild irregularity of the right carotid bulb with significant narrowing along the extent of more distal right cervical ICA with findings concerning for dissection. CT head 12/22/20: There appears be some interval progression of the cerebral white matter disease along the left centrum semiovale from 12/04/2020 Dysphagia, GI consulted for PEG tube replacement History of aneurysm status post surgery, supportive care Right hemiparesis, PT OT Right ICA dissection. Vascular recommended DAPT Chronic CHF with preserved EF. Patient is euvolemic, continue supportive care Hypertension, monitor BP and adjust medications as needed Tobacco abuse, counseled for cessation initially following admission DVT prophylaxis: On heparin Brief History: The patient is a 55-year-old female with h/o prior CVA with residual weakness in her left upper extremity, HTN, CHF, HLD who was brought to the emergency department via EMS with complaints of 2-week history of right upper extremity weakness. She also has a history of a brain aneurysm that required surgical intervention. Her work-up revealed no significant stenosis of her left carotid artery however there was a suggestion of right internal carotid artery dissection. At this time she still has some residual right upper extremity weakness however it is improving. Vascular and neurology following. Daily clinical course: 12/14/2020. CT scan reveals no intracranial bleed or large acute territorial infarction. 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 Await MRI of brain. Consult neurology. Continue aspirin and Lipitor. 12/15/2020. Await MRI and neurology consultation. Continue aspirin and Lipitor. Physical therapy recommends subacute rehab. Await placement 12/16/2020. Neurology recommends CTA of head and neck which is pending. Continue aspirin and Lipitor. Echocardiogram from 12/04 revealed EF of 55 to 60% with mild diastolic dysfunction and impaired relaxation. No evidence of PFO. 12/17/2020. Patient with history of remote CVA with left-sided contractures related and or aneurysm surgery but with questionable worsened right-sided weakness with possible new acute CVA. Patient cannot have MRI. 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 There is some collateral flow within the more distal segments. However, there appears to be a developing acute right-sided infarct within the frontal lobe and basal ganglia with edema. CTA of the neck reveals mild irregularity of the right carotid bulb with significant narrowing along the extent of more distal right cervical ICA with findings concerning for dissection. Consult vascular surgery for further evaluation. Neurology also following. Continue aspirin and Lipitor. 12/18/2020. Await vascular surgery recommendations regarding right internal carotid artery dissection. Continue current management for CVA. Check swallow evaluation with speech therapy. 12/19/2020. Neurology reports patient cannot have MRI. DAPT per vascular surgery recommendations. Speech therapy evaluated the patient and recommends modified barium swallow. Await MBS results. 12/20/2020. Continue DAPT per vascular surgery recommendations. Await MBS per speech therapy recommendation. Continue dysphagia pured diet with regular thin liquids per speech therapy. Physical therapy recommends subacute rehab. 12/21/20: Patient appears to be clinically stable, speech recommended pured diet which patient tolerating. No acute event overnight. Pending placement. 12/22/20: Patient is unable to swallow this morning and unable to speak. Keep n.p.o. for now start IV fluid hydration. Ordered for stat CT head which showed progression of white matter disease as compared to 12/04/20. We will reconsult neuro and continue to follow clinically. We will also notify vascular for further recommendation. 12/23/20: Speech recommended n.p.o. and possible PEG tube placement. Vascular surgery recommended to continue dual antiplatelet therapy. GI consulted for PEG placement. Continue PT OT eval, patient will need placement. Case management working on SNF placement. 12/24/2020; GI consulted and tried to place a PEG tube but was unsuccessful and Dr. Palmer was consulted and he said he will do the procedure today. Patient need SNF placement once PEG is placed. Patient is off Plavix for PEG tube placement. Patient has JAMES due to vasomotor nephropathy and patient is on IV fluids. I put a consult for nephrology. 12/25/[address] PEG tube placed by Dr[address] Palmer today. JAMES due to vasomotor nephropathy improving. Cr 1.2 today. Nephrology following. For SNF placement 12/26/2020 PEG tube placed yesterday by Dr. Palmer. Started tube feeding this morning. Cr 1.4 today. Nephrology following History Interval history: Patient non verbal PEG tube placed yesterday Hospitalist Physical - Physical exam Narrative exam: Not in cardiopulmonary distress. Vital signs as documented. Head exam is unremarkable. No scleral icterus . Neck is without jugular venous distension, thyromegaly, or carotid bruits. Lungs are clear to auscultation. Cardiac exam reveals regular rate and Rhythm. Abdominal exam reveals normal bowel sounds, nontender, no organomegaly. Extremities are nonedematous and both femoral and pedal pulses are normal. HARNESS TIER: Alert, Chronic left-sided weakness, left upper extremity is contracted. Patient was nonverbal - Constitutional Vitals: Temp Pulse Resp BP Pulse Ox 98.6 F 94 H 18 146/92 100 12/26/20 08:09 12/26/20 08:09 12/26/20 08:09 12/26/20 08:09 12/26/20 08:09 General appearance: Present: no acute distress HEART Score - HEART Score Troponin: Troponin T < 0.010 ng/mL (0.00-0.029) 12/04/20 14:20 Results - Labs CBC & Chem 7: 12/26/20 04:53 12/26/20 04:53 Labs: Laboratory Last Values WBC 13.6 K/mm3 (4.5-11.0) H 12/26/20 04:53 RBC 4.60 M/mm3 (3.65-5.03) 12/26/20 04:53 Hgb 13.7 gm/dl (10.1-14.3) 12/26/20 04:53 Hct 41.7 % (30.3-42.9) 12/26/20 04:53 MCV 91 fl (79-97) 12/26/20 04:53 MCH 30 pg (28-32) 12/26/20 04:53 MCHC 33 % (30-34) 12/26/20 04:53 RDW 14.5 % (13.2-15.2) 12/26/20 04:53 Plt Count 200 K/mm3 (140-440) 12/26/20 04:53 Lymph % (Auto) 27.0 % (13.4-35.0) 12/24/20 05:23 [place] % (Auto) 7.7 % (0.0-7.3) H 12/24/20 05:23 Eos % (Auto) 1.0 % (0.0-4.3) 12/24/20 05:23 Baso % (Auto) 1.2 % (0.0-1.8) 12/24/20 05:23 Lymph # (Auto) 3.1 K/mm3 (1.2-5.4) 12/24/20 05:23 [place] # (Auto) 0.9 K/mm3 (0.0-0.8) H 12/24/20 05:23 Eos # (Auto) 0.1 K/mm3 (0.0-0.4) 12/24/20 05:23 Baso # (Auto) 0.1 K/mm3 (0.0-0.1) 12/24/20 05:23 Add Manual Diff Complete 12/05/20 13:09 Total Counted 100 12/05/20 13:09 Seg Neutrophils % 63.1 % (40.0-70.0) 12/24/20 05:23 Seg Neuts % (Manual) 72.0 % (40.0-70.0) H 12/05/20 13:09 Lymphocytes % (Manual) 22.0 % (13.4-35.0) 12/05/20 13:09 Monocytes % (Manual) 6.0 % (0.0-7.3) 12/05/20 13:09 Nucleated RBC % Not Reportable 12/05/20 13:09 Seg Neutrophils # 7.2 K/mm3 (1.8-7.7) 12/24/20 05:23 Seg Neutrophils # Man 5.5 K/mm3 (1.8-7.7) 12/05/20 13:09 Band Neutrophils # 0.0 K/mm3 12/05/20 13:09 Lymphocytes # (Manual) 1.7 K/mm3 (1.2-5.4) 12/05/20 13:09 Abs React Lymphs (Man) 0.0 K/mm3 12/05/20 13:09 Monocytes # (Manual) 0.5 K/mm3 (0.0-0.8) 12/05/20 13:09 Eosinophils # (Manual) 0.0 K/mm3 (0.0-0.4) 12/05/20 13:09 Basophils # (Manual) 0.0 K/mm3 (0.0-0.1) 12/05/20 13:09 Metamyelocytes # 0.0 K/mm3 12/05/20 13:09 Myelocytes # 0.0 K/mm3 12/05/20 13:09 Promyelocytes # 0.0 K/mm3 12/05/20 13:09 Blast Cells # 0.0 K/mm3 12/05/20 13:09 WBC Morphology Not Reportable 12/05/20 13:09 WBC Morphology TNR 12/05/20 13:09 Hypersegmented Neuts Not Reportable 12/05/20 13:09 Hyposegmented Neuts Not Reportable 12/05/20 13:09 Hypogranular Neuts Not Reportable 12/05/20 13:09 Smudge Cells Not Reportable 12/05/20 13:09 Toxic Granulation Not Reportable 12/05/20 13:09 Toxic Vacuolation Not Reportable 12/05/20 13:09 Dohle Bodies Not Reportable 12/05/20 13:09 Pelger-Huet Anomaly Not Reportable 12/05/20 13:09 Brigida Rods Not Reportable 12/05/20 13:09 Platelet Estimate Not Reportable 12/05/20 13:09 Clumped Platelets Not Reportable 12/05/20 13:09 Plt Clumps, EDTA Not Reportable 12/05/20 13:09 Large Platelets Not Reportable 12/05/20 13:09 Giant Platelets Not Reportable 12/05/20 13:09 Platelet Satelliting Not Reportable 12/05/20 13:09 Plt Morphology Comment Not Reportable 12/05/20 13:09 RBC Morphology Normal 12/05/20 13:09 Dimorphic RBCs Not Reportable 12/05/20 13:09 Polychromasia Not Reportable 12/05/20 13:09 Hypochromasia Not Reportable 12/05/20 13:09 Poikilocytosis Not Reportable 12/05/20 13:09 Anisocytosis Not Reportable 12/05/20 13:09 Microcytosis Not Reportable 12/05/20 13:09 Macrocytosis Not Reportable 12/05/20 13:09 Spherocytes Not Reportable 12/05/20 13:09 Pappenheimer Bodies Not Reportable 12/05/20 13:09 Sickle Cells Not Reportable 12/05/20 13:09 Target Cells Not Reportable 12/05/20 13:09 Tear Drop Cells Not Reportable 12/05/20 13:09 Ovalocytes Not Reportable 12/05/20 13:09 Helmet Cells Not Reportable 12/05/20 13:09 [place] Bodies Not Reportable 12/05/20 13:09 Walker Rings Not Reportable 12/05/20 13:09 [place] Cells Not Reportable 12/05/20 13:09 Bite Cells Not Reportable 12/05/20 13:09 Crenated Cell Not Reportable 12/05/20 13:09 Elliptocytes Not Reportable 12/05/20 13:09 Acanthocytes (Spur) Not Reportable 12/05/20 13:09 Rouleaux Not Reportable 12/05/20 13:09 Hemoglobin C Crystals Not Reportable 12/05/20 13:09 Schistocytes Not Reportable 12/05/20 13:09 Malaria parasites Not Reportable 12/05/20 13:09 ESR 28 mm/Hr (0-20) 12/16/20 04:50 [place] Bodies Not Reportable 12/05/20 13:09 Hem Pathologist Commnt No 12/05/20 13:09 PT 14.8 Sec. (12.2-14.9) 12/24/20 05:23 INR 1.11 (0.87-1.13) 12/24/20 05:23 APTT 32.5 Sec. (24.2-36.6) 12/04/20 08:58 Sodium 144 mmol/L (137-145) 12/26/20 04:53 Potassium 4.6 mmol/L (3.6-5.0) 12/26/20 04:53 Chloride 107.8 mmol/L (98-107) H 12/26/20 04:53 Carbon Dioxide 22 mmol/L (22-30) 12/26/20 04:53 Anion Gap 19 mmol/L 12/26/20 04:53 BUN 38 mg/dL (7-17) H 12/26/20 04:53 Creatinine 1.4 mg/dL (0.6-1.2) H 12/26/20 04:53 Estimated GFR 48 ml/min 12/26/20 04:53 BUN/Creatinine Ratio 27 % 12/26/20 04:53 Glucose 104 mg/dL (65-100) H 12/26/20 04:53 POC Glucose 125 mg/dL (70-105) H 12/26/20 07:32 Calcium 10.2 mg/dL (8.4-10.2) 12/26/20 04:53 Total Bilirubin 0.40 mg/dL (0.1-1.2) 12/04/20 08:58 AST 27 units/L (5-40) 12/04/20 08:58 ALT 30 units/L (7-56) 12/04/20 08:58 Alkaline Phosphatase 126 units/L (35-129) 12/04/20 08:58 Troponin T < 0.010 ng/mL (0.00-0.029) 12/04/20 14:20 Total Protein 7.9 g/dL (6.3-8.2) 12/04/20 08:58 Albumin 3.5 g/dL (3.9-5) L 12/04/20 08:58 Albumin/Globulin Ratio 0.8 % 12/04/20 08:58 Triglycerides 160 mg/dL (2-149) H 12/05/20 04:00 Cholesterol 177 mg/dL (50-199) 12/05/20 04:00 LDL Cholesterol Direct 116 mg/dL (50-130) 12/05/20 04:00 HDL Cholesterol 41 mg/dL (40-59) 12/05/20 04:00 Cholesterol/HDL Ratio 4.31 % 12/05/20 04:00 TSH 0.736 mlU/mL (0.270-4.200) 12/16/20 04:50 Urine Color Yellow (Yellow) 12/04/20 Unknown Urine Turbidity Clear (Clear) 12/04/20 Unknown Urine pH 5.0 (5.0-7.0) 12/04/20 Unknown Ur Specific [place] 1.016 (1.003-1.030) 12/04/20 Unknown Urine Protein <15 mg/dl mg/dL (Negative) 12/04/20 Unknown Urine Glucose (UA) Neg mg/dL (Negative) 12/04/20 Unknown Urine Ketones Neg mg/dL (Negative) 12/04/20 Unknown Urine Blood Neg (Negative) 12/04/20 Unknown Urine Nitrite Neg (Negative) 12/04/20 Unknown Urine Bilirubin Neg (Negative) 12/04/20 Unknown Urine Urobilinogen < 2.0 mg/dL (<2.0) 12/04/20 Unknown Ur Leukocyte Esterase Neg (Negative) 12/04/20 Unknown Urine WBC (Auto) 1.0 /HPF (0.0-6.0) 12/04/20 Unknown Urine RBC (Auto) 2.0 /HPF (0.0-6.0) 12/04/20 Unknown U Epithel Cells (Auto) 1.0 /HPF (0-13.0) 12/04/20 Unknown Urine Mucus Few /HPF 12/04/20 Unknown Coronavirus (PCR) Negative (Negative) 12/05/20 Unknown Roberts/IV: Voiding Method External Female Catheter Active Medications - Current Medications Current Medications: Generic Name Dose Route Start Last Admin Trade Name Freq PRN Reason Stop Dose Admin Acetaminophen 650 mg 12/04/20 12:57 12/26/20 09:50 Acetaminophen 325 Mg Tab PO 650 mg Q4H PRN Administration Pain MILD(1-3)/Fever >100.5/PASTOR Albuterol 2.5 mg 12/24/20 10:00 12/25/20 05:32 Albuterol 2.5 Mg/3 Ml Nebu IH 2.5 mg Q4HRT PRN Administration Shortness Of Breath Lipase/Protease/Amylase 1 each 12/25/20 11:10 Lipase 10,500/Protease 25,000/Amylase 43,750 (Units) Dr Martinez FEEDTUBE PRN PRN For Clogged Feeding Tube Atorvastatin Calcium 40 mg 12/04/20 22:00 12/25/20 22:08 Atorvastatin 40 Mg Tab PO Not Given QHS MACKENZIE Carbamide Peroxide 5 drops 12/05/20 10:00 12/26/20 09:51 Carbamide Peroxide 6.5% Otic Drops 15 Ml AU 5 drops BID MACKENZIE Administration Carvedilol 6.25 mg 12/04/20 22:00 12/26/20 09:50 Carvedilol 6.25 Mg Tab PO 6.25 mg BID MACKENZIE Administration Famotidine 20 mg 12/23/20 11:00 12/26/20 09:50 Famotidine 20 Mg/2 Ml Inj IV 20 mg DAILY MACKENZIE Administration Heparin Sodium (Porcine) 5,000 unit 12/04/20 14:00 12/26/20 06:32 Heparin 5,000 Unit/1 Ml Vial SUB-Q 5,000 unit Q8HR MACKENZIE Administration Labetalol HCl 10 mg 12/04/20 12:57 Labetalol 20 Mg/4 Ml Inj IV Q5MIN PRN to maintain SBP < 180 Nicotine 14 mg 12/06/20 11:00 12/26/20 09:50 Nicotine 14 Mg/24 Hr Patch TD 14 mg QDAY MACKENZIE Administration Ondansetron HCl 4 mg 12/04/20 12:57 Ondansetron 4 Mg/2 Ml Inj IV Q8H PRN Nausea And Vomiting Simple Syrup 15 ml 12/25/20 11:10 Simple Syrup 15 Ml FEEDTUBE PRN PRN Hypoglycemia Simple Syrup 30 ml 12/25/20 11:10 Simple Syrup 15 Ml FEEDTUBE PRN PRN Hypoglycemia Sodium Bicarbonate 325 mg 12/25/20 11:10 Sodium Bicarbonate 325 Mg Tab FEEDTUBE PRN PRN For Clogged Feeding Tube Sodium Chloride 10 ml 12/04/20 22:00 12/26/20 09:51 Sodium Chloride 0.9% 10 Ml Flush Syringe IV 10 ml BID MACKENZIE Administration Sodium Chloride 10 ml 12/04/20 12:57 Sodium Chloride 0.9% 10 Ml Flush Syringe IV PRN PRN LINE FLUSH Nutrition/Malnutrition Assess - Dietary Evaluation Nutrition/Malnutrition Findings: Nutrition Notes Start: 12/14/20 14:12 Freq: Status: Active Protocol: Document 12/25/20 11:00 CW (Rec: 12/25/20 11:10 [id number]) Nutrition Notes Need for Assessment generated from: MD Order Initial or Follow up Assessment Current Diagnosis Heart Failure,Stroke Other Pertinent Diagnosis dysphagia Current Diet NPO Labs/Tests 12/25 Na 147 BUN 37 Pertinent Medications lasix Height 5 ft Weight 77.5 kg [place] Body Weight (kg) 45.45 BMI 33.3 Weight change and time frame weight change related to fluid Subjective/Other Information MD consult for write/manage TF . Pt had lapses of abilityu to swallowing. Pt diagnosed with dysphagia on 12/22 with speech recommendation on 12/23 for a PEG tube placement. PEG tube unable to be placed. Pt currently with dobhoff. Recommend initiating TF regimen. Percent of energy/protein needs met: 0%/0% Burn Absent Trauma Absent GI Symptoms None Difficulty In Swallowing Current % PO Negligible Minimum of two criteria No physical signs of malnutrition #1 Nutrition Diagnosis Inadequate oral intake Etiology onset of dysphagia As Evidenced by Signs and Symptoms Pt decleared NPO after failing swallow eval Is patient on ventilator? No Is Patient Ambulatory and/or Out of Bed No REE-([facility]-confined to bed) 1565.964 Kcal/Kg value to use for calculation 16 Approximate Energy Requirements Using 1240 kcal/Kg Calculation Used for Recommendations Kcal/kg Additional Notes protein needs:62 - 78g (0.8 - 1 g/kgBW) fluid needs: 1 ml/kcal or per MD Nutrition Intervention Change Diet Order: Initiate Nutrition support: TF Nutrition Support: Jevity 1.2 at 45 ml/hr with a free water flush of 150 ml q4h for hypernatremia. Once hypernatremia resolves, resume free water flush of 70 ml q4h . Kcal 1,296 Protein (gm) 60 Fluid (mL) 872 Goal #1 Meet at leat 75% of kcal and protein needs via TF Anticipated Discharge Needs: TF regimen Follow-Up By: 12/27/20 Additional Comments F/U for TF start and tolerance
--- NOTE | 2020-12-26 11:30 | Progress Note ---
Assessment and Plan - Patient Problems (1) CVA (cerebral vascular accident) Current Visit: Yes Status: Acute Qualifiers: CVA mechanism: unspecified Qualified Code(s): I63.9 - Cerebral infarction, unspecified Plan to address problem: 1) Okay to begin PEG feedings Subjective Date of service: 12/26/20 Patient Reports: Positive: no new complaints Objective Vital Signs - 12hr 12/26/20 12/26/20 12/26/20 00:00 00:02 03:45 Temperature 97.9 F 97.9 F Pulse Rate 87 93 H 92 H Pulse Rate [ From Monitor] Respiratory 18 18 Rate Blood Pressure 128/76 138/84 O2 Sat by Pulse 100 100 Oximetry 12/26/20 12/26/20 12/26/20 04:00 08:09 10:00 Temperature 98.6 F Pulse Rate 89 94 H 81 Pulse Rate [ From Monitor] Respiratory 18 Rate Blood Pressure 146/92 O2 Sat by Pulse 100 Oximetry 12/26/20 11:21 Temperature Pulse Rate Pulse Rate [ 81 From Monitor] Respiratory 18 Rate Blood Pressure O2 Sat by Pulse 100 Oximetry - Abdomen soft, bowel sounds normal (NT) - Labs 12/26/20 04:53 12/26/20 04:53 Diabetes panel 12/26/20 Range/Units 04:53 Sodium 144 (137-145) mmol/L Potassium 4.6 (3.6-5.0) mmol/L Chloride 107.8 H (98-107) mmol/L Carbon Dioxide 22 (22-30) mmol/L BUN 38 H (7-17) mg/dL Creatinine 1.4 H (0.6-1.2) mg/dL Glucose 104 H (65-100) mg/dL Calcium 10.2 (8.4-10.2) mg/dL Calcium panel 12/26/20 Range/Units 04:53 Calcium 10.2 (8.4-10.2) mg/dL Pituitary panel 12/26/20 Range/Units 04:53 Sodium 144 (137-145) mmol/L Potassium 4.6 (3.6-5.0) mmol/L Chloride 107.8 H (98-107) mmol/L Carbon Dioxide 22 (22-30) mmol/L BUN 38 H (7-17) mg/dL Creatinine 1.4 H (0.6-1.2) mg/dL Glucose 104 H (65-100) mg/dL Calcium 10.2 (8.4-10.2) mg/dL Adrenal panel 12/26/20 Range/Units 04:53 Sodium 144 (137-145) mmol/L Potassium 4.6 (3.6-5.0) mmol/L Chloride 107.8 H (98-107) mmol/L Carbon Dioxide 22 (22-30) mmol/L BUN 38 H (7-17) mg/dL Creatinine 1.4 H (0.6-1.2) mg/dL Glucose 104 H (65-100) mg/dL Calcium 10.2 (8.4-10.2) mg/dL
[2020-12-27] MEDS ORDERED: traMADol 50 MG TAB PO ONE (02:55)
[2020-12-27 05:44] LABS: Hematocrit 38.7 % (30.3-42.9); Hemoglobin 12.9 gm/dl (10.1-14.3); Mean Corpuscular HGB Conc 33 % (30-34); Mean Corpuscular Volume 89 fl (79-97); Platelet Count 195 K/mm3 (140-440); Red Blood Count 4.34 M/mm3 (3.65-5.03); Red Cell Distribution Width 14.3 % (13.2-15.2)
[2020-12-27 06:03] LABS: BUN/Creatinine Ratio 28; Blood Urea Nitrogen 31 mg/dL (7-17); Calcium 9.5 mg/dL (8.4-10.2); Hemolysis Index 12
[2020-12-27] MEDS: HEPARIN 5,000 UNIT/1 ML VIAL SUB-Q SCH ×3 (06:35→22:02)
[2020-12-27] MEDS: carvediloL 6.25 MG TAB PO SCH ×2 (09:28→22:03)
[2020-12-27] MEDS: NICOTINE 14 MG/24 HR PATCH TD SCH (09:28)
[2020-12-27] MEDS: FAMOTIDINE 20 MG/2 ML INJ IV SCH (09:28)
[2020-12-27] MEDS: CARBAMIDE PEROXIDE 6.5% OTIC DROPS 15 ML AU SCH ×2 (09:29→22:03)
--- NOTE | 2020-12-27 12:43 | XRay Report ---
CHEST 1 VIEW INDICATION: leukocytosis. COMPARISON: 11/21/2020 FINDINGS: Support devices: None. Heart: Within normal limits. Lungs/Pleura: No acute air space or interstitial disease. Additional findings: None. IMPRESSION: No acute findings. Signer Name: Hansel Linder Jr, MD Signed: 12/27/2020 12:38 PM Workstation Name: [id number]
--- NOTE | 2020-12-27 12:55 | Progress Note ---
Assessment and Plan Assessment and plan: Acute CVA. Patient with history of remote CVA with left-sided contractures -she is on ASA 325 mg, Plavix 75 mg and Lipitor 40 mg CTA head/neck 12/16/20: occlusion of the communicating segment of the right ICA as well as the proximal right MCA and LIBIA. a developing acute right-sided infarct within the frontal lobe and basal ganglia with edema. mild irregularity of the right carotid bulb with significant narrowing along the extent of more distal right cervical ICA with findings concerning for dissection. CT head 12/22/20: There appears be some interval progression of the cerebral white matter disease along the left centrum semiovale from 12/04/2020 Dysphagia, GI consulted for PEG tube replacement History of aneurysm status post surgery, supportive care Right hemiparesis, PT OT Right ICA dissection. Vascular recommended DAPT Chronic CHF with preserved EF. Patient is euvolemic, continue supportive care Hypertension, monitor BP and adjust medications as needed Tobacco abuse, counseled for cessation initially following admission DVT prophylaxis: On heparin Brief History: The patient is a 55-year-old female with h/o prior CVA with residual weakness in her left upper extremity, HTN, CHF, HLD who was brought to the emergency department via EMS with complaints of 2-week history of right upper extremity weakness. She also has a history of a brain aneurysm that required surgical intervention. Her work-up revealed no significant stenosis of her left carotid artery however there was a suggestion of right internal carotid artery dissection. At this time she still has some residual right upper extremity weakness however it is improving. Vascular and neurology following. Daily clinical course: 12/14/2020. CT scan reveals no intracranial bleed or large acute territorial infarction. 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 Await MRI of brain. Consult neurology. Continue aspirin and Lipitor. 12/15/2020. Await MRI and neurology consultation. Continue aspirin and Lipitor. Physical therapy recommends subacute rehab. Await placement 12/16/2020. Neurology recommends CTA of head and neck which is pending. Continue aspirin and Lipitor. Echocardiogram from 12/04 revealed EF of 55 to 60% with mild diastolic dysfunction and impaired relaxation. No evidence of PFO. 12/17/2020. Patient with history of remote CVA with left-sided contractures related and or aneurysm surgery but with questionable worsened right-sided weakness with possible new acute CVA. Patient cannot have MRI. 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 There is some collateral flow within the more distal segments. However, there appears to be a developing acute right-sided infarct within the frontal lobe and basal ganglia with edema. CTA of the neck reveals mild irregularity of the right carotid bulb with significant narrowing along the extent of more distal right cervical ICA with findings concerning for dissection. Consult vascular surgery for further evaluation. Neurology also following. Continue aspirin and Lipitor. 12/18/2020. Await vascular surgery recommendations regarding right internal carotid artery dissection. Continue current management for CVA. Check swallow evaluation with speech therapy. 12/19/2020. Neurology reports patient cannot have MRI. DAPT per vascular surgery recommendations. Speech therapy evaluated the patient and recommends modified barium swallow. Await MBS results. 12/20/2020. Continue DAPT per vascular surgery recommendations. Await MBS per speech therapy recommendation. Continue dysphagia pured diet with regular thin liquids per speech therapy. Physical therapy recommends subacute rehab. 12/21/20: Patient appears to be clinically stable, speech recommended pured diet which patient tolerating. No acute event overnight. Pending placement. 12/22/20: Patient is unable to swallow this morning and unable to speak. Keep n.p.o. for now start IV fluid hydration. Ordered for stat CT head which showed progression of white matter disease as compared to 12/04/20. We will reconsult neuro and continue to follow clinically. We will also notify vascular for further recommendation. 12/23/20: Speech recommended n.p.o. and possible PEG tube placement. Vascular surgery recommended to continue dual antiplatelet therapy. GI consulted for PEG placement. Continue PT OT eval, patient will need placement. Case management working on SNF placement. 12/24/2020; GI consulted and tried to place a PEG tube but was unsuccessful and Dr. Palmer was consulted and he said he will do the procedure today. Patient need SNF placement once PEG is placed. Patient is off Plavix for PEG tube placement. Patient has JAMES due to vasomotor nephropathy and patient is on IV fluids. I put a consult for nephrology. 12/25/2020 PEG tube placed by Dr. Palmer today. JAMES due to vasomotor nephropathy improving. Cr 1.2 today. Nephrology following. For SNF placement 12/26/2020 PEG tube placed yesterday by Dr. Palmer. Started tube feeding this morning. Cr 1.4 today. Nephrology following History Interval history: Patient non verbal PEG tube placed 12/25/20 Hospitalist Physical - Physical exam Narrative exam: Not in cardiopulmonary distress. Vital signs as documented. Head exam is unremarkable. No scleral icterus . Neck is without jugular venous distension, thyromegaly, or carotid bruits. Lungs are clear to auscultation. Cardiac exam reveals regular rate and Rhythm. Abdominal exam reveals normal bowel sounds, nontender, no organomegaly. Extremities are nonedematous and both femoral and pedal pulses are normal. BRIDGE RIGGER: Alert, Chronic left-sided weakness, left upper extremity is contracted. Patient was nonverbal - Constitutional Vitals: Temp Pulse Resp BP Pulse Ox 98.2 F 85 19 131/75 100 12/27/20 07:41 12/27/20 07:41 12/27/20 07:41 12/27/20 07:41 12/27/20 07:41 General appearance: Present: no acute distress HEART Score - HEART Score Troponin: Troponin T < 0.010 ng/mL (0.00-0.029) 12/04/20 14:20 Results - Labs CBC & Chem 7: 12/27/20 04:38 12/27/20 04:38 Labs: Laboratory Last Values WBC 14.6 K/mm3 (4.5-11.0) H 12/27/20 04:38 RBC 4.34 M/mm3 (3.65-5.03) 12/27/20 04:38 Hgb 12.9 gm/dl (10.1-14.3) 12/27/20 04:38 Hct 38.7 % (30.3-42.9) 12/27/20 04:38 MCV 89 fl (79-97) 12/27/20 04:38 MCH 30 pg (28-32) 12/27/20 04:38 MCHC 33 % (30-34) 12/27/20 04:38 RDW 14.3 % (13.2-15.2) 12/27/20 04:38 Plt Count 195 K/mm3 (140-440) 12/27/20 04:38 Lymph % (Auto) 27.0 % (13.4-35.0) 12/24/20 05:23 Boundary % (Auto) 7.7 % (0.0-7.3) H 12/24/20 05:23 Eos % (Auto) 1.0 % (0.0-4.3) 12/24/20 05:23 Baso % (Auto) 1.2 % (0.0-1.8) 12/24/20 05:23 Lymph # (Auto) 3.1 K/mm3 (1.2-5.4) 12/24/20 05:23 Boundary # (Auto) 0.9 K/mm3 (0.0-0.8) H 12/24/20 05:23 Eos # (Auto) 0.1 K/mm3 (0.0-0.4) 12/24/20 05:23 Baso # (Auto) 0.1 K/mm3 (0.0-0.1) 12/24/20 05:23 Add Manual Diff Complete 12/05/20 13:09 Total Counted 100 12/05/20 13:09 Seg Neutrophils % 63.1 % (40.0-70.0) 12/24/20 05:23 Seg Neuts % (Manual) 72.0 % (40.0-70.0) H 12/05/20 13:09 Lymphocytes % (Manual) 22.0 % (13.4-35.0) 12/05/20 13:09 Monocytes % (Manual) 6.0 % (0.0-7.3) 12/05/20 13:09 Nucleated RBC % Not Reportable 12/05/20 13:09 Seg Neutrophils # 7.2 K/mm3 (1.8-7.7) 12/24/20 05:23 Seg Neutrophils # Man 5.5 K/mm3 (1.8-7.7) 12/05/20 13:09 Band Neutrophils # 0.0 K/mm3 12/05/20 13:09 Lymphocytes # (Manual) 1.7 K/mm3 (1.2-5.4) 12/05/20 13:09 Abs React Lymphs (Man) 0.0 K/mm3 12/05/20 13:09 Monocytes # (Manual) 0.5 K/mm3 (0.0-0.8) 12/05/20 13:09 Eosinophils # (Manual) 0.0 K/mm3 (0.0-0.4) 12/05/20 13:09 Basophils # (Manual) 0.0 K/mm3 (0.0-0.1) 12/05/20 13:09 Metamyelocytes # 0.0 K/mm3 12/05/20 13:09 Myelocytes # 0.0 K/mm3 12/05/20 13:09 Promyelocytes # 0.0 K/mm3 12/05/20 13:09 Blast Cells # 0.0 K/mm3 12/05/20 13:09 WBC Morphology Not Reportable 12/05/20 13:09 WBC Morphology TNR 12/05/20 13:09 Hypersegmented Neuts Not Reportable 12/05/20 13:09 Hyposegmented Neuts Not Reportable 12/05/20 13:09 Hypogranular Neuts Not Reportable 12/05/20 13:09 Smudge Cells Not Reportable 12/05/20 13:09 Toxic Granulation Not Reportable 12/05/20 13:09 Toxic Vacuolation Not Reportable 12/05/20 13:09 Dohle Bodies Not Reportable 12/05/20 13:09 Pelger-Huet Anomaly Not Reportable 12/05/20 13:09 Brigida Rods Not Reportable 12/05/20 13:09 Platelet Estimate Not Reportable 12/05/20 13:09 Clumped Platelets Not Reportable 12/05/20 13:09 Plt Clumps, EDTA Not Reportable 12/05/20 13:09 Large Platelets Not Reportable 12/05/20 13:09 Giant Platelets Not Reportable 12/05/20 13:09 Platelet Satelliting Not Reportable 12/05/20 13:09 Plt Morphology Comment Not Reportable 12/05/20 13:09 RBC Morphology Normal 12/05/20 13:09 Dimorphic RBCs Not Reportable 12/05/20 13:09 Polychromasia Not Reportable 12/05/20 13:09 Hypochromasia Not Reportable 12/05/20 13:09 Poikilocytosis Not Reportable 12/05/20 13:09 Anisocytosis Not Reportable 12/05/20 13:09 Microcytosis Not Reportable 12/05/20 13:09 Macrocytosis Not Reportable 12/05/20 13:09 Spherocytes Not Reportable 12/05/20 13:09 Pappenheimer Bodies Not Reportable 12/05/20 13:09 Sickle Cells Not Reportable 12/05/20 13:09 Target Cells Not Reportable 12/05/20 13:09 Tear Drop Cells Not Reportable 12/05/20 13:09 Ovalocytes Not Reportable 12/05/20 13:09 Helmet Cells Not Reportable 12/05/20 13:09 Weston-Melba Bodies Not Reportable 12/05/20 13:09 [place] Rings Not Reportable 12/05/20 13:09 Moriarty Cells Not Reportable 12/05/20 13:09 Bite Cells Not Reportable 12/05/20 13:09 Crenated Cell Not Reportable 12/05/20 13:09 Elliptocytes Not Reportable 12/05/20 13:09 Acanthocytes (Spur) Not Reportable 12/05/20 13:09 Rouleaux Not Reportable 12/05/20 13:09 Hemoglobin C Crystals Not Reportable 12/05/20 13:09 Schistocytes Not Reportable 12/05/20 13:09 Malaria parasites Not Reportable 12/05/20 13:09 ESR 28 mm/Hr (0-20) 12/16/20 04:50 Chalo Bodies Not Reportable 12/05/20 13:09 Hem Pathologist Commnt No 12/05/20 13:09 PT 14.8 Sec. (12.2-14.9) 12/24/20 05:23 INR 1.11 (0.87-1.13) 12/24/20 05:23 APTT 32.5 Sec. (24.2-36.6) 12/04/20 08:58 Sodium 147 mmol/L (137-145) H 12/27/20 04:38 Potassium 3.8 mmol/L (3.6-5.0) 12/27/20 04:38 Chloride 106.9 mmol/L (98-107) 12/27/20 04:38 Carbon Dioxide 24 mmol/L (22-30) 12/27/20 04:38 Anion Gap 20 mmol/L 12/27/20 04:38 BUN 31 mg/dL (7-17) H 12/27/20 04:38 Creatinine 1.1 mg/dL (0.6-1.2) 12/27/20 04:38 Estimated GFR > 60 ml/min 12/27/20 04:38 BUN/Creatinine Ratio 28 % 12/27/20 04:38 Glucose 93 mg/dL (65-100) 12/27/20 04:38 POC Glucose 133 mg/dL (70-105) H 12/27/20 11:22 Calcium 9.5 mg/dL (8.4-10.2) 12/27/20 04:38 Total Bilirubin 0.40 mg/dL (0.1-1.2) 12/04/20 08:58 AST 27 units/L (5-40) 12/04/20 08:58 ALT 30 units/L (7-56) 12/04/20 08:58 Alkaline Phosphatase 126 units/L (35-129) 12/04/20 08:58 Troponin T < 0.010 ng/mL (0.00-0.029) 12/04/20 14:20 Total Protein 7.9 g/dL (6.3-8.2) 12/04/20 08:58 Albumin 3.5 g/dL (3.9-5) L 12/04/20 08:58 Albumin/Globulin Ratio 0.8 % 12/04/20 08:58 Triglycerides 160 mg/dL (2-149) H 12/05/20 04:00 Cholesterol 177 mg/dL (50-199) 12/05/20 04:00 LDL Cholesterol Direct 116 mg/dL (50-130) 12/05/20 04:00 HDL Cholesterol 41 mg/dL (40-59) 12/05/20 04:00 Cholesterol/HDL Ratio 4.31 % 12/05/20 04:00 TSH 0.736 mlU/mL (0.270-4.200) 12/16/20 04:50 Urine Color Yellow (Yellow) 12/04/20 Unknown Urine Turbidity Clear (Clear) 12/04/20 Unknown Urine pH 5.0 (5.0-7.0) 12/04/20 Unknown Ur Specific Royal 1.016 (1.003-1.030) 12/04/20 Unknown Urine Protein <15 mg/dl mg/dL (Negative) 12/04/20 Unknown Urine Glucose (UA) Neg mg/dL (Negative) 12/04/20 Unknown Urine Ketones Neg mg/dL (Negative) 12/04/20 Unknown Urine Blood Neg (Negative) 12/04/20 Unknown Urine Nitrite Neg (Negative) 12/04/20 Unknown Urine Bilirubin Neg (Negative) 12/04/20 Unknown Urine Urobilinogen < 2.0 mg/dL (<2.0) 12/04/20 Unknown Ur Leukocyte Esterase Neg (Negative) 12/04/20 Unknown Urine WBC (Auto) 1.0 /HPF (0.0-6.0) 12/04/20 Unknown Urine RBC (Auto) 2.0 /HPF (0.0-6.0) 12/04/20 Unknown U Epithel Cells (Auto) 1.0 /HPF (0-13.0) 12/04/20 Unknown Urine Mucus Few /HPF 12/04/20 Unknown Coronavirus (PCR) Negative (Negative) 12/05/20 Unknown Roberts/IV: Voiding Method External Female Catheter Active Medications - Current Medications Current Medications: Generic Name Dose Route Start Last Admin Trade Name Freq PRN Reason Stop Dose Admin Acetaminophen 650 mg 12/04/20 12:57 12/26/20 23:20 Acetaminophen 325 Mg Tab PO 650 mg Q4H PRN Administration Pain MILD(1-3)/Fever >100.5/PASTOR Albuterol 2.5 mg 12/24/20 10:00 12/25/20 05:32 Albuterol 2.5 Mg/3 Ml Nebu IH 2.5 mg Q4HRT PRN Administration Shortness Of Breath Lipase/Protease/Amylase 1 each 12/25/20 11:10 Lipase 10,500/Protease 25,000/Amylase 43,750 (Units) Dr Martinez FEEDTUBE PRN PRN For Clogged Feeding Tube Atorvastatin Calcium 40 mg 12/04/20 22:00 12/26/20 23:19 Atorvastatin 40 Mg Tab PO 40 mg QHS MACKENZIE Administration Carbamide Peroxide 5 drops 12/05/20 10:00 12/27/20 09:29 Carbamide Peroxide 6.5% Otic Drops 15 Ml AU 5 drops BID MACKENZIE Administration Carvedilol 6.25 mg 12/04/20 22:00 12/27/20 09:28 Carvedilol 6.25 Mg Tab PO 6.25 mg BID MACKENZIE Administration Famotidine 20 mg 12/27/20 22:00 Famotidine 20 Mg Tab PO BID MACKENZIE Heparin Sodium (Porcine) 5,000 unit 12/04/20 14:00 12/27/20 06:35 Heparin 5,000 Unit/1 Ml Vial SUB-Q 5,000 unit Q8HR MACKENZIE Administration Labetalol HCl 10 mg 12/04/20 12:57 Labetalol 20 Mg/4 Ml Inj IV Q5MIN PRN to maintain SBP < 180 Nicotine 14 mg 12/06/20 11:00 12/27/20 09:28 Nicotine 14 Mg/24 Hr Patch TD 14 mg QDAY MACKENZIE Administration Ondansetron HCl 4 mg 12/04/20 12:57 Ondansetron 4 Mg/2 Ml Inj IV Q8H PRN Nausea And Vomiting Simple Syrup 15 ml 12/25/20 11:10 Simple Syrup 15 Ml FEEDTUBE PRN PRN Hypoglycemia Simple Syrup 30 ml 12/25/20 11:10 Simple Syrup 15 Ml FEEDTUBE PRN PRN Hypoglycemia Sodium Bicarbonate 325 mg 12/25/20 11:10 Sodium Bicarbonate 325 Mg Tab FEEDTUBE PRN PRN For Clogged Feeding Tube Sodium Chloride 10 ml 12/04/20 22:00 12/26/20 23:20 Sodium Chloride 0.9% 10 Ml Flush Syringe IV 10 ml BID MACKENZIE Administration Sodium Chloride 10 ml 12/04/20 12:57 Sodium Chloride 0.9% 10 Ml Flush Syringe IV PRN PRN LINE FLUSH Nutrition/Malnutrition Assess - Dietary Evaluation Nutrition/Malnutrition Findings: Nutrition Notes Start: 12/14/20 14:12 Freq: Status: Active Protocol: Document 12/25/20 11:00 CW (Rec: 12/25/20 11:10 CW [id number]) Nutrition Notes Need for Assessment generated from: MD Order Initial or Follow up Assessment Current Diagnosis Heart Failure,Stroke Other Pertinent Diagnosis dysphagia Current Diet NPO Labs/Tests 12/25 Na 147 BUN 37 Pertinent Medications lasix Height 5 ft Weight 77.5 kg [place] Body Weight (kg) 45.45 BMI 33.3 Weight change and time frame weight change related to fluid Subjective/Other Information MD consult for write/manage TF . Pt had lapses of abilityu to swallowing. Pt diagnosed with dysphagia on 12/22 with speech recommendation on 12/23 for a PEG tube placement. PEG tube unable to be placed. Pt currently with dobhoff. Recommend initiating TF regimen. Percent of energy/protein needs met: 0%/0% Burn Absent Trauma Absent GI Symptoms None Difficulty In Swallowing Current % PO Negligible Minimum of two criteria No physical signs of malnutrition #1 Nutrition Diagnosis Inadequate oral intake Etiology onset of dysphagia As Evidenced by Signs and Symptoms Pt decleared NPO after failing swallow eval Is patient on ventilator? No Is Patient Ambulatory and/or Out of Bed No REE-([facility]-confined to bed) 1565.964 Kcal/Kg value to use for calculation 16 Approximate Energy Requirements Using 1240 kcal/Kg Calculation Used for Recommendations Kcal/kg Additional Notes protein needs:62 - 78g (0.8 - 1 g/kgBW) fluid needs: 1 ml/kcal or per MD Nutrition Intervention Change Diet Order: Initiate Nutrition support: TF Nutrition Support: Jevity 1.2 at 45 ml/hr with a free water flush of 150 ml q4h for hypernatremia. Once hypernatremia resolves, resume free water flush of 70 ml q4h . Kcal 1,296 Protein (gm) 60 Fluid (mL) 872 Goal #1 Meet at leat 75% of kcal and protein needs via TF Anticipated Discharge Needs: TF regimen Follow-Up By: 12/27/20 Additional Comments F/U for TF start and tolerance
--- NOTE | 2020-12-27 13:23 | Progress Note ---
Assessment and Plan # JAMES: creatinine 0.8 in late November 2019; now 2.8->2.0->1.2->1.4>1.1, suspect etiology was pre-renal injury given poor po intake and renal function improved with IVF - start PO flushes 250 mg q4g - BP now stable, may need to hold carvedilol if systolic below 110 - avoid nephrotoxins - renally dose medications - follow urine output as able - no indication for biopsy or renal replacement therapy #Hypernatremia, free water flushes ordered as above # Acute CVA, Right ICA Dissection. Patient with history of remote CVA with left-sided contractures - on ASA 325 mg, Plavix 75 mg and Lipitor 40 mg - PEG tube placement noted for dysphagia, note GI and surgery notes # History of aneurysm s/p surgery, supportive care # HTN: BP reasonable currently, avoid relative hypotension, currently off home MICHELLE-I and HCTZ, can restart once renal function back to baseline and bp permits #Will monitor peripherally. Subjective Date of service: 12/27/20 Principal diagnosis: CVA Interval history: Somnolent. Nonverbal. Objective - Exam Narrative Exam: General: No acute distress Neck: Supple, no JVD Chest: Clear to auscultation bilaterally Heart: RRR, S1 and S2, no pericardial rub Abdomen: Soft, nontender, no renal bruit Extremity: No peripheral cyanosis, no edema Neurological: Somnolent. Nonverbal. Left-sided weakness. Dermatology: No skin rash Psych: No agitation Musculoskeletal: No joint effusion - Vital Signs Vital signs: Vital Signs - 12hr 12/27/20 12/27/20 12/27/20 03:27 04:00 07:41 Temperature 98.2 F 98.2 F Pulse Rate 90 85 85 Respiratory 18 19 Rate Blood Pressure 120/81 131/75 O2 Sat by Pulse 100 100 Oximetry 12/27/20 12:12 Temperature 98.1 F Pulse Rate 81 Respiratory 19 Rate Blood Pressure 112/82 O2 Sat by Pulse 100 Oximetry - Lab 12/27/20 04:38 12/27/20 04:38 Most recent lab results Calcium 9.5 mg/dL (8.4-10.2) 12/27/20 04:38 Medications & Allergies - Medications Allergies/Adverse Reactions: Allergies No Known Allergies Allergy (Verified 12/08/20 06:26) Home Medications: Home Medications Medication Instructions Recorded Confirmed Last Taken Type hydroCHLOROthiazide [HCTZ] 25 mg PO QDAY #30 tablet 08/16/20 12/04/20 Unknown Rx carvediloL [Coreg] 6.25 mg PO BID 12/04/20 12/04/20 Unknown History lisinopriL [Lisinopril] 20 mg PO QDAY 12/04/20 12/04/20 Unknown History Active Medications: Generic Name Dose Route Start Last Admin Trade Name Freq PRN Reason Stop Dose Admin Acetaminophen 650 mg 12/04/20 12:57 12/26/20 23:20 Acetaminophen 325 Mg Tab PO 650 mg Q4H PRN Administration Pain MILD(1-3)/Fever >100.5/PASTOR Albuterol 2.5 mg 12/24/20 10:00 12/25/20 05:32 Albuterol 2.5 Mg/3 Ml Nebu IH 2.5 mg Q4HRT PRN Administration Shortness Of Breath Lipase/Protease/Amylase 1 each 12/25/20 11:10 Lipase 10,500/Protease 25,000/Amylase 43,750 (Units) Dr Martinez FEEDTUBE PRN PRN For Clogged Feeding Tube Atorvastatin Calcium 40 mg 12/04/20 22:00 12/26/20 23:19 Atorvastatin 40 Mg Tab PO 40 mg QHS MACKENZIE Administration Carbamide Peroxide 5 drops 12/05/20 10:00 12/27/20 09:29 Carbamide Peroxide 6.5% Otic Drops 15 Ml AU 5 drops BID MACKENZIE Administration Carvedilol 6.25 mg 12/04/20 22:00 12/27/20 09:28 Carvedilol 6.25 Mg Tab PO 6.25 mg BID MACKENZIE Administration Famotidine 20 mg 12/27/20 22:00 Famotidine 20 Mg Tab PO BID MACKENZIE Heparin Sodium (Porcine) 5,000 unit 12/04/20 14:00 12/27/20 06:35 Heparin 5,000 Unit/1 Ml Vial SUB-Q 5,000 unit Q8HR MACKENZIE Administration Labetalol HCl 10 mg 12/04/20 12:57 Labetalol 20 Mg/4 Ml Inj IV Q5MIN PRN to maintain SBP < 180 Nicotine 14 mg 12/06/20 11:00 12/27/20 09:28 Nicotine 14 Mg/24 Hr Patch TD 14 mg QDAY MACKENZIE Administration Ondansetron HCl 4 mg 12/04/20 12:57 Ondansetron 4 Mg/2 Ml Inj IV Q8H PRN Nausea And Vomiting Simple Syrup 15 ml 12/25/20 11:10 Simple Syrup 15 Ml FEEDTUBE PRN PRN Hypoglycemia Simple Syrup 30 ml 12/25/20 11:10 Simple Syrup 15 Ml FEEDTUBE PRN PRN Hypoglycemia Sodium Bicarbonate 325 mg 12/25/20 11:10 Sodium Bicarbonate 325 Mg Tab FEEDTUBE PRN PRN For Clogged Feeding Tube Sodium Chloride 10 ml 12/04/20 22:00 12/26/20 23:20 Sodium Chloride 0.9% 10 Ml Flush Syringe IV 10 ml BID MACKENZIE Administration Sodium Chloride 10 ml 12/04/20 12:57 Sodium Chloride 0.9% 10 Ml Flush Syringe IV PRN PRN LINE FLUSH
--- NOTE | 2020-12-27 14:50 | Discharge Summary ---
Providers - Providers Date of Admission: 12/07/20 16:28 Date of discharge: 12/27/20 Attending physician: BHARAT OLMSTEAD 12/04/20 12:58 Occupational Therapy Evaluate and Treat [CONS] Routine Comment: Reason For Exam: Neuro deficits Physical Therapy Evaluation and Treat [CONS] Routine Comment: Reason For Exam: Neuro deficits 12/07/20 09:10 Consult to Physician [CONS] Routine Comment: Consulting Provider: CARMEN HANLEY Physician Instructions: Reason For Exam: cva 12/15/20 08:41 Consult to Physician [CONS] Routine Comment: Consulting Provider: CARMEN HANLEY Physician Instructions: Reason For Exam: cva 12/15/20 17:48 Consult to PICC Line RN [CONS] Routine Reason For Exam: CT SCAN Type Line:: Midline 12/17/20 09:27 Consult to Physician [CONS] Routine Comment: Consulting Provider: WILL IRWIN Physician Instructions: Reason For Exam: concern of Right ICA dissection 12/18/20 09:40 Speech Therapy Evaluation and Treat [CONS] Routine Reason For Exam: Swallow evaluation 12/22/20 11:04 Speech Therapy Evaluation and Treat [CONS] Routine Reason For Exam: declining dysphagia 12/22/20 14:18 Consult to Physician [CONS] Routine Comment: Consulting Provider: CARMEN HANLEY Physician Instructions: Reason For Exam: progression of CVA 12/23/20 12:41 Consult to Physician [CONS] Routine Comment: Consulting Provider: BENJI PRAKASH Physician Instructions: Reason For Exam: PEG placement 12/24/20 09:31 Consult to Physician [CONS] Routine Comment: Consulting Provider: JEYSON BRITO Physician Instructions: Reason For Exam: JAMES 12/24/20 12:54 Consult to Physician [CONS] Routine Comment: Consulting Provider: ELIZABETH PALMER Physician Instructions: Reason For Exam: Feeding tube 12/24/20 13:10 Consult to Dietitian/Nutrition [CONS] Routine Physician Instructions: Reason For Exam: Reason for Consult: Write/Manage Tube Feeding Primary care physician: BARREL PLATER Hospitalization Condition: Fair Hospital course: 55-year-old -[place] female with past medical history of hypertension, CVA, CHF and cataract was brought to the emergency room because of a 2-week history of some right upper extremity weakness, worse than the hand. The patient says that she had two different falls about 2 weeks ago. She also feels that there has been some slight change in her speech since that time. She denies any headache, vision change, numbness, fever, chest pain, shortness of breath. When asked why she waited so long to come in to be seen, the patient says "I thought that I was fine", but the patient's sister made her realize that she needed to be evaluated. She is a tobacco smoker. She has a past medical history of hypertension, CHF, and she has a previous stroke in 2007 that caused her to have residual left-sided weakness. The patient also says that she has a history of a brain aneurysm. She does not know if it was coiled or what type of surgical intervention occurred other than "they took six blood clots off my brain."Initial CT scan of the head shows no acute intracranial bleed or large acute infarction. 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 Patient seen and evaluated by telemetry neurology in the emergency room Acute CVA. Patient with history of remote CVA with left-sided contractures -she is on ASA 325 mg, Plavix 75 mg and Lipitor 40 mg CTA head/neck 12/16/20: occlusion of the communicating segment of the right ICA as well as the proximal right MCA and LIBIA. a developing acute right-sided infarct within the frontal lobe and basal ganglia with edema. mild irregularity of the right carotid bulb with significant narrowing along the extent of more distal right cervical ICA with findings concerning for dissection. CT head 12/22/20: There appears be some interval progression of the cerebral white matter disease along the left centrum semiovale from 12/04/2020 Dysphagia, GI consulted for PEG tube replacement History of aneurysm status post surgery, supportive care Right hemiparesis, PT OT Right ICA dissection. Vascular recommended DAPT Chronic CHF with preserved EF. Patient is euvolemic, continue supportive care Hypertension, monitor BP and adjust medications as needed Tobacco abuse, counseled for cessation initially following admission DVT prophylaxis: On heparin Brief History: The patient is a 55-year-old female with h/o prior CVA with residual weakness in her left upper extremity, HTN, CHF, HLD who was brought to the emergency department via EMS with complaints of 2-week history of right upper extremity weakness. She also has a history of a brain aneurysm that required surgical intervention. Her work-up revealed no significant stenosis of her left carotid artery however there was a suggestion of right internal carotid artery dissection. At this time she still has some residual right upper extremity weakness however it is improving. Vascular and neurology following. Daily clinical course: 12/14/2020. CT scan reveals no intracranial bleed or large acute territorial infarction. 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 Await MRI of brain. Consult neurology. Continue aspirin and Lipitor. 12/15/2020. Await MRI and neurology consultation. Continue aspirin and Lipitor. Physical therapy recommends subacute rehab. Await placement 12/16/2020. Neurology recommends CTA of head and neck which is pending. Continue aspirin and Lipitor. Echocardiogram from 12/04 revealed EF of 55 to 60% with mild diastolic dysfunction and impaired relaxation. No evidence of PFO. 12/17/2020. Patient with history of remote CVA with left-sided contractures related and or aneurysm surgery but with questionable worsened right-sided weakness with possible new acute CVA. Patient cannot have MRI. 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 There is some collateral flow within the more distal segments. However, there appears to be a developing acute right-sided infarct within the frontal lobe and basal ganglia with edema. CTA of the neck reveals mild irregularity of the right carotid bulb with significant narrowing along the extent of more distal right cervical ICA with findings concerning for dissection. Consult vascular surgery for further evaluation. Neurology also following. Continue aspirin and Lipitor. 12/18/2020. Await vascular surgery recommendations regarding right internal carotid artery dissection. Continue current management for CVA. Check swallow evaluation with speech therapy. 12/19/2020. Neurology reports patient cannot have MRI. DAPT per vascular s urgery recommendations. Speech therapy evaluated the patient and recommends modified barium swallow. Await MBS results. 12/20/2020. Continue DAPT per vascular surgery recommendations. Await MBS per speech therapy recommendation. Continue dysphagia pured diet with regular thin liquids per speech therapy. Physical therapy recommends subacute rehab. 12/21/20: Patient appears to be clinically stable, speech recommended pured diet which patient tolerating. No acute event overnight. Pending placement. 12/22/20: Patient is unable to swallow this morning and unable to speak. Keep n.p.o. for now start IV fluid hydration. Ordered for stat CT head which showed progression of white matter disease as compared to 12/04/20. We will reconsult neuro and continue to follow clinically. We will also notify vascular for further recommendation. 12/23/20: Speech recommended n.p.o. and possible PEG tube placement. Vascular surgery recommended to continue dual antiplatelet therapy. GI consulted for PEG placement. Continue PT OT eval, patient will need placement. Case management working on SNF placement. 12/24/2020; GI consulted and tried to place a PEG tube but was unsuccessful and Dr. Palmer was consulted and he said he will do the procedure today. Patient need SNF placement once PEG is placed. Patient is off Plavix for PEG tube placement. Patient has JAMES due to vasomotor nephropathy and patient is on IV fluids. I put a consult for nephrology. 12/25/[address] PEG tube [address] Dr[address] Palmer today. JAMES due to vasomotor nephropathy improving. Cr 1.2 today. Nephrology following. For SNF placement 12/26/2020 PEG tube placed yesterday by Dr. Palmer. Started tube feeding this morning. Cr 1.4 today. Nephrology following 12/27/2020 Patient with acute ischemic stroke. Could not do MRI Brain because of contraindication. PEG tube placed. She is stable to discharge to SNF. Disposition: [id number] SNF W [facility] CERT Final Discharge Diagnosis (Prints w/discharge instructions): 1.Acute ischemic stroke. 2.JAMES. 3.UTI Time spent for discharge: 45 mins - Discharge Diagnoses (1) CVA (cerebral vascular accident) Status: Acute Qualifiers: CVA mechanism: unspecified Qualified Code(s): I63.9 - Cerebral infarction, unspecified (2) Hypertension Status: Chronic Qualifiers: Hypertension type: essential hypertension (3) JAMES (acute kidney injury) Status: Acute Comment: Due to vasomotor nephropathy (4) UTI (urinary tract infection) Status: Acute (5) Internal carotid artery dissection Status: Acute Core Measure Documentation - Palliative Care Palliative Care/ Comfort Measures: Not Applicable - Core Measures Any of the following diagnoses?: stroke - Stroke Discharge Requirements Statin for LDL = or >70 mg/dl on DC: Yes Anticoag for atrial fib/atrial flutter: Not Applicable Antithrombotic for ischemic stroke: Yes Exam - Constitutional Vitals: Temp Pulse Resp BP Pulse Ox 98.1 F 81 19 112/82 100 12/27/20 12:12 12/27/20 12:12 12/27/20 12:12 12/27/20 12:12 12/27/20 12:12 Plan Activity: advance as tolerated Diet: other (Tube feeding) Plan of Treatment: 1.Follow up with Physician at SNF in 2-3 days 2.Repeat BMP in 3-5 days Follow up with: PRIMARY CARE, [Primary Care Provider] - 3-5 Days Prescriptions: Aspirin 325 mg PO QDAY #30 tablet levoFLOXacin [Levaquin TAB] 500 mg FEEDTUBE QDAY 6 Days #6 tablet AtorvaSTATin [Lipitor] 40 mg PO QHS #30 tablet Famotidine [Pepcid] 20 mg PO BID #60 tablet Clopidogrel [Plavix] 75 mg PO QDAY #30 tablet
[2020-12-27 14:54] LABS: Bilirubin,Urine NEG (Negative); Blood,Urine NEG (Negative); Color,Urine Amber (Yellow); Hyaline Casts,Urine 1 /LPF; Mucus,Urine FEW /HPF
[2020-12-27] MEDS ORDERED: levoFLOXacin 500 MG TAB PO SCH (15:00)
[2020-12-27 20:52] VITALS: BP 97/71
[2020-12-27] MEDS ORDERED: FAMOTIDINE 20 MG TAB PO SCH (22:00)
== END 2020-12-27 22:00 | DRG 64 ==
LOC: ED 07:04 → 4A 10:15 → INTOOBSV 10:15 → OBSVTOIN 12-07 16:28
PROVIDERS: ADMIT Hospitalist; ATTEND Internal Medicine
PROC: 0DJ08ZZ Inspection of Upper Intestinal Tract, Via Natural or Artificial Opening Endoscopic (ICD-10-PCS; principal; 2020-12-24)
PROC: 0DH63UZ Insertion of Feeding Device into Stomach, Percutaneous Approach (ICD-10-PCS; 2020-12-25)
DX: I63.9 Cerebral infarction, unspecified (principal); I77.71 Dissection of carotid artery; N17.0 Acute kidney failure with tubular necrosis; G95.9 Disease of spinal cord, unspecified; G81.91 Hemiplegia, unspecified affecting right dominant side; I50.32 Chronic diastolic (congestive) heart failure; N39.0 Urinary tract infection, site not specified; E87.0 Hyperosmolality and hypernatremia; N17.9 Acute kidney failure, unspecified; I11.0 Hypertensive heart disease with heart failure; E78.5 Hyperlipidemia, unspecified; R26.81 Unsteadiness on feet; R13.19 Other dysphagia; F17.200 Nicotine dependence, unspecified, uncomplicated; Z79.899 Other long term (current) drug therapy; K44.9 Diaphragmatic hernia without obstruction or gangrene; Z71.6 Tobacco abuse counseling; Z20.822 Contact with and (suspected) exposure to COVID-19
CPT/HCPCS: 36415; 70450; 70496; 70498; 71045; 72125; 74018; 80048; 80053; 80061; 81001; 82962; 84443; 84484; 85007; 85025; 85027; 85610; 85652; 85730; 87086; 90732; 93005; 93306; 94640; 99406; G0378; A9270-GY; J0330; J1100; J1644; J1940; J2370; J2405; J2704; J3010; J7042; J7120; Q9967; U0003